=== PATIENT | female | born 1935 | race Caucasian/White ===

== ENCOUNTER 2016-09-16 16:42 | Inpatient (IN) | payer OTHER ==
--- NOTE | 2016-09-16 16:50 | PDOC ---
History of Present Illness - General History Source: Patient Exam Limitations: No Limitations - History of Present Illness Initial Comments: 09/16/16 16:58 The patient is a 80 year old female with a significant past medical history of dementia, Parkinson's, anemia, hyperthyroidism, chronic left lower extremity cellulitis and swelling, and prior syncopal episodes, who was recently admitted with a stroke/TIA, who presents to the ED for intermittent left leg itching, redness, and pain since today. Patient denies any other complaints. Patient denies chest pain, fever, chills, nausea, vomiting, diarrhea, constipation, dysuria, hematuria. Patient lives at home with health aid. PSH: Hysterectomy <Nolberto Michael - Last Filed: 09/16/16 19:18> - General History Source: Patient Exam Limitations: No Limitations <Radha Ghotra - Last Filed: 09/18/16 09:36> - General Chief Complaint: Pain Stated Complaint: LEFT LEG PAIN, SWELLING Time Seen by Provider: 09/16/16 16:50 Past History <Nolberto Michael - Last Filed: 09/16/16 19:18> - Past Medical History Anemia: Yes (normocytic normochromic anemia) Asthma: No Cancer: No Cardiac Disorders: Yes (LBBB) CVA: No COPD: No CHF: No Dementia: Yes Diabetes: No GI Disorders: No Disorders: No HTN: Yes Hypercholesterolemia: No Liver Disease: No Seizures: No Thyroid Disease: Yes (HYPERTHYROID) - Surgical History Abdominal Surgery: No Appendectomy: No Cardiac Surgery: No Cholecystectomy: No Lung Surgery: No Neurologic Surgery: No Orthopedic Surgery: No - Psycho/Social/Smoking Cessation Hx Anxiety: No Suicidal Ideation: No Smoking Status: No Smoking History: Never smoked Have you smoked in the past 12 months: No Number of Cigarettes Smoked Daily: 0 Hx Alcohol Use: No Drug/Substance Use Hx: No Substance Use Type: Alcohol Hx Substance Use Treatment: No <Radha Ghotra - Last Filed: 09/18/16 09:36> - Past Medical History Allergies/Adverse Reactions: Allergies Allergy/AdvReac Type Severity Reaction Status Date / Time amoxicillin [Amoxicillin] Allergy Unknown Verified 09/16/16 16:45 loracarbef [From Lorabid] Allergy Unknown Verified 09/16/16 16:45 prochlorperazine edisylate Allergy Unknown Verified 09/16/16 16:45 [From Compazine] prochlorperazine maleate Allergy Unknown Verified 09/16/16 16:45 [From Compazine] promethazine HCl Allergy Unknown Verified 09/16/16 16:45 [From Phenergan] Home Medications: Ambulatory Orders Gabapentin [Neurontin -] 100 mg PO HS #0 capsule 10/02/14 Methimazole [Tapazole -] 2.5 mg PO Q48H #0 tablet 10/02/14 Carbidopa/Levodopa [Carbidopa-Levo 25-100 Tab] 2 each PO TID 12/26/14 Quetiapine Fumarate [Seroquel -] 12.5 mg PO HS 06/12/16 Atorvastatin Ca [Lipitor] 10 mg PO HS #30 tablet 06/13/16 Review of Systems - Review of Systems Able to Perform ROS?: Yes Comments:: 09/16/16 16:58 GENERAL/CONSTITUTIONAL: No: fever, chills, weakness, loss of appetite. HEAD, EYES, EARS, NOSE AND THROAT: No: change in vision, ear pain, discharge, sore throat, throat swelling. CARDIOVASCULAR: No: chest pain, lightheadedness, palpitations, syncope RESPIRATORY: No: cough, shortness of breath, wheezing, hemoptysis, stridor. GASTROINTESTINAL: No: nausea, vomiting, abdominal cramping, diarrhea, rectal bleeding, constipation. GENITOURINARY: No: dysuria, hematuria, frequency, urgency, flank pain. MUSCULOSKELETAL: No: back pain, neck pain, joint pain. EXTREMITIES: left leg pain, itching, and redness. SKIN AND BREASTS: No: lesions, pallor, rash or easy bruising. NEUROLOGIC: No: headache, vertigo, paresthesias, weakness ENDOCRINE: No: unexplained weight gain or loss HEMATOLOGIC/LYMPHATIC: No: anemia, easy bleeding, swelling nodes <Nolberto Michael - Last Filed: 09/16/16 19:18> *Physical Exam - Vital Signs Last Vital Signs Temp Pulse Resp BP Pulse Ox 97.8 F 71 18 161/83 99 09/16/16 16:42 09/16/16 16:42 09/16/16 16:42 09/16/16 16:42 09/16/16 16:42 - Physical Exam Comments: 09/16/16 16:59 GENERAL: The patient is in no acute distress. HEAD: Normal with no signs of trauma. EYES: PERRLA, EOMI, sclera anicteric, conjunctiva clear. ENT: Ears normal, nares patent, oropharynx clear without exudates. Moist mucous membranes. NECK: Normal range of motion, supple without lymphadenopathy, JVD, or masses. LUNGS: Breath sounds equal, clear to auscultation bilaterally. No wheezes, and no crackles. HEART:Regular rate and rhythm, normal S1 and S2 without murmur, rub or gallop. ABDOMEN: Soft, nontender, normoactive bowel sounds. No guarding, no rebound. EXTREMITIES: Lower left extremity: 3+ pitting edema, is erythematous, Not warm to touch. Honey crusting. normal range of motion. Sensation in-tact. All other extremities are normal. NEUROLOGICAL: Cranial nerves II through XII grossly intact. Normal speech. No focal neurological deficits. MUSCULOSKELETAL: Back non-tender to palpation, no CVA tenderness SKIN: Warm, Dry, normal turgor, no rashes or lesions noted. <Nolberto Michael - Last Filed: 09/16/16 19:18> Heart Score/ECG Review - ECG Intrepretation Comment:: Normal Sinus Rhythm, 71 bpm. Possible left atrial enlargement. Left axis deviation. Left ventricular hypertrophy. Septal infarct, age undetermined. Abnormal ECG. <Nolberto Michael - Last Filed: 09/16/16 19:18> ED Treatment Course - LABORATORY CBC & Chemistry Diagram: 09/16/16 17:30 09/16/16 17:30 <Nolberto Michael - Last Filed: 09/16/16 19:18> - LABORATORY CBC & Chemistry Diagram: 09/17/16 05:00 09/17/16 05:00 <Radha Ghotra - Last Filed: 09/18/16 09:36> Medical Decision Making - Medical Decision Making 09/16/16 16:50 A portion of this note was documented by scribe services under my direction. I have reviewed the details of the note, within reason, and agree with the documentation with the following case summary and management plan written by me. Nursing documentation reviewed and incorporated into medical decision making 09/16/16 16:52 This is a 80yo F w/a a history of dementia, Parkinson's, anemia, hyperthyroidism , chronic left lower extremity cellulitis and swelling, and prior syncopal episodes who was brought in to the ER by the [employer] due to itching of the left lower extremity Per chart review, pt has chronic LLE cellulitis Pt [employer] states her skin is typically not erythematous She has not have fevers or chills No new trauma, though, pt has been noted to be itching her leg No new exposure 09/16/16 16:54 DD: Cellulitis, impetigo, chronic lower extremity edema, DVT Will do labs Will do duplex Will discharge with Muprocin and po abx I have asked pt [employer] to take pictures of her leg and bring them for re evaluation in 2-3 days with her PMD 09/16/16 18:35 Laboratory Tests 09/16/16 09/16/16 17:30 17:30 WBC 6.7 Hgb 10.5 L Hct 31.8 L Plt Count 413 Neutrophils % 78.7 Monocytes % 5.4 Sodium 137 Potassium 4.9 Chloride 104 BUN 27 H D Creatinine 1.0 D Random Glucose 109 H D 09/16/16 18:44 Will do a dose of Vancomycin Will consult hospitalist Pt very erythematous Possible admission 09/16/16 18:46 <Radha Ghotra - Last Filed: 09/18/16 09:36> *DC/Admit/Observation/Transfer - Attestations Scribe Attestion: 09/16/16 17:06 Documentation prepared by Nolberto Michael, acting as medical practice manager for Radha Ghotra MD. <Nolberto Michael - Last Filed: 09/16/16 19:18> <Radha Ghotra - Last Filed: 09/18/16 09:36> Diagnosis at time of Disposition: Left leg cellulitis - Discharge Dispostion Condition at time of disposition: Stable
[2016-09-16 17:51] LABS: BASOPHIL 0.7 % (0-2.0); EOSINOPHIL 1.6 % (0-4.5); MCH 30.5 pg (25.7-33.7); MEAN CELL VOLUME 92.4 fl (80-96); MEAN PLT VOLUME 7.3 fl (7.5-11.1); NEUTROPHILS 78.7 % (42.8-82.8); PLATELET COUNT 413 K/MM3 (134-434); RDW 13.5 % (11.6-15.6); WHITE BLOOD COUNT 6.7 K/mm3 (4.0-10.0)
[2016-09-16 18:01] LABS: ALBUMIN 3.6 g/dl (3.5-5.0); ALK PHOS 71 U/L (32-92); ANION GAP 8 (8-16); BILIRUBIN,TOTAL 0.2 mg/dl (0.2-1.0); CALCIUM 8.9 mg/dl (8.4-10.2); CO2 25 mmol/L (22-28); GLUCOSE,RANDOM 109 mg/dl (74-106); SGOT/AST 26 U/L (10-42)
[2016-09-16 18:26] LABS: SGPT/ALT < 10 U/L (10-40)
[2016-09-16] MEDS ORDERED: VANCOMYCIN 1,000 MG in DEXTROSE 5%-WATER - 250 ML IVPB ONE (18:45)
[2016-09-16] MEDS ORDERED: VANCOMYCIN 1,000 MG VIAL (RESTRICTED TO ID ONLY) ONE (18:48)
--- NOTE | 2016-09-16 19:38 | PDOC ---
*Physical Exam - Vital Signs Last Vital Signs Temp Pulse Resp BP Pulse Ox 97.8 F 71 18 161/83 99 09/16/16 16:42 09/16/16 16:42 09/16/16 16:42 09/16/16 16:42 09/16/16 16:42 ED Treatment Course - LABORATORY CBC & Chemistry Diagram: 09/16/16 17:30 09/16/16 17:30 - ADDITIONAL ORDERS Additional order review: Laboratory Results 09/16/16 17:30 Sodium 137 Potassium 4.9 Chloride 104 Carbon Dioxide 25 Anion Gap 8 BUN 27 H D Creatinine 1.0 D Creat Clearance w eGFR 53.62 Random Glucose 109 H D Calcium 8.9 Total Bilirubin 0.2 D AST 26 D ALT < 10 L D Alkaline Phosphatase 71 D Total Protein 7.0 Albumin 3.6 09/16/16 17:30 RBC 3.45 L MCV 92.4 MCHC 33.0 RDW 13.5 MPV 7.3 L Neutrophils % 78.7 Lymphocytes % 13.6 D Monocytes % 5.4 Eosinophils % 1.6 Basophils % 0.7 Progress Note - Progress Note Progress Note: Care of this patient received from Dr. Ghotra. 80-year-old patient has a history of intermittent lower extremity cellulitis. She is brought into the ER by her home health aid with several day history of progressive edema and erythema of the left lower leg, consistent with acute cellulitis. Patient was given vancomycin 1 g IV, while in the ER. Case discussed with Lupe PINEDA, from [facility] service. Patient will be admitted for treatment of her cellulitis . *DC/Admit/Observation/Transfer Diagnosis at time of Disposition: Left leg cellulitis - Discharge Dispostion Condition at time of disposition: Stable Admit: Yes
--- NOTE | 2016-09-16 20:29 | HP ---
CHIEF COMPLAINT: Left Leg Swelling and Redness PCP: HISTORY OF PRESENT ILLNESS: This is a 80 y/o woman with a past medical history of Dementia, Parkinsons, Anemia, Hyperthyroidism, Chronic LLE Cellulitis, prior Syncopal Episodes. Who presents to the emergency department with increased swelling, erythema and pruritus x 5 days. Patient denies fever, chills, SOB, CP, AP, N/V/D, constipation, dysuria. Patient denies exposure to sick contacts. 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 [employer] Work[employer] Family History: Non-contributory Allergies amoxicillin [Amoxicillin] Allergy (Unknown, Verified 09/16/16 16:45) loracarbef [From Lorabid] Allergy (Unknown, Verified 09/16/16 16:45) prochlorperazine edisylate [From Compazine] Allergy (Unknown, Verified 09/16/16 16:45) prochlorperazine maleate [From Compazine] Allergy (Unknown, Verified 09/16/16 16 :45) promethazine HCl [From Phenergan] Allergy (Unknown, Verified 09/16/16 16:45) HOME MEDICATIONS: Home Medications Medication Instructions Recorded Gabapentin [Neurontin -] 100 mg PO HS #0 capsule 10/02/14 Methimazole [Tapazole -] 2.5 mg PO Q48H #0 tablet 10/02/14 Carbidopa/Levodopa [Carbidopa-Levo 2 each PO TID 12/26/14 25-100 Tab] Quetiapine Fumarate [Seroquel -] 12.5 mg PO HS 06/12/16 Atorvastatin Ca [Lipitor] 10 mg PO HS #30 tablet 06/13/16 REVIEW OF SYSTEMS CONSTITUTIONAL: Absent: fever, chills, diaphoresis, generalized weakness, malaise, loss of appetite, weight change HEENT: Absent: rhinorrhea, nasal congestion, throat pain, throat swelling, difficulty swallowing, mouth swelling, ear pain, eye pain, visual changes CARDIOVASCULAR: Absent: chest pain, syncope, palpitations, irregular heart rate, lightheadedness , peripheral edema RESPIRATORY: Absent: cough, shortness of breath, dyspnea with exertion, orthopnea, wheezing, stridor, hemoptysis GASTROINTESTINAL: Absent: abdominal pain, abdominal distension, nausea, vomiting, diarrhea, constipation, melena, hematochezia GENITOURINARY: Absent: dysuria, frequency, urgency, hesitancy, hematuria, flank pain, genital pain MUSCULOSKELETAL: leg pain, swelling, redness Absent: myalgia, arthralgia, joint swelling, back pain, neck pain SKIN: itching Absent: rash, pallor HEMATOLOGIC/IMMUNOLOGIC: Absent: easy bleeding, easy bruising, lymphadenopathy, frequent infections ENDOCRINE: Absent: unexplained weight gain, unexplained weight loss, heat intolerance, cold intolerance NEUROLOGIC: Absent: headache, focal weakness or paresthesias, dizziness, unsteady gait, seizure, mental status changes, bladder or bowel incontinence PSYCHIATRIC: Absent: anxiety, depression, suicidal or homicidal ideation, hallucinations. PHYSICAL EXAMINATION Vital Signs - 24 hr 09/16/16 20:15 Temperature 98.2 F Pulse Rate [ 78 Left Apical] Respiratory 18 Rate Blood Pressure 149/94 [Left Arm] O2 Sat by Pulse 100 Oximetry (%) GENERAL: Awake, alert, and oriented to name and place, in no acute distress. HEAD: Normal with no signs of trauma. EYES: Pupils equal, round and reactive to light, extraocular movements intact, sclera anicteric, conjunctiva clear. No lid lag. EARS, NOSE, THROAT: Ears normal, nares patent, oropharynx clear without exudates. Moist mucous membranes. NECK: Normal range of motion, supple without lymphadenopathy, JVD, or masses. LUNGS: Breath sounds equal, clear to auscultation bilaterally. No wheezes, and no crackles. No accessory muscle use. HEART: Regular rate and rhythm, normal S1 and S2 without murmur, rub or gallop. ABDOMEN: Soft, nontender, not distended, normoactive bowel sounds, no guarding, no rebound, no masses. No hepatomegaly or splenomegaly. MUSCULOSKELETAL: Normal range of motion at all joints. No bony deformities. + tenderness to LLE. No CVA tenderness. UPPER EXTREMITIES: 2+ pulses, warm, well-perfused. No cyanosis. No clubbing. Cap refill <2 seconds. No peripheral edema. LOWER EXTREMITIES: 2+ pulses, warm, well-perfused. No calf tenderness. +2 pitting L>R peripheral edema. NEUROLOGICAL: Cranial nerves II-XII intact. Normal speech. Gait not observed. PSYCHIATRIC: Cooperative. Good eye contact. Appropriate mood and affect. SKIN: Warm, dry, normal turgor, macular papular raised erythematous rash to LLE . No lesions noted. Laboratory Results - last 24 hr 09/16/16 09/16/16 17:30 17:30 WBC 6.7 RBC 3.45 L Hgb 10.5 L Hct 31.8 L MCV 92.4 MCHC 33.0 RDW 13.5 Plt Count 413 MPV 7.3 L Neutrophils % 78.7 Lymphocytes % 13.6 D Monocytes % 5.4 Eosinophils % 1.6 Basophils % 0.7 Sodium 137 Potassium 4.9 Chloride 104 Carbon Dioxide 25 Anion Gap 8 BUN 27 H D Creatinine 1.0 D Creat Clearance w eGFR 53.62 Random Glucose 109 H D Calcium 8.9 Total Bilirubin 0.2 D AST 26 D ALT < 10 L D Alkaline Phosphatase 71 D Total Protein 7.0 Albumin 3.6 *Heart Score/ECG Review - ECG Intrepretation Comment:: Normal Sinus Rhythm, 71 bpm. Possible left atrial enlargement. Left axis deviation. Left ventricular hypertrophy. Septal infarct, age undetermined. Abnormal ECG. ASSESSMENT/PLAN: This is a 80 y/o woman with a PMHx of: Dementia, Parkinson's, Anemia, Hyperthyroidism, Chronic LLE Cellulitis, prior Syncopal Episodes. Admitted for Recurrent Left leg Cellulitis for further evaluation of their emergent condition. Plan: 1. ID: Left Leg Cellulitis - Patient reports increased erythema with itching to her left lower leg x 5 days - On exam: +erythematous, warmth with pruritus and macular papular rash. - Duplex of lower extremity- neg DVT - Started on Vancomycin in ED - Will continue Vancomycin renal dosing - Appreciate ID Consult - No leukocytosis, patient is afebrile, will monitor CBC - Blood Cultures-pending - Monitor vitals 2. Anemia - Stable - Monitor CBC - Transfuse of Hgb < 7.0 3. Dementia - Continue home med 4. Parkinsons - Continue home med 5. Hyperthyroidism - Continue home med - TSH 6. F/E/N - PO Fluids - Replete lytes prn - Low Na Diet 7. DVT Prophylaxis - OOB - Heparin SQ Code Status: Full Code, HCP Problem List - Problem (1) Left leg cellulitis Code(s): L03.116 - CELLULITIS OF LEFT LOWER LIMB (2) LAUREN (acute kidney injury) Code(s): N17.9 - ACUTE KIDNEY FAILURE, UNSPECIFIED (3) Chronic acquired lymphedema Code(s): I89.0 - LYMPHEDEMA, NOT ELSEWHERE CLASSIFIED (4) Stroke Code(s): I63.9 - CEREBRAL INFARCTION, UNSPECIFIED Qualifiers: CVA mechanism: unspecified Qualified Code(s): I63.9 - Cerebral infarction, unspecified (5) Normocytic normochromic anemia Code(s): D64.9 - ANEMIA, UNSPECIFIED (6) Dementia Code(s): F03.90 - UNSPECIFIED DEMENTIA WITHOUT BEHAVIORAL DISTURBANCE (7) TIA (transient ischemic attack) Code(s): G45.9 - TRANSIENT CEREBRAL ISCHEMIC ATTACK, UNSPECIFIED (8) Parkinson disease Code(s): G20 - PARKINSON'S DISEASE (9) HTN (hypertension) Code(s): I10 - ESSENTIAL (PRIMARY) HYPERTENSION (10) Hyperthyroidism Code(s): E05.90 - THYROTOXICOSIS, UNSP WITHOUT THYROTOXIC CRISIS OR STORM (11) DVT prophylaxis Code(s): DSB9169 - Visit type - Emergency Visit Emergency Visit: Yes ED Registration Date: 09/16/16 Care time: The patient presented to the Emergency Department on the above date and was hospitalized for further evaluation of their emergent condition. - New Patient This patient is new to me today: Yes Date on this admission: 09/16/16 - Critical Care Critical Care patient: No
[2016-09-16 21:12] VITALS: BMI 23.3
[2016-09-16] MEDS: HEPARIN NA (PORCINE) 5,000 UNITS/ML 1ML VIAL SQ SCH (21:17)
[2016-09-17] MEDS: CARBIDOPA/LEVODOPA 25/100 TABLET (FP) PO SCH ×3 (06:54→21:34)
[2016-09-17] MEDS: HEPARIN NA (PORCINE) 5,000 UNITS/ML 1ML VIAL SQ SCH ×3 (06:54→21:34)
[2016-09-17 08:11] LABS: BASOPHIL 0.5 % (0-2.0); EOSINOPHIL 0.2 % (0-4.5); MCH 31.2 pg (25.7-33.7); MEAN CELL VOLUME 94.7 fl (80-96); MEAN PLT VOLUME 8.1 fl (7.5-11.1); NEUTROPHILS 92.6 % (42.8-82.8); PLATELET COUNT 336 K/MM3 (134-434); RDW 13.6 % (11.6-15.6); WHITE BLOOD COUNT 9.1 K/mm3 (4.0-10.0)
[2016-09-17 08:33] LABS: CALCIUM 8.7 mg/dL (8.5-10.1)
[2016-09-17 08:36] LABS: CREATININE 0.9 mg/dL (0.55-1.02)
--- NOTE | 2016-09-17 09:34 | PN ---
Progress Note (short form) - Note Progress Note: ID Consult dictated Recurrent LE cellulitis Hx chronic lymphaedema PCN allergy Hx MRSA Pending c/s , empiric vancomycin / levaquin
[2016-09-17] MEDS ORDERED: VANCOMYCIN 900 MG in DEXTROSE 5%-WATER - 250 ML IVPB SCH (10:00)
[2016-09-17] MEDS: METHIMAZOLE 5 MG TABLET (FP) PO SCH (10:33)
--- NOTE | 2016-09-17 10:34 | CONS ---
DATE OF CONSULTATION: DATE OF DICTATION: 09/17/2016 A 80-year-old female with a history of chronic lower extremity lymphedema and recurrent lower extremity cellulitis, now evaluated for cellulitis of the lower extremities bilaterally. She cannot give a reliable history secondary to dementia. According to the notes, she has had a 5-day history of worsening bilateral lower extremity erythema, pain, and swelling, left greater than right. She presented to the emergency room and was admitted with cellulitis. A Doppler examination was performed and was negative for acute DVT. No reports of any traumatic injury, insect or animal bites, or scratches. No reported fever or chills. PAST MEDICAL HISTORY: Positive for chronic lower extremity lymphedema, history of recurrent lower extremity cellulitis, history of positive wound culture for MRSA from December 2014, history of Parkinsonism, thyroid disease, hyperlipidemia, hypertension. PAST SURGICAL HISTORY: Status post hysterectomy. ALLERGIES: AMOXICILLIN, COMPAZINE, PHENERGAN, LORABID. MEDICATIONS: Neurontin, Tapazole, carbidopa, Seroquel, Lipitor. SOCIAL HISTORY: Former smoker, lives at home. SYSTEMS REVIEW: Neurologic: Positive for Parkinsonism. Cardiac: Negative chest pain or palpitations. Respiratory: Negative cough or sputum production. Gastrointestinal: Negative vomiting or diarrhea. Genitourinary: Negative for urinary tract infection. LABORATORY DATA: White count 9.1, hematocrit 30.2, platelet count 336. Creatinine 0.9. Blood cultures pending. PHYSICAL EXAMINATION: General: She is awake and alert. She is in no acute distress. She is confused. Patient is not acutely toxic-appearing. Vital Signs: Temperature 98.9, blood pressure 157/75, pulse 102 and regular, respirations 20 per minute. HEENT: Sclerae anicteric. Heart Sounds: S1, S2. Lungs: Clear. No rhonchi, rales, or wheezing. Abdomen: Soft. No tenderness elicited. Extremities: Positive bilateral lower extremity edema. There is chronic venous stasis dermatitis present in both lower extremities. Confluent erythema and warmth involving both lower extremities, left greater than right, involving the pretibial area, extending to the calf. It is warm to touch. There is no crepitus or fluctuance. No lymphangitic streaking. IMPRESSION: 1. Recurrent bilateral lower extremity cellulitis. 2. History of chronic lymphedema. 3. PENICILLIN allergy. 4. History of positive wound culture, methicillin-resistant Staphylococcus aureus. Pending cultures, empiric antibiotic coverage in this PENICILLIN-allergic patient with vancomycin and Levaquin. Continue elevation and analgesics. Will follow. Thank you for the kind referral. HITESH CHAVARRIA M.D. [id number]
[2016-09-17] MEDS: LEVOFLOXACIN 500 MG IVPB 100 ML IVPB SCH (10:38)
[2016-09-17] MEDS: VANCOMYCIN 1 GRAM (PRE-DOCKED) 250 ML IVPB SCH ×2 (10:38→21:33)
--- NOTE | 2016-09-17 11:04 | PN ---
Progress Note (short form) - Note Progress Note: Subjective: The patient was seen and examined at the bedside, she has no complaints at this time. She reports she first noticed her LLE erythema for 3 weeks. Current Medications Generic Name Dose Route Start Last Admin Trade Name Hussein PRN Reason Stop Dose Admin Atorvastatin Calcium 10 mg 09/17/16 22:00 Lipitor - PO HS ALTHEA Carbidopa/Levodopa 2 each 09/17/16 06:00 09/17/16 06:54 Sinemet 25/100 - PO 2 each TID ALTHEA Administration Gabapentin 100 mg 09/17/16 22:00 Neurontin - PO HS ALTHEA Heparin Sodium (Porcine) 5,000 unit 09/16/16 22:00 09/17/16 06:54 Heparin - SQ 5,000 unit TID ALTHEA Administration Vancomycin HCl 250 mls @ 200 mls/hr 09/17/16 10:00 09/17/16 10:38 Vancomycin (Pre-Docked) IVPB 200 mls/hr BID ALTHEA Administration Levofloxacin 100 mls @ 100 mls/hr 09/17/16 10:00 09/17/16 10:38 Levaquin 500 Mg Premixed Ivpb - IVPB 100 mls/hr DAILY ALTHEA Administration Methimazole 2.5 mg 09/17/16 10:00 09/17/16 10:33 Tapazole - PO 2.5 mg Q2D@1000 ALTHEA Administration Quetiapine Fumarate 12.5 mg 09/17/16 22:00 Seroquel - PO HS [facility] Objective: Vital Signs Period Temp Pulse Resp BP Sys/Moore Pulse Ox Last 24 Hr 97.8 F-98.9 F 71-102 18-20 122-170/57-94 94-100 Physical Exam: General: NAD Lungs: CTA bilaterally Heart: RRR, S1S2 Abd: Soft, non-tender, non-distended. Normoactive bowel sounds Ext: B/l lower extremity chonic venous stasis dermatitis. B/l lower extremity edema. Confluent erythema b/l lower extremities L>R, blanchable. Warm to touch, no crepitus Neuro: CN 2-12 intact CBCD WBC 9.1 K/mm3 (4.0-10.0) D 09/17/16 05:00 RBC 3.19 M/mm3 (3.60-5.2) L 09/17/16 05:00 Hgb 10.0 GM/dL (10.7-15.3) L 09/17/16 05:00 Hct 30.2 % (32.4-45.2) L 09/17/16 05:00 MCV 94.7 fl (80-96) 09/17/16 05:00 MCHC 33.0 g/dl (32.0-36.0) 09/17/16 05:00 RDW 13.6 % (11.6-15.6) 09/17/16 05:00 Plt Count 336 K/MM3 (134-434) 09/17/16 05:00 MPV 8.1 fl (7.5-11.1) 09/17/16 05:00 CMP Sodium 137 mmol/L (136-145) 09/17/16 05:00 Potassium 4.6 mmol/L (3.5-5.1) 09/17/16 05:00 Chloride 103 mmol/L (98-107) 09/17/16 05:00 Carbon Dioxide 24 mmol/L (21-32) 09/17/16 05:00 Anion Gap 10 (8-16) 09/17/16 05:00 BUN 22 mg/dL (7-18) H D 09/17/16 05:00 Creatinine 0.9 mg/dL (0.55-1.02) 09/17/16 05:00 Creat Clearance w eGFR 53.62 (>60) 09/16/16 17:30 Random Glucose 98 mg/dL (74-106) 09/17/16 05:00 Calcium 8.7 mg/dL (8.5-10.1) 09/17/16 05:00 Total Bilirubin 0.2 mg/dl (0.2-1.0) D 09/16/16 17:30 AST 26 U/L (10-42) D 09/16/16 17:30 ALT < 10 U/L (10-40) L D 09/16/16 17:30 Alkaline Phosphatase 71 U/L (32-92) D 09/16/16 17:30 Total Protein 7.0 g/dl (6.4-8.3) 09/16/16 17:30 Albumin 3.6 g/dl (3.5-5.0) 09/16/16 17:30 Assessment: This is a 80 year old female with PMHx of dementia, parkinson's, anemia, hyperthyroidism, chronic LLE cellulitis, prior syncopal episodes who presented to the ED with recurrent LLE cellulitis. Plan: 1) ID: Recurrent b/l lower extremity cellulitis, chronic lymphadema - Afebrile, WBC wnl - F/u blood cultures - Continue empiric Vancomycin and Levaquin - B/l lower extremity dopplers negative for DVT - Appreciate ID consult 2) Psych: Dementia - Continue Seroquel 3) Neuro: Parkinson's - Continue Sinemet 4) Endocrine: Hyperthyroidism - Continue Methimazole 5) F/E/N: - Monitor electrolytes - Sodium controlled diet 6) Prophylaxis: - OOB ambulating - Heparin 5,000u sq tid - PT 7) Dispo: - Requires continued inpatient care CODE STATUS: FULL CODE Visit type - Emergency Visit Emergency Visit: Yes ED Registration Date: 09/16/16 Care time: The patient presented to the Emergency Department on the above date and was hospitalized for further evaluation of their emergent condition. - New Patient This patient is new to me today: Yes Date on this admission: 09/17/16 - Critical Care Critical Care patient: No
[2016-09-17] MEDS: ATORVASTATIN CA 10 MG TABLET (FP) PO SCH (21:33)
[2016-09-17] MEDS: QUEtiapine FUMARATE 25 MG TABLET (FP) PO SCH (21:33)
[2016-09-17] MEDS: GABAPENTIN 100 MG CAPSULE (FP) PO SCH (21:33)
[2016-09-17 23:45] LABS: URINE APPEARANCE CLEAR; URINE BILIRUBIN NEGATIVE (NEGATIVE); URINE COLOR YELLOW; URINE GLUCOSE (UA) NEGATIVE (NEGATIVE)
[2016-09-17 23:46] LABS: URINE BLOOD NEGATIVE (NEGATIVE); URINE KETONE TRACE (NEGATIVE); URINE LEUK ESTERASE NEGATIVE (NEGATIVE); URINE NITRITE NEGATIVE (NEGATIVE); URINE PROTEIN NEGATIVE (NEGATIVE); URINE UROBILINOGEN 0.2 E.U/dl (0.2-1.0)
--- NOTE | 2016-09-17 23:56 | EKG ---
Test Reason : Blood Pressure : / mmHG Vent. Rate : 071 BPM Atrial Rate : 071 BPM P-R Int : 144 ms QRS Dur : 092 ms QT Int : 410 ms P-R-T Axes : 052 -54 061 degrees QTc Int : 445 ms NORMAL SINUS RHYTHM POSSIBLE LEFT ATRIAL ENLARGEMENT LEFT AXIS DEVIATION LEFT VENTRICULAR HYPERTROPHY SEPTAL INFARCT , AGE UNDETERMINED NONSPECIFIC T WAVE ABNORMALITY ABNORMAL ECG WHEN COMPARED WITH ECG OF 27-DEC-2014 10:34, LEFT BUNDLE BRANCH BLOCK IS NO LONGER PRESENT SEPTAL INFARCT IS NOW PRESENT Confirmed by SONJA DEVLIN MD ([id number]) on 09/17/2016 11:56:13 PM Referred By: ANGELA HACKETT Confirmed By:SONJA DEVLIN MD
[2016-09-18] MEDS: CARBIDOPA/LEVODOPA 25/100 TABLET (FP) PO SCH ×3 (06:00→21:44)
[2016-09-18] MEDS: HEPARIN NA (PORCINE) 5,000 UNITS/ML 1ML VIAL SQ SCH ×3 (06:01→21:44)
[2016-09-18] MEDS: VANCOMYCIN 1 GRAM (PRE-DOCKED) 250 ML IVPB SCH ×2 (09:38→21:44)
[2016-09-18] MEDS: LEVOFLOXACIN 500 MG IVPB 100 ML IVPB SCH (09:38)
[2016-09-18 10:03] LABS: MCH 29.9 pg (25.7-33.7); MEAN CELL VOLUME 93.5 fl (80-96); MEAN PLT VOLUME 7.9 fl (7.5-11.1); PLATELET COUNT 340 K/MM3 (134-434); RDW 12.9 % (11.6-15.6); WHITE BLOOD COUNT 4.9 K/mm3 (4.0-10.0)
--- NOTE | 2016-09-18 12:17 | PN ---
Progress Note, Physician History of Present Illness: No c/o leg pain No fever/ chills Tolerating antibiotics - Current Medication List Current Medications: Active Medications Atorvastatin Calcium (Lipitor -) 10 mg PO [facility] Last Admin: 09/17/16 21:33 Dose: 10 mg Carbidopa/Levodopa (Sinemet 25/100 -) 2 each PO TID [facility] Last Admin: 09/18/16 06:00 Dose: 2 each Gabapentin (Neurontin -) 100 mg PO [facility] Last Admin: 09/17/16 21:33 Dose: 100 mg Heparin Sodium (Porcine) (Heparin -) 5,000 unit SQ TID [facility] Last Admin: 09/18/16 06:01 Dose: 5,000 unit Vancomycin HCl (Vancomycin (Pre-Docked)) 250 mls @ 200 mls/hr IVPB BID [facility] Last Admin: 09/18/16 09:38 Dose: 200 mls/hr Levofloxacin (Levaquin 500 Mg Premixed Ivpb -) 100 mls @ 100 mls/hr IVPB DAILY [facility] Last Admin: 09/18/16 09:38 Dose: 100 mls/hr Methimazole (Tapazole -) 2.5 mg PO Q2D@1000 [facility] Last Admin: 09/17/16 10:33 Dose: 2.5 mg Quetiapine Fumarate (Seroquel -) 12.5 mg PO [facility] Last Admin: 09/17/16 21:33 Dose: 12.5 mg - Objective Vital Signs: Vital Signs Temperature 98.5 F 09/18/16 06:00 Pulse Rate 74 09/18/16 06:00 Respiratory Rate 17 09/18/16 09:00 Blood Pressure 132/58 09/18/16 06:00 O2 Sat by Pulse Oximetry (%) 95 09/18/16 09:00 Constitutional: Yes: No Distress Eyes: Yes: Conjunctiva Clear Cardiovascular: Yes: Regular Rate and Rhythm, S1, S2 Respiratory: Yes: CTA Bilaterally Gastrointestinal: Yes: Normal Bowel Sounds, Soft. No: Tenderness Extremities: Yes: Other (+ LE lymphedema decreased LE erythema/ warmth) Edema: Yes (+ ) Labs: CBC, BMP 09/18/16 07:43 09/17/16 05:00 Assessment/Plan Recurrent bilateral LE cellulitus LE lymphedema PCN allergy continue empiric vancomycin/ levaquin check vancomycin level elevation
--- NOTE | 2016-09-18 12:33 | PN ---
Physical Exam: SUBJECTIVE: Patient seen and examined, reports feeling well reports pain to bilateral lower extremities when touched patient denies ny tactile fever OBJECTIVE: patient is a 80 year old female with PMHx of dementia, parkinson's, anemia, hyperthyroidism, chronic LLE cellulitis, prior syncopal episodes. she was admitted from the emergency department for bilateral lower extremity cellulitis Vital Signs Period Temp Pulse Resp BP Sys/Moore Pulse Ox Last 24 Hr 98 F-98.8 F 74-82 17-20 129-147/58-68 95-100 physical examination GENERAL: The patient is awake, alert, and fully oriented, in no acute distress. HEAD: Normal with no signs of trauma. EYES: PERRL, extraocular movements intact, sclera anicteric, conjunctiva clear. No ptosis. ENT: Ears normal, nares patent, oropharynx clear without exudates, moist mucous membranes. NECK: Trachea midline, full range of motion, supple. LUNGS: Breath sounds equal, clear to auscultation bilaterally, no wheezes, no crackles, no accessory muscle use. HEART: Regular rate and rhythm, S1, S2 without murmur, rub or gallop. ABDOMEN: Soft, nontender, nondistended, normoactive bowel sounds, no guarding, no rebound, no hepatosplenomegaly, no masses. EXTREMITIES: 2+ pulses, warm, well-perfused, circumferential erythema to left lower extremity +2 edema, right lower extremity, 6cm of erythema noted to the distal anterior right lower extremity, and no induration noted NEUROLOGICAL: Cranial nerves II through XII grossly intact. Normal speech, gait not observed. PSYCH: Normal mood, normal affect. SKIN: Warm, dry, normal turgor, no rashes or lesions noted Laboratory Results - last 24 hr 09/17/16 09/18/16 23:32 07:43 WBC 4.9 RBC 3.04 L Hgb 9.1 L D Hct 28.4 L MCV 93.5 MCHC 32.0 RDW 12.9 Plt Count 340 MPV 7.9 Urine Color Yellow Urine Appearance Clear Urine pH 6.0 Ur Specific Paradox 1.020 Urine Protein Negative Urine Glucose (UA) Negative Urine Ketones Trace H Urine Blood Negative Urine Nitrite Negative Urine Bilirubin Negative Urine Urobilinogen 0.2 e.u/dl Ur Leukocyte Esterase Negative Active Medications Generic Name Dose Route Start Last Admin Trade Name Freq PRN Reason Stop Dose Admin Atorvastatin Calcium 10 mg 09/17/16 22:00 09/17/16 21:33 Lipitor - PO 10 mg HS ALTHEA Administration Carbidopa/Levodopa 2 each 09/17/16 06:00 09/18/16 06:00 Sinemet 25/100 - PO 2 each TID ALTHEA Administration Gabapentin 100 mg 09/17/16 22:00 09/17/16 21:33 Neurontin - PO 100 mg HS ALTHEA Administration Heparin Sodium (Porcine) 5,000 unit 09/16/16 22:00 09/18/16 06:01 Heparin - SQ 5,000 unit TID ALTHEA Administration Vancomycin HCl 250 mls @ 200 mls/hr 09/17/16 10:00 09/18/16 09:38 Vancomycin (Pre-Docked) IVPB 200 mls/hr BID ALTHEA Administration Levofloxacin 100 mls @ 100 mls/hr 09/17/16 10:00 09/18/16 09:38 Levaquin 500 Mg Premixed Ivpb - IVPB 100 mls/hr DAILY ALTHEA Administration Methimazole 2.5 mg 09/17/16 10:00 09/17/16 10:33 Tapazole - PO 2.5 mg Q2D@1000 ALTHEA Administration Quetiapine Fumarate 12.5 mg 09/17/16 22:00 09/17/16 21:33 Seroquel - PO 12.5 mg HS ALTHEA Administration Microbiology 09/16/16 17:30 Blood - Peripheral Venous Blood Culture - Preliminary NO GROWTH OBTAINED AFTER 24 HOURS, INCUBATION TO CONTINUE FOR 4 DAYS. 09/16/16 17:30 Blood - Peripheral Venous Blood Culture - Preliminary NO GROWTH OBTAINED AFTER 24 HOURS, INCUBATION TO CONTINUE FOR 4 DAYS. IMAGING B/l lower extremity dopplers negative for DVT ASSESSMENT/PLAN: 1) ID: Recurrent b/l lower extremity cellulitis, chronic lymphadema - Afebrile, no leukocytosis noted, - F/u blood cultures - Continue empiric Vancomycin and Levaquin as per ID - Appreciate ID consult 2) Psych: Dementia - Continue Seroquel 3) Neuro: Parkinson's - Continue Sinemet 4) Endocrine: Hyperthyroidism - Continue Methimazole 5) F/E/N: - Monitor electrolytes - Sodium controlled diet 6) Prophylaxis: - OOB ambulating - zantac - Heparin 5,000u sq tid - PT 7) Dispo: - Requires continued inpatient care CODE STATUS: FULL CODE Visit type - Emergency Visit Emergency Visit: Yes ED Registration Date: 09/16/16 Care time: The patient presented to the Emergency Department on the above date and was hospitalized for further evaluation of their emergent condition. - New Patient This patient is new to me today: No - Critical Care Critical Care patient: No - Discharge Referral Referred to [facility] Med P.C.: No
[2016-09-18] MEDS: QUEtiapine FUMARATE 25 MG TABLET (FP) PO SCH (21:44)
[2016-09-18] MEDS: ATORVASTATIN CA 10 MG TABLET (FP) PO SCH (21:44)
[2016-09-18] MEDS: GABAPENTIN 100 MG CAPSULE (FP) PO SCH (21:45)
[2016-09-19] MEDS: CARBIDOPA/LEVODOPA 25/100 TABLET (FP) PO SCH ×3 (06:41→21:30)
[2016-09-19] MEDS: HEPARIN NA (PORCINE) 5,000 UNITS/ML 1ML VIAL SQ SCH ×3 (06:43→21:30)
[2016-09-19 09:03] LABS: BASOPHIL 0.6 % (0-2.0); EOSINOPHIL 6.4 % (0-4.5); MCH 30.3 pg (25.7-33.7); MCHC 32.8 g/dl (32.0-36.0); MEAN CELL VOLUME 92.5 fl (80-96); MEAN PLT VOLUME 7.1 fl (7.5-11.1); NEUTROPHILS 74.8 % (42.8-82.8); PLATELET COUNT 343 K/MM3 (134-434); RDW 12.8 % (11.6-15.6); WHITE BLOOD COUNT 6.2 K/mm3 (4.0-10.0)
[2016-09-19] MEDS: LEVOFLOXACIN 500 MG IVPB 100 ML IVPB SCH (09:32)
[2016-09-19] MEDS: METHIMAZOLE 5 MG TABLET (FP) PO SCH (09:34)
--- NOTE | 2016-09-19 09:43 | PN ---
Progress Note, Physician History of Present Illness: Awake but confused Offers no complaints Afebrile, WBC WNL BC (-) - Current Medication List Current Medications: Active Medications Atorvastatin Calcium (Lipitor -) 10 mg PO [facility] Last Admin: 09/18/16 21:44 Dose: 10 mg Carbidopa/Levodopa (Sinemet 25/100 -) 2 each PO TID [facility] Last Admin: 09/19/16 06:41 Dose: 2 each Gabapentin (Neurontin -) 100 mg PO [facility] Last Admin: 09/18/16 21:45 Dose: 100 mg Heparin Sodium (Porcine) (Heparin -) 5,000 unit SQ TID [facility] Last Admin: 09/19/16 06:43 Dose: 5,000 unit Vancomycin HCl (Vancomycin (Pre-Docked)) 250 mls @ 200 mls/hr IVPB BID [facility] Last Admin: 09/18/16 21:44 Dose: 200 mls/hr Levofloxacin (Levaquin 500 Mg Premixed Ivpb -) 100 mls @ 100 mls/hr IVPB DAILY [facility] Last Admin: 09/19/16 09:32 Dose: 100 mls/hr Methimazole (Tapazole -) 2.5 mg PO Q2D@1000 [facility] Last Admin: 09/19/16 09:34 Dose: 2.5 mg Quetiapine Fumarate (Seroquel -) 12.5 mg PO [facility] Last Admin: 09/18/16 21:44 Dose: 12.5 mg - Objective Vital Signs: Vital Signs Temperature 98.0 F 09/19/16 05:20 Pulse Rate 85 09/19/16 05:20 Respiratory Rate 18 09/19/16 05:20 Blood Pressure 145/76 09/19/16 05:20 O2 Sat by Pulse Oximetry (%) 95 09/19/16 05:20 Constitutional: Yes: No Distress Eyes: Yes: Conjunctiva Clear Cardiovascular: Yes: Regular Rate and Rhythm, S1, S2 Respiratory: Yes: CTA Bilaterally Gastrointestinal: Yes: Normal Bowel Sounds, Soft. No: Tenderness Extremities: Yes: Other (+ swelling/ erythema/ warmth LE bilaterally L >R) Integumentary: Yes: Other (slight blanching erythema on chest) Labs: CBC, BMP 09/19/16 08:46 Assessment/Plan Recurrent bilateral LE cellulitus L >R LE lymphedema PCN allergy continue empiric vancomycin/ levaquin check vancomycin level elevation
[2016-09-19 10:19] LABS: SGPT/ALT < 9 U/L (10-40)
[2016-09-19 10:21] LABS: GLUCOSE,RANDOM 100 mg/dl (74-106)
[2016-09-19 10:22] LABS: ANION GAP 7 (8-16); CALCIUM 8.5 mg/dl (8.4-10.2); CO2 24 mmol/L (22-28); CREATININE 1.2 mg/dl (0.6-1.3); MAGNESIUM 1.9 mg/dL (1.8-2.4); PHOSPHOROUS 2.5 mg/dl (2.5-4.6); TOT PROT 5.6 g/dl (6.4-8.3)
[2016-09-19 10:23] LABS: ALBUMIN 2.7 g/dl (3.5-5.0); BILIRUBIN,TOTAL 0.6 mg/dl (0.2-1.0); SGOT/AST 16 U/L (10-42)
[2016-09-19 10:24] LABS: ALK PHOS 53 U/L (32-92)
[2016-09-19] MEDS ORDERED: MINERAL OIL/PETROLAT/WATER TOPICAL CREAM 454 GM JAR TP PRN (12:46)
--- NOTE | 2016-09-19 13:45 | PN ---
[id number] OBJECTIVE: patient is a 80 year old female with PMHx of dementia, parkinson's, anemia, hyperthyroidism, chronic LLE cellulitis, prior syncopal episodes. she was admitted from the emergency department for bilateral lower extremity cellulitis Vital Signs Period Temp Pulse Resp BP Sys/Moore Pulse Ox Last 24 Hr 97.9 F-98.0 F 81-85 16-18 104-145/58-76 95-98 PHYSICAL EXAMINATION GENERAL: The patient is awake, alert, and fully oriented, in no acute distress. HEAD: Normal with no signs of trauma. EYES: PERRL, extraocular movements intact, sclera anicteric, conjunctiva clear. No ptosis. ENT: Ears normal, nares patent, oropharynx clear without exudates, moist mucous membranes. NECK: Trachea midline, full range of motion, supple. LUNGS: Breath sounds equal, clear to auscultation bilaterally, no wheezes, no crackles, no accessory muscle use. HEART: Regular rate and rhythm, S1, S2 without murmur, rub or gallop. ABDOMEN: Soft, nontender, nondistended, normoactive bowel sounds, no guarding, no rebound, no hepatosplenomegaly, no masses. EXTREMITIES: 2+ pulses, warm, well-perfused, circumferential erythema to left lower extremity +2 edema, right lower extremity, 6cm of erythema noted to the distal anterior right lower extremity, and no induration noted NEUROLOGICAL: Cranial nerves II through XII grossly intact. Normal speech, gait not observed. PSYCH: Normal mood, normal affect. SKIN: Warm, dry, normal turgor, no rashes or lesions noted Laboratory Results - last 24 hr 09/19/16 09/19/16 09/19/16 08:46 08:46 08:46 WBC 6.2 RBC 3.05 L Hgb 9.2 L Hct 28.2 L MCV 92.5 MCHC 32.8 RDW 12.8 Plt Count 343 MPV 7.1 L D Neutrophils % 74.8 Lymphocytes % 11.7 Monocytes % 6.5 Eosinophils % 6.4 H D Basophils % 0.6 Sodium 135 L Potassium 4.0 Chloride 104 Carbon Dioxide 24 Anion Gap 7 L BUN 21 H D Creatinine 1.2 Creat Clearance w eGFR 43.45 Random Glucose 100 Calcium 8.5 Phosphorus 2.5 D Magnesium 1.9 Total Bilirubin 0.6 D AST 16 D ALT < 9 L Alkaline Phosphatase 53 D Total Protein 5.6 L Albumin 2.7 L D Vancomycin Trough 46.894 H* Active Medications Generic Name Dose Route Start Last Admin Trade Name Hussein PRN Reason Stop Dose Admin Atorvastatin Calcium 10 mg 09/17/16 22:00 09/18/16 21:44 Lipitor - PO 10 mg HS ALTHEA Administration Carbidopa/Levodopa 2 each 09/17/16 06:00 09/19/16 06:41 Sinemet 25/100 - PO 2 each TID ALTHEA Administration Gabapentin 100 mg 09/17/16 22:00 09/18/16 21:45 Neurontin - PO 100 mg HS ALTHEA Administration Heparin Sodium (Porcine) 5,000 unit 09/16/16 22:00 09/19/16 06:43 Heparin - SQ 5,000 unit TID ALTHEA Administration Vancomycin HCl 250 mls @ 200 mls/hr 09/17/16 10:00 09/18/16 21:44 Vancomycin (Pre-Docked) IVPB 200 mls/hr BID ALTHEA Administration Levofloxacin 100 mls @ 100 mls/hr 09/17/16 10:00 09/19/16 09:32 Levaquin 500 Mg Premixed Ivpb - IVPB 100 mls/hr DAILY ALTHEA Administration Methimazole 2.5 mg 09/17/16 10:00 09/19/16 09:34 Tapazole - PO 2.5 mg Q2D@1000 ALTHEA Administration Multi-Ingredient Lotion 1 applic 09/19/16 12:46 Eucerin (Large Jar) - TP BID PRN DRY SKIN Quetiapine Fumarate 12.5 mg 09/17/16 22:00 09/18/16 21:44 Seroquel - PO 12.5 mg HS ALTHEA Administration Microbiology 09/17/16 23:32 Urine - Urine Clean Catch Urine Culture - Final NO GROWTH OBTAINED 09/16/16 17:30 Blood - Peripheral Venous Blood Culture - Preliminary NO GROWTH OBTAINED AFTER 48 HOURS, INCUBATION TO CONTINUE FOR 3 DAYS. 09/16/16 17:30 Blood - Peripheral Venous Blood Culture - Preliminary NO GROWTH OBTAINED AFTER 48 HOURS, INCUBATION TO CONTINUE FOR 3 DAYS. IMAGING B/l lower extremity dopplers negative for DVT ASSESSMENT/PLAN: 1) ID: Recurrent b/l lower extremity cellulitis, chronic lymphadema - Afebrile, no leukocytosis noted, - blood cultures NTD - Continue empiric Vancomycin and Levaquin as per ID - ID consulted and followed 2) Psych: Dementia - Continue Seroquel 3) Neuro: Parkinson's - Continue Sinemet 4) Endocrine: Hyperthyroidism - Continue Methimazole 5) F/E/N: - Monitor electrolytes - Sodium controlled diet 6) Prophylaxis: - OOB ambulating - zantac - Heparin 5,000u sq tid - PT 7) Dispo: - Requires continued inpatient care CODE STATUS: FULL CODE Visit type - Emergency Visit Emergency Visit: Yes ED Registration Date: 09/16/16 Care time: The patient presented to the Emergency Department on the above date and was hospitalized for further evaluation of their emergent condition. - New Patient This patient is new to me today: No - Critical Care Critical Care patient: No - Discharge Referral Referred to [facility] Med P.C.: No
[2016-09-19] MEDS: VANCOMYCIN 1 GRAM (PRE-DOCKED) 250 ML IVPB SCH (15:09)
[2016-09-19] MEDS: ATORVASTATIN CA 10 MG TABLET (FP) PO SCH (21:30)
[2016-09-19] MEDS: GABAPENTIN 100 MG CAPSULE (FP) PO SCH (21:30)
[2016-09-19] MEDS: QUEtiapine FUMARATE 25 MG TABLET (FP) PO SCH (21:30)
[2016-09-20] MEDS: HEPARIN NA (PORCINE) 5,000 UNITS/ML 1ML VIAL SQ SCH ×3 (06:12→22:03)
[2016-09-20] MEDS: CARBIDOPA/LEVODOPA 25/100 TABLET (FP) PO SCH ×3 (06:12→22:02)
[2016-09-20 08:56] LABS: ALK PHOS 57 U/L (32-92); ANION GAP 7 (8-16); BILIRUBIN,TOTAL 0.3 mg/dl (0.2-1.0); CALCIUM 8.7 mg/dl (8.4-10.2); CO2 25 mmol/L (22-28); CREATININE 1.2 mg/dl (0.6-1.3); GLUCOSE,RANDOM 87 mg/dl (74-106); MAGNESIUM 1.9 mg/dL (1.8-2.4); MCH 29.4 pg (25.7-33.7); MCHC 31.7 g/dl (32.0-36.0); MEAN CELL VOLUME 92.7 fl (80-96); PHOSPHOROUS 2.8 mg/dl (2.5-4.6); PLATELET COUNT 376 K/MM3 (134-434); RDW 12.9 % (11.6-15.6); SGOT/AST 17 U/L (10-42); TOT PROT 5.6 g/dl (6.4-8.3)
[2016-09-20 09:07] LABS: SGPT/ALT < 9 U/L (10-40)
[2016-09-20] MEDS: LEVOFLOXACIN 500 MG IVPB 100 ML IVPB SCH (10:15)
[2016-09-20] MEDS: RANITIDINE HCL 150 MG TABLET (FP) PO SCH (10:15)
[2016-09-20] MEDS: LACTOBACILLUS ACIDOPHILUS 1 EACH TAB (FP) PO SCH (10:15)
--- NOTE | 2016-09-20 12:26 | PN ---
[id number] OBJECTIVE: patient is a 80 year old female with PMHx of dementia, parkinson's, anemia, hyperthyroidism, chronic LLE cellulitis, prior syncopal episodes. she was admitted from the emergency department for bilateral lower extremity cellulitis Vital Signs Period Temp Pulse Resp BP Sys/Moore Pulse Ox Last 24 Hr 98.1 F-98.7 F 77-84 16-19 137-163/65-92 100-100 physical examination GENERAL: The patient is awake, alert, and fully oriented, in no acute distress. HEAD: Normal with no signs of trauma. EYES: PERRL, extraocular movements intact, sclera anicteric, conjunctiva clear. No ptosis. ENT: Ears normal, nares patent, oropharynx clear without exudates, moist mucous membranes. NECK: Trachea midline, full range of motion, supple. LUNGS: Breath sounds equal, clear to auscultation bilaterally, no wheezes, no crackles, no accessory muscle use. HEART: Regular rate and rhythm, S1, S2 without murmur, rub or gallop. ABDOMEN: Soft, nontender, nondistended, normoactive bowel sounds, no guarding, no rebound, no hepatosplenomegaly, no masses. EXTREMITIES: 2+ pulses, warm, well-perfused, circumferential erythema to left lower extremity +2 edema, right lower extremity, 5 cm of erythema noted to the distal anterior right lower extremity, and no induration noted NEUROLOGICAL: Cranial nerves II through XII grossly intact. Normal speech, gait not observed. PSYCH: Normal mood, normal affect. SKIN: Warm, dry, normal turgor, no rashes or lesions noted Laboratory Results - last 24 hr 09/19/16 09/20/16 09/20/16 08:46 07:30 08:00 WBC 5.0 RBC 3.24 L Hgb 9.5 L Hct 30.0 L MCV 92.7 MCHC 31.7 L RDW 12.9 Plt Count 376 MPV 8.0 D Neutrophils % 70.0 Lymphocytes % 20.0 D Monocytes % 3.0 L Eosinophils % 7.0 H Sodium Potassium Chloride Carbon Dioxide Anion Gap BUN Creatinine Creat Clearance w eGFR Random Glucose Calcium Phosphorus Magnesium Total Bilirubin AST ALT Alkaline Phosphatase Total Protein Albumin Vancomycin Trough 46.894 H* Random Vancomycin 38.873 09/20/16 08:00 WBC RBC Hgb Hct MCV MCHC RDW Plt Count MPV Neutrophils % Lymphocytes % Monocytes % Eosinophils % Sodium 136 Potassium 4.2 Chloride 104 Carbon Dioxide 25 Anion Gap 7 L BUN 23 H Creatinine 1.2 Creat Clearance w eGFR 43.45 Random Glucose 87 Calcium 8.7 Phosphorus 2.8 Magnesium 1.9 Total Bilirubin 0.3 D AST 17 ALT < 9 L Alkaline Phosphatase 57 Total Protein 5.6 L Albumin 3.0 L Vancomycin Trough Random Vancomycin Active Medications Generic Name Dose Route Start Last Admin Trade Name Scottieq PRN Reason Stop Dose Admin Atorvastatin Calcium 10 mg 09/17/16 22:00 09/19/16 21:30 Lipitor - PO 10 mg HS ALTHEA Administration Carbidopa/Levodopa 2 each 09/17/16 06:00 09/20/16 06:12 Sinemet 25/100 - PO 2 each TID ALTHEA Administration Gabapentin 100 mg 09/17/16 22:00 09/19/16 21:30 Neurontin - PO 100 mg HS ALTHEA Administration Heparin Sodium (Porcine) 5,000 unit 09/16/16 22:00 09/20/16 06:12 Heparin - SQ 5,000 unit TID ALTHEA Administration Levofloxacin 100 mls @ 100 mls/hr 09/17/16 10:00 09/20/16 10:15 Levaquin 500 Mg Premixed Ivpb - IVPB 100 mls/hr DAILY ALTHEA Administration Lactobacillus Acidophilus 1 tab 09/20/16 10:00 09/20/16 10:15 Bacid - PO 1 tab DAILY ALTHEA Administration Methimazole 2.5 mg 09/17/16 10:00 09/19/16 09:34 Tapazole - PO 2.5 mg Q2D@1000 ALTHEA Administration Multi-Ingredient Lotion 1 applic 09/19/16 12:46 Eucerin (Large Jar) - TP BID PRN DRY SKIN Quetiapine Fumarate 12.5 mg 09/17/16 22:00 09/19/16 21:30 Seroquel - PO 12.5 mg HS ALTHEA Administration Ranitidine HCl 150 mg 09/20/16 10:00 09/20/16 10:15 Zantac - PO 150 mg DAILY ALTHEA Administration Microbiology 09/16/16 17:30 Blood - Peripheral Venous Blood Culture - Preliminary NO GROWTH OBTAINED AFTER 72 HOURS, INCUBATION TO CONTINUE FOR 2 DAYS. 09/16/16 17:30 Blood - Peripheral Venous Blood Culture - Preliminary NO GROWTH OBTAINED AFTER 72 HOURS, INCUBATION TO CONTINUE FOR 2 DAYS. 09/17/16 23:32 Urine - Urine Clean Catch Urine Culture - Final NO GROWTH OBTAINED IMAGING B/l lower extremity dopplers negative for DVT X-ray of left foot/ankle and left tib-fib no acute fracture noted ASSESSMENT/PLAN: 1) ID: Recurrent b/l lower extremity cellulitis, chronic lymphadema - remained afebrile and no leukocytosis noted - blood cultures NTD - Continue empiric Levaquin, vancomycin discontinued - ID consulted and followed 2) Psych: Dementia - Continue Seroquel 3) Neuro: Parkinson's - Continue Sinemet 4) Endocrine: Hyperthyroidism - Continue Methimazole 5) F/E/N: - Monitor electrolytes - Sodium controlled diet 6) Prophylaxis: - OOB ambulating - zantac - Heparin 5,000u sq TID - PT 7) Dispo: - Requires continued inpatient care CODE STATUS: FULL CODE Visit type - Emergency Visit Emergency Visit: Yes ED Registration Date: 09/16/16 Care time: The patient presented to the Emergency Department on the above date and was hospitalized for further evaluation of their emergent condition. - New Patient This patient is new to me today: No - Critical Care Critical Care patient: No - Discharge Referral Referred to [facility] Med P.C.: No
--- NOTE | 2016-09-20 13:13 | PN ---
Progress Note, Physician History of Present Illness: Awake, mildly confused No c/o leg pain Afebrile, WBC WNL Vancomycin held secondary to elevated trough - Current Medication List Current Medications: Active Medications Atorvastatin Calcium (Lipitor -) 10 mg PO [facility] Last Admin: 09/19/16 21:30 Dose: 10 mg Carbidopa/Levodopa (Sinemet 25/100 -) 2 each PO TID [facility] Last Admin: 09/20/16 06:12 Dose: 2 each Gabapentin (Neurontin -) 100 mg PO [facility] Last Admin: 09/19/16 21:30 Dose: 100 mg Heparin Sodium (Porcine) (Heparin -) 5,000 unit SQ TID [facility] Last Admin: 09/20/16 06:12 Dose: 5,000 unit Levofloxacin (Levaquin 500 Mg Premixed Ivpb -) 100 mls @ 100 mls/hr IVPB DAILY [facility] Last Admin: 09/20/16 10:15 Dose: 100 mls/hr Lactobacillus Acidophilus (Bacid -) 1 tab PO DAILY [facility] Last Admin: 09/20/16 10:15 Dose: 1 tab Methimazole (Tapazole -) 2.5 mg PO Q2D@1000 [facility] Last Admin: 09/19/16 09:34 Dose: 2.5 mg Multi-Ingredient Lotion (Eucerin (Large Jar) -) 1 applic TP BID [facility] Quetiapine Fumarate (Seroquel -) 12.5 mg PO [facility] Last Admin: 09/19/16 21:30 Dose: 12.5 mg Ranitidine HCl (Zantac -) 150 mg PO DAILY [facility] Last Admin: 09/20/16 10:15 Dose: 150 mg - Objective Vital Signs: Vital Signs Temperature 98.1 F 09/20/16 06:00 Pulse Rate 82 09/20/16 06:00 Respiratory Rate 19 09/20/16 06:00 Blood Pressure 154/92 09/20/16 06:00 O2 Sat by Pulse Oximetry (%) 100 09/19/16 22:52 Constitutional: Yes: No Distress Eyes: Yes: Conjunctiva Clear Cardiovascular: Yes: Regular Rate and Rhythm, S1, S2 Respiratory: Yes: CTA Bilaterally Gastrointestinal: Yes: Normal Bowel Sounds, Soft. No: Tenderness Extremities: Yes: Other (decreasing erythema/ warmth LE bilaterally) Edema: Yes Edema: LLE: 2+, RLE: 2+ Labs: CBC, BMP 02/08/17 08:00 09/20/16 08:00 Assessment/Plan Recurrent bilateral LE cellulitus L >R LE lymphedema PCN allergy continue empiric levaquin. Vancomycin on hold. check vancomycin level am elevation
--- NOTE | 2016-09-20 20:34 | HOSP ---
Subjective - Review of Symptoms Events since last encounter: Hospitalist Encounter Notified by RN that the patient is requesting to leave the hospital. Arrived to bedside, patient is sitting in the recliner chair, dressed in her personal clothes. Patient is very confused, speaking nonsensical. Sitter at bedside Will continue with current regimen Neurological: Yes: Confusion Physical Examination Vital Signs: Vital Signs Temperature 98.0 F 09/20/16 18:00 Pulse Rate 79 09/20/16 18:00 Respiratory Rate 18 09/20/16 18:00 Blood Pressure 112/60 09/20/16 18:00 O2 Sat by Pulse Oximetry (%) 99 09/20/16 14:22 Constitutional: Yes: Anxious Cardiovascular: Yes: WNL, Regular Rate and Rhythm Respiratory: Yes: WNL, Regular, CTA Bilaterally Extremities: Yes: Erythema Edema: Yes Edema: LLE: 1+, RLE: 1+ Neurological: Yes: Confusion Labs: CBC, BMP 09/20/16 08:00 09/20/16 08:00 Microbiology 09/16/16 17:30 Blood Culture - Preliminary Blood - Peripheral Venous NO GROWTH OBTAINED AFTER 96 HOURS, INCUBATION TO CONTINUE FOR 1 DAYS. 09/16/16 17:30 Blood Culture - Preliminary Blood - Peripheral Venous NO GROWTH OBTAINED AFTER 96 HOURS, INCUBATION TO CONTINUE FOR 1 DAYS. Current Medications Generic Name Dose Route Start Last Admin Trade Name Hussein PRN Reason Stop Dose Admin Atorvastatin Calcium 10 mg 09/17/16 22:00 09/19/16 21:30 Lipitor - PO 10 mg HS ALTHEA Administration Carbidopa/Levodopa 2 each 09/17/16 06:00 09/20/16 14:26 Sinemet 25/100 - PO 2 each TID ALTHEA Administration Gabapentin 100 mg 09/17/16 22:00 09/19/16 21:30 Neurontin - PO 100 mg HS ALTHEA Administration Heparin Sodium (Porcine) 5,000 unit 09/16/16 22:00 09/20/16 14:26 Heparin - SQ 5,000 unit TID ALTHEA Administration Levofloxacin 100 mls @ 100 mls/hr 09/17/16 10:00 09/20/16 10:15 Levaquin 500 Mg Premixed Ivpb - IVPB 100 mls/hr DAILY ALTHEA Administration Lactobacillus Acidophilus 1 tab 09/20/16 10:00 09/20/16 10:15 Bacid - PO 1 tab DAILY ALTHEA Administration Methimazole 2.5 mg 09/17/16 10:00 09/19/16 09:34 Tapazole - PO 2.5 mg Q2D@1000 ALTHEA Administration Multi-Ingredient Lotion 1 applic 09/20/16 22:00 Eucerin (Large Jar) - TP BID AL[facility]A Quetiapine Fumarate 12.5 mg 09/17/16 22:00 09/19/16 21:30 Seroquel - PO 12.5 mg HS ALTHEA Administration Ranitidine HCl 150 mg 09/20/16 10:00 09/20/16 10:15 Zantac - PO 150 mg DAILY ALTHEA Administration
[2016-09-20] MEDS ORDERED: PT OWN MED DRAWER 7, Y5N ONE (21:40)
[2016-09-20] MEDS: ATORVASTATIN CA 10 MG TABLET (FP) PO SCH (22:02)
[2016-09-20] MEDS: MINERAL OIL/PETROLAT/WATER TOPICAL CREAM 454 GM JAR TP SCH (22:03)
[2016-09-20] MEDS: GABAPENTIN 100 MG CAPSULE (FP) PO SCH (22:03)
[2016-09-20] MEDS: QUEtiapine FUMARATE 25 MG TABLET (FP) PO SCH (22:03)
[2016-09-21] MEDS: HEPARIN NA (PORCINE) 5,000 UNITS/ML 1ML VIAL SQ SCH ×3 (06:16→21:39)
[2016-09-21] MEDS: CARBIDOPA/LEVODOPA 25/100 TABLET (FP) PO SCH ×3 (06:16→21:39)
[2016-09-21] MEDS: LEVOFLOXACIN 500 MG IVPB 100 ML IVPB SCH (10:26)
[2016-09-21] MEDS: LACTOBACILLUS ACIDOPHILUS 1 EACH TAB (FP) PO SCH (10:26)
[2016-09-21] MEDS: RANITIDINE HCL 150 MG TABLET (FP) PO SCH (10:27)
[2016-09-21] MEDS: MINERAL OIL/PETROLAT/WATER TOPICAL CREAM 454 GM JAR TP SCH ×2 (10:30→21:44)
[2016-09-21] MEDS: METHIMAZOLE 5 MG TABLET (FP) PO SCH (10:32)
--- NOTE | 2016-09-21 15:26 | PN ---
[id number] 80 year old female with PMHx of dementia, parkinson's, anemia, hyperthyroidism, chronic LLE cellulitis, prior syncopal episodes. she was admitted from the emergency department for bilateral lower extremity cellulitis Vital Signs Period Temp Pulse Resp BP Sys/Moore Pulse Ox Last 24 Hr 98 F-98.5 F 68-86 17-19 112-156/60-81 95-100 PHYSICAL EXAMINATION GENERAL: The patient is awake, alert, and fully oriented, in no acute distress. HEAD: Normal with no signs of trauma. EYES: PERRL, extraocular movements intact, sclera anicteric, conjunctiva clear. No ptosis. ENT: Ears normal, nares patent, oropharynx clear without exudates, moist mucous membranes. NECK: Trachea midline, full range of motion, supple. LUNGS: Breath sounds equal, clear to auscultation bilaterally, no wheezes, no crackles, no accessory muscle use. HEART: Regular rate and rhythm, S1, S2 without murmur, rub or gallop. ABDOMEN: Soft, nontender, nondistended, normoactive bowel sounds, no guarding, no rebound, no hepatosplenomegaly, no masses. EXTREMITIES: 2+ pulses, warm, well-perfused, circumferential erythema to left lower extremity +2 edema, right lower extremity, 4 cm of erythema noted to the distal anterior right lower extremity, and no induration noted NEUROLOGICAL: Cranial nerves II through XII grossly intact. Normal speech, gait not observed. PSYCH: Normal mood, normal affect. SKIN: Warm, dry, normal turgor, no rashes or lesions noted Laboratory Results - last 24 hr 09/21/16 07:00 Random Vancomycin 31.106 Active Medications Generic Name Dose Route Start Last Admin Trade Name Freq PRN Reason Stop Dose Admin Atorvastatin Calcium 10 mg 09/17/16 22:00 09/20/16 22:02 Lipitor - PO 10 mg HS ALTHEA Administration Carbidopa/Levodopa 2 each 09/17/16 06:00 09/21/16 14:28 Sinemet 25/100 - PO 2 each TID ALTHEA Administration Gabapentin 100 mg 09/17/16 22:00 09/20/16 22:03 Neurontin - PO 100 mg HS ALTHEA Administration Heparin Sodium (Porcine) 5,000 unit 09/16/16 22:00 09/21/16 14:28 Heparin - SQ 5,000 unit TID ALTHEA Administration Levofloxacin 100 mls @ 100 mls/hr 09/17/16 10:00 09/21/16 10:26 Levaquin 500 Mg Premixed Ivpb - IVPB 100 mls/hr DAILY ALTHEA Administration Lactobacillus Acidophilus 1 tab 09/20/16 10:00 09/21/16 10:26 Bacid - PO 1 tab DAILY ALTHEA Administration Methimazole 2.5 mg 09/17/16 10:00 09/21/16 10:32 Tapazole - PO 2.5 mg Q2D@1000 ALTHEA Administration Multi-Ingredient Lotion 1 applic 09/20/16 22:00 09/21/16 10:30 Eucerin (Large Jar) - TP 1 applic BID ALTHEA Administration Quetiapine Fumarate 12.5 mg 09/17/16 22:00 09/20/16 22:03 Seroquel - PO 12.5 mg HS ALTHEA Administration Ranitidine HCl 150 mg 09/20/16 10:00 09/21/16 10:27 Zantac - PO 150 mg DAILY ALTHEA Administration Microbiology 09/16/16 17:30 Blood - Peripheral Venous Blood Culture - Preliminary NO GROWTH OBTAINED AFTER 96 HOURS, INCUBATION TO CONTINUE FOR 1 DAYS. 09/16/16 17:30 Blood - Peripheral Venous Blood Culture - Preliminary NO GROWTH OBTAINED AFTER 96 HOURS, INCUBATION TO CONTINUE FOR 1 DAYS. 09/17/16 23:32 Urine - Urine Clean Catch Urine Culture - Final NO GROWTH OBTAINED IMAGING B/l lower extremity dopplers negative for DVT X-ray of left foot/ankle and left tib-fib no acute fracture noted ASSESSMENT/PLAN: 1) ID: Recurrent b/l lower extremity cellulitis, chronic lymphadema - remained afebrile and no leukocytosis noted - blood cultures NTD - Continue empiric Levaquin - ID consulted and followed 2) Psych: Dementia - Continue Seroquel 3) Neuro: Parkinson's - Continue Sinemet 4) Endocrine: Hyperthyroidism - Continue Methimazole 5) F/E/N: - Monitor electrolytes - Sodium controlled diet 6) Prophylaxis: - OOB ambulating - zantac - Heparin 5,000u sq TID - PT 7) Dispo: - Requires continued inpatient care CODE STATUS: FULL CODE Visit type - Emergency Visit Emergency Visit: Yes ED Registration Date: 09/16/16 Care time: The patient presented to the Emergency Department on the above date and was hospitalized for further evaluation of their emergent condition. - New Patient This patient is new to me today: No - Critical Care Critical Care patient: No - Discharge Referral Referred to [facility] Med P.C.: No
[2016-09-21] MEDS: ATORVASTATIN CA 10 MG TABLET (FP) PO SCH (21:39)
[2016-09-21] MEDS: QUEtiapine FUMARATE 25 MG TABLET (FP) PO SCH (21:39)
[2016-09-21] MEDS: GABAPENTIN 100 MG CAPSULE (FP) PO SCH (21:39)
[2016-09-22] MEDS: HEPARIN NA (PORCINE) 5,000 UNITS/ML 1ML VIAL SQ SCH ×3 (06:05→21:43)
[2016-09-22] MEDS: CARBIDOPA/LEVODOPA 25/100 TABLET (FP) PO SCH ×3 (06:05→21:43)
[2016-09-22] MEDS: LEVOFLOXACIN 500 MG IVPB 100 ML IVPB SCH (10:02)
[2016-09-22] MEDS: MINERAL OIL/PETROLAT/WATER TOPICAL CREAM 454 GM JAR TP SCH ×2 (10:03→21:44)
[2016-09-22] MEDS: RANITIDINE HCL 150 MG TABLET (FP) PO SCH (10:03)
[2016-09-22] MEDS: LACTOBACILLUS ACIDOPHILUS 1 EACH TAB (FP) PO SCH (10:03)
--- NOTE | 2016-09-22 10:20 | PN ---
Progress Note, Physician History of Present Illness: No c/o leg pain No fever/ chills Vancomycin on hold; trough remains elevated - Current Medication List Current Medications: Active Medications Atorvastatin Calcium (Lipitor -) 10 mg PO [facility] Last Admin: 09/21/16 21:39 Dose: 10 mg Carbidopa/Levodopa (Sinemet 25/100 -) 2 each PO TID [facility] Last Admin: 09/22/16 06:05 Dose: 2 each Gabapentin (Neurontin -) 100 mg PO [facility] Last Admin: 09/21/16 21:39 Dose: 100 mg Heparin Sodium (Porcine) (Heparin -) 5,000 unit SQ TID [facility] Last Admin: 09/22/16 06:05 Dose: 5,000 unit Levofloxacin (Levaquin 500 Mg Premixed Ivpb -) 100 mls @ 100 mls/hr IVPB DAILY [facility] Last Admin: 09/22/16 10:02 Dose: 100 mls/hr Lactobacillus Acidophilus (Bacid -) 1 tab PO DAILY [facility] Last Admin: 09/22/16 10:03 Dose: 1 tab Methimazole (Tapazole -) 2.5 mg PO Q2D@1000 [facility] Last Admin: 09/21/16 10:32 Dose: 2.5 mg Multi-Ingredient Lotion (Eucerin (Large Jar) -) 1 applic TP BID [facility] Last Admin: 09/22/16 10:03 Dose: 1 applic Quetiapine Fumarate (Seroquel -) 12.5 mg PO [facility] Last Admin: 09/21/16 21:39 Dose: 12.5 mg Ranitidine HCl (Zantac -) 150 mg PO DAILY [facility] Last Admin: 09/22/16 10:03 Dose: 150 mg - Objective Vital Signs: Vital Signs Temperature 99.7 F H 09/22/16 06:30 Pulse Rate 84 09/22/16 06:30 Respiratory Rate 19 09/22/16 06:30 Blood Pressure 148/73 09/22/16 06:30 O2 Sat by Pulse Oximetry (%) 98 09/22/16 06:30 Constitutional: Yes: No Distress Eyes: Yes: Conjunctiva Clear Cardiovascular: Yes: Regular Rate and Rhythm, S1, S2 Respiratory: Yes: CTA Bilaterally Gastrointestinal: Yes: Normal Bowel Sounds, Soft. No: Tenderness Extremities: Yes: Other (+ LE edema/ erythema/ warmth L >R) Labs: CBC, BMP 09/20/16 08:00 09/20/16 08:00 Assessment/Plan Recurrent bilateral LE cellulitus L >R LE lymphedema PCN allergy continue empiric levaquin. Vancomycin on hold. check vancomycin elevation
[2016-09-22] MEDS: ATORVASTATIN CA 10 MG TABLET (FP) PO SCH (21:43)
[2016-09-22] MEDS: GABAPENTIN 100 MG CAPSULE (FP) PO SCH (21:43)
[2016-09-22] MEDS: QUEtiapine FUMARATE 25 MG TABLET (FP) PO SCH (21:43)
[2016-09-23] MEDS: HEPARIN NA (PORCINE) 5,000 UNITS/ML 1ML VIAL SQ SCH ×3 (06:42→21:15)
[2016-09-23] MEDS: CARBIDOPA/LEVODOPA 25/100 TABLET (FP) PO SCH ×3 (06:44→21:14)
--- NOTE | 2016-09-23 08:58 | PN ---
Progress Note, Physician History of Present Illness: No c/o leg pain No fever/ chills Vancomycin level remains elevated- on hold - Current Medication List Current Medications: Active Medications Atorvastatin Calcium (Lipitor -) 10 mg PO [facility] Last Admin: 09/22/16 21:43 Dose: 10 mg Carbidopa/Levodopa (Sinemet 25/100 -) 2 each PO TID [facility] Last Admin: 09/23/16 06:44 Dose: 2 each Gabapentin (Neurontin -) 100 mg PO [facility] Last Admin: 09/22/16 21:43 Dose: 100 mg Heparin Sodium (Porcine) (Heparin -) 5,000 unit SQ TID [facility] Last Admin: 09/23/16 06:42 Dose: 5,000 unit Levofloxacin (Levaquin 500 Mg Premixed Ivpb -) 100 mls @ 100 mls/hr IVPB DAILY [facility] Last Admin: 09/22/16 10:02 Dose: 100 mls/hr Lactobacillus Acidophilus (Bacid -) 1 tab PO DAILY [facility] Last Admin: 09/22/16 10:03 Dose: 1 tab Methimazole (Tapazole -) 2.5 mg PO Q2D@1000 [facility] Last Admin: 09/21/16 10:32 Dose: 2.5 mg Multi-Ingredient Lotion (Eucerin (Large Jar) -) 1 applic TP BID [facility] Last Admin: 09/22/16 21:44 Dose: 1 applic Quetiapine Fumarate (Seroquel -) 12.5 mg PO [facility] Last Admin: 09/22/16 21:43 Dose: 12.5 mg Ranitidine HCl (Zantac -) 150 mg PO DAILY [facility] Last Admin: 09/22/16 10:03 Dose: 150 mg - Objective Vital Signs: Vital Signs Temperature 98.3 F 09/23/16 05:00 Pulse Rate 77 09/23/16 05:00 Respiratory Rate 20 09/23/16 05:00 Blood Pressure 160/84 09/23/16 05:00 O2 Sat by Pulse Oximetry (%) 97 09/23/16 05:00 Constitutional: Yes: No Distress Eyes: Yes: Conjunctiva Clear Cardiovascular: Yes: Regular Rate and Rhythm, S1, S2 Respiratory: Yes: CTA Bilaterally Gastrointestinal: Yes: Normal Bowel Sounds, Soft. No: Tenderness Extremities: Yes: Other (+ Bilateral LE edema erythema L >R) Labs: CBC, BMP 09/20/16 08:00 09/20/16 08:00 Assessment/Plan Recurrent bilateral LE cellulitus L >R LE lymphedema PCN allergy continue empiric levaquin. Vancomycin on hold. check vancomycin level tough. Resume for trough < 15 elevation
[2016-09-23] MEDS: LEVOFLOXACIN 500 MG IVPB 100 ML IVPB SCH (10:43)
[2016-09-23] MEDS: MINERAL OIL/PETROLAT/WATER TOPICAL CREAM 454 GM JAR TP SCH ×2 (10:43→21:15)
[2016-09-23] MEDS: LACTOBACILLUS ACIDOPHILUS 1 EACH TAB (FP) PO SCH (10:44)
[2016-09-23] MEDS: RANITIDINE HCL 150 MG TABLET (FP) PO SCH (10:45)
[2016-09-23] MEDS: METHIMAZOLE 5 MG TABLET (FP) PO SCH (10:48)
--- NOTE | 2016-09-23 17:08 | PN ---
Physical Exam: SUBJECTIVE: Patient seen and examined, no distress noted, poor historian secondary to dementia, denies pain. OBJECTIVE:80 year old female with PMHx of dementia, parkinson's, anemia, hyperthyroidism, chronic LLE cellulitis, prior syncopal episodes was admitted from the emergency department for bilateral lower extremity cellulitis Vital Signs Period Temp Pulse Resp BP Sys/Moore Pulse Ox Last 24 Hr 97.7 F-98.4 F 77-83 16-20 126-160/64-84 97-100 GENERAL: The patient is awake, alert, demented HEAD: Normal with no signs of trauma. EYES: extraocular movements intact, sclera anicteric, conjunctiva clear. No ptosis. ENT: Ears normal, nares patent, oropharynx clear without exudates, moist mucous membranes. NECK: Trachea midline, full range of motion, supple. LUNGS: Breath sounds equal, clear to auscultation bilaterally, no wheezes, no crackles, no accessory muscle use. HEART: Regular rate and rhythm, S1, S2 without murmur, rub or gallop. ABDOMEN: Soft, nontender, nondistended, normoactive bowel sounds, no guarding, no rebound, no hepatosplenomegaly, no masses. EXTREMITIES: , warm , red, BLE edma L>R NEUROLOGICAL: speech clear, gait not observed. PSYCH: Normal mood, normal affect. SKIN: Warm, dry, normal turgor, redness LE's Laboratory Results - last 24 hr 09/22/16 09/23/16 11:00 10:21 Random Vancomycin 27.549 23.110 Microbiology 09/16/16 17:30 Blood - Peripheral Venous Blood Culture - Final NO GROWTH AFTER 5 DAYS INCUBATION 09/16/16 17:30 Blood - Peripheral Venous Blood Culture - Final NO GROWTH AFTER 5 DAYS INCUBATION 09/17/16 23:32 Urine - Urine Clean Catch Urine Culture - Final NO GROWTH OBTAINED Active Medications Generic Name Dose Route Start Last Admin Trade Name Freq PRN Reason Stop Dose Admin Atorvastatin Calcium 10 mg 09/17/16 22:00 09/22/16 21:43 Lipitor - PO 10 mg HS ALTHEA Administration Carbidopa/Levodopa 2 each 09/17/16 06:00 09/23/16 14:49 Sinemet 25/100 - PO 2 each TID ALTHEA Administration Gabapentin 100 mg 09/17/16 22:00 09/22/16 21:43 Neurontin - PO 100 mg HS ALTHEA Administration Heparin Sodium (Porcine) 5,000 unit 09/16/16 22:00 09/23/16 14:49 Heparin - SQ 5,000 unit TID ALTHEA Administration Levofloxacin 100 mls @ 100 mls/hr 09/17/16 10:00 09/23/16 10:43 Levaquin 500 Mg Premixed Ivpb - IVPB 100 mls/hr DAILY ALTHEA Administration Lactobacillus Acidophilus 1 tab 09/20/16 10:00 09/23/16 10:44 Bacid - PO 1 tab DAILY ALTHEA Administration Methimazole 2.5 mg 09/17/16 10:00 09/23/16 10:48 Tapazole - PO 2.5 mg Q2D@1000 ALTHEA Administration Multi-Ingredient Lotion 1 applic 09/20/16 22:00 09/23/16 10:43 Eucerin (Large Jar) - TP 1 applic BID ALTHEA Administration Quetiapine Fumarate 12.5 mg 09/17/16 22:00 09/22/16 21:43 Seroquel - PO 12.5 mg HS ALTHEA Administration Ranitidine HCl 150 mg 09/20/16 10:00 09/23/16 10:45 Zantac - PO 150 mg DAILY ALTHEA Administration ASSESSMENT/PLAN: 1. Recurrent b/l lower extremity cellulitis, chronic lymphedema, doppler BLE's negative for DVT. - currently afebrile, no leukocytosis - blood cultures noted, no growth - Continue empiric Levaquin, vanco on hold secondary to elevated through, per ID resume once through is <15 - ID f/u 2. Dementia no behaviral problem noted - Continue Seroquel supportive therapy 3.Parkinson's - Continue Sinemet -safety/fall precautions 4. Hyperthyroidism - Continue Methimazole -monitor TsH level -endo f/u prn 5.F/E/N: - Monitor electrolytes - Sodium controlled diet 6. Prophylaxis: - OOB ambulating with assist - zantac - Heparin 5,000u sq TID - PT 7. Dispo: - Requires continued inpatient care Visit type - Emergency Visit Emergency Visit: Yes ED Registration Date: 09/16/16 Care time: The patient presented to the Emergency Department on the above date and was hospitalized for further evaluation of their emergent condition. - New Patient This patient is new to me today: Yes Date on this admission: 09/23/16 - Critical Care Critical Care patient: No - Discharge Referral Referred to [facility] Med P.C.: Yes Physician Referral: Henrique Orozco MD (Int Med)
[2016-09-23] MEDS: QUEtiapine FUMARATE 25 MG TABLET (FP) PO SCH (21:14)
[2016-09-23] MEDS: GABAPENTIN 100 MG CAPSULE (FP) PO SCH (21:14)
[2016-09-23] MEDS: ATORVASTATIN CA 10 MG TABLET (FP) PO SCH (21:15)
[2016-09-24] MEDS: CARBIDOPA/LEVODOPA 25/100 TABLET (FP) PO SCH ×3 (06:41→21:33)
[2016-09-24] MEDS ORDERED: FAMOTIDINE 20 MG/50 ML IVPB 50 ML IVPB ONE ×2 (06:51→07:04)
--- NOTE | 2016-09-24 06:54 | HOSP ---
Subjective - Review of Symptoms Subjective: Received call from RN that patient had generalized rash which was not present before. 1.Rash,?drug reaction Pepcid and Benadryl IV HOld Levq dose until further input from ID Physical Examination Vital Signs: Vital Signs Temperature 98.6 F 09/24/16 06:20 Pulse Rate 65 09/24/16 06:20 Respiratory Rate 18 09/24/16 06:20 Blood Pressure 135/70 09/24/16 06:20 O2 Sat by Pulse Oximetry (%) 95 09/24/16 06:20 Labs: CBC, BMP 09/20/16 08:00 09/20/16 08:00
[2016-09-24 08:52] LABS: CALCIUM 8.1 mg/dL (8.5-10.1); CREATININE 1.2 mg/dL (0.55-1.02)
[2016-09-24 09:12] LABS: MCH 31.4 pg (25.7-33.7); MCHC 33.3 g/dl (32.0-36.0); MEAN CELL VOLUME 94.1 fl (80-96); PLATELET COUNT 344 K/MM3 (134-434); RDW 13.6 % (11.6-15.6); WHITE BLOOD COUNT 5.4 K/mm3 (4.0-10.0)
[2016-09-24 09:13] LABS: BASOPHIL 1.2 % (0-2.0); EOSINOPHIL 5.9 % (0-4.5); MEAN PLT VOLUME 7.7 fl (7.5-11.1); NEUTROPHILS 59.3 % (42.8-82.8)
[2016-09-24] MEDS: LACTOBACILLUS ACIDOPHILUS 1 EACH TAB (FP) PO SCH (10:23)
[2016-09-24] MEDS: MINERAL OIL/PETROLAT/WATER TOPICAL CREAM 454 GM JAR TP SCH ×2 (10:24→21:34)
[2016-09-24] MEDS: RANITIDINE HCL 150 MG TABLET (FP) PO SCH (10:24)
--- NOTE | 2016-09-24 14:01 | PN ---
Physical Exam: SUBJECTIVE: Patient seen and examined oob to chair. OBJECTIVE: Vital Signs Period Temp Pulse Resp BP Sys/Moore Pulse Ox Last 24 Hr 97.7 F-98.6 F 65-89 16-18 126-135/50-70 95-97 GENERAL: The patient is awake, alert. In no acute distress. Cooperative. Answers questions with one words. HEAD: Normal with no signs of trauma. EYES: PERRL, extraocular movements intact, sclera anicteric, conjunctiva clear. No ptosis. LUNGS: Breath sounds equal, clear to auscultation bilaterally, no wheezes, no crackles, no accessory muscle use. HEART: Regular rate and rhythm, S1, S2 without murmur, rub or gallop. ABDOMEN: Soft, nontender, nondistended, normoactive bowel sounds, no guarding, no rebound UPPER EXTREMITIES: 2+ pulses, warm, well-perfused, no edema. LOWER EXTREMITIES: Left: swollen, erythema from toes to knee, skin is tense and thickened; Right: mild pre-tibial erythema NEUROLOGICAL: Cranial nerves II through XII grossly intact. Normal speech, gait not observed. Laboratory Results - last 24 hr 09/24/16 09/24/16 06:30 06:30 WBC 5.4 D RBC 3.10 L Hgb 9.7 L Hct 29.2 L MCV 94.1 MCHC 33.3 RDW 13.6 Plt Count 344 MPV 7.7 Neutrophils % 59.3 D Lymphocytes % 25.9 D Monocytes % 7.7 D Eosinophils % 5.9 H D Basophils % 1.2 Sodium 140 Potassium 4.5 Chloride 106 Carbon Dioxide 27 Anion Gap 7 L BUN 24 H Creatinine 1.2 H D Random Glucose 81 Calcium 8.1 L Current Medications Generic Name Dose Route Start Last Admin Trade Name Freq PRN Reason Stop Dose Admin Atorvastatin Calcium 10 mg 09/17/16 22:00 09/23/16 21:15 Lipitor - PO 10 mg HS ALTHEA Administration Carbidopa/Levodopa 2 each 09/17/16 06:00 09/24/16 14:28 Sinemet 25/100 - PO 2 each TID ALTHEA Administration Furosemide 40 mg 09/24/16 17:44 Lasix Injection - IVPUSH 09/24/16 17:45 ONCE ONE Furosemide 40 mg 09/25/16 10:00 Lasix Injection - IVPB DAILY ALTHEA Gabapentin 100 mg 09/17/16 22:00 09/23/16 21:14 Neurontin - PO 100 mg HS ALTHEA Administration Heparin Sodium (Porcine) 5,000 unit 09/24/16 22:00 Heparin - SQ BID ALTHEA Clindamycin Phosphate 300 mg/ 50 mls @ 104 mls/hr 09/24/16 18:00 Dextrose IVPB Q8H-IV ALTHEA Lactobacillus Acidophilus 1 tab 09/20/16 10:00 09/24/16 10:23 Bacid - PO 1 tab DAILY ALTHEA Administration Methimazole 2.5 mg 09/17/16 10:00 09/23/16 10:48 Tapazole - PO 2.5 mg Q2D@1000 ALTHEA Administration Multi-Ingredient Lotion 1 applic 09/20/16 22:00 09/24/16 10:24 Eucerin (Large Jar) - TP 1 applic BID ALTHEA Administration Quetiapine Fumarate 12.5 mg 09/17/16 22:00 09/23/16 21:14 Seroquel - PO 12.5 mg HS ALTHEA Administration Ranitidine HCl 150 mg 09/20/16 10:00 09/24/16 10:24 Zantac - PO 150 mg DAILY ALTHEA Administration ASSESSMENT/PLAN 80 year-old with a PMH of Parkinson's disease, dementia, anemia, hypothyroidism , and chronic lower extremity cellulitis and lymphedema, admitted for bilateral lower extremity cellulitis and lymphedema. Bilateral lower extremity cellulitis Bilateral lower extremity lymphedema --last night RN reported full body rash which looked like a drug reaction; d/ c levofloxacin (finished 7 doses) --vanc dosing 2-->2/7; ID following troughs --start clinda IV --legs are tense and swollen L>R; start Lasix Diastolic heart failure --Echo 04/2016: impaired LV relaxation, RV normal, moderate TR, mild pHTN, trace PI --start Lasix Acute kidney injury --Cr 1.2 today, baseline 1.0 --monitor closely while on Lasix Dementia --apparently at baseline --continue Seroquel Parkinson's disease --continue carbidopa/levodopa Hyperthyroidism --continue methimazole --TSH ordered F/E/N Fluids: PO intake adequate Electrolytes: replete as indicated Nutrition: low sodium DVT prophylaxis: Rehab PT eval Daily PT Dispo: continues to require inpatient care. Full Code. Visit type - Emergency Visit Emergency Visit: Yes ED Registration Date: 09/16/16 Care time: The patient presented to the Emergency Department on the above date and was hospitalized for further evaluation of their emergent condition. - New Patient This patient is new to me today: Yes Date on this admission: 09/24/16 - Critical Care Critical Care patient: No
[2016-09-24] MEDS ORDERED: FUROSEMIDE 40 MG/4 ML INJECTABLE VIAL IVPUSH ONE (17:44)
[2016-09-24] MEDS: CLINDAMYCIN IVPB 300 MG in DEXTROSE 5%-WATER - 48 ML IVPB SCH (18:29)
[2016-09-24] MEDS: GABAPENTIN 100 MG CAPSULE (FP) PO SCH (21:32)
[2016-09-24] MEDS: QUEtiapine FUMARATE 25 MG TABLET (FP) PO SCH (21:33)
[2016-09-24] MEDS: HEPARIN NA (PORCINE) 5,000 UNITS/ML 1ML VIAL SQ SCH (21:33)
[2016-09-24] MEDS: ATORVASTATIN CA 10 MG TABLET (FP) PO SCH (21:52)
[2016-09-25] MEDS ORDERED: PT OWN MED DRAWER 7, Y5N ONE ×2 (02:04→09:22)
[2016-09-25] MEDS: CLINDAMYCIN IVPB 300 MG in DEXTROSE 5%-WATER - 48 ML IVPB SCH ×2 (02:27→09:43)
[2016-09-25] MEDS: CARBIDOPA/LEVODOPA 25/100 TABLET (FP) PO SCH ×3 (05:32→22:06)
[2016-09-25 09:09] LABS: ALBUMIN 2.9 g/dl (3.5-5.0); ALK PHOS 53 U/L (32-92); ANION GAP 6 (8-16); BILIRUBIN,TOTAL 0.5 mg/dl (0.2-1.0); CALCIUM 8.4 mg/dl (8.4-10.2); CO2 24 mmol/L (22-28); CREATININE 1.3 mg/dl (0.6-1.3); GLUCOSE,RANDOM 85 mg/dl (74-106); MAGNESIUM 1.9 mg/dL (1.8-2.4); PHOSPHOROUS 3.5 mg/dl (2.5-4.6); SGOT/AST 19 U/L (10-42); TOT PROT 5.5 g/dl (6.4-8.3)
[2016-09-25 09:13] LABS: BASOPHIL 0.3 % (0-2.0); EOSINOPHIL 4.9 % (0-4.5); MCH 30.1 pg (25.7-33.7); MCHC 32.4 g/dl (32.0-36.0); MEAN CELL VOLUME 92.9 fl (80-96); MEAN PLT VOLUME 7.3 fl (7.5-11.1); NEUTROPHILS 71.3 % (42.8-82.8); PLATELET COUNT 413 K/MM3 (134-434); RDW 12.8 % (11.6-15.6); WHITE BLOOD COUNT 5.9 K/mm3 (4.0-10.0)
--- NOTE | 2016-09-25 09:15 | PN ---
Progress Note, Physician History of Present Illness: Was noted to have rash; levaquin D/C'd, clindamycin started Vanco on hold secondary to elevated trough No fever/ chills No c/o leg pain - Current Medication List Current Medications: Active Medications Atorvastatin Calcium (Lipitor -) 10 mg PO HS [facility] Last Admin: 09/24/16 21:52 Dose: 10 mg Carbidopa/Levodopa (Sinemet 25/100 -) 2 each PO TID [facility] Last Admin: 09/25/16 05:32 Dose: 2 each Furosemide (Lasix Injection -) 40 mg IVPB DAILY ALTHEA Gabapentin (Neurontin -) 100 mg PO HS [facility] Last Admin: 09/24/16 21:32 Dose: 100 mg Heparin Sodium (Porcine) (Heparin -) 5,000 unit SQ BID [facility] Last Admin: 09/24/16 21:33 Dose: 5,000 unit Clindamycin Phosphate 300 mg/ (Dextrose) 50 mls @ 104 mls/hr IVPB Q8H-IV [facility] Last Admin: 09/25/16 02:27 Dose: 104 mls/hr Lactobacillus Acidophilus (Bacid -) 1 tab PO DAILY [facility] Last Admin: 09/24/16 10:23 Dose: 1 tab Methimazole (Tapazole -) 2.5 mg PO Q2D@1000 [facility] Last Admin: 09/23/16 10:48 Dose: 2.5 mg Multi-Ingredient Lotion (Eucerin (Large Jar) -) 1 applic TP BID [facility] Last Admin: 09/24/16 21:34 Dose: 1 applic Quetiapine Fumarate (Seroquel -) 12.5 mg PO HS [facility] Last Admin: 09/24/16 21:33 Dose: 12.5 mg Ranitidine HCl (Zantac -) 150 mg PO DAILY [facility] Last Admin: 09/24/16 10:24 Dose: 150 mg - Objective Vital Signs: Vital Signs Temperature 98.8 F 09/25/16 02:00 Pulse Rate 80 09/25/16 02:00 Respiratory Rate 18 09/25/16 08:39 Blood Pressure 127/78 09/25/16 02:00 O2 Sat by Pulse Oximetry (%) 99 09/25/16 08:21 Constitutional: Yes: No Distress Eyes: Yes: Conjunctiva Clear Cardiovascular: Yes: Regular Rate and Rhythm, S1, S2 Respiratory: Yes: CTA Bilaterally Gastrointestinal: Yes: Normal Bowel Sounds, Soft. No: Tenderness Extremities: Yes: Other (+ Bilateral LE edema + persistant erythema/ warmth L > R LE) Assessment/Plan Recurrent bilateral LE cellulitus L >R LE lymphedema PCN allergy continue clindamycin Vancomycin on hold. Check trough today Elevation
[2016-09-25 09:27] LABS: SGPT/ALT < 9 U/L (10-40)
[2016-09-25] MEDS: MINERAL OIL/PETROLAT/WATER TOPICAL CREAM 454 GM JAR TP SCH ×2 (09:36→22:06)
[2016-09-25] MEDS: HEPARIN NA (PORCINE) 5,000 UNITS/ML 1ML VIAL SQ SCH ×2 (09:36→22:06)
[2016-09-25] MEDS: RANITIDINE HCL 150 MG TABLET (FP) PO SCH (09:36)
[2016-09-25] MEDS: LACTOBACILLUS ACIDOPHILUS 1 EACH TAB (FP) PO SCH (09:36)
[2016-09-25] MEDS: METHIMAZOLE 5 MG TABLET (FP) PO SCH (09:44)
[2016-09-25] MEDS ORDERED: FUROSEMIDE 40 MG/4 ML INJECTABLE VIAL IVPB SCH (10:00)
--- NOTE | 2016-09-25 12:18 | PN ---
[id number] with a PMH of Parkinson's disease, dementia, anemia, hypothyroidism , and chronic lower extremity cellulitis and lymphedema, admitted for bilateral lower extremity cellulitis and lymphedema. Vital Signs Period Temp Pulse Resp BP Sys/Moore Pulse Ox Last 24 Hr 98 F-98.8 F 74-80 16-20 118-127/50-78 99-99 physical examination GENERAL: The patient is awake, alert, and fully oriented, in no acute distress. HEAD: Normal with no signs of trauma. EYES: PERRL, extraocular movements intact, sclera anicteric, conjunctiva clear. No ptosis. ENT: Ears normal, nares patent, oropharynx clear without exudates, moist mucous membranes. NECK: Trachea midline, full range of motion, supple. LUNGS: Breath sounds equal, clear to auscultation bilaterally, no wheezes, no crackles, no accessory muscle use. HEART: Regular rate and rhythm, S1, S2 without murmur, rub or gallop. ABDOMEN: Soft, nontender, nondistended, normoactive bowel sounds, no guarding, no rebound, no hepatosplenomegaly, no masses. EXTREMITIES: 2+ pulses, warm, well-perfused, circumferential erythema to left lower extremity +2 edema, right lower extremity, +1 edema, 4 cm of erythema noted to the distal anterior right lower extremity, and no induration noted NEUROLOGICAL: Cranial nerves II through XII grossly intact. Normal speech, gait not observed. PSYCH: Normal mood, normal affect. SKIN: Warm, dry, normal turgor, no rashes or lesions noted Laboratory Results - last 24 hr 09/25/16 09/25/16 07:31 07:31 WBC 5.9 RBC 2.97 L Hgb 9.0 L Hct 27.6 L MCV 92.9 MCHC 32.4 RDW 12.8 Plt Count 413 MPV 7.3 L Neutrophils % 71.3 Lymphocytes % 15.7 D Monocytes % 7.8 D Eosinophils % 4.9 H Basophils % 0.3 Sodium 135 L Potassium 4.3 Chloride 105 Carbon Dioxide 24 Anion Gap 6 L BUN 32 H D Creatinine 1.3 Creat Clearance w eGFR 39.61 Random Glucose 85 Calcium 8.4 Phosphorus 3.5 D Magnesium 1.9 Total Bilirubin 0.5 D AST 19 ALT < 9 L Alkaline Phosphatase 53 Total Protein 5.5 L Albumin 2.9 L Active Medications Generic Name Dose Route Start Last Admin Trade Name Freq PRN Reason Stop Dose Admin Atorvastatin Calcium 10 mg 09/17/16 22:00 09/24/16 21:52 Lipitor - PO 10 mg HS ALTHEA Administration Carbidopa/Levodopa 2 each 09/17/16 06:00 09/25/16 05:32 Sinemet 25/100 - PO 2 each TID ALTHEA Administration Furosemide 40 mg 09/25/16 10:00 09/25/16 09:36 Lasix Injection - IVPB 40 mg DAILY ALTHEA Administration Gabapentin 100 mg 09/17/16 22:00 09/24/16 21:32 Neurontin - PO 100 mg HS ALTHEA Administration Heparin Sodium (Porcine) 5,000 unit 09/24/16 22:00 09/25/16 09:36 Heparin - SQ 5,000 unit BID ALTHEA Administration Clindamycin Phosphate 300 mg/ 50 mls @ 104 mls/hr 09/24/16 18:00 09/25/16 09:43 Dextrose IVPB 104 mls/hr Q8H-IV ALTHEA Administration Lactobacillus Acidophilus 1 tab 09/20/16 10:00 09/25/16 09:36 Bacid - PO 1 tab DAILY ALTHEA Administration Methimazole 2.5 mg 09/17/16 10:00 09/25/16 09:44 Tapazole - PO 2.5 mg Q2D@1000 ALTHEA Administration Multi-Ingredient Lotion 1 applic 09/20/16 22:00 09/25/16 09:36 Eucerin (Large Jar) - TP 1 applic BID ALTHEA Administration Quetiapine Fumarate 12.5 mg 09/17/16 22:00 09/24/16 21:33 Seroquel - PO 12.5 mg HS ALTHEA Administration Ranitidine HCl 150 mg 09/20/16 10:00 09/25/16 09:36 Zantac - PO 150 mg DAILY ALTHEA Administration Microbiology 09/16/16 17:30 Blood - Peripheral Venous Blood Culture - Final NO GROWTH AFTER 5 DAYS INCUBATION 09/16/16 17:30 Blood - Peripheral Venous Blood Culture - Final NO GROWTH AFTER 5 DAYS INCUBATION 09/17/16 23:32 Urine - Urine Clean Catch Urine Culture - Final NO GROWTH OBTAINED IMAGING B/l lower extremity dopplers negative for DVT X-ray of left foot/ankle and left tib-fib no acute fracture noted ASSESSMENT/PLAN: 1) ID: Recurrent b/l lower extremity cellulitis, chronic lymphadema - remained afebrile and no leukocytosis noted - Levaquin discontinued after 7 days patient developed rash, clindamycin started 09/24/2016, vancomycin on hold last dose 09/17/2016, secondary to elevated trough, pending vancomycin trough - patient received 2 doses of Lasix 40 mg IV, creatinine noted to be trending upward Lasix discontinued - ID consulted and followed 2) Psych: Dementia - Continue Seroquel 3) Neuro: Parkinson's - Continue Sinemet 4) Endocrine: Hyperthyroidism - Continue Methimazole 5) F/E/N: - Monitor electrolytes - Sodium controlled diet 6) Prophylaxis: - OOB ambulating - zantac - Heparin 5,000u sq TID - PT 7) Dispo: - Requires continued inpatient care CODE STATUS: FULL CODE Visit type - Emergency Visit Emergency Visit: Yes ED Registration Date: 09/16/16 Care time: The patient presented to the Emergency Department on the above date and was hospitalized for further evaluation of their emergent condition. - New Patient This patient is new to me today: No - Critical Care Critical Care patient: No - Discharge Referral Referred to [facility] Med P.C.: No
[2016-09-25] MEDS ORDERED: CLINDAMYCIN 600MG PREMIX IVPB 50 ML IVPB SCH (18:00)
[2016-09-25] MEDS: CLINDAMYCIN 600MG PREMIX IVPB 50 ML IVPB SCH (18:00)
[2016-09-25] MEDS: GABAPENTIN 100 MG CAPSULE (FP) PO SCH (22:06)
[2016-09-25] MEDS: ATORVASTATIN CA 10 MG TABLET (FP) PO SCH (22:06)
[2016-09-25] MEDS: QUEtiapine FUMARATE 25 MG TABLET (FP) PO SCH (22:07)
[2016-09-26] MEDS: CLINDAMYCIN 600MG PREMIX IVPB 50 ML IVPB SCH ×3 (01:54→18:28)
[2016-09-26] MEDS: CARBIDOPA/LEVODOPA 25/100 TABLET (FP) PO SCH ×3 (06:17→21:42)
--- NOTE | 2016-09-26 10:14 | PN ---
Progress Note, Physician History of Present Illness: Awake, alert no c/o leg pain No c/o fever/ chills - Current Medication List Current Medications: Active Medications Atorvastatin Calcium (Lipitor -) 10 mg PO HS [facility] Last Admin: 09/25/16 22:06 Dose: 10 mg Carbidopa/Levodopa (Sinemet 25/100 -) 2 each PO TID [facility] Last Admin: 09/26/16 06:17 Dose: 2 each Gabapentin (Neurontin -) 100 mg PO HS [facility] Last Admin: 09/25/16 22:06 Dose: 100 mg Heparin Sodium (Porcine) (Heparin -) 5,000 unit SQ BID [facility] Last Admin: 09/25/16 22:06 Dose: 5,000 unit Clindamycin Phosphate (Cleocin 600 Mg Premix Ivpb -) 50 mls @ 100 mls/hr IVPB Q8H-IV [facility] Last Admin: 09/26/16 01:54 Dose: 100 mls/hr Lactobacillus Acidophilus (Bacid -) 1 tab PO DAILY [facility] Last Admin: 09/25/16 09:36 Dose: 1 tab Methimazole (Tapazole -) 2.5 mg PO Q2D@1000 [facility] Last Admin: 09/25/16 09:44 Dose: 2.5 mg Multi-Ingredient Lotion (Eucerin (Large Jar) -) 1 applic TP BID [facility] Last Admin: 09/25/16 22:06 Dose: 1 applic Quetiapine Fumarate (Seroquel -) 12.5 mg PO [facility] Last Admin: 09/25/16 22:07 Dose: 12.5 mg Ranitidine HCl (Zantac -) 150 mg PO DAILY [facility] Last Admin: 09/25/16 09:36 Dose: 150 mg - Objective Vital Signs: Vital Signs Temperature 98.5 F 09/26/16 03:00 Pulse Rate 66 09/26/16 03:00 Respiratory Rate 16 09/26/16 08:54 Blood Pressure 117/52 09/26/16 03:00 O2 Sat by Pulse Oximetry (%) 99 09/26/16 08:54 Constitutional: Yes: No Distress Eyes: Yes: Conjunctiva Clear Cardiovascular: Yes: Regular Rate and Rhythm, S1, S2 Respiratory: Yes: CTA Bilaterally Gastrointestinal: Yes: Normal Bowel Sounds, Soft. No: Tenderness Extremities: Yes: Other (decreasing erythema/ warmth LE bilaterally) Labs: CBC, BMP 09/25/16 07:31 Assessment/Plan Recurrent bilateral LE cellulitus L >R improving LE lymphedema PCN allergy continue clindamycin Vancomycin on hold. Check trough today Elevation
[2016-09-26] MEDS: LACTOBACILLUS ACIDOPHILUS 1 EACH TAB (FP) PO SCH (10:19)
[2016-09-26] MEDS: MINERAL OIL/PETROLAT/WATER TOPICAL CREAM 454 GM JAR TP SCH ×2 (10:20→21:42)
[2016-09-26] MEDS: HEPARIN NA (PORCINE) 5,000 UNITS/ML 1ML VIAL SQ SCH ×2 (10:20→21:42)
[2016-09-26] MEDS: RANITIDINE HCL 150 MG TABLET (FP) PO SCH (10:20)
--- NOTE | 2016-09-26 10:58 | PN ---
[id number] 4Bd OBJECTIVE: patient is a 80 year-old with a PMH of Parkinson's disease, dementia , anemia, hypothyroidism, and chronic lower extremity cellulitis and lymphedema , admitted for bilateral lower extremity cellulitis and lymphedema. Vital Signs Period Temp Pulse Resp BP Sys/Moore Pulse Ox Last 24 Hr 98.0 F-98.7 F 66-97 16-18 113-127/52-64 97-100 PHYSICAL EXAMINATION GENERAL: The patient is awake, alert, and fully oriented, in no acute distress. HEAD: Normal with no signs of trauma. EYES: PERRL, extraocular movements intact, sclera anicteric, conjunctiva clear. No ptosis. ENT: Ears normal, nares patent, oropharynx clear without exudates, moist mucous membranes. NECK: Trachea midline, full range of motion, supple. LUNGS: Breath sounds equal, clear to auscultation bilaterally, no wheezes, no crackles, no accessory muscle use. HEART: Regular rate and rhythm, S1, S2 without murmur, rub or gallop. ABDOMEN: Soft, nontender, nondistended, normoactive bowel sounds, no guarding, no rebound, no hepatosplenomegaly, no masses. EXTREMITIES: 2+ pulses, warm, well-perfused, circumferential erythema to left lower extremity, much improved, +2 edema, right lower extremity, +1 edema, 3 cm of erythema noted to the distal anterior right lower extremity (much improved), and no induration noted NEUROLOGICAL: Cranial nerves II through XII grossly intact. Normal speech, gait not observed. PSYCH: Normal mood, normal affect. SKIN: Warm, dry, normal turgor, no rashes or lesions noted Laboratory Results - last 24 hr 09/25/16 10:02 Vancomycin Trough 16.908 H* CBC WBC 5.9 K/mm3 (4.0-10.0) 09/25/16 07:31 RBC 2.97 M/mm3 (3.60-5.2) L 09/25/16 07:31 Hgb 9.0 GM/dl (10.7-15.3) L 09/25/16 07:31 Hct 27.6 % (32.4-45.2) L 09/25/16 07:31 MCV 92.9 fl (80-96) 09/25/16 07:31 MCHC 32.4 g/dl (32.0-36.0) 09/25/16 07:31 RDW 12.8 % (11.6-15.6) 09/25/16 07:31 Plt Count 413 K/MM3 (134-434) 09/25/16 07:31 MPV 7.3 fl (7.5-11.1) L 09/25/16 07:31 Neutrophils % 71.3 % (42.8-82.8) 09/25/16 07:31 Lymphocytes % 15.7 % (8-40) D 09/25/16 07:31 Monocytes % 7.8 % (3.8-10.2) D 09/25/16 07:31 Eosinophils % 4.9 % (0-4.5) H 09/25/16 07:31 Basophils % 0.3 % (0-2.0) 09/25/16 07:31 Active Medications Generic Name Dose Route Start Last Admin Trade Name Freq PRN Reason Stop Dose Admin Atorvastatin Calcium 10 mg 09/17/16 22:00 09/25/16 22:06 Lipitor - PO 10 mg HS ALTHEA Administration Carbidopa/Levodopa 2 each 09/17/16 06:00 09/26/16 06:17 Sinemet 25/100 - PO 2 each TID ALTHEA Administration Gabapentin 100 mg 09/17/16 22:00 09/25/16 22:06 Neurontin - PO 100 mg HS ALTHEA Administration Heparin Sodium (Porcine) 5,000 unit 09/24/16 22:00 09/26/16 10:20 Heparin - SQ 5,000 unit BID ALTHEA Administration Clindamycin Phosphate 50 mls @ 100 mls/hr 09/25/16 18:00 09/26/16 10:19 Cleocin 600 Mg Premix Ivpb - IVPB 100 mls/hr Q8H-IV ALTHEA Administration Lactobacillus Acidophilus 1 tab 09/20/16 10:00 09/26/16 10:19 Bacid - PO 1 tab DAILY ALTHEA Administration Methimazole 2.5 mg 09/17/16 10:00 09/25/16 09:44 Tapazole - PO 2.5 mg Q2D@1000 ALTHEA Administration Multi-Ingredient Lotion 1 applic 09/20/16 22:00 09/26/16 10:20 Eucerin (Large Jar) - TP 1 applic BID ALTHEA Administration Quetiapine Fumarate 12.5 mg 09/17/16 22:00 09/25/16 22:07 Seroquel - PO 12.5 mg HS ALTHAE Administration Ranitidine HCl 150 mg 09/20/16 10:00 09/26/16 10:20 Zantac - PO 150 mg DAILY ALTHEA Administration Microbiology 09/16/16 17:30 Blood - Peripheral Venous Blood Culture - Final NO GROWTH AFTER 5 DAYS INCUBATION 09/16/16 17:30 Blood - Peripheral Venous Blood Culture - Final NO GROWTH AFTER 5 DAYS INCUBATION 09/17/16 23:32 Urine - Urine Clean Catch Urine Culture - Final NO GROWTH OBTAINED IMAGING B/l lower extremity dopplers negative for DVT X-ray of left foot/ankle and left tib-fib no acute fracture noted ASSESSMENT/PLAN: 1) ID: Recurrent b/l lower extremity cellulitis, chronic lymphadema - remained afebrile and no leukocytosis noted - Levaquin (09/17- 09/24) d/c due to rash, clindamycin (09/24/2016-), vancomycin on hold last dose 09/17/2016, secondary to elevated trough, pending vancomycin trough - ID consulted and followed 2) Psych: Dementia - Continue Seroquel 3) Neuro: Parkinson's - Continue Sinemet 4) Endocrine: Hyperthyroidism - Continue Methimazole 5) F/E/N: - Monitor electrolytes - Sodium controlled diet 6) Prophylaxis: - OOB ambulating - zantac - Heparin 5,000u sq TID - PT 7) Dispo: - Requires continued inpatient care CODE STATUS: FULL CODE Visit type - Emergency Visit Emergency Visit: Yes ED Registration Date: 09/16/16 Care time: The patient presented to the Emergency Department on the above date and was hospitalized for further evaluation of their emergent condition. - New Patient This patient is new to me today: No - Critical Care Critical Care patient: No - Discharge Referral Referred to [facility] Med P.C.: No
[2016-09-26 11:21] LABS: CALCIUM 8.6 mg/dl (8.4-10.2); CREATININE 1.3 mg/dl (0.6-1.3)
[2016-09-26] MEDS ORDERED: PT OWN MED DRAWER 7, Y5N ONE (21:36)
[2016-09-26] MEDS: QUEtiapine FUMARATE 25 MG TABLET (FP) PO SCH (21:42)
[2016-09-26] MEDS: ATORVASTATIN CA 10 MG TABLET (FP) PO SCH (21:42)
[2016-09-26] MEDS: GABAPENTIN 100 MG CAPSULE (FP) PO SCH (21:42)
[2016-09-27] MEDS: CLINDAMYCIN 600MG PREMIX IVPB 50 ML IVPB SCH ×3 (01:47→17:37)
[2016-09-27] MEDS: CARBIDOPA/LEVODOPA 25/100 TABLET (FP) PO SCH ×3 (06:34→21:58)
--- NOTE | 2016-09-27 08:58 | PN ---
Progress Note, Physician History of Present Illness: Awake, responsive No complaints No c/o leg pain No fever/ chills - Current Medication List Current Medications: Active Medications Atorvastatin Calcium (Lipitor -) [address] [facility] Last Admin: 09/26/16 21:42 Dose: 10 mg Carbidopa/Levodopa (Sinemet 25/100 -) [address] [facility] Last Admin: 09/27/16 06:34 Dose: 2 each Gabapentin (Neurontin -) 100 mg PO [facility] Last Admin: 09/26/16 21:42 Dose: 100 mg Heparin Sodium (Porcine) (Heparin -) 5,[address] [facility] Last Admin: 09/26/16 21:42 Dose: 5,000 unit Clindamycin Phosphate (Cleocin 600 Mg Premix Ivpb -) 50 mls @ 100 mls/hr IVPB Q8H-IV [facility] Last Admin: 09/27/16 01:47 Dose: 100 mls/hr Lactobacillus Acidophilus (Bacid -) [address] [facility] Last Admin: 09/26/16 10:19 Dose: 1 tab Methimazole (Tapazole -) 2.5 mg PO Q2D@1000 [facility] Last Admin: 09/25/16 09:44 Dose: 2.5 mg Multi-Ingredient Lotion (Eucerin (Large Jar) -) [address] [facility] Last Admin: 09/26/16 21:42 Dose: 1 applic Quetiapine Fumarate (Seroquel -) 12.5 mg PO [facility] Last Admin: 09/26/16 21:42 Dose: 12.5 mg Ranitidine HCl (Zantac -) [address] [facility] Last Admin: 09/26/16 10:20 Dose: 150 mg - Objective Vital Signs: Vital Signs Temperature 98.7 F 09/27/16 06:00 Pulse Rate 77 09/27/16 06:00 Respiratory Rate 17 09/27/16 06:00 Blood Pressure 132/46 09/27/16 06:00 O2 Sat by Pulse Oximetry (%) 96 09/27/16 06:09 Constitutional: Yes: No Distress Eyes: Yes: Conjunctiva Clear Cardiovascular: Yes: Regular Rate and Rhythm, S1, S2 Respiratory: Yes: CTA Bilaterally Gastrointestinal: Yes: Normal Bowel Sounds, Soft. No: Tenderness Extremities: Yes: Other (LE remain erythematous, warm L>R) Labs: CBC, BMP 09/25/16 07:31 09/26/16 10:01 Assessment/Plan Recurrent bilateral LE cellulitus L >R improving slowly LE lymphedema PCN allergy continue clindamycin Redose Vancomycin Check trough am Elevation
[2016-09-27] MEDS ORDERED: VANCOMYCIN 1 GRAM (PRE-DOCKED) 250 ML IVPB ONE (09:15)
[2016-09-27] MEDS: LACTOBACILLUS ACIDOPHILUS 1 EACH TAB (FP) PO SCH (09:57)
[2016-09-27] MEDS: RANITIDINE HCL 150 MG TABLET (FP) PO SCH (09:57)
[2016-09-27] MEDS: MINERAL OIL/PETROLAT/WATER TOPICAL CREAM 454 GM JAR TP SCH ×2 (09:57→21:58)
[2016-09-27] MEDS: HEPARIN NA (PORCINE) 5,000 UNITS/ML 1ML VIAL SQ SCH ×2 (09:58→21:59)
[2016-09-27] MEDS: METHIMAZOLE 5 MG TABLET (FP) PO SCH (09:59)
--- NOTE | 2016-09-27 11:18 | PN ---
[id number] OBJECTIVE: patient is a 80 year-old with a PMH of Parkinson's disease, dementia, anemia, hypothyroidism, and chronic lower extremity cellulitis and lymphedema, admitted for bilateral lower extremity cellulitis and lymphedema. Vital Signs Period Temp Pulse Resp BP Sys/Moore Pulse Ox Last 24 Hr 97.4 F-98.7 F 70-77 16-17 105-134/46-68 96-100 PHYSICAL EXAMINATION GENERAL: The patient is awake, alert, and fully oriented, in no acute distress. HEAD: Normal with no signs of trauma. EYES: PERRL, extraocular movements intact, sclera anicteric, conjunctiva clear. No ptosis. ENT: Ears normal, nares patent, oropharynx clear without exudates, moist mucous membranes. NECK: Trachea midline, full range of motion, supple. LUNGS: Breath sounds equal, clear to auscultation bilaterally, no wheezes, no crackles, no accessory muscle use. HEART: Regular rate and rhythm, S1, S2 without murmur, rub or gallop. ABDOMEN: Soft, nontender, nondistended, normoactive bowel sounds, no guarding, no rebound, no hepatosplenomegaly, no masses. EXTREMITIES: 2+ pulses, warm, well-perfused, circumferential erythema to left lower extremity, much improved, +2 edema, right lower extremity, +1 edema, 3 cm of erythema noted to the distal anterior right lower extremity (much improved), and no induration noted NEUROLOGICAL: Cranial nerves II through XII grossly intact. Normal speech, gait not observed. PSYCH: Normal mood, normal affect. SKIN: Warm, dry, normal turgor, no rashes or lesions noted Laboratory Results - last 24 hr 09/26/16 09/26/16 07:28 10:01 Sodium 134 L Potassium 4.2 Chloride 103 Carbon Dioxide 25 Anion Gap 6 L BUN 30 H Creatinine 1.3 Random Glucose 87 Calcium 8.6 Random Vancomycin 16.112 Active Medications Generic Name Dose Route Start Last Admin Trade Name Freq PRN Reason Stop Dose Admin Atorvastatin Calcium 10 mg 09/17/16 22:00 09/26/16 21:42 Lipitor - PO 10 mg HS ALTHEA Administration Carbidopa/Levodopa 2 each 09/17/16 06:00 09/27/16 06:34 Sinemet 25/100 - PO 2 each TID ALTHEA Administration Gabapentin 100 mg 09/17/16 22:00 09/26/16 21:42 Neurontin - PO 100 mg HS ALTHEA Administration Heparin Sodium (Porcine) 5,000 unit 09/24/16 22:00 09/27/16 09:58 Heparin - SQ 5,000 unit BID ALTHEA Administration Clindamycin Phosphate 50 mls @ 100 mls/hr 09/25/16 18:00 09/27/16 09:57 Cleocin 600 Mg Premix Ivpb - IVPB 100 mls/hr Q8H-IV ALTHEA Administration Lactobacillus Acidophilus 1 tab 09/20/16 10:00 09/27/16 09:57 Bacid - PO 1 tab DAILY ALTHEA Administration Methimazole 2.5 mg 09/17/16 10:00 09/27/16 09:59 Tapazole - PO 2.5 mg Q2D@1000 ALTHEA Administration Multi-Ingredient Lotion 1 applic 09/20/16 22:00 09/27/16 09:57 Eucerin (Large Jar) - TP 1 applic BID ALTHEA Administration Quetiapine Fumarate 12.5 mg 09/17/16 22:00 09/26/16 21:42 Seroquel - PO 12.5 mg HS ALTHEA Administration Ranitidine HCl 150 mg 09/20/16 10:00 09/27/16 09:57 Zantac - PO 150 mg DAILY ALTHEA Administration Microbiology 09/16/16 17:30 Blood - Peripheral Venous Blood Culture - Final NO GROWTH AFTER 5 DAYS INCUBATION 09/16/16 17:30 Blood - Peripheral Venous Blood Culture - Final NO GROWTH AFTER 5 DAYS INCUBATION 09/17/16 23:32 Urine - Urine Clean Catch Urine Culture - Final NO GROWTH OBTAINED ASSESSMENT/PLAN: IMAGING B/l lower extremity dopplers negative for DVT X-ray of left foot/ankle and left tib-fib no acute fracture noted ASSESSMENT/PLAN: 1) ID: Recurrent b/l lower extremity cellulitis, chronic lymphadema - remained afebrile and no leukocytosis noted - Levaquin (09/17- 09/24) d/c due to rash, clindamycin (09/24/2016-), vancomycin remains on hold last dose 09/17/2016, secondary to elevated trough - ID consulted and followed 2) Psych: Dementia - Continue Seroquel 3) Neuro: Parkinson's - Continue Sinemet 4) Endocrine: Hyperthyroidism - Continue Methimazole 5) F/E/N: - Monitor electrolytes - Sodium controlled diet 6) Prophylaxis: - OOB ambulating - zantac - Heparin 5,000u sq TID - PT 7) Dispo: - Requires continued inpatient care CODE STATUS: FULL CODE Visit type - Emergency Visit Emergency Visit: Yes ED Registration Date: 09/16/16 Care time: The patient presented to the Emergency Department on the above date and was hospitalized for further evaluation of their emergent condition. - New Patient This patient is new to me today: No - Critical Care Critical Care patient: No - Discharge Referral Referred to [facility] Med P.C.: No
[2016-09-27] MEDS: QUEtiapine FUMARATE 25 MG TABLET (FP) PO SCH (21:58)
[2016-09-27] MEDS: ATORVASTATIN CA 10 MG TABLET (FP) PO SCH (21:58)
[2016-09-27] MEDS: GABAPENTIN 100 MG CAPSULE (FP) PO SCH (21:58)
[2016-09-28] MEDS: CLINDAMYCIN 600MG PREMIX IVPB 50 ML IVPB SCH ×3 (01:17→17:33)
[2016-09-28] MEDS: CARBIDOPA/LEVODOPA 25/100 TABLET (FP) PO SCH ×3 (06:06→21:24)
--- NOTE | 2016-09-28 09:03 | PN ---
Progress Note, Physician History of Present Illness: No complaints Afebrile L LE remains red, warm - Current Medication List Current Medications: Active Medications Atorvastatin Calcium (Lipitor -) 10 mg PO HS [facility] Last Admin: 09/27/16 21:58 Dose: 10 mg Carbidopa/Levodopa (Sinemet 25/100 -) 2 each PO TID [facility] Last Admin: 09/28/16 06:06 Dose: 2 each Gabapentin (Neurontin -) 100 mg PO HS [facility] Last Admin: 09/27/16 21:58 Dose: 100 mg Heparin Sodium (Porcine) (Heparin -) 5,000 unit SQ BID [facility] Last Admin: 09/27/16 21:59 Dose: 5,000 unit Clindamycin Phosphate (Cleocin 600 Mg Premix Ivpb -) 50 mls @ 100 mls/hr IVPB Q8H-IV [facility] Last Admin: 09/28/16 01:17 Dose: 100 mls/hr Lactobacillus Acidophilus (Bacid -) 1 tab PO DAILY [facility] Last Admin: 09/27/16 09:57 Dose: 1 tab Methimazole (Tapazole -) 2.5 mg PO Q2D@1000 [facility] Last Admin: 09/27/16 09:59 Dose: 2.5 mg Multi-Ingredient Lotion (Eucerin (Large Jar) -) 1 applic TP BID [facility] Last Admin: 09/27/16 21:58 Dose: 1 applic Quetiapine Fumarate (Seroquel -) 12.[address] [facility] Last Admin: 09/27/16 21:58 Dose: 12.5 mg Ranitidine HCl (Zantac -) 150 mg PO DAILY [facility] Last Admin: 09/27/16 09:57 Dose: 150 mg - Objective Vital Signs: Vital Signs Temperature 98.6 F 09/28/16 06:25 Pulse Rate 78 09/28/16 06:25 Respiratory Rate 18 09/28/16 08:19 Blood Pressure 138/63 09/28/16 06:25 O2 Sat by Pulse Oximetry (%) 93 L 09/28/16 08:19 Constitutional: Yes: No Distress Eyes: Yes: Conjunctiva Clear Cardiovascular: Yes: Regular Rate and Rhythm, S1, S2 Respiratory: Yes: CTA Bilaterally Gastrointestinal: Yes: Normal Bowel Sounds, Soft. No: Tenderness Extremities: Yes: Other (+ erythema/ warmth/ tenderness L>R LE) Labs: CBC, BMP 09/25/16 07:31 09/26/16 10:01 Assessment/Plan Recurrent bilateral LE cellulitus L >R LE lymphedema PCN allergy continue clindamycin Redose Vancomycin Check trough am Elevation
[2016-09-28] MEDS: HEPARIN NA (PORCINE) 5,000 UNITS/ML 1ML VIAL SQ SCH ×2 (09:30→21:25)
[2016-09-28] MEDS: LACTOBACILLUS ACIDOPHILUS 1 EACH TAB (FP) PO SCH (09:30)
[2016-09-28] MEDS ORDERED: VANCOMYCIN 1 GRAM (PRE-DOCKED) 250 ML IVPB ONE (09:30)
[2016-09-28] MEDS: RANITIDINE HCL 150 MG TABLET (FP) PO SCH (09:30)
[2016-09-28] MEDS: MINERAL OIL/PETROLAT/WATER TOPICAL CREAM 454 GM JAR TP SCH ×2 (09:35→21:27)
[2016-09-28] MEDS ORDERED: CEFEPIME HCL 1 GM VIAL (RESTRICTED TO ID) IVPB SCH (10:00)
--- NOTE | 2016-09-28 10:06 | PN ---
[id number] patient is a 80 year-old with a PMH of Parkinson's disease, dementia, anemia, hypothyroidism, and chronic lower extremity cellulitis and lymphedema, admitted for bilateral lower extremity cellulitis and lymphedema. Vital Signs Period Temp Pulse Resp BP Sys/Moore Pulse Ox Last 24 Hr 98.6 F-99.2 F 78-89 17-18 138-139/60-63 93-96 PHYSICAL EXAMINATION GENERAL: The patient is awake, alert, and fully oriented, in no acute distress. HEAD: Normal with no signs of trauma. EYES: PERRL, extraocular movements intact, sclera anicteric, conjunctiva clear. No ptosis. ENT: Ears normal, nares patent, oropharynx clear without exudates, moist mucous membranes. NECK: Trachea midline, full range of motion, supple. LUNGS: Breath sounds equal, clear to auscultation bilaterally, no wheezes, no crackles, no accessory muscle use. HEART: Regular rate and rhythm, S1, S2 without murmur, rub or gallop. ABDOMEN: Soft, nontender, nondistended, normoactive bowel sounds, no guarding, no rebound, no hepatosplenomegaly, no masses. EXTREMITIES: 2+ pulses, warm, well-perfused, circumferential erythema to left lower extremity, much improved, +2 edema, right lower extremity, +1 edema, slight erythema noted to the distal anterior right lower extremity , and no induration noted NEUROLOGICAL: Cranial nerves II through XII grossly intact. Normal speech, gait not observed. PSYCH: Normal mood, normal affect. SKIN: Warm, dry, normal turgor, no rashes or lesions noted Active Medications Generic Name Dose Route Start Last Admin Trade Name Freq PRN Reason Stop Dose Admin Atorvastatin Calcium 10 mg 09/17/16 22:00 09/27/16 21:58 Lipitor - PO 10 mg HS ALTEHA Administration Carbidopa/Levodopa 2 each 09/17/16 06:00 09/28/16 06:06 Sinemet 25/100 - PO 2 each TID ALTHEA Administration Cefepime HCl 1 gm 09/28/16 10:00 Maxipime (Restricted To Id) - IVPB Q8H-IV ALTHEA Protocol Gabapentin 100 mg 09/17/16 22:00 09/27/16 21:58 Neurontin - PO 100 mg HS ALTHEA Administration Heparin Sodium (Porcine) 5,000 unit 09/24/16 22:00 09/28/16 09:30 Heparin - SQ 5,000 unit BID ALTHEA Administration Clindamycin Phosphate 50 mls @ 100 mls/hr 09/25/16 18:00 09/28/16 09:30 Cleocin 600 Mg Premix Ivpb - IVPB 100 mls/hr Q8H-IV ALTHEA Administration Vancomycin HCl 250 mls @ 166.667 mls/hr 09/28/16 09:30 Vancomycin (Pre-Docked) IVPB 09/28/16 10:59 ONCE ONE Lactobacillus Acidophilus 1 tab 09/20/16 10:00 09/28/16 09:30 Bacid - PO 1 tab DAILY ALTHEA Administration Methimazole 2.5 mg 09/17/16 10:00 09/27/16 09:59 Tapazole - PO 2.5 mg Q2D@1000 ALTHEA Administration Multi-Ingredient Lotion 1 applic 09/20/16 22:00 09/28/16 09:35 Eucerin (Large Jar) - TP 1 applic BID ALTHEA Administration Quetiapine Fumarate 12.5 mg 09/17/16 22:00 09/27/16 21:58 Seroquel - PO 12.5 mg HS ALTHEA Administration Ranitidine HCl 150 mg 09/20/16 10:00 09/28/16 09:30 Zantac - PO 150 mg DAILY ALTHEA Administration Microbiology 09/16/16 17:30 Blood - Peripheral Venous Blood Culture - Final NO GROWTH AFTER 5 DAYS INCUBATION 09/16/16 17:30 Blood - Peripheral Venous Blood Culture - Final NO GROWTH AFTER 5 DAYS INCUBATION 09/17/16 23:32 Urine - Urine Clean Catch Urine Culture - Final NO GROWTH OBTAINED IMAGING B/l lower extremity dopplers negative for DVT X-ray of left foot/ankle and left tib-fib no acute fracture noted ASSESSMENT/PLAN: 1) ID: Recurrent b/l lower extremity cellulitis, chronic lymphadema - afebrile and no leukocytosis noted - Levaquin (09/17- 09/24) d/c due to rash, clindamycin (09/24/2016-), vancomycin last dose 09/17/2016 held secondary to elevated trough, vancomycin x 1 ordered for today, recheck trough tomm. - ID consulted and followed 2) Psych: Dementia - Continue Seroquel 3) Neuro: Parkinson's - Continue Sinemet 4) Endocrine: Hyperthyroidism - Continue Methimazole 5) F/E/N: - Monitor electrolytes - Sodium controlled diet 6) Prophylaxis: - OOB ambulating - zantac - Heparin 5,000u sq TID - PT 7) Dispo: - Requires continued inpatient care CODE STATUS: FULL CODE Visit type - Emergency Visit Emergency Visit: Yes ED Registration Date: 09/16/16 Care time: The patient presented to the Emergency Department on the above date and was hospitalized for further evaluation of their emergent condition. - New Patient This patient is new to me today: No - Critical Care Critical Care patient: No - Discharge Referral Referred to [facility] Med P.C.: No
[2016-09-28 11:13] LABS: BASOPHIL 0.4 % (0-2.0); MCH 29.4 pg (25.7-33.7); MEAN CELL VOLUME 92.1 fl (80-96); MEAN PLT VOLUME 7.6 fl (7.5-11.1); NEUTROPHILS 79.6 % (42.8-82.8); PLATELET COUNT 414 K/MM3 (134-434); RDW 13.2 % (11.6-15.6); WHITE BLOOD COUNT 4.8 K/mm3 (4.0-10.0)
[2016-09-28 11:29] LABS: ALBUMIN 3.1 g/dl (3.5-5.0); ALK PHOS 50 U/L (32-92); ANION GAP 7 (8-16); CALCIUM 8.4 mg/dl (8.4-10.2); CO2 24 mmol/L (22-28); CREATININE 1.3 mg/dl (0.6-1.3); GLUCOSE,RANDOM 106 mg/dl (74-106); PHOSPHOROUS 3.2 mg/dl (2.5-4.6); SGOT/AST 17 U/L (10-42); TOT PROT 6.1 g/dl (6.4-8.3)
[2016-09-28 11:39] LABS: BILIRUBIN,TOTAL 0.5 mg/dl (0.2-1.0)
[2016-09-28 12:02] LABS: SGPT/ALT < 9 U/L (10-40)
[2016-09-28] MEDS ORDERED: ONDANSETRON 4 MG/2 ML VIAL IVPB PRN (18:36)
[2016-09-28] MEDS: ATORVASTATIN CA 10 MG TABLET (FP) PO SCH (21:25)
[2016-09-28] MEDS: GABAPENTIN 100 MG CAPSULE (FP) PO SCH (21:25)
[2016-09-28] MEDS: QUEtiapine FUMARATE 25 MG TABLET (FP) PO SCH (21:29)
[2016-09-29] MEDS: CLINDAMYCIN 600MG PREMIX IVPB 50 ML IVPB SCH ×3 (01:08→17:10)
[2016-09-29] MEDS: CARBIDOPA/LEVODOPA 25/100 TABLET (FP) PO SCH ×3 (06:40→22:01)
--- NOTE | 2016-09-29 07:53 | PN ---
[id number] OBJECTIVE: Vital Signs Period Temp Pulse Resp BP Sys/Moore Pulse Ox Last 24 Hr 98.0 F-98.6 F 69-78 16-19 113-133/48-68 93-99 GENERAL: The patient is awake, alert, and fully oriented, in no acute distress. HEAD: Normal with no signs of trauma. EYES: normal external eye exam. NECK: supple. LUNGS: Breath sounds equal, clear to auscultation bilaterally, no wheezes, no crackles, no accessory muscle use. HEART: Regular rate and rhythm ABDOMEN: Soft, nontender, nondistended EXTREMITIES: left Lower extremity warm, red, positive edema. NEUROLOGICAL: Cranial nerves grossly intact. Normal speech, but low voice, gait not observed. PSYCH: Normal mood, normal affect. SKIN: Warm, dry, rash to Left hand knuckles(reported as not new) Laboratory Results - last 24 hr 09/28/16 09/28/16 10:40 10:40 WBC 4.8 RBC 3.11 L Hgb 9.1 L Hct 28.6 L MCV 92.1 MCHC 32.0 RDW 13.2 Plt Count 414 MPV 7.6 Neutrophils % 79.6 Lymphocytes % 12.7 Monocytes % 3.3 L Eosinophils % 4.0 Basophils % 0.4 Sodium 133 L Potassium 4.2 Chloride 102 Carbon Dioxide 24 Anion Gap 7 L BUN 23 H D Creatinine 1.3 Creat Clearance w eGFR 39.61 Random Glucose 106 D Calcium 8.4 Phosphorus 3.2 Magnesium 2.0 Total Bilirubin 0.5 AST 17 ALT < 9 L Alkaline Phosphatase 50 Total Protein 6.1 L Albumin 3.1 L Active Medications Generic Name Dose Route Start Last Admin Trade Name Scottieq PRN Reason Stop Dose Admin Atorvastatin Calcium 10 mg 09/17/16 22:00 09/28/16 21:25 Lipitor - PO 10 mg HS ALTHEA Administration Carbidopa/Levodopa 2 each 09/17/16 06:00 09/29/16 06:40 Sinemet 25/100 - PO 2 each TID ALTHEA Administration Gabapentin 100 mg 09/17/16 22:00 09/28/16 21:25 Neurontin - PO 100 mg HS ALTHEA Administration Heparin Sodium (Porcine) 5,000 unit 09/24/16 22:00 09/28/16 21:25 Heparin - SQ 5,000 unit BID ALTHEA Administration Clindamycin Phosphate 50 mls @ 100 mls/hr 09/25/16 18:00 09/29/16 01:08 Cleocin 600 Mg Premix Ivpb - IVPB 100 mls/hr Q8H-IV ALTHEA Administration Lactobacillus Acidophilus 1 tab 09/20/16 10:00 09/28/16 09:30 Bacid - PO 1 tab DAILY ALTHEA Administration Methimazole 2.5 mg 09/17/16 10:00 09/27/16 09:59 Tapazole - PO 2.5 mg Q2D@1000 ALTHEA Administration Multi-Ingredient Lotion 1 applic 09/20/16 22:00 09/28/16 21:27 Eucerin (Large Jar) - TP 1 applic BID ALTHEA Administration Ondansetron HCl 4 mg 09/28/16 18:36 Zofran Injection IVPB Q6H PRN NAUSEA AND/OR VOMITING Quetiapine Fumarate 12.5 mg 09/17/16 22:00 09/28/16 21:29 Seroquel - PO 12.5 mg HS ALTHEA Administration Ranitidine HCl 150 mg 09/20/16 10:00 09/28/16 09:30 Zantac - PO 150 mg DAILY ALTHEA Administration 09/16/16 17:30 Blood - Peripheral Venous Blood Culture - Final NO GROWTH AFTER 5 DAYS INCUBATION 09/16/16 17:30 Blood - Peripheral Venous Blood Culture - Final NO GROWTH AFTER 5 DAYS INCUBATION 09/17/16 23:32 Urine - Urine Clean Catch Urine Culture - Final NO GROWTH OBTAINED IMAGING X-ray of left foot/ankle and left tib-fib no acute fracture noted ASSESSMENT/PLAN: 1)Recurrent b/l lower extremity cellulitis, chronic lymphadema - remains afebrile and no leukocytosis noted -No signs of clot formation-no complaints of calf pain or breathing difficulty, also reportedly edema is chronic. - Levaquin (09/17- 09/24) d/c due to rash, clindamycin (09/24/2016-), vancomycin last dose 09/17/2016 held secondary to elevated trough, vancomycin x 1 yesterday , recheck trough today-pending -Appreciate ID follow up-. 2)Dementia- ?mild, no behavioural disturbances - Continue Seroquel 3)h/o Parkinson's - Continue Sinemet 4)Hyperthyroidism-appear stable. -TSH wnl as of Jun 2016 - Continue Methimazole 5) F/E/N: - Monitor electrolytes - Sodium controlled diet 6) Prophylaxis: - OOB ambulating, uses walker - zantac - Heparin 5,000u sq - PT 7) Dispo: - Requires continued inpatient care CODE STATUS: FULL CODE Visit type - Emergency Visit Emergency Visit: No - New Patient This patient is new to me today: Yes Date on this admission: 11/27/16 - Critical Care Critical Care patient: No - Discharge Referral Referred to [facility] Med P.C.: No
[2016-09-29 09:00] LABS: BASOPHIL 1.9 % (0-2.0); EOSINOPHIL 1.6 % (0-4.5); MCH 29.8 pg (25.7-33.7); MCHC 31.7 g/dl (32.0-36.0); MEAN CELL VOLUME 93.8 fl (80-96); MEAN PLT VOLUME 7.8 fl (7.5-11.1); NEUTROPHILS 78.2 % (42.8-82.8); PLATELET COUNT 407 K/MM3 (134-434); RDW 13.1 % (11.6-15.6); WHITE BLOOD COUNT 4.7 K/mm3 (4.0-10.0)
[2016-09-29 09:14] LABS: ALBUMIN 3.2 g/dl (3.5-5.0); ALK PHOS 52 U/L (32-92); ANION GAP 7 (8-16); BILIRUBIN,TOTAL 0.6 mg/dl (0.2-1.0); CALCIUM 8.5 mg/dl (8.4-10.2); CO2 25 mmol/L (22-28); CREATININE 1.3 mg/dl (0.6-1.3); GLUCOSE,RANDOM 88 mg/dl (74-106); MAGNESIUM 2.1 mg/dL (1.8-2.4); PHOSPHOROUS 3.2 mg/dl (2.5-4.6); SGOT/AST 20 U/L (10-42); TOT PROT 6.4 g/dl (6.4-8.3)
[2016-09-29] MEDS: RANITIDINE HCL 150 MG TABLET (FP) PO SCH (09:37)
[2016-09-29] MEDS: MINERAL OIL/PETROLAT/WATER TOPICAL CREAM 454 GM JAR TP SCH ×2 (09:37→22:03)
[2016-09-29] MEDS: METHIMAZOLE 5 MG TABLET (FP) PO SCH (09:37)
[2016-09-29] MEDS: HEPARIN NA (PORCINE) 5,000 UNITS/ML 1ML VIAL SQ SCH ×2 (09:37→22:00)
[2016-09-29] MEDS: LACTOBACILLUS ACIDOPHILUS 1 EACH TAB (FP) PO SCH (09:37)
[2016-09-29 10:58] LABS: SGPT/ALT < 9 U/L (10-40)
--- NOTE | 2016-09-29 18:09 | PN ---
Progress Note, Physician History of Present Illness: No c/o leg pain No fever/ chills L LE becomes more erythematous when in dependent position - Current Medication List Current Medications: Active Medications Atorvastatin Calcium (Lipitor -) 10 mg PO HS [facility] Last Admin: 09/28/16 21:25 Dose: 10 mg Carbidopa/Levodopa (Sinemet 25/100 -) 2 each PO TID [facility] Last Admin: 09/29/16 13:05 Dose: 2 each Gabapentin (Neurontin -) 100 mg PO HS [facility] Last Admin: 09/28/16 21:25 Dose: 100 mg Heparin Sodium (Porcine) (Heparin -) 5,000 unit SQ BID [facility] Last Admin: 09/29/16 09:37 Dose: 5,000 unit Clindamycin Phosphate (Cleocin 600 Mg Premix Ivpb -) 50 mls @ 100 mls/hr IVPB Q8H-IV [facility] Last Admin: 09/29/16 17:10 Dose: 100 mls/hr Lactobacillus Acidophilus (Bacid -) 1 tab PO DAILY [facility] Last Admin: 09/29/16 09:37 Dose: 1 tab Methimazole (Tapazole -) 2.5 mg PO Q2D@1000 [facility] Last Admin: 09/29/16 09:37 Dose: 2.5 mg Multi-Ingredient Lotion (Eucerin (Large Jar) -) 1 applic TP BID [facility] Last Admin: 09/29/16 09:37 Dose: 1 applic Ondansetron HCl (Zofran Injection) 4 mg IVPB Q6H PRN PRN Reason: NAUSEA AND/OR VOMITING Quetiapine Fumarate (Seroquel -) 12.5 mg PO HS [facility] Last Admin: 09/28/16 21:29 Dose: 12.5 mg Ranitidine HCl (Zantac -) 150 mg PO DAILY [facility] Last Admin: 09/29/16 09:37 Dose: 150 mg - Objective Vital Signs: Vital Signs Temperature 97.9 F 09/29/16 15:00 Pulse Rate 66 09/29/16 15:00 Respiratory Rate 19 09/29/16 15:00 Blood Pressure 112/58 09/29/16 15:00 O2 Sat by Pulse Oximetry (%) 98 09/29/16 13:45 Eyes: Yes: Conjunctiva Clear Cardiovascular: Yes: Regular Rate and Rhythm, S1, S2 Respiratory: Yes: CTA Bilaterally Gastrointestinal: Yes: Normal Bowel Sounds, Soft. No: Tenderness Extremities: Yes: Other (+ erythema/ warmth/ swelling L >R LE) Labs: CBC, BMP 09/29/16 07:35 09/29/16 07:35 Assessment/Plan Recurrent bilateral LE cellulitus L >R LE lymphedema PCN allergy continue clindamycin Redosed Vancomycin Check trough am Elevation
[2016-09-29] MEDS: ATORVASTATIN CA 10 MG TABLET (FP) PO SCH (22:00)
[2016-09-29] MEDS: GABAPENTIN 100 MG CAPSULE (FP) PO SCH (22:01)
[2016-09-29] MEDS: QUEtiapine FUMARATE 25 MG TABLET (FP) PO SCH (22:01)
[2016-09-30] MEDS: CLINDAMYCIN 600MG PREMIX IVPB 50 ML IVPB SCH ×3 (03:09→18:10)
[2016-09-30] MEDS: CARBIDOPA/LEVODOPA 25/100 TABLET (FP) PO SCH ×3 (06:32→21:24)
[2016-09-30 08:16] LABS: EOSINOPHIL 6.4 % (0-4.5); MCH 29.3 pg (25.7-33.7); MCHC 31.7 g/dl (32.0-36.0); MEAN CELL VOLUME 92.6 fl (80-96); MEAN PLT VOLUME 7.9 fl (7.5-11.1); NEUTROPHILS 62.7 % (42.8-82.8); PLATELET COUNT 393 K/MM3 (134-434); RDW 13.4 % (11.6-15.6); WHITE BLOOD COUNT 4.1 K/mm3 (4.0-10.0)
[2016-09-30 08:25] LABS: CALCIUM 8.5 mg/dl (8.4-10.2); CREATININE 1.2 mg/dl (0.6-1.3)
[2016-09-30] MEDS: LACTOBACILLUS ACIDOPHILUS 1 EACH TAB (FP) PO SCH (10:16)
[2016-09-30] MEDS: RANITIDINE HCL 150 MG TABLET (FP) PO SCH (10:16)
[2016-09-30] MEDS: HEPARIN NA (PORCINE) 5,000 UNITS/ML 1ML VIAL SQ SCH ×2 (10:16→21:23)
[2016-09-30] MEDS: MINERAL OIL/PETROLAT/WATER TOPICAL CREAM 454 GM JAR TP SCH ×2 (10:16→21:23)
--- NOTE | 2016-09-30 10:24 | PN ---
Physical Exam: SUBJECTIVE: Patient seen and examined. Pt with no acute complaints on exam. Wants to go home. No distress noted. OBJECTIVE: Vital Signs - 24 hr 3 09/29/16 09/29/16 09/29/16 13:45 15:00 23:00 Temperature 97.9 F 97.8 F Pulse Rate 66 65 Respiratory 19 17 Rate Blood Pressure 112/58 116/52 O2 Sat by Pulse 98 Oximetry (%) GENERAL: The patient is awake, alert, and fully oriented, in no acute distress. HEAD: Normal with no signs of trauma. EYES: PERRL, extraocular movements intact, sclera anicteric, conjunctiva clear. No ptosis. ENT: Ears normal, nares patent, oropharynx clear without exudates, moist mucous membranes. NECK: Trachea midline, full range of motion, supple. LUNGS: Breath sounds equal, clear to auscultation bilaterally, no wheezes, no crackles, no accessory muscle use. HEART: Regular rate and rhythm, S1, S2 without murmur, rub or gallop. ABDOMEN: Soft, nontender, nondistended, normoactive bowel sounds, no guarding, no rebound, no hepatosplenomegaly, no masses. EXTREMITIES: 2+ pulses, warm, well-perfused. RLE with slight erythema mid mosqueda, no edema. LLE 1-2+ edema, tight, non pitting, mild erythema mid mosqueda to ankle, no discharge. NEUROLOGICAL: Cranial nerves II through XII grossly intact. Normal speech, gait not observed. PSYCH: Normal mood, normal affect. SKIN: Warm, dry, normal turgor, no rashes or lesions noted Laboratory Results - last 24 hr 3 09/29/16 09/30/16 09/30/16 07:35 08:00 08:00 WBC 4.1 RBC 2.98 L Hgb 8.7 L Hct 27.6 L MCV 92.6 MCHC 31.7 L RDW 13.4 Plt Count 393 MPV 7.9 Neutrophils % 62.7 Lymphocytes % 22.7 D Monocytes % 7.2 D Eosinophils % 6.4 H D Basophils % 1.0 Sodium 133 L 135 L Potassium 4.3 4.4 Chloride 101 106 Carbon Dioxide 25 24 Anion Gap 7 L 5 L BUN 20 H 22 H Creatinine 1.3 1.2 Creat Clearance w eGFR 39.61 Random Glucose 88 88 Calcium 8.5 8.5 Phosphorus 3.2 Magnesium 2.1 Total Bilirubin 0.6 AST 20 ALT < 9 L Alkaline Phosphatase 52 Total Protein 6.4 Albumin 3.2 L Random Vancomycin 55.41 Active Medications 3 Generic Name Dose Route Start Last Admin Trade Name Freq PRN Reason Stop Dose Admin Atorvastatin Calcium 10 mg 09/17/16 22:00 09/29/16 22:00 Lipitor - PO 10 mg HS ALTHEA Administration Carbidopa/Levodopa 2 each 09/17/16 06:00 09/30/16 06:32 Sinemet 25/100 - PO 2 each TID ALTHEA Administration Gabapentin 100 mg 09/17/16 22:00 09/29/16 22:01 Neurontin - PO 100 mg HS ALTHEA Administration Heparin Sodium (Porcine) 5,000 unit 09/24/16 22:00 09/30/16 10:16 Heparin - SQ 5,000 unit BID ALTHEA Administration Clindamycin Phosphate 50 mls @ 100 mls/hr 09/25/16 18:00 09/30/16 10:16 Cleocin 600 Mg Premix Ivpb - IVPB 100 mls/hr Q8H-IV ALTHEA Administration Lactobacillus Acidophilus 1 tab 09/20/16 10:00 09/30/16 10:16 Bacid - PO 1 tab DAILY ALTHEA Administration Methimazole 2.5 mg 09/17/16 10:00 09/29/16 09:37 Tapazole - PO 2.5 mg Q2D@1000 ALTHEA Administration Multi-Ingredient Lotion 1 applic 09/20/16 22:00 09/30/16 10:16 Eucerin (Large Jar) - TP 1 applic BID ALTHEA Administration Ondansetron HCl 4 mg 09/28/16 18:36 Zofran Injection IVPB Q6H PRN NAUSEA AND/OR VOMITING Quetiapine Fumarate 12.5 mg 09/17/16 22:00 09/29/16 22:01 Seroquel - PO 12.5 mg HS ALTHEA Administration Ranitidine HCl 150 mg 09/20/16 10:00 09/30/16 10:16 Zantac - PO 150 mg DAILY ALTHEA Administration ASSESSMENT/PLAN: 80yF with PMH Parkinson's disease, dementia, hyperthyroidism, anemia and chronic lower extremity cellulitis with lymphedema admitted for cellulitis LLE Cellulitis LLE - cont clindamycin IV - vanco on hold due to elevated trough, cont to hold, todays level 43.577 - Cont ID consult - cont elevation Parkinson's disease - cont home sinemet dementia - reorientation as needed, maintain good sleep/wake pattern, avoid nighttime sleep interruptions Hyperthyroidism - cont tapazole, TSH WNL 06/2016 on same DVT PPX - cont heparin 5000u BID FEN - tolerating po, avoid IVF - repeat labs in am - tolerating low sodium diet. Dispo: Pt currently requires inpatient care. Visit type - Emergency Visit Emergency Visit: Yes ED Registration Date: 09/16/16 Care time: The patient presented to the Emergency Department on the above date and was hospitalized for further evaluation of their emergent condition. - New Patient This patient is new to me today: Yes Date on this admission: 09/30/16 - Critical Care Critical Care patient: No
[2016-09-30] MEDS: ATORVASTATIN CA 10 MG TABLET (FP) PO SCH (21:23)
[2016-09-30] MEDS: GABAPENTIN 100 MG CAPSULE (FP) PO SCH (21:23)
[2016-09-30] MEDS: QUEtiapine FUMARATE 25 MG TABLET (FP) PO SCH (21:24)
[2016-09-30 22:12] VITALS: BP 164/64; PULSE 77; TEMP 97.6
[2016-10-01] MEDS: CLINDAMYCIN 600MG PREMIX IVPB 50 ML IVPB SCH ×2 (01:53→09:59)
[2016-10-01] MEDS: CARBIDOPA/LEVODOPA 25/100 TABLET (FP) PO SCH (06:29)
[2016-10-01 08:38] LABS: BASOPHIL 0.8 % (0-2.0); EOSINOPHIL 4.9 % (0-4.5); MCH 29.2 pg (25.7-33.7); MCHC 31.7 g/dl (32.0-36.0); MEAN CELL VOLUME 92.2 fl (80-96); NEUTROPHILS 60.8 % (42.8-82.8); PLATELET COUNT 414 K/MM3 (134-434); RDW 13.2 % (11.6-15.6); WHITE BLOOD COUNT 4.9 K/mm3 (4.0-10.0)
[2016-10-01 08:40] LABS: CALCIUM 8.8 mg/dl (8.4-10.2); CREATININE 1.2 mg/dl (0.6-1.3)
[2016-10-01] MEDS: METHIMAZOLE 5 MG TABLET (FP) PO SCH (10:01)
[2016-10-01] MEDS: RANITIDINE HCL 150 MG TABLET (FP) PO SCH (10:01)
[2016-10-01] MEDS: MINERAL OIL/PETROLAT/WATER TOPICAL CREAM 454 GM JAR TP SCH (10:01)
[2016-10-01] MEDS: LACTOBACILLUS ACIDOPHILUS 1 EACH TAB (FP) PO SCH (10:02)
[2016-10-01] MEDS: HEPARIN NA (PORCINE) 5,000 UNITS/ML 1ML VIAL SQ SCH (10:02)
--- NOTE | 2016-10-01 10:34 | PN ---
Physical Exam: SUBJECTIVE: Patient seen and examined Pt denies any legs pain,fever, chills, WILSON, dizziness, cp, sob, palpitations, abdominal pain,N/V/D or weakness. OBJECTIVE: Vital Signs Period Temp Pulse Resp BP Sys/Moore Pulse Ox Last 24 Hr 97.6 F-97.7 F 74-77 17-21 138-164/62-64 98-99 GENERAL: The patient is awake, alert, and fully oriented, in no acute distress, OOB in chair HEAD: Normal with no signs of trauma. EYES: PERRL, extraocular movements intact, sclera anicteric, conjunctiva clear. No ptosis. ENT: Ears normal, nares patent, oropharynx clear without exudates, moist mucous membranes. NECK: Trachea midline, full range of motion, supple. LUNGS: Breath sounds equal, clear to auscultation bilaterally, no wheezes, no crackles, no accessory muscle use. HEART: Regular rate and rhythm, S1, S2 without murmur, rub or gallop. ABDOMEN: Soft, nontender, nondistended, normoactive bowel sounds, no guarding, no rebound, no hepatosplenomegaly, no masses. EXTREMITIES: 2+ pulses, warm, well-perfused, bilateral lower ext swelling, Lt> Rt with redness,non-pitting edema NEUROLOGICAL: Cranial nerves II through XII grossly intact. Normal speech, gait not observed. PSYCH: Normal mood, normal affect. SKIN: Warm, dry, normal turgor, no rashes or lesions noted Laboratory Results - last 24 hr 09/30/16 10/01/16 10/01/16 08:00 06:45 06:45 WBC 4.9 RBC 3.13 L Hgb 9.1 L Hct 28.9 L MCV 92.2 MCHC 31.7 L RDW 13.2 Plt Count 414 MPV 8.0 Neutrophils % 60.8 Lymphocytes % 23.5 Monocytes % 10.0 Eosinophils % 4.9 H Basophils % 0.8 Sodium 136 Potassium 4.9 Chloride 105 Carbon Dioxide 23 Anion Gap 8 BUN 21 H Creatinine 1.2 Random Glucose 79 Calcium 8.8 Random Vancomycin 43.577 Active Medications Generic Name Dose Route Start Last Admin Trade Name Freq PRN Reason Stop Dose Admin Atorvastatin Calcium 10 mg 09/17/16 22:00 09/30/16 21:23 Lipitor - PO 10 mg HS ALTHEA Administration Carbidopa/Levodopa 2 each 09/17/16 06:00 10/01/16 06:29 Sinemet 25/100 - PO 2 each TID ALTHEA Administration Gabapentin 100 mg 09/17/16 22:00 09/30/16 21:23 Neurontin - PO 100 mg HS ALTHEA Administration Heparin Sodium (Porcine) 5,000 unit 09/24/16 22:00 10/01/16 10:02 Heparin - SQ 5,000 unit BID ALTHEA Administration Clindamycin Phosphate 50 mls @ 100 mls/hr 09/25/16 18:00 10/01/16 09:59 Cleocin 600 Mg Premix Ivpb - IVPB 100 mls/hr Q8H-IV ALTHEA Administration Lactobacillus Acidophilus 1 tab 09/20/16 10:00 10/01/16 10:02 Bacid - PO 1 tab DAILY ALTHEA Administration Methimazole 2.5 mg 09/17/16 10:00 10/01/16 10:01 Tapazole - PO 2.5 mg Q2D@1000 ALTHEA Administration Multi-Ingredient Lotion 1 applic 09/20/16 22:00 10/01/16 10:01 Eucerin (Large Jar) - TP 1 applic BID ALTHEA Administration Ondansetron HCl 4 mg 09/28/16 18:36 Zofran Injection IVPB Q6H PRN NAUSEA AND/OR VOMITING Quetiapine Fumarate 12.5 mg 09/17/16 22:00 09/30/16 21:24 Seroquel - PO 12.5 mg HS ALTHEA Administration Ranitidine HCl 150 mg 09/20/16 10:00 10/01/16 10:01 Zantac - PO 150 mg DAILY ALTHEA Administration ASSESSMENT/PLAN: This is a 80 year old female with PMH Parkinson's disease, dementia, hyperthyroidism, anemia and chronic lower extremity cellulitis with lymphedema, now admitted for cellulitis LLE. *Cellulitis LLE, hx of chronic lymphedema - BC negative - Imaging ruled out acute pathology - afebrile, with no leukocytosis - ID following -will cont on cont Clindamycin IV - vanco on hold due to elevated trough-43.577 -will keep exts elevated -pt refused PT * Hx of Parkinson's disease - will cont home Sinemet * Hx of dementia- remaisn calm and pleasant - reorientation as needed, maintain good sleep/wake pattern, avoid nighttime sleep interruptions *Hyperthyroidism - cont Tapazole -TSH WNL 06/2016 on same * chronic anemia -CBC stable - no signs of bleeding noted *DVT PPX- cont heparin 5000u BID *FEN- tolerating po,low sodium diet. Dispo: Pt currently requires inpatient care Visit type - Emergency Visit Emergency Visit: Yes ED Registration Date: 09/16/16 Care time: The patient presented to the Emergency Department on the above date and was hospitalized for further evaluation of their emergent condition. - New Patient This patient is new to me today: Yes Date on this admission: 10/01/16 - Critical Care Critical Care patient: No
--- NOTE | 2016-10-01 12:03 | DS ---
Physical Exam: SUBJECTIVE: Patient seen and examined Denies legs pain, fever, chills. OBJECTIVE: Vital Signs Period Temp Pulse Resp BP Sys/Moore Pulse Ox Last 24 Hr 97.6 F-97.7 F 74-77 17-21 138-164/62-64 98-99 PHYSICAL EXAM GENERAL: The patient is awake, alert, and fully oriented, in no acute distress, OOB in chair HEAD: Normal with no signs of trauma. EYES: PERRL, extraocular movements intact, sclera anicteric, conjunctiva clear. No ptosis. ENT: Ears normal, nares patent, oropharynx clear without exudates, moist mucous membranes. NECK: Trachea midline, full range of motion, supple. LUNGS: Breath sounds equal, clear to auscultation bilaterally, no wheezes, no crackles, no accessory muscle use. HEART: Regular rate and rhythm, S1, S2 without murmur, rub or gallop. ABDOMEN: Soft, nontender, nondistended, normoactive bowel sounds, no guarding, no rebound, no hepatosplenomegaly, no masses. EXTREMITIES: 2+ pulses, warm, well-perfused, bilateral lower ext swelling, Lt> Rt with redness,non-pitting edema NEUROLOGICAL: Cranial nerves II through XII grossly intact. Normal speech, gait not observed. PSYCH: Normal mood, normal affect. SKIN: Warm, dry, normal turgor, no rashes or lesions noted LABS Laboratory Results - last 24 hr 10/01/16 10/01/16 06:45 06:45 WBC 4.9 RBC 3.13 L Hgb 9.1 L Hct 28.9 L MCV 92.2 MCHC 31.7 L RDW 13.2 Plt Count 414 MPV 8.0 Neutrophils % 60.8 Lymphocytes % 23.5 Monocytes % 10.0 Eosinophils % 4.9 H Basophils % 0.8 Sodium 136 Potassium 4.9 Chloride 105 Carbon Dioxide 23 Anion Gap 8 BUN 21 H Creatinine 1.2 Random Glucose 79 Calcium 8.8 Random Vancomycin 39.720 HOSPITAL COURSE: Date of Admission:09/16/16 Date of Discharge: 10/01/16 This is a 80 year old female with PMH Parkinson's disease, dementia, hyperthyroidism,chronic anemia and chronic lower extremity cellulitis with lymphedema,now admitted with LLE cellulitis. Imaging ruled out acute pathology, initially. pt was evaluated by ID Dr. bella during the hospital stay and was started on Levaquin and Vacomycin with improvement, but pt developed diffuse body rash, likely a drug reaction to Levaquin, and discontinued Levaquin and switched to IV Clindamycin. Pt remains afebrile with no leukocytosis, refused PT ,able to ambulate with a cane. Pt condition remains hemodynamically stable. Blood and and urine cultures showed no growth. Found to have elevated Vanco trough/random levels, Vanco held,will continue on oral Cleocin 300mg Q8HRs X 1 week and recommend outpatient ID followup with Dr. Bella. * Hx of Parkinson's disease will continue on home Sinemet. * Hx of dementia- remains calm and pleasant - *Hyperthyroidism- cont Tapazole,TSH WNL 06/2016 * chronic anemia -CBC stable, no signs of bleeding noted Minutes to complete discharge: 35 Discharge Summary Reason For Visit: CELLULITIS Current Active Problems Left leg cellulitis (Acute) Condition: Stable - Instructions Diet, Activity, Other Instructions: Regular diet. Instructed to keep legs elevated whenever possible. For any fever, chills, worsening legs pain/ swelling, advised to contact Dr. Bella. Referrals: Obdulio Bella MD [Staff Physician] - [address] MD [Non Staff, Medical] - 2 Weeks Disposition: HOME - Home Medications Comprehensive Discharge Medication List: Ambulatory Orders Gabapentin [Neurontin -] 100 mg PO HS #0 capsule 10/02/14 Methimazole [Tapazole -] 2.5 mg PO Q48H #0 tablet 10/02/14 Carbidopa/Levodopa [Carbidopa-Levo 25-100 Tab] 2 each PO TID 12/26/14 Quetiapine Fumarate [Seroquel -] 12.5 mg PO HS 06/12/16 Atorvastatin Ca [Lipitor] 10 mg PO HS #30 tablet 06/13/16 Clindamycin [Cleocin -] 300 mg PO Q8H #21 capsule 10/01/16 Lactobacillus Acidophilus [Bacid -] 1 tab PO DAILY #14 tab 10/01/16 Ranitidine [Zantac -] 150 mg PO DAILY #30 tablet 10/01/16 This patient is new to me today: Yes Date on this admission: 10/01/16 Emergency Visit: Yes ED Registration Date: 09/16/16 Care time: The patient presented to the Emergency Department on the above date and was hospitalized for further evaluation of their emergent condition. Critical Care patient: No - Discharge Referral Referred to [facility] Med P.C.: No
== END 2016-10-01 12:50 | disposition home or self-care (01) | DRG 603 ==
LOC: FER 16:42 → FM/S 20:09
PROVIDERS: ADMIT Internal Medicine; ATTEND Nurse Practitioner Family
DX: L03.116 Cellulitis of left lower limb (principal); N17.9 Acute kidney failure, unspecified; G20 Parkinson's disease; F02.80 Dementia in other diseases classified elsewhere, unspecified severity, without behavioral disturbance, psychotic disturbance, mood disturbance, and anxiety; D64.9 Anemia, unspecified; E05.80 Other thyrotoxicosis without thyrotoxic crisis or storm; I10 Essential (primary) hypertension; I89.0 Lymphedema, not elsewhere classified; Z86.14 Personal history of Methicillin resistant Staphylococcus aureus infection; L27.0 Generalized skin eruption due to drugs and medicaments taken internally; T37.8X5A Adverse effect of other specified systemic anti-infectives and antiparasitics, initial encounter; Z88.0 Allergy status to penicillin; Z86.73 Personal history of transient ischemic attack (TIA), and cerebral infarction without residual deficits
CPT/HCPCS: 36415; 73590-TC-LT; 73610-TC-LT; 73630-TC-LT; 80048; 80053; 81003; 83735; 84100; 85025; 85027; 87040; 87086; 93005; 93970-TC; 97116-GP; 97162-PG; 99285-25; G0480; J1644

== ENCOUNTER 2017-04-06 12:40 | Inpatient (IN) | payer OTHER ==
--- NOTE | 2017-04-06 13:15 | PDOC ---
History of Present Illness - General History Source: Patient, Care Provider - History of Present Illness Initial Comments: 04/06/17 16:11 81 y/o F with a PMHx stroke/TIA, Parkinsons disease, dementia, HTN, hyperthyroidism, anemia, chronic left lower extremity cellulitis presents to the ED via EMS from home s/p unwitnessed fall today. 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 Pt complains only of lightheadedness currently. Home health aide reports she found pt on the ground resting her head on a cabinet and believes she did hit her head when she fell, which prompted her to call EMS. Unknown LOC. COMMERCIAL DESIGNER reports pt was alert and at her baseline when she found her on the ground. Pt was able to ambulate with COMMERCIAL DESIGNER after the fall. She denies headache , chest pain, SOB, palpitations. She denies nausea, vomiting, diarrhea, abdominal pain. She denies leg pain. Per aide, the patient has had no recent fevers or other illnesses. <Hilaria Hernadez - Last Filed: 04/06/17 17:49> <Collin Metcalf - Last Filed: 04/06/17 18:24> - General Chief Complaint: Lightheaded Stated Complaint: LIGHTHEADED Time Seen by Provider: 04/06/17 13:14 Past History <Hilaria Hernadez - Last Filed: 04/06/17 17:49> - Past Medical History Anemia: Yes (normocytic normochromic anemia) Asthma: No Cancer: No Cardiac Disorders: Yes (LBBB) CVA: No COPD: No CHF: No Dementia: Yes Diabetes: No GI Disorders: No Disorders: No HTN: Yes Hypercholesterolemia: No Liver Disease: No Seizures: No Thyroid Disease: Yes (HYPERTHYROID) - Surgical History Abdominal Surgery: No Appendectomy: No Cardiac Surgery: No Cholecystectomy: No Lung Surgery: No Neurologic Surgery: No Orthopedic Surgery: No - Psycho/Social/Smoking Cessation Hx Anxiety: No Suicidal Ideation: No Smoking Status: No Smoking History: Never smoked Have you smoked in the past 12 months: No Number of Cigarettes Smoked Daily: 0 Hx Alcohol Use: No Drug/Substance Use Hx: No Substance Use Type: Alcohol Hx Substance Use Treatment: No <Collin Metcalf - Last Filed: 04/06/17 18:24> - Past Medical History Allergies/Adverse Reactions: Allergies Allergy/AdvReac Type Severity Reaction Status Date / Time amoxicillin [Amoxicillin] Allergy Unknown Verified 09/16/16 16:45 loracarbef [From Lorabid] Allergy Unknown Verified 09/16/16 16:45 prochlorperazine edisylate Allergy Unknown Verified 09/16/16 16:45 [From Compazine] prochlorperazine maleate Allergy Unknown Verified 09/16/16 16:45 [From Compazine] promethazine HCl Allergy Unknown Verified 09/16/16 16:45 [From Phenergan] Home Medications: Ambulatory Orders Gabapentin [Neurontin -] 100 mg PO HS #0 capsule 10/02/14 Methimazole [Tapazole -] 2.5 mg PO Q48H #0 tablet 10/02/14 Carbidopa/Levodopa [Carbidopa-Levo 25-100 Tab] 2 each PO TID 12/26/14 Quetiapine Fumarate [Seroquel -] 12.5 mg PO HS 06/12/16 Atorvastatin Ca [Lipitor] 10 mg PO HS #30 tablet 06/13/16 Clindamycin [Cleocin -] 300 mg PO Q8H #21 capsule 10/01/16 Lactobacillus Acidophilus [Bacid -] 1 tab PO DAILY #14 tab 10/01/16 Ranitidine [Zantac -] 150 mg PO DAILY #30 tablet 10/01/16 Review of Systems - Review of Systems Comments:: 04/06/17 16:12 GENERAL/CONSTITUTIONAL: No fever or chills. No weakness. HEAD, EYES, EARS, NOSE AND THROAT: No change in vision. No ear pain or discharge. No sore throat. CARDIOVASCULAR: No chest pain or shortness of breath. RESPIRATORY: No cough, wheezing, or hemoptysis. GASTROINTESTINAL: No nausea, vomiting, diarrhea or constipation. GENITOURINARY: No dysuria, frequency, or change in urination. MUSCULOSKELETAL: No joint or muscle swelling or pain. No neck or back pain. SKIN: No rash NEUROLOGIC: (+) lightheaded, loss of consciousness. No headache, or change in strength/sensation. ENDOCRINE: No increased thirst. No abnormal weight change. HEMATOLOGIC/LYMPHATIC: No anemia, easy bleeding, or history of blood clots. ALLERGIC/IMMUNOLOGIC: No hives or skin allergy. <Hernadez,Hilaria A - Last Filed: 04/06/17 17:49> *Physical Exam - Vital Signs Last Vital Signs Temp Pulse Resp BP Pulse Ox 98.1 F 68 15 174/74 100 04/06/17 12:47 04/06/17 15:50 04/06/17 15:50 04/06/17 15:50 04/06/17 15:50 - Physical Exam Comments: 04/06/17 16:12 GENERAL: Awake, alert, in no acute distress HEAD: No signs of trauma EYES: PERRLA, EOMI, sclera anicteric, conjunctiva clear ENT: Auricles normal inspection, hearing grossly normal, nares patent, oropharynx clear without exudates. Moist mucosa. No septal hematoma NECK: Normal ROM, supple, no lymphadenopathy, JVD, or masses LUNGS: Breath sounds equal, clear to auscultation bilaterally. No wheezes, and no crackles HEART: Regular rate and rhythm, normal S1 and S2, no murmurs, rubs or gallops ABDOMEN: Soft, nontender, normoactive bowel sounds. No guarding, no rebound. No masses EXTREMITIES: (+) Erythema to left distal calf with warmth consistent with pt's known chronic cellulitis. Normal range of motion in LE at knee and hip joints, stable pelvis, no edema. No clubbing or cyanosis. No ttp. NEUROLOGICAL: (+) Cranial nerves intact, 4/5 strength in upper extremities bilaterally, 4/5 strength on hip flexion bilaterally. Rigidity to passive motion consistent with known parkinsons disease. [id number] normal. Normal speech, negative pronator drift, normal sensation to light touch in all 4 extremities, SKIN: Warm, Dry, normal turgor, no rashes or lesions noted. <Hilaria Hernadez - Last Filed: 04/06/17 17:49> ED Treatment Course - LABORATORY CBC & Chemistry Diagram: 04/06/17 14:15 04/06/17 14:15 - ADDITIONAL ORDERS Additional order review: Laboratory Results 04/06/17 04/06/17 04/06/17 14:35 14:15 14:15 INR 0.99 PTT (Actin FS) 25.7 L Sodium 136 Potassium 4.5 Chloride 100 Carbon Dioxide 29 H D Anion Gap 7 L BUN 24 H Creatinine 1.0 Creat Clearance w eGFR 53.48 Random Glucose 99 D Calcium 9.7 Magnesium 2.2 Total Bilirubin 0.5 AST 30 D ALT < 8 L Alkaline Phosphatase 64 D Troponin I 0.01 Total Protein 8.3 D Albumin 4.4 D Urine Color Yellow Urine Appearance Cloudy Urine pH 7.0 Ur Specific [place] 1.020 Urine Protein 1+ H D Urine Glucose (UA) Negative Urine Ketones Negative Urine Blood Trace-intact H Urine Nitrite Positive Urine Bilirubin Negative Urine Urobilinogen 0.2 Ur Leukocyte Esterase Negative 04/06/17 14:15 RBC 4.22 D MCV 91.7 MCHC 33.5 RDW 13.0 MPV 6.8 L D Neutrophils % 85.4 H D Lymphocytes % 9.6 D Monocytes % 4.1 Eosinophils % 0.5 D Basophils % 0.4 - RADIOLOGY Radiograph Interpretation: 04/06/17 16:01 Chest X-Ray/Pelvis X-Ray Reported by Dr. Derrell Pedro Impression: Normal chest film. 04/06/17 17:[address]orted by Dr. Cyndi Lyle Impression: No significant interval change. Moderate to marked dilatation of the lateral and third ventricles that is more expected for the degree of cortical and central atrophy. Differential diagnosis includes normal pressure hydrocephalus versus adequate Sylvius narrowing/stenosis. Cervical Spine CT Reportd by Dr. Cyndi Lyle Impression: The alignment is satisfactory. No gross fracture or subluxation is seen. <Hilaria Hernadez - Last Filed: 04/06/17 17:49> - LABORATORY CBC & Chemistry Diagram: 04/06/17 14:15 04/06/17 14:15 <Collin Metcalf - Last Filed: 04/06/17 18:24> Medical Decision Making - Medical Decision Making 04/06/17 18:13 81yo F PMHx stroke/TIA, Parkinsons disease, dementia, HTN, hyperthyroidism, anemia, chronic left lower extremity cellulitis p/w fall vs syncope. Pt on aspirin. Exam with no signs of trauma. EKG with no signs of arrhythmia or ischemia. Differential includes mechanical fall vs arrhythmia vs infection causing weakness and lightheadedness vs cardiac ischemia. 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 Labs unremarkable with the exception of a BNP in the 800s. Urine revealing of UTI, covered patient with Levaquin. Patient is admitted to the hospitalist for further management. <Collin Metcalf - Last Filed: 04/06/17 18:24> *DC/Admit/Observation/Transfer - Attestations Scribe Attestion: 04/06/17 16:12 Documentation prepared by Hilaria Hernadez, acting as medical insurance coding specialist for Collin Metcalf MD. <Hilaria Hernadez - Last Filed: 04/06/17 17:49> - Discharge Dispostion Admit: Yes - Attestations Physician Attestion: 04/06/17 18:20 I, Dr. Collin Metcalf MD, attest that this document has been prepared under my direction and personally reviewed by me in its entirety. I further attest, that it accurately reflects all work, treatment, procedures and medical decision -making performed by me. <Collin Metcalf - Last Filed: 04/06/17 18:24> Diagnosis at time of Disposition: UTI (urinary tract infection) Qualifiers: Urinary tract infection type: site unspecified Hematuria presence: without hematuria Qualified Code(s): N39.0 - Urinary tract infection, site not specified - Discharge Dispostion Condition at time of disposition: Good
[2017-04-06 14:30] LABS: MEAN PLT VOLUME 6.8 fl (7.5-11.1)
[2017-04-06 14:34] LABS: BASOPHIL 0.4 % (0-2.0); EOSINOPHIL 0.5 % (0-4.5); MCH 30.7 pg (25.7-33.7); MCHC 33.5 g/dl (32.0-36.0); MEAN CELL VOLUME 91.7 fl (80-96); NEUTROPHILS 85.4 % (42.8-82.8); PLATELET COUNT 498 K/MM3 (134-434); WHITE BLOOD COUNT 8.3 K/mm3 (4.0-10.8)
[2017-04-06 14:47] LABS: ACTIVATED PTT 25.7 SECONDS (24.0-38.9)
[2017-04-06 14:51] LABS: ALBUMIN 4.4 g/dl (3.5-5.0); ALK PHOS 64 U/L (32-92); ANION GAP 7 (8-16); BILIRUBIN,TOTAL 0.5 mg/dl (0.2-1.0); CALCIUM 9.7 mg/dl (8.4-10.2); CO2 29 mmol/L (22-28); GLUCOSE,RANDOM 99 mg/dl (74-106); MAGNESIUM 2.2 mg/dL (1.8-2.4); SGOT/AST 30 U/L (10-42); TOT PROT 8.3 g/dl (6.4-8.3)
[2017-04-06 14:52] LABS: INR 0.99 (0.82-1.09); PROTHROMBIN TIME (PATIENT) 11.1 SEC (10.2-13.0)
[2017-04-06 15:05] LABS: TROPONIN I 0.01 ng/ml (0.00-0.05)
[2017-04-06 15:18] LABS: URINE APPEARANCE Cloudy; URINE BILIRUBIN Negative (NEGATIVE); URINE GLUCOSE (UA) Negative (NEGATIVE); URINE KETONE Negative (NEGATIVE); URINE LEUK ESTERASE Negative (NEGATIVE); URINE NITRITE Positive (NEGATIVE); URINE UROBILINOGEN 0.2 (0.2-1.0)
[2017-04-06 15:19] LABS: URINE BLOOD Trace-intact (NEGATIVE); URINE COLOR YELLOW; URINE PROTEIN 1+ (NEGATIVE)
[2017-04-06 15:23] LABS: SGPT/ALT < 8 U/L (10-40)
[2017-04-06 16:09] LABS: URINE BACTERIA MANY /hpf (NEGATIVE)
[2017-04-06] MEDS ORDERED: LEVOFLOXACIN 500 MG IVPB 100 ML IVPB ONE ×2 (18:22→18:53)
--- NOTE | 2017-04-06 19:53 | PDOC ---
*Physical Exam - Vital Signs Last Vital Signs Temp Pulse Resp BP Pulse Ox 98.1 F 68 15 174/74 100 04/06/17 12:47 04/06/17 15:50 04/06/17 15:50 04/06/17 15:50 04/06/17 15:50 ED Treatment Course - LABORATORY CBC & Chemistry Diagram: 04/06/17 14:15 04/06/17 14:15 - ADDITIONAL ORDERS Additional order review: Laboratory Results 04/06/17 04/06/17 04/06/17 14:35 14:15 14:15 INR 0.99 PTT (Actin FS) 25.7 L Sodium 136 Potassium 4.5 Chloride 100 Carbon Dioxide 29 H D Anion Gap 7 L BUN 24 H Creatinine 1.0 Creat Clearance w eGFR 53.48 Random Glucose 99 D Calcium 9.7 Magnesium 2.2 Total Bilirubin 0.5 AST 30 D ALT < 8 L Alkaline Phosphatase 64 D Troponin I 0.01 B-Natriuretic Peptide Total Protein 8.3 D Albumin 4.4 D Urine Color Yellow Urine Appearance Cloudy Urine pH 7.0 Ur Specific [place] 1.020 Urine Protein 1+ H D Urine Glucose (UA) Negative Urine Ketones Negative Urine Blood Trace-intact H Urine Nitrite Positive Urine Bilirubin Negative Urine Urobilinogen 0.2 Ur Leukocyte Esterase Negative Urine RBC 2-4 Urine WBC 2-5 Urine Bacteria Many 04/06/17 14:15 INR PTT (Actin FS) Sodium Potassium Chloride Carbon Dioxide Anion Gap BUN Creatinine Creat Clearance w eGFR Random Glucose Calcium Magnesium Total Bilirubin AST ALT Alkaline Phosphatase Troponin I B-Natriuretic Peptide 853.62 H Total Protein Albumin Urine Color Urine Appearance Urine pH Ur Specific [place] Urine Protein Urine Glucose (UA) Urine Ketones Urine Blood Urine Nitrite Urine Bilirubin Urine Urobilinogen Ur Leukocyte Esterase Urine RBC Urine WBC Urine Bacteria 04/06/17 14:15 RBC 4.22 D MCV 91.7 MCHC 33.5 RDW 13.0 MPV 6.8 L D Neutrophils % 85.4 H D Lymphocytes % 9.6 D Monocytes % 4.1 Eosinophils % 0.5 D Basophils % 0.4 - Medications Given in the ED: ED Medications Discontinued Medications Generic Name Dose Route Start Last Admin Trade Name Freq PRN Reason Stop Dose Admin Levofloxacin 100 mls @ 100 mls/hr 04/06/17 18:22 04/06/17 18:53 Levaquin 500 Mg Premixed Ivpb - IVPB 04/06/17 19:21 100 mls/hr ONCE ONE Administration *DC/Admit/Observation/Transfer Diagnosis at time of Disposition: UTI (urinary tract infection) Qualifiers: Urinary tract infection type: site unspecified Hematuria presence: without hematuria Qualified Code(s): N39.0 - Urinary tract infection, site not specified - Discharge Dispostion Condition at time of disposition: Good Admit: Yes
[2017-04-06 21:54] VITALS: BMI 21.7
--- NOTE | 2017-04-06 22:19 | HP ---
CHIEF COMPLAINT: "I think I passed out at home." PCP: Obdulio Lerner in [place] HISTORY OF PRESENT ILLNESS: This is a 81yo woman with Parkinson's and HLD who presents today s/p unwitnessed fall at home. She does not have any recollection of events immediately prior to, during or immediately after fall. Patient was found on the floor by SANITARIAN INSPECTOR with her head resting on her arms on a counter. She denies headaches, fevers, chills, chest pain, dizziness, SOB, nausea, vomiting, abdominal pain, constipation, diarrhea, dysuria, numbness or tingling. She reports urinary frequency and urgency starting this afternoon. ER course was notable for: (1) UA with nitrites (2) CTH(-) for acute pathology (3) CT c-spine (-) acute fracture or ligamentous injury Recent Travel: denies PAST MEDICAL HISTORY: see HPI PAST SURGICAL HISTORY: see HPI Social History: Smoking: denies Alcohol: denies Drugs: denies Family History: non-contributory Allergies amoxicillin [Amoxicillin] Allergy (Unknown, Verified 09/16/16 16:45) loracarbef [From Lorabid] Allergy (Unknown, Verified 09/16/16 16:45) prochlorperazine edisylate [From Compazine] Allergy (Unknown, Verified 09/16/16 16:45) prochlorperazine maleate [From Compazine] Allergy (Unknown, Verified 09/16/16 16 :45) promethazine HCl [From Phenergan] Allergy (Unknown, Verified 09/16/16 16:45) HOME MEDICATIONS: Home Medications Medication Instructions Recorded Gabapentin [Neurontin -] 100 mg PO HS #0 capsule 10/02/14 Carbidopa/Levodopa [Carbidopa-Levo 1 each PO BID 12/26/14 25-100 Tab] Quetiapine Fumarate [Seroquel -] 12.5 mg PO HS 06/12/16 Atorvastatin Ca [Lipitor] 10 mg PO HS #30 tablet 06/13/16 Aspirin [Aspirin EC] 81 mg PO DAILY 04/06/17 Cholecalciferol (Vitamin D3) 1,000 unit PO DAILY 04/06/17 [Vitamin D3 -] REVIEW OF SYSTEMS CONSTITUTIONAL: Absent: fever, chills, diaphoresis, generalized weakness, malaise, loss of appetite, weight change HEENT: Absent: rhinorrhea, nasal congestion, throat pain, throat swelling, difficulty swallowing, mouth swelling, ear pain, eye pain, visual changes CARDIOVASCULAR: Absent: chest pain, syncope, palpitations, irregular heart rate, lightheadedness , peripheral edema RESPIRATORY: Absent: cough, shortness of breath, dyspnea with exertion, orthopnea, wheezing, stridor, hemoptysis GASTROINTESTINAL: Absent: abdominal pain, abdominal distension, nausea, vomiting, diarrhea, constipation, melena, hematochezia GENITOURINARY: Present: frequency, urgency Absent: dysuria, hesitancy, hematuria, flank pain, genital pain MUSCULOSKELETAL: Absent: myalgia, arthralgia, joint swelling, back pain, neck pain SKIN: Absent: rash, itching, pallor HEMATOLOGIC/IMMUNOLOGIC: Absent: easy bleeding, easy bruising, lymphadenopathy, frequent infections ENDOCRINE: Absent: unexplained weight gain, unexplained weight loss, heat intolerance, cold intolerance NEUROLOGIC: Absent: headache, focal weakness or paresthesias, dizziness, unsteady gait, seizure, mental status changes, bladder or bowel incontinence PSYCHIATRIC: Absent: anxiety, depression, suicidal or homicidal ideation, hallucinations. PHYSICAL EXAMINATION Vital Signs - 24 hr 04/06/17 22:10 Temperature 97.8 F Pulse Rate 74 Respiratory 20 Rate Blood Pressure 146/65 GENERAL: Awake, alert, and oriented to person and hospital only, in no acute distress. HEAD: Normal with no signs of trauma. EYES: Pupils equal, round and reactive to light, extraocular movements intact, sclera anicteric, conjunctiva clear. No lid lag. EARS, NOSE, THROAT: Ears normal, nares patent, oropharynx clear without exudates. Moist mucous membranes. NECK: Normal range of motion, supple without lymphadenopathy, JVD, or masses. No bruits ausculatated. LUNGS: Breath sounds equal, clear to auscultation bilaterally. No wheezes, and no crackles. No accessory muscle use. HEART: Regular rate and rhythm, normal S1 and S2 with 3/6 systolic murmur across precordium. No rub or gallop. ABDOMEN: Soft, nontender, not distended, normoactive bowel sounds, no guarding, no rebound, no masses. No hepatomegaly or splenomegaly. MUSCULOSKELETAL: Normal range of motion at all joints. No bony deformities or tenderness. No CVA tenderness. UPPER EXTREMITIES: 2+ pulses, warm, well-perfused. No cyanosis. No clubbing. No peripheral edema. LOWER EXTREMITIES: 2+ pulses, warm, well-perfused. No calf tenderness. No peripheral edema. NEUROLOGICAL: Cranial nerves II-XII intact. Normal speech. Rigidity present. PSYCHIATRIC: Cooperative. Good eye contact. Appropriate mood and affect. SKIN: Warm, dry, normal turgor, no rashes or lesions noted, normal capillary refill. Imaging: All images reviewed. Chest X-Ray/Pelvis X-Ray Reported by Dr. Derrell Pedro Impression: Normal chest film. Head CT Reported by Dr. Cyndi Lyle Impression: No significant interval change. Moderate to marked dilatation of the lateral and third ventricles that is more expected for the degree of cortical and central atrophy. Differential diagnosis includes normal pressure hydrocephalus versus adequate Sylvius narrowing/stenosis. Cervical Spine CT Reportd by Dr. Cyndi Lyle Impression: The alignment is satisfactory. No gross fracture or subluxation is seen. ASSESSMENT/PLAN: A: 81yo woman with ?syncopal episode and UTI P: syncope - Carotid doppler- pending - echo- pending - telemetry - Cardiology consult - CTH as above UTI - Levaquin - cx pending - trend CBC Parkinson's - sinemet 25/100 - PT - Seroquel for sleep HLD - Lipitor 10mg F/E/N - Low Na diet - replete prn PPX - OOB as [facility]- Requires observation of her acute medical conditions Visit type - Emergency Visit Emergency Visit: Yes ED Registration Date: 04/06/17 Care time: The patient presented to the Emergency Department on the above date and was hospitalized for further evaluation of their emergent condition. - New Patient This patient is new to me today: Yes Date on this admission: 04/07/17 - Critical Care Critical Care patient: No
[2017-04-06] MEDS: CARBIDOPA/LEVODOPA 25/100 TABLET (FP) PO SCH (22:37)
[2017-04-07 07:46] LABS: BASOPHIL 0.7 % (0-2.0); EOSINOPHIL 4.4 % (0-4.5); MCH 30.7 pg (25.7-33.7); MCHC 33.8 g/dl (32.0-36.0); MEAN CELL VOLUME 90.7 fl (80-96); NEUTROPHILS 70.3 % (42.8-82.8); PLATELET COUNT 329 K/MM3 (134-434); WHITE BLOOD COUNT 5.2 K/mm3 (4.0-10.8)
[2017-04-07 08:06] LABS: ALBUMIN 3.1 g/dl (3.5-5.0); ALK PHOS 48 U/L (32-92); ANION GAP 6 (8-16); BILIRUBIN,TOTAL 0.5 mg/dl (0.2-1.0); CALCIUM 8.7 mg/dl (8.4-10.2); CO2 23 mmol/L (22-28); CREATININE 1.2 mg/dl (0.6-1.3); GLUCOSE,RANDOM 90 mg/dl (74-106); SGOT/AST 22 U/L (10-42); TOT PROT 6.2 g/dl (6.4-8.3)
--- NOTE | 2017-04-07 08:21 | PN ---
Physical Exam: SUBJECTIVE: Patient seen and examined. Denies chest pain, shortness of breath, headaches, fevers/chills. Feels "a little dizzy." OBJECTIVE: Vital Signs Period Temp Pulse Resp BP Sys/Moore Pulse Ox Last 24 Hr 97.8 F-98.3 F 74-75 18-20 140-146/65-74 97 GENERAL: The patient is awake, alert, and fully oriented, in no acute distress. HEAD: Normal with no signs of trauma. EYES: PERRL, extraocular movements intact, sclera anicteric, conjunctiva clear. No ptosis. ENT: Ears normal, nares patent, oropharynx clear without exudates, moist mucous membranes. NECK: Trachea midline, full range of motion, supple. LUNGS: Breath sounds equal, clear to auscultation bilaterally, no wheezes, no crackles, no accessory muscle use. HEART: Regular rate and rhythm, systolic murmur, no rub or gallop. ABDOMEN: Soft, mild suprapubic tenderness, nondistended, normoactive bowel sounds, no guarding, no rebound, no hepatosplenomegaly, no masses. EXTREMITIES: 2+ pulses, warm, well-perfused, 1+ edema LLE, + left calf tenderness NEUROLOGICAL: Cranial nerves II through XII grossly intact. Normal speech, gait not observed. Rigidity of extremities present. PSYCH: Depressed affect. SKIN: Warm, dry. Left lower extremity erythema from ankle to mid-tibia with mild warmth. Laboratory Results - last 24 hr 04/07/17 07:25 WBC 5.2 D RBC 3.21 L D Hgb 9.9 L D Hct 29.1 L D MCV 90.7 MCH 30.7 MCHC 33.8 RDW 13.0 Plt Count 329 D MPV 7.0 L Neutrophils % 70.3 Lymphocytes % 19.5 D Monocytes % 5.1 Eosinophils % 4.4 D Basophils % 0.7 Active Medications Generic Name Dose Route Start Last Admin Trade Name Freq PRN Reason Stop Dose Admin Aspirin 81 mg 04/07/17 10:00 Ecotrin - PO DAILY ALTHEA Atorvastatin Calcium 10 mg 04/07/17 22:00 Lipitor - PO HS ALTHEA Carbidopa/Levodopa 1 each 04/06/17 22:30 04/06/17 22:37 Sinemet 25/100 - PO 1 each BID ALTHEA Administration Cholecalciferol 1,000 unit 04/07/17 10:00 Vitamin D3 - PO DAILY ALTHEA Gabapentin 100 mg 04/07/17 22:00 Neurontin - PO HS ALTHEA Heparin Sodium (Porcine) 5,000 unit 04/07/17 10:00 Heparin - SQ BID ALTHEA Levofloxacin 50 mls @ 50 mls/hr 04/07/17 10:00 Levaquin 250 Mg Premixed Ivpb - IVPB 04/09/17 00:00 DAILY ALTHEA Quetiapine Fumarate 12.5 mg 04/07/17 22:00 Seroquel - PO HS ALTHEA Chest X-Ray Reported by Dr. Derrell Pedro Impression: Normal chest film Pelvis X-Ray Reported by Dr. Derrell Pedro Osteopenia Head CT Reported by Dr. Cyndi Lyle Impression: No significant interval change. Moderate to marked dilatation of the lateral and third ventricles that is more expected for the degree of cortical and central atrophy. Differential diagnosis includes normal pressure hydrocephalus versus adequate Sylvius narrowing/stenosis. Cervical Spine CT Reportd by Dr. Cyndi Lyle Impression: The alignment is satisfactory. No gross fracture or subluxation is seen. ASSESSMENT/PLAN: 81yo woman with unwitnessed fall (likely syncopal episode) and UTI. 1. Syncope - Monitor on telemetry - Serial troponins to rule out [place] - Carotid doppler- pending - Echo- pending - Orthostatic v/s - CTH as above - Cardiology evaluation requested on admission 2. UTI - Given one dose of Levaquin; will change to Bactrim to cover UTI and LE cellulitis - Follow up urine culture 3. Parkinson's - Continue Sinimet 4. HLD - Continue Lipitor 5. LE cellulitis - ?Chronic per previous notes - Bactrim - LE doppler to r/o DVT given calf tenderness 6. F/E/N - Low Na diet - PO intake adequate 7. PPX - Sqh - Ambulation Dispo- Observation pending completion of exams and cardiology recommendations.
[2017-04-07 08:49] LABS: SGPT/ALT < 8 U/L (10-40)
[2017-04-07 09:15] LABS: CPK 147 IU/L (26-192)
[2017-04-07 09:40] LABS: TROPONIN I (DFP) < 0.03 ng/ml (0.03-0.50)
[2017-04-07] MEDS ORDERED: LEVOFLOXACIN 250 MG IVPB 50 ML IVPB SCH (10:00)
[2017-04-07] MEDS: CHOLECALCIFEROL (VITAMIN D3) 1,000 UNIT TABLET (FP) PO SCH (10:23)
[2017-04-07] MEDS: ASPIRIN COATED 81 MG TABLET.EC PO SCH (10:23)
[2017-04-07] MEDS: CARBIDOPA/LEVODOPA 25/100 TABLET (FP) PO SCH ×2 (10:23→21:10)
[2017-04-07] MEDS: SULFAMETHOXAZOLE/TRIMETHOPRIM 800MG/160MG D.S. TABLET PO SCH ×2 (10:23→21:09)
[2017-04-07] MEDS: HEPARIN NA (PORCINE) 5,000 UNITS/ML 1ML VIAL SQ SCH ×2 (10:23→21:09)
--- NOTE | 2017-04-07 18:11 | CON.CARD ---
Cardiology Consult (text) - Consultation Consultation Note: CC: fall/possible syncope 81 yo with h/o HTN, parkinson's, prior possible tia's/episodes of altered mental status/syncope/presyncope, hyperthryoidism who presents after fall. Fall was unwitnessed so mechanism unclear. Patient does not recall episode. States she has a walker at home, but does not always use it. States she is intermittently dizzy, but cannot elaborate. Denies dizziness today. endorses progressive weakness. Has stable LE edema, erythema. Per report, has chronic cellulitis. Has had PT evaluation --> decreased strength, balance. + fall risk, would benefit from inpatient rehab. History may be unreliable, but pt denies orthopnea, pnd, palps, PMHx/pshx: Breast Biopsy (and sunsequent removal of mass (?benign) many years ago), Hysterectomy family hx: pt does not recall social hx; former smoker ros: per hpi Ambulatory Orders Gabapentin [Neurontin -] 100 mg PO HS #0 capsule 10/02/14 Carbidopa/Levodopa [Carbidopa-Levo 25-100 Tab] 1 each PO BID 12/26/14 Quetiapine Fumarate [Seroquel -] 12.5 mg PO HS 06/12/16 Atorvastatin Ca [Lipitor] 10 mg PO HS #30 tablet 06/13/16 Aspirin [Aspirin EC] 81 mg PO DAILY 04/06/17 Cholecalciferol (Vitamin D3) [Vitamin D3 -] 1,000 unit PO DAILY 04/06/17 Current Medications Aspirin (Ecotrin -) 81 mg PO DAILY [facility] Last Admin: 04/07/17 10:23 Dose: 81 mg Atorvastatin Calcium (Lipitor -) 10 mg PO HS ALTHEA Carbidopa/Levodopa (Sinemet 25/100 -) 1 each PO BID [facility] Last Admin: 04/07/17 10:23 Dose: 1 each Cholecalciferol (Vitamin D3 -) 1,000 unit PO DAILY [facility] Last Admin: 04/07/17 10:23 Dose: 1,000 unit Gabapentin (Neurontin -) 100 mg PO HS [facility] Heparin Sodium (Porcine) (Heparin -) 5,000 unit SQ BID [facility] Last Admin: 04/07/17 10:23 Dose: 5,000 unit Quetiapine Fumarate (Seroquel -) 12.5 mg PO HS [facility] Trimethoprim/Sulfamethoxazole (Bactrim Ds -) 1 each PO BID ALTHEA Last Admin: 04/07/17 10:23 Dose: 1 each Vital Signs - 24 hr 04/06/17 04/07/17 04/07/17 22:10 02:00 06:00 Temperature 97.8 F 98.3 F 98.0 F Pulse Rate 74 75 75 Pulse Rate [ Left side Sitting] Respiratory 20 18 18 Rate Blood Pressure 146/65 141/69 140/74 Blood Pressure [Left side Sitting] O2 Sat by Pulse Oximetry (%) 04/07/17 04/07/17 04/07/17 06:46 09:38 10:31 Temperature Pulse Rate Pulse Rate [ 77 Left side Sitting] Respiratory 18 Rate Blood Pressure Blood Pressure 157/47 [Left side Sitting] O2 Sat by Pulse 97 97 Oximetry (%) 04/07/17 04/07/17 04/07/17 10:34 10:35 10:36 Temperature Pulse Rate 77 75 78 Pulse Rate [ Left side Sitting] Respiratory Rate Blood Pressure 151/47 163/70 159/69 Blood Pressure [Left side Sitting] O2 Sat by Pulse Oximetry (%) 04/07/17 14:16 Temperature 98.6 F Pulse Rate 73 Pulse Rate [ Left side Sitting] Respiratory 16 Rate Blood Pressure 111/57 Blood Pressure [Left side Sitting] O2 Sat by Pulse 98 Oximetry (%) Intake & Output 04/05/17 04/06/17 04/07/17 04/08/17 07:59 07:59 07:59 07:59 Intake Total 540 725 Output Total 450 Balance 90 725 Weight 122 lb 6.4 oz nad, calm jvd flat, neck supple ctab, nl effort rrr nl s1, s2 2/6 murmur at sternal border 1+ edema of LE to thigh. + erythema no cyanosis or clubbing + dp/pt no carotid bruit alert, confused. no jaundice, diaphoresis. CBC, BMP 04/07/17 07:25 04/07/17 07:25 Laboratory Tests 04/06/17 04/06/17 04/07/17 14:15 14:15 07:25 Sodium 136 Total Bilirubin 0.5 AST 22 D ALT < 8 L Alkaline Phosphatase 48 D Creatine Kinase Troponin I 0.01 B-Natriuretic Peptide 853.62 H Albumin 3.1 L D 04/07/17 07:25 Sodium Total Bilirubin AST ALT Alkaline Phosphatase Creatine Kinase 147 Troponin I < 0.03 L B-Natriuretic Peptide Albumin tele: SR ekg: sr, anterior q waves, IVCD. no acute ischemic changes. cxr: no chf LLE dopplers: no dvt on left side. head ct: dilation of ventricles, can't exclude nph vs. narrowing of [place]. stable from prior. echo 04/2016: nl lv/rv, grade I diastolic dysfunction. 1+ mac. mod tr. 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 fall/possible syncope - unwitnessed. unknown if she had LOC. History of prior falls/syncope and possible tia. Previously noted to have dilation of ventricles - could not rule out hydrocephalus. - PT eval --> decreased strength, balance. + fall risk, would benefit from inpatient rehab. - carotid u/s ordered - echo ordered - cardiac enzymes neg x 2. ekg without ischemic changes - telemetry benign thus far. - bp taken in both arms, but no orthostatic vitals documented --> would repeat. - would confirm that patient is taking medication regimen appropriately given dementia. - tsh, hx of hyperthyroid per report. - possible uti, urine cx pending. h/o possible tia - head ct without evidence of infarct. + calcified carotids. - con't asa. monitor hgb. patient with chronic anemia (bline hgb 9's), but came in with hgb of 13 --> dropped to 9 today. no gross signs of bleeding. May have been volume depleted/hgb was concentrated on admit?. Con't to monitor while on asa. Given multiple recent falls, may benefit from clarification of diagnosis of prior tia's to better determine risk/benefit of continuing. -pt not on statin. can consider resuming unless there is concern for statin myopathy. LE edema - per report, patient with chronic cellulitis. LLE doppler negative for dvt. - patient has been on lasix 20 mg PO daily per report on past admits. Possibly hemoconcentrated on admit (see above), but currently her Le edema extends to dependent portion of thigh. Recent bp on low end, but if bp/hgb remains stable tomorrow and po intake is not significantly decreased, can consider trial of low dose po lasix. - daily weights, bmp. - repeat echo pending. htn - reasonably controlled off anti-hypertensives, con't to monitor.
[2017-04-07] MEDS: QUEtiapine FUMARATE 25 MG TABLET (FP) PO SCH (21:09)
[2017-04-07] MEDS: GABAPENTIN 100 MG CAPSULE (FP) PO SCH (21:10)
[2017-04-07] MEDS: ATORVASTATIN CA 10 MG TABLET (FP) PO SCH (21:10)
[2017-04-07 23:18] LABS: CPK 103 IU/L (26-192)
[2017-04-07 23:28] LABS: TROPONIN I (DFP) < 0.03 ng/ml (0.03-0.50)
--- NOTE | 2017-04-08 09:12 | PN ---
Physical Exam: SUBJECTIVE: Patient seen and examined. Denies dizziness, chest pain, any other complaints. OBJECTIVE: Noted to be orthostatic (BP 184/77 supine, 150/83 standing). Vital Signs Period Temp Pulse Resp BP Sys/Moore Pulse Ox Last 24 Hr 97.9 F-98.6 F 68-92 16-20 111-184/47-83 97-98 GENERAL: The patient is awake, alert, and fully oriented, in no acute distress. HEAD: Normal with no signs of trauma. EYES: PERRL, extraocular movements intact, sclera anicteric, conjunctiva clear. No ptosis. ENT: Ears normal, nares patent, oropharynx clear without exudates, moist mucous membranes. NECK: Trachea midline, full range of motion, supple. LUNGS: Breath sounds equal, clear to auscultation bilaterally, no wheezes, no crackles, no accessory muscle use. HEART: Regular rate and rhythm, S1, S2 without murmur, rub or gallop. ABDOMEN: Soft, nontender, nondistended, normoactive bowel sounds, no guarding, no rebound, no hepatosplenomegaly, no masses. EXTREMITIES: 2+ pulses, warm, well-perfused, trace edema RLE, 1+ edema LLE. NEUROLOGICAL: Cranial nerves II through XII grossly intact. Normal speech, gait not observed. PSYCH: Normal mood, normal affect. SKIN: Warm, dry, normal turgor, erythema from right ankle to right mid tibia. Laboratory Results - last 24 hr 04/07/17 04/07/17 07:25 22:55 Creatine Kinase 147 103 Troponin I < 0.03 L < 0.03 L Active Medications Generic Name Dose Route Start Last Admin Trade Name Scottieq PRN Reason Stop Dose Admin Aspirin 81 mg 04/07/17 10:00 04/07/17 10:23 Ecotrin - PO 81 mg DAILY ALTHEA Administration Atorvastatin Calcium 10 mg 04/07/17 22:00 04/07/17 21:10 Lipitor - PO 10 mg HS ALTHEA Administration Carbidopa/Levodopa 1 each 04/06/17 22:30 04/07/17 21:10 Sinemet 25/100 - PO 1 each BID ALTHEA Administration Cholecalciferol 1,000 unit 04/07/17 10:00 04/07/17 10:23 Vitamin D3 - PO 1,000 unit DAILY ALTHEA Administration Gabapentin 100 mg 04/07/17 22:00 04/07/17 21:10 Neurontin - PO 100 mg HS ALTHEA Administration Heparin Sodium (Porcine) 5,000 unit 04/07/17 10:00 04/07/17 21:09 Heparin - SQ 5,000 unit BID ALTHEA Administration Quetiapine Fumarate 12.5 mg 04/07/17 22:00 04/07/17 21:09 Seroquel - PO 12.5 mg HS ALTHEA Administration Trimethoprim/Sulfamethoxazole 1 each 04/07/17 10:00 04/07/17 21:09 Bactrim Ds - PO 1 each BID ALTHEA Administration Chest X-Ray Reported by Dr. Derrell Pedro Impression: Normal chest film Pelvis X-Ray Reported by Dr. Derrell Pedro Osteopenia Head CT Reported by Dr. Cyndi Lyle Impression: No significant interval change. Moderate to marked dilatation of the lateral and third ventricles that is more expected for the degree of cortical and central atrophy. Differential diagnosis includes normal pressure hydrocephalus versus adequate Sylvius narrowing/stenosis. Cervical Spine CT Reported by Dr. Cyndi Lyle Impression: The alignment is satisfactory. No gross fracture or subluxation is seen. Duplex LLE Reported by Dr. Vipin Genao Impression: No DVT. Study somewhat limited by body habitus. ASSESSMENT/PLAN: 81yo woman with unwitnessed fall (likely syncopal episode) and UTI. 1. Syncope - Ruled out for NC - CTH with no acute intracranial process - Orthostatic, BUN also elevated - trial of gentle hydration (250 mL bolus, 500 mLs at 42/hr) - Monitor on telemetry - Carotid doppler- pending - Echo- pending - CTH as above - Neurology evaluation given abnormal CTH - Cardiology following 2. UTI - Continue Bactrim for this and cellulitis - Follow up urine culture 3. Parkinson's - Continue Sinimet 4. HLD - Continue Lipitor 5. LE cellulitis - ?Chronic per previous notes - Bactrim - Doppler: No DVT 6. LAUREN - ? Secondary to Bactrim - Dc if not improved with hydration 7. F/E/N - Low Na diet - PO intake adequate 8. PPX - Sqh - Ambulation Dispo- Observation pending completion of exams and cardiology recommendations.
[2017-04-08] MEDS ORDERED: SODIUM CHLORIDE 500 ML IV STA (09:13)
[2017-04-08 09:38] LABS: CREATININE 1.4 mg/dl (0.6-1.3); GLUCOSE,RANDOM 82 mg/dl (74-106)
[2017-04-08 09:39] LABS: ANION GAP 4 (8-16); CALCIUM 8.7 mg/dl (8.4-10.2); CO2 25 mmol/L (22-28)
[2017-04-08] MEDS ORDERED: SODIUM CHLORIDE 250 ML IV STA (09:51)
[2017-04-08 10:25] LABS: BASOPHIL 0.8 % (0-2.0); EOSINOPHIL 5.3 % (0-4.5); MCH 29.9 pg (25.7-33.7); MEAN CELL VOLUME 93.4 fl (80-96); MEAN PLT VOLUME 7.7 fl (7.5-11.1); NEUTROPHILS 61.9 % (42.8-82.8); PLATELET COUNT 374 K/MM3 (134-434); RDW 13.5 % (11.6-15.6); WHITE BLOOD COUNT 4.9 K/mm3 (4.0-10.8)
[2017-04-08 13:16] LABS: THYROID STIMULATING HORMONE 2.34 uIU/ml (0.358-3.74)
[2017-04-08] MEDS: CHOLECALCIFEROL (VITAMIN D3) 1,000 UNIT TABLET (FP) PO SCH (19:22)
[2017-04-08] MEDS: HEPARIN NA (PORCINE) 5,000 UNITS/ML 1ML VIAL SQ SCH ×2 (19:23→21:05)
[2017-04-08] MEDS: ASPIRIN COATED 81 MG TABLET.EC PO SCH (19:23)
[2017-04-08] MEDS: CARBIDOPA/LEVODOPA 25/100 TABLET (FP) PO SCH ×2 (19:23→21:06)
[2017-04-08] MEDS: SULFAMETHOXAZOLE/TRIMETHOPRIM 800MG/160MG D.S. TABLET PO SCH ×2 (19:23→21:06)
[2017-04-08] MEDS: ATORVASTATIN CA 10 MG TABLET (FP) PO SCH (21:05)
[2017-04-08] MEDS: QUEtiapine FUMARATE 25 MG TABLET (FP) PO SCH (21:05)
[2017-04-08] MEDS: GABAPENTIN 100 MG CAPSULE (FP) PO SCH (21:06)
--- NOTE | 2017-04-08 22:03 | EKG ---
Test Reason : Blood Pressure : / mmHG Vent. Rate : 067 BPM Atrial Rate : 067 BPM P-R Int : 152 ms QRS Dur : 120 ms QT Int : 438 ms P-R-T Axes : -17 -06 071 degrees QTc Int : 462 ms POOR DATA QUALITY, INTERPRETATION MAY BE ADVERSELY AFFECTED NORMAL SINUS RHYTHM LEFT BUNDLE BRANCH BLOCK ABNORMAL ECG WHEN COMPARED WITH ECG OF 16-SEP-2016 19:13, QRS DURATION HAS INCREASED LEFT BUNDLE BRANCH BLOCK IS NOW PRESENT Confirmed by SONJA DEVLIN MD ([id number]) on 04/08/2017 10:03:06 PM Referred By: RACHAEL Confirmed By:SONJA DEVLIN MD
--- NOTE | 2017-04-09 08:31 | PN ---
Physical Exam: SUBJECTIVE: Patient seen and examined, reports feeling well, denies any chest pain or shortness of breath. OBJECTIVE: patient is a 81y/o woman with Parkinson's and HLD. Patient was admitted from the emergency department to observation for a urinary tract infection and syncope. Vital Signs Period Temp Pulse Resp BP Sys/Moore Pulse Ox Last 24 Hr 97.9 F-98.4 F 70-82 16-20 119-169/59-78 98-99 GENERAL: The patient is awake, alert, and fully oriented, in no acute distress. HEAD: Normal with no signs of trauma. EYES: PERRL, extraocular movements intact, sclera anicteric, conjunctiva clear. No ptosis. ENT: Ears normal, nares patent, oropharynx clear without exudates, moist mucous membranes. NECK: Trachea midline, full range of motion, supple. LUNGS: Breath sounds equal, clear to auscultation bilaterally, no wheezes, no crackles, no accessory muscle use. HEART: Regular rate and rhythm, S1, S2 without murmur, rub or gallop. ABDOMEN: Soft, nontender, nondistended, normoactive bowel sounds, no guarding, no rebound, no hepatosplenomegaly, no masses. EXTREMITIES: 2+ pulses, warm, well-perfused, trace edema RLE, 1+ edema LLE. NEUROLOGICAL: Cranial nerves II through XII grossly intact. Normal speech, gait not observed. PSYCH: Normal mood, normal affect. SKIN: Warm, dry, normal turgor, scant erythema to left tibia to left ankle, erythema from right ankle to right mid tibia. Laboratory Results - last 24 hr 04/08/17 04/08/17 06:00 06:00 WBC 4.9 RBC 3.50 L Hgb 10.5 L Hct 32.7 MCV 93.4 MCH 29.9 MCHC 32.0 RDW 13.5 Plt Count 374 MPV 7.7 Neutrophils % 61.9 Lymphocytes % 23.6 D Monocytes % 8.4 Eosinophils % 5.3 H Basophils % 0.8 Sodium 132 L Potassium 4.5 Chloride 103 Carbon Dioxide 25 Anion Gap 4 L BUN 28 H Creatinine 1.4 H Random Glucose 82 Calcium 8.7 TSH 2.34 D Active Medications Generic Name Dose Route Start Last Admin Trade Name Freq PRN Reason Stop Dose Admin Aspirin 81 mg 04/07/17 10:00 04/08/17 19:23 Ecotrin - PO Not Given DAILY ALTHEA Atorvastatin Calcium 10 mg 04/07/17 22:00 04/08/17 21:05 Lipitor - PO 10 mg HS ALTHEA Administration Carbidopa/Levodopa 1 each 04/06/17 22:30 04/08/17 21:06 Sinemet 25/100 - PO 1 each BID ALTHEA Administration Cholecalciferol 1,000 unit 04/07/17 10:00 04/08/17 19:22 Vitamin D3 - PO Not Given DAILY ALTHEA Gabapentin 100 mg 04/07/17 22:00 04/08/17 21:06 Neurontin - PO 100 mg HS ALTHEA Administration Heparin Sodium (Porcine) 5,000 unit 04/07/17 10:00 04/08/17 21:05 Heparin - SQ 5,000 unit BID ALTHEA Administration Quetiapine Fumarate 12.5 mg 04/07/17 22:00 04/08/17 21:05 Seroquel - PO 12.5 mg HS ALTHEA Administration Trimethoprim/Sulfamethoxazole 1 each 04/07/17 10:00 04/08/17 21:06 Bactrim Ds - PO 1 each BID ALTHEA Administration Microbiology 04/06/17 14:35 Urine - Urine Clean Catch Urine Culture - Preliminary Lactose Fermenting Neg Bacilli IMAGING Chest X-Ray Reported by Dr. Derrell Pedro Impression: Normal chest film Pelvis X-Ray Reported by Dr. Derrell Pedro Osteopenia Head CT Reported by Dr. Cyndi Lyle Impression: No significant interval change. Moderate to marked dilatation of the lateral and third ventricles that is more expected for the degree of cortical and central atrophy. Differential diagnosis includes normal pressure hydrocephalus versus adequate Sylvius narrowing/stenosis. Cervical Spine CT Reported by Dr. Cyndi Lyle Impression: The alignment is satisfactory. No gross fracture or subluxation is seen. Duplex LLE Reported by Dr. Vipin Genao Impression: No DVT. Study somewhat limited by body habitus. ASSESSMENT/PLAN: 1. Syncope - troponin x 3 wnl (Ruled out for ID) - continous cardiac monitoring - Carotid doppler- left common carotid 50-59% stenosis, right common carotid artery, no hemodynamic stenosis noted - Echo- pending - Neurology consult appreciate r/o nph continue current medication regimen - Cardiology continued and following 2. UTI - urine culture prelimary noted, awaiting final, contacted microbiology lab, final c&S will be available tommorow - start ceftin - Follow up urine culture 3. Parkinson's - Continue Sinimet 4. HLD - Continue Lipitor 5. LE cellulitis - Chronic per previous notes - Doppler: No DVT 6. LAUREN - no improved with iv hydration, likely secondary to bactrim, d/c bactrim 7. F/E/N - Low Na diet - PO intake adequate 8. PPX - Sqh - Ambulation Dispo- Observation pending completion of exams and cardiology recommendations. Visit type - Emergency Visit Emergency Visit: Yes ED Registration Date: 04/09/17 Care time: The patient presented to the Emergency Department on the above date and was hospitalized for further evaluation of their emergent condition. - New Patient This patient is new to me today: Yes Date on this admission: 04/09/17 - Critical Care Critical Care patient: No - Discharge Referral Referred to [facility] Med [facility] No
[2017-04-09 08:54] LABS: BASOPHIL 0.8 % (0-2.0); EOSINOPHIL 5.2 % (0-4.5); MCH 30.5 pg (25.7-33.7); MCHC 32.6 g/dl (32.0-36.0); MEAN CELL VOLUME 93.5 fl (80-96); MEAN PLT VOLUME 7.5 fl (7.5-11.1); NEUTROPHILS 64.2 % (42.8-82.8); PLATELET COUNT 364 K/MM3 (134-434); RDW 13.6 % (11.6-15.6); WHITE BLOOD COUNT 4.9 K/mm3 (4.0-10.8)
[2017-04-09] MEDS: CARBIDOPA/LEVODOPA 25/100 TABLET (FP) PO SCH ×2 (09:13→21:17)
[2017-04-09] MEDS: CHOLECALCIFEROL (VITAMIN D3) 1,000 UNIT TABLET (FP) PO SCH (09:13)
[2017-04-09] MEDS: HEPARIN NA (PORCINE) 5,000 UNITS/ML 1ML VIAL SQ SCH ×2 (09:13→21:18)
[2017-04-09] MEDS: SULFAMETHOXAZOLE/TRIMETHOPRIM 800MG/160MG D.S. TABLET PO SCH (09:13)
[2017-04-09] MEDS: ASPIRIN COATED 81 MG TABLET.EC PO SCH (09:13)
--- NOTE | 2017-04-09 09:15 | CONSULT ---
Consult - text type - Consultation Consultation Note: Neurology History of Present Illness 81 y/o F with a PMHx stroke/TIA, Parkinsons disease, dementia, HTN, hyperthyroidism, anemia, chronic left lower extremity cellulitis presents to the ED via EMS from home s/p unwitnessed fall. History mostly from records as patient with underlying Dementia and not able to provide history. Spoke with CORE MANAGER yesterday. Home health aide reports she found pt on the ground resting her head on a cabinet and believes she did hit her head when she fell, which prompted her to call EMS. Unknown LOC. [employer] reports pt was alert and at her baseline when she found her on the ground. Pt was able to ambulate with [employer] after the fall. There was no seizure like activity. Patient completed CT head with ventricular dilation and atrophy. There was concern for normal pressure hydrocephalus. Past History - Past Medical History Anemia: Yes (normocytic normochromic anemia) Asthma: No Cancer: No Cardiac Disorders: Yes (LBBB) CVA: No COPD: No CHF: No Dementia: Yes Diabetes: No GI Disorders: No Disorders: No HTN: Yes Hypercholesterolemia: No Liver Disease: No Seizures: No Thyroid Disease: Yes (HYPERTHYROID) - Surgical History Abdominal Surgery: No Appendectomy: No Cardiac Surgery: No Cholecystectomy: No Lung Surgery: No Neurologic Surgery: No Orthopedic Surgery: No - Psycho/Social/Smoking Cessation Hx Anxiety: No Suicidal Ideation: No Smoking Status: No Smoking History: Never smoked Have you smoked in the past 12 months: No Number of Cigarettes Smoked Daily: 0 Hx Alcohol Use: No Drug/Substance Use Hx: No Substance Use Type: Alcohol Hx Substance Use Treatment: No - Past Medical History Allergies/Adverse Reactions: Allergies Allergy/AdvReac Type Severity Reaction Status Date / Time amoxicillin [Amoxicillin] Allergy Unknown Verified 09/16/16 16:45 loracarbef [From Lorabid] Allergy Unknown Verified 09/16/16 16:45 prochlorperazine edisylate Allergy Unknown Verified 09/16/16 16:45 [From Compazine] prochlorperazine maleate Allergy Unknown Verified 09/16/16 16:45 [From Compazine] promethazine HCl Allergy Unknown Verified 09/16/16 16:45 [From Phenergan] Home Medications: Ambulatory Orders Gabapentin [Neurontin -] 100 mg PO HS #0 capsule 10/02/14 Methimazole [Tapazole -] 2.5 mg PO Q48H #0 tablet 10/02/14 Carbidopa/Levodopa [Carbidopa-Levo 25-100 Tab] 2 each PO TID 12/26/14 Quetiapine Fumarate [Seroquel -] 12.5 mg PO HS 06/12/16 Atorvastatin Ca [Lipitor] 10 mg PO HS #30 tablet 06/13/16 Clindamycin [Cleocin -] 300 mg PO Q8H #21 capsule 10/01/16 Lactobacillus Acidophilus [Bacid -] 1 tab PO DAILY #14 tab 10/01/16 Ranitidine [Zantac -] 150 mg PO DAILY #30 tablet 10/01/16 Review of Systems GENERAL/CONSTITUTIONAL: No fever or chills. No weakness. HEAD, EYES, EARS, NOSE AND THROAT: No change in vision. No ear pain or discharge. No sore throat. CARDIOVASCULAR: No chest pain or shortness of breath. RESPIRATORY: No cough, wheezing, or hemoptysis. GASTROINTESTINAL: No nausea, vomiting, diarrhea or constipation. GENITOURINARY: No dysuria, frequency, or change in urination. MUSCULOSKELETAL: No joint or muscle swelling or pain. No neck or back pain. SKIN: No rash NEUROLOGIC: (+) lightheaded, loss of consciousness. No headache, or change in strength/sensation. ENDOCRINE: No increased thirst. No abnormal weight change. HEMATOLOGIC/LYMPHATIC: No anemia, easy bleeding, or history of blood clots. ALLERGIC/IMMUNOLOGIC: No hives or skin allergy. *Physical Exam Last Vital Signs Temp Pulse Resp BP Pulse Ox 98.1 F 68 15 174/74 100 04/06/17 12:47 04/06/17 15:50 04/06/17 15:50 04/06/17 15:50 04/06/17 15:50 GENERAL: Awake, alert, in no acute distress HEAD: No signs of trauma EYES: PERRLA, EOMI, sclera anicteric, conjunctiva clear ENT: Auricles normal inspection, hearing grossly normal, nares patent, oropharynx clear without exudates. Moist mucosa. No septal hematoma NECK: Normal ROM, supple, no lymphadenopathy, JVD, or masses LUNGS: Breath sounds equal, clear to auscultation bilaterally. No wheezes, and no crackles HEART: Regular rate and rhythm, normal S1 and S2, no murmurs, rubs or gallops ABDOMEN: Soft, nontender, normoactive bowel sounds. No guarding, no rebound. No masses EXTREMITIES: (+) Erythema to left distal calf with warmth consistent with pt's known chronic cellulitis. Normal range of motion in LE at knee and hip joints, stable pelvis, no edema. No clubbing or cyanosis. No ttp. NEUROLOGICAL: (+) Cranial nerves intact, 5-/5 strength in upper extremities bilaterally, 5-/5 strength on hip flexion bilaterally. Rigidity to passive motion consistent with known parkinsons disease. [id number] normal. Normal speech, normal sensation to light touch in all 4 extremities, SKIN: Warm, Dry, normal turgor, no rashes or lesions noted. Laboratory Results 04/06/17 04/06/17 04/06/17 14:35 14:15 14:15 INR 0.99 PTT (Actin FS) 25.7 L Sodium 136 Potassium 4.5 Chloride 100 Carbon Dioxide 29 H D Anion Gap 7 L BUN 24 H Creatinine 1.0 Creat Clearance w eGFR 53.48 Random Glucose 99 D Calcium 9.7 Magnesium 2.2 Total Bilirubin 0.5 AST 30 D ALT < 8 L Alkaline Phosphatase 64 D Troponin I 0.01 Total Protein 8.3 D Albumin 4.4 D Urine Color Yellow Urine Appearance Cloudy Urine pH 7.0 Ur Specific [place] 1.020 Urine Protein 1+ H D Urine Glucose (UA) Negative Urine Ketones Negative Urine Blood Trace-intact H Urine Nitrite Positive Urine Bilirubin Negative Urine Urobilinogen 0.2 Ur Leukocyte Esterase Negative 04/06/17 14:15 RBC 4.22 D MCV 91.7 MCHC 33.5 RDW 13.0 MPV 6.8 L D Neutrophils % 85.4 H D Lymphocytes % 9.6 D Monocytes % 4.1 Eosinophils % 0.5 D Basophils % 0.4 - RADIOLOGY Chest X-Ray/Pelvis X-Ray Reported by Dr. Derrell Pedro Impression: Normal chest film. Head CT Reported by Dr. Cyndi Lyle Impression: No significant interval change. Moderate to marked dilatation of the lateral and third ventricles that is more expected for the degree of cortical and central atrophy. Differential diagnosis includes normal pressure hydrocephalus versus adequate Sylvius narrowing/stenosis. Cervical Spine CT Reportd by Dr. Farid Abdo Impression: The alignment is satisfactory. No gross fracture or subluxation is seen. Plan: 81 y/o F with a PMHx stroke/TIA, Parkinsons disease, dementia, HTN, hyperthyroidism, anemia, chronic left lower extremity cellulitis presents to the ED via EMS from home s/p unwitnessed fall. History mostly from records as patient with underlying Dementia and not able to provide history. Patient completed CT head with ventricular dilation and atrophy. There was concern for normal pressure hydrocephalus. In reviewing images, patient atrophy and ventricular dilation consistent with dementia and not likely from NPH.Furthermore, patient would not good candidate for shunt given underlying cognitive impairment. Continue Sinemet for Parkinson's as prescribed. Physical therapy, fall precautions recommended. Can continue seroquel for behavioral control of Alzheimer's. Cardiac work up in place, follow up cards rec'd. No further rec'd at this time.
[2017-04-09 09:21] LABS: ANION GAP 5 (8-16); CALCIUM 8.9 mg/dl (8.4-10.2); CO2 23 mmol/L (22-28); CREATININE 1.4 mg/dl (0.6-1.3); GLUCOSE,RANDOM 85 mg/dl (74-106)
[2017-04-09] MEDS: LEVOFLOXACIN 250 MG IVPB 50 ML IVPB SCH (12:26)
[2017-04-09] MEDS: QUEtiapine FUMARATE 25 MG TABLET (FP) PO SCH (21:17)
[2017-04-09] MEDS: GABAPENTIN 100 MG CAPSULE (FP) PO SCH (21:17)
[2017-04-09] MEDS: ATORVASTATIN CA 10 MG TABLET (FP) PO SCH (21:17)
[2017-04-10 06:21] VITALS: BP 168/83; PULSE 64; TEMP 98.3
[2017-04-10] MEDS: CHOLECALCIFEROL (VITAMIN D3) 1,000 UNIT TABLET (FP) PO SCH (09:01)
[2017-04-10] MEDS: LEVOFLOXACIN 250 MG IVPB 50 ML IVPB SCH (09:01)
[2017-04-10] MEDS: CARBIDOPA/LEVODOPA 25/100 TABLET (FP) PO SCH (09:01)
[2017-04-10] MEDS: HEPARIN NA (PORCINE) 5,000 UNITS/ML 1ML VIAL SQ SCH (09:01)
[2017-04-10] MEDS: ASPIRIN COATED 81 MG TABLET.EC PO SCH (09:01)
--- NOTE | 2017-04-10 11:48 | DS ---
Physical Exam: SUBJECTIVE: Patient seen and examined OBJECTIVE: This is a 81yo woman with Parkinson's and HLD who presents today s/p unwitnessed fall at home. She does not have any recollection of events immediately prior to, during or immediately after fall. Patient was found on the floor by HARDWARE INSTALLER with her head resting on her arms on a counter. She denies headaches, fevers, chills, chest pain, dizziness, SOB, nausea, vomiting, abdominal pain, constipation, diarrhea, dysuria, numbness or tingling. She reports urinary frequency and urgency starting this afternoon. ER course was notable for: (1) UA with nitrites (2) CTH(-) for acute pathology (3) CT c-spine (-) acute fracture or ligamentous injury Vital Signs Period Temp Pulse Resp BP Sys/Moore Pulse Ox Last 24 Hr 97.6 F-98.3 F 64-82 19-19 153-168/67-83 98-100 PHYSICAL EXAM GENERAL: The patient is awake, alert, and fully oriented, in no acute distress. HEAD: Normal with no signs of trauma. EYES: PERRL, extraocular movements intact, sclera anicteric, conjunctiva clear. No ptosis. ENT: Ears normal, nares patent, oropharynx clear without exudates, moist mucous membranes. NECK: Trachea midline, full range of motion, supple. LUNGS: Breath sounds equal, clear to auscultation bilaterally, no wheezes, no crackles, no accessory muscle use. HEART: Regular rate and rhythm, S1, S2 without murmur, rub or gallop. ABDOMEN: Soft, nontender, nondistended, normoactive bowel sounds, no guarding, no rebound, no hepatosplenomegaly, no masses. EXTREMITIES: 2+ pulses, warm, well-perfused, trace edema RLE, 1+ edema LLE. NEUROLOGICAL: Cranial nerves II through XII grossly intact. Normal speech, gait not observed. PSYCH: Normal mood, normal affect. SKIN: Warm, dry, normal turgor, scant erythema to left tibia to left ankle, erythema from right ankle to right mid tibia. LABS CBC WBC 4.9 K/mm3 (4.0-10.8) 04/09/17 07:00 RBC 3.40 M/mm3 (3.60-5.2) L 04/09/17 07:00 Hgb 10.4 GM/dl (10.7-15.3) L 04/09/17 07:00 Hct 31.8 % (32.4-45.2) L 04/09/17 07:00 MCV 93.5 fl (80-96) 04/09/17 07:00 MCH 30.5 pg (25.7-33.7) 04/09/17 07:00 MCHC 32.6 g/dl (32.0-36.0) 04/09/17 07:00 RDW 13.6 % (11.6-15.6) 04/09/17 07:00 Plt Count 364 K/MM3 (134-434) 04/09/17 07:00 MPV 7.5 fl (7.5-11.1) 04/09/17 07:00 Neutrophils % 64.2 % (42.8-82.8) 04/09/17 07:00 Lymphocytes % 21.8 % (8-40) 04/09/17 07:00 Monocytes % 8.0 % (3.8-10.2) 04/09/17 07:00 Eosinophils % 5.2 % (0-4.5) H 04/09/17 07:00 Basophils % 0.8 % (0-2.0) 04/09/17 07:00 CMP Sodium 135 mmol/L (136-145) L 04/09/17 07:00 Potassium 4.6 mmol/L (3.5-5.1) 04/09/17 07:00 Chloride 107 mmol/L (98-107) 04/09/17 07:00 Carbon Dioxide 23 mmol/L (22-28) 04/09/17 07:00 Anion Gap 5 (8-16) L 04/09/17 07:00 BUN 25 mg/dl (7-18) H 04/09/17 07:00 Creatinine 1.4 mg/dl (0.6-1.3) H 04/09/17 07:00 Creat Clearance w eGFR 43.34 (>60) 04/07/17 07:25 Random Glucose 85 mg/dl (74-106) 04/09/17 07:00 Calcium 8.9 mg/dl (8.4-10.2) 04/09/17 07:00 Magnesium 2.2 mg/dL (1.8-2.4) 04/06/17 14:15 Total Bilirubin 0.5 mg/dl (0.2-1.0) 04/07/17 07:25 AST 22 U/L (10-42) D 04/07/17 07:25 ALT < 8 U/L (10-40) L 04/07/17 07:25 Alkaline Phosphatase 48 U/L (32-92) D 04/07/17 07:25 Creatine Kinase 103 IU/L (26-192) 04/07/17 22:55 Troponin I < 0.03 ng/ml (0.03-0.50) L 04/07/17 22:55 B-Natriuretic Peptide 853.62 pg/ml (5-450) H 04/06/17 14:15 Total Protein 6.2 g/dl (6.4-8.3) L D 04/07/17 07:25 Albumin 3.1 g/dl (3.5-5.0) L D 04/07/17 07:25 TSH 2.34 uIU/ml (0.358-3.74) D 04/08/17 06:00 Laboratory Tests 04/06/17 04/07/17 04/07/17 14:15 07:25 22:55 Troponin I 0.01 < 0.03 L < 0.03 L Microbiology 04/06/17 14:35 Urine - Urine Clean Catch Urine Culture - Preliminary [employer] Species IMAGING Chest X-Ray Reported by Dr. Derrell Pedro Impression: Normal chest film Pelvis X-Ray Reported by Dr. Derrell Pedro Osteopenia Head CT Reported by Dr. Cyndi Lyle Impression: No significant interval change. Moderate to marked dilatation of the lateral and third ventricles that is more expected for the degree of cortical and central atrophy. Differential diagnosis includes normal pressure hydrocephalus versus adequate Sylvius narrowing/stenosis. Cervical Spine CT Reported by Dr. Cyndi Lyle Impression: The alignment is satisfactory. No gross fracture or subluxation is seen. Duplex LLE Reported by Dr. Vipin Genao Impression: No DVT. Study somewhat limited by body habitus.\ carotid doppler: l eft common carotid 50-59% stenosis, right common carotid artery, no hemodynamic stenosis noted HOSPITAL COURSE: 1. Syncope - troponin x 3 wnl (Ruled out for AL) - continous cardiac monitoring - - Echo- pending - Neurology consult appreciate r/o nph continue current medication regimen - Cardiology continued and following 2. UTI - urine culture prelimary noted, awaiting final, contacted microbiology lab, final c&S will be available tommorow - start ceftin - Follow up urine culture 3. Parkinson's - Continue Sinimet 4. HLD - Continue Lipitor 5. LE cellulitis - Chronic per previous notes - Doppler: No DVT 6. LAUREN - no improved with iv hydration, likely secondary to bactrim, d/c bactrim Date of Admission:04/09/17 Date of Discharge: 04/10/17 Minutes to complete discharge: 45 Discharge Summary Reason For Visit: SEPSIS & UTI Current Active Problems UTI (urinary tract infection) (Acute) Condition: Good - Instructions Diet, Activity, Other Instructions: resume regular diet continue all medications as prescribed continue levaquin for the next 5 days please follow up with your primary care physician within 1 week if any new or persistent symptoms develops please return to the emergency department. Referrals: Obdulio Lane MD [Non Staff, Medical] - Disposition: HOME - Home Medications Comprehensive Discharge Medication List: Ambulatory Orders Gabapentin [Neurontin -] 100 mg PO HS #0 capsule 10/02/14 Carbidopa/Levodopa [Carbidopa-Levo 25-100 Tab] 1 each PO BID 12/26/14 Quetiapine Fumarate [Seroquel -] 12.5 mg PO HS 06/12/16 Atorvastatin Ca [Lipitor] 10 mg PO HS #30 tablet 06/13/16 Aspirin [Aspirin EC] 81 mg PO DAILY 04/06/17 Cholecalciferol (Vitamin D3) [Vitamin D3 -] 1,000 unit PO DAILY 04/06/17 This patient is new to me today: No Emergency Visit: Yes ED Registration Date: 04/09/17 Care time: The patient presented to the Emergency Department on the above date and was hospitalized for further evaluation of their emergent condition. Critical Care patient: No - Discharge Referral Referred to [facility] Med [facility] No
== END 2017-04-10 13:51 | disposition home or self-care (01) | DRG 690 ==
LOC: FER 12:40 → UNDOADMOB 20:46 → FM/S 20:46 → OBSVTOIN 04-09 17:11
PROVIDERS: ADMIT Internal Medicine; ATTEND Nurse Practitioner Family
DX: N39.0 Urinary tract infection, site not specified (principal); L03.116 Cellulitis of left lower limb; G91.2 (Idiopathic) normal pressure hydrocephalus; N17.9 Acute kidney failure, unspecified; R55 Syncope and collapse; I10 Essential (primary) hypertension; E05.80 Other thyrotoxicosis without thyrotoxic crisis or storm; D64.9 Anemia, unspecified; G20 Parkinson's disease; F02.80 Dementia in other diseases classified elsewhere, unspecified severity, without behavioral disturbance, psychotic disturbance, mood disturbance, and anxiety; I44.7 Left bundle-branch block, unspecified; B96.20 Unspecified Escherichia coli [E. coli] as the cause of diseases classified elsewhere; R39.15 Urgency of urination; Z86.73 Personal history of transient ischemic attack (TIA), and cerebral infarction without residual deficits; L53.8 Other specified erythematous conditions; W18.39XA Other fall on same level, initial encounter; Y93.89 Activity, other specified; Y92.098 Other place in other non-institutional residence as the place of occurrence of the external cause
CPT/HCPCS: 36415; 70450-TC; 71010-TC; 72125-TC; 72170-TC; 80048; 80053; 81003; 81015; 83735; 83880; 84443; 84484; 85025; 85610; 85730; 87086; 87186; 93005; 93306-TC; 93880-TC; 93971-TC; 97116-GP; 97161-GP; 99284-25; J1644

== ENCOUNTER 2017-07-12 08:04 | Observation (INO) | payer OTHER ==
--- NOTE | 2017-07-12 08:15 | PDOC ---
History of Present Illness - General Chief Complaint: Syncope/Near Syncope Stated Complaint: SYNCOPE Time Seen by Provider: 07/12/17 08:06 History Source: EMS (Received call from EMS, then at the arrival they provided the following presentation: The aide at the home let her walk to the bathroom alone, looking for a towel, then she heard her falling , found her on the floor. Patient confirmed the history, denied LOC ) Exam Limitations: Clinical Condition - History of Present Illness Timing/Duration: momentarily Severity: moderate, severe Past History - Travel Traveled outside of the country in the last 30 days: No Close contact w/someone who was outside of country & ill: No - Past Medical History Allergies/Adverse Reactions: Allergies Allergy/AdvReac Type Severity Reaction Status Date / Time amoxicillin [Amoxicillin] Allergy Unknown Verified 09/16/16 16:45 loracarbef [From Lorabid] Allergy Unknown Verified 09/16/16 16:45 prochlorperazine edisylate Allergy Unknown Verified 09/16/16 16:45 [From Compazine] prochlorperazine maleate Allergy Unknown Verified 09/16/16 16:45 [From Compazine] promethazine HCl Allergy Unknown Verified 09/16/16 16:45 [From Phenergan] Home Medications: Ambulatory Orders Gabapentin [Neurontin -] 100 mg PO HS #0 capsule 10/02/14 Carbidopa/Levodopa [Carbidopa-Levo 25-100 Tab] 1 each PO BID 12/26/14 Quetiapine Fumarate [Seroquel -] 12.5 mg PO HS 06/12/16 Atorvastatin Ca [Lipitor] 10 mg PO HS #30 tablet 06/13/16 Aspirin [Aspirin EC] 81 mg PO DAILY 04/06/17 Cholecalciferol (Vitamin D3) [Vitamin D3 -] 1,000 unit PO DAILY 04/06/17 Anemia: Yes (normocytic normochromic anemia) Asthma: No Cancer: No Cardiac Disorders: Yes (LBBB) CVA: Yes COPD: No CHF: No Dementia: Yes Diabetes: No GI Disorders: No Disorders: Yes (UTI) HTN: Yes Hypercholesterolemia: No Liver Disease: No Seizures: No Thyroid Disease: Yes (HYPOTHYROIDISM) Other medical history: repeated falls - Surgical History Abdominal Surgery: No Appendectomy: No Cardiac Surgery: No Cholecystectomy: No Lung Surgery: No Neurologic Surgery: No Orthopedic Surgery: No - Suicide/Smoking/Psychosocial Hx Smoking Status: No Smoking History: Never smoked Have you smoked in the past 12 months: No Number of Cigarettes Smoked Daily: 0 Hx Alcohol Use: No Drug/Substance Use Hx: No Substance Use Type: Alcohol Hx Substance Use Treatment: No Review of Systems - Review of Systems Able to Perform ROS?: Yes Is the patient limited Hungarian proficient: Yes Constitutional: Yes: See HPI HEENTM: Yes: See HPI Respiratory: No: Symptoms reported, See HPI, Cough, Orthopnea, Shortness of Breath, SOB with Exertion, SOB at Rest, Stridor, Wheezing, Productive cough, Hemoptysis, Other ABD/GI: Yes: See HPI Musculoskeletal: Yes: See HPI Neurological: Yes: See HPI, Pre-Existing Deficit All Other Systems: Reviewed and Negative *Physical Exam - Physical Exam General Appearance: Yes: Nourished, Mild Distress, Thin HEENT: positive: GREGORIO, Pharynx Normal Neck: positive: Tender, Supple Respiratory/Chest: positive: Rhonchi Gastrointestinal/Abdominal: positive: Normal Bowel Sounds Lymphatic: negative: Adenopathy Musculoskeletal: positive: Other (muscular waste, contractures) Extremity: positive: Normal Capillary Refill Integumentary: positive: Normal Color Neurologic: positive: Alert. negative: Motor Strength 5/5 (Decreased motor strength all extremities) ED Treatment Course - LABORATORY CBC & Chemistry Diagram: 07/12/17 09:05 07/12/17 09:05 Medical Decision Making - Critical Care Time Total Critical Care Time (minutes): 30 Critical Care Statement: The care of this patient involved high complexity decision making to prevent further life threatening deterioration of the patient 's condition and/or to evaluate & treat vital organ system(s) failure or risk of failure. - Medical Decision Making Info obtained from EMS , seen immediately from arrival, orders placed in immediately 07/12/17 10:40 *DC/Admit/Observation/Transfer Diagnosis at time of Disposition: Syncope and collapse Syncope Qualifiers: Syncope type: unspecified Qualified Code(s): R55 - Syncope and collapse Head contusion Qualifiers: Encounter type: initial encounter Contusion of head detail: scalp Qualified Code(s): S00.03XA - Contusion of scalp, initial encounter - Discharge Dispostion Admit: Yes - Referrals - Patient Instructions - Post Discharge Activity
[2017-07-12 09:18] LABS: BASOPHIL 0.5 % (0-2.0); EOSINOPHIL 2.5 % (0-4.5); MCH 30.4 pg (25.7-33.7); MCHC 33.6 g/dl (32.0-36.0); MEAN CELL VOLUME 90.3 fl (80-96); MEAN PLT VOLUME 7.7 fl (7.5-11.1); NEUTROPHILS 76.2 % (42.8-82.8); PLATELET COUNT 340 K/MM3 (134-434); RDW 14.6 % (11.6-15.6); WHITE BLOOD COUNT 4.9 K/mm3 (4.0-10.8)
[2017-07-12 09:26] LABS: INR 1.02 (0.82-1.09); PROTHROMBIN TIME (PATIENT) 11.4 SEC (10.2-13.0)
[2017-07-12 09:30] LABS: ALK PHOS 61 U/L (32-92); ANION GAP 4 (8-16); BILIRUBIN,TOTAL 0.6 mg/dl (0.2-1.0); CALCIUM 9.6 mg/dl (8.4-10.2); CO2 26 mmol/L (22-28); CREATININE 1.2 mg/dl (0.6-1.3); GLUCOSE,RANDOM 91 mg/dl (74-106); SGOT/AST 26 U/L (10-42); SGPT/ALT 20 U/L (10-40); TOT PROT 7.2 g/dl (6.4-8.3)
--- NOTE | 2017-07-12 12:45 | HP ---
CHIEF COMPLAINT: unwitnessed fall. PCP: Dr Lane HISTORY OF PRESENT ILLNESS: patient is a 81 y/o female, with a past medical history of parkinson's disease, cellulitis, and hyperlipidemia. patient reports early this AM she attempted to ambulate in the bathroom, tripped on her own feet, fell struck her head on the tile floor. Patient is able to recall the full incident in detail. Patient has 24hour nurses's aide at home. Her aide reports she did not witness the fall. The aide reports she found patient on the floor and denies any loss of consciousness. Patient denies any headache , chest pain or shortness of breath. 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, no change from prior (2)ct of cervical spine: no acute pathology (3)troponin x 1 wnl Recent Travel: none PAST MEDICAL HISTORY: see hpi PAST SURGICAL HISTORY: Social History: resides at home with 24 hour chief nursing executive Smoking:none Alcohol:none Drugs: none Family History:non contributory to this admission Allergies amoxicillin [Amoxicillin] Allergy (Unknown, Verified 09/16/16 16:45) loracarbef [From Lorabid] Allergy (Unknown, Verified 09/16/16 16:45) prochlorperazine edisylate [From Compazine] Allergy (Unknown, Verified 09/16/16 16:45) prochlorperazine maleate [From Compazine] Allergy (Unknown, Verified 09/16/16 16 :45) promethazine HCl [From Phenergan] Allergy (Unknown, Verified 09/16/16 16:45) HOME MEDICATIONS: Home Medications Medication Instructions Recorded Gabapentin [Neurontin -] 100 mg PO HS #0 capsule 10/02/14 Carbidopa/Levodopa [Carbidopa-Levo 1 each PO BID 12/26/14 25-100 Tab] Quetiapine Fumarate [Seroquel -] 12.5 mg PO HS 06/12/16 Atorvastatin Ca [Lipitor] 10 mg PO HS #30 tablet 06/13/16 Aspirin [Aspirin EC] 81 mg PO DAILY 04/06/17 Cholecalciferol (Vitamin D3) 1,000 unit PO DAILY 04/06/17 [Vitamin D3 -] REVIEW OF SYSTEMS CONSTITUTIONAL: Absent: fever, chills, diaphoresis, generalized weakness, malaise, loss of appetite, weight change HEENT: Absent: rhinorrhea, nasal congestion, throat pain, throat swelling, difficulty swallowing, mouth swelling, ear pain, eye pain, visual changes CARDIOVASCULAR: Absent: chest pain, syncope, palpitations, irregular heart rate, lightheadedness , peripheral edema RESPIRATORY: Absent: cough, shortness of breath, dyspnea with exertion, orthopnea, wheezing, stridor, hemoptysis GASTROINTESTINAL: Absent: abdominal pain, abdominal distension, nausea, vomiting, diarrhea, constipation, melena, hematochezia GENITOURINARY: Absent: dysuria, frequency, urgency, hesitancy, hematuria, flank pain, genital pain MUSCULOSKELETAL: Absent: myalgia, arthralgia, joint swelling, back pain, neck pain SKIN: Absent: rash, itching, pallor HEMATOLOGIC/IMMUNOLOGIC: Absent: easy bleeding, easy bruising, lymphadenopathy, frequent infections ENDOCRINE: Absent: unexplained weight gain, unexplained weight loss, heat intolerance, cold intolerance NEUROLOGIC: Absent: headache, focal weakness or paresthesias, dizziness, unsteady gait, seizure, mental status changes, bladder or bowel incontinence PSYCHIATRIC: Absent: anxiety, depression, suicidal or homicidal ideation, hallucinations. PHYSICAL EXAMINATION Vital Signs - 24 hr 07/12/17 07/12/17 07/12/17 08:04 09:38 11:53 Temperature 98.3 F Pulse Rate 70 Pulse Rate [ 72 79 Apical] Respiratory 20 20 16 Rate Blood Pressure 190/90 Blood Pressure 164/82 142/74 [Left Arm] O2 Sat by Pulse 99 100 99 Oximetry (%) GENERAL: Awake, alert, and fully oriented, in no acute distress. HEAD: Normal with no signs of trauma. EYES: Pupils equal, round and reactive to light, extraocular movements intact, sclera anicteric, conjunctiva clear. No lid lag. EARS, NOSE, THROAT: Ears normal, nares patent, oropharynx clear without exudates. Moist mucous membranes. NECK: Normal range of motion, supple without lymphadenopathy, JVD, or masses. LUNGS: Breath sounds equal, clear to auscultation bilaterally. No wheezes, and no crackles. No accessory muscle use. HEART: Regular rate and rhythm, normal S1 and S2 without murmur, rub or gallop. ABDOMEN: Soft, nontender, not distended, normoactive bowel sounds, no guarding, no rebound, no masses. No hepatomegaly or splenomegaly. MUSCULOSKELETAL: Normal range of motion at all joints. No bony deformities or tenderness. No CVA tenderness. UPPER EXTREMITIES: 2+ pulses, warm, well-perfused. No cyanosis. No clubbing. No peripheral edema. LOWER EXTREMITIES: 2+ pulses, warm, well-perfused. No calf tenderness. RLE trace edema scant erythema, LLE +1 edema, erythema (chronic) NEUROLOGICAL: Cranial nerves II-XII intact. Normal speech. Normal gait. PSYCHIATRIC: Cooperative. Good eye contact. Appropriate mood and affect. SKIN: Warm, dry, normal turgor, no rashes or lesions noted, normal capillary refill. Laboratory Results - last 24 hr 07/12/17 07/12/17 07/12/17 09:05 09:05 09:05 WBC 4.9 RBC 3.94 Hgb 12.0 D Hct 35.6 MCV 90.3 MCH 30.4 MCHC 33.6 RDW 14.6 Plt Count 340 MPV 7.7 Neutrophils % 76.2 Lymphocytes % 15.1 D Monocytes % 5.7 Eosinophils % 2.5 Basophils % 0.5 PT with INR INR Sodium 134 L Potassium 4.5 Chloride 104 Carbon Dioxide 26 Anion Gap 4 L BUN 33 H D Creatinine 1.2 Creat Clearance w eGFR 43.34 Random Glucose 91 Calcium 9.6 Total Bilirubin 0.6 AST 26 ALT 20 D Alkaline Phosphatase 61 D Troponin I < 0.03 L Total Protein 7.2 Albumin 4.0 D 07/12/17 09:05 WBC RBC Hgb Hct MCV MCH MCHC RDW Plt Count MPV Neutrophils % Lymphocytes % Monocytes % Eosinophils % Basophils % PT with INR 11.4 INR 1.02 Sodium Potassium Chloride Carbon Dioxide Anion Gap BUN Creatinine Creat Clearance w eGFR Random Glucose Calcium Total Bilirubin AST ALT Alkaline Phosphatase Troponin I Total Protein Albumin ASSESSMENT/PLAN: F/E/N - low sodium diet - replete lytes prn ppx - oob - pt - scd/diamond - pepcid dispo: requires 24hour obsv Problem List - Problem (1) Fall Assessment/Plan: - unwitnessed fall, continous cardiac monitoring - echo completed 03/2917 grade 1 diastolic dysfunction - troponin x 1 wnl, pending 2nd, 3rd - PT eval Code(s): W19.XXXA - UNSPECIFIED FALL, INITIAL ENCOUNTER Qualifiers: Encounter type: initial encounter Qualified Code(s): W19.XXXA - Unspecified fall, initial encounter (2) HTN (hypertension) Assessment/Plan: - no home medication, b/p at goal, orthostatic vital signs completed, patient is not orthostatic - strict monitoring Code(s): I10 - ESSENTIAL (PRIMARY) HYPERTENSION (3) Dementia Assessment/Plan: - continue seroquel Code(s): F03.90 - UNSPECIFIED DEMENTIA WITHOUT BEHAVIORAL DISTURBANCE (4) Parkinson disease Assessment/Plan: - continuen cardiodopa/levodopa Code(s): G20 - PARKINSON'S DISEASE Visit type - Emergency Visit Emergency Visit: Yes ED Registration Date: 07/12/17 Care time: The patient presented to the Emergency Department on the above date and was hospitalized for further evaluation of their emergent condition. - New Patient This patient is new to me today: Yes Date on this admission: 07/12/17 - Critical Care Critical Care patient: No
[2017-07-12 14:28] VITALS: BMI 22.5
[2017-07-12 14:33] LABS: URINE APPEARANCE Clear; URINE BILIRUBIN Negative (NEGATIVE); URINE BLOOD Negative (NEGATIVE); URINE GLUCOSE (UA) Negative (NEGATIVE); URINE KETONE Negative (NEGATIVE); URINE LEUK ESTERASE Negative (NEGATIVE); URINE NITRITE Negative (NEGATIVE); URINE PROTEIN Negative (NEGATIVE); URINE UROBILINOGEN 0.2 (0.2-1.0)
[2017-07-12 14:34] LABS: URINE COLOR YELLOW
[2017-07-12 16:49] LABS: CPK 117 IU/L (26-192)
[2017-07-12 17:30] LABS: TROPONIN I (DFP) < 0.03 ng/ml (0.03-0.50)
--- NOTE | 2017-07-12 18:54 | EKG ---
Test Reason : Blood Pressure : / mmHG Vent. Rate : 069 BPM Atrial Rate : 069 BPM P-R Int : 172 ms QRS Dur : 128 ms QT Int : 420 ms P-R-T Axes : 061 -32 090 degrees QTc Int : 450 ms NORMAL SINUS RHYTHM POSSIBLE LEFT ATRIAL ENLARGEMENT LEFT AXIS DEVIATION LEFT BUNDLE BRANCH BLOCK ABNORMAL ECG WHEN COMPARED WITH ECG OF 06-APR-2017 14:31, POSSIBLE LEFT ATRIAL ENLARGEMENT is now present Confirmed by SENIA DUVALL, DOMINGO ([id number]) on 07/12/2017 6:53:47 PM Referred By: Rupal MCKEON Confirmed By:DOMINGO CONN MD
[2017-07-12] MEDS: CARBIDOPA/LEVODOPA 25/100 TABLET (FP) PO SCH (21:42)
[2017-07-12] MEDS ORDERED: QUEtiapine FUMARATE 25 MG TABLET (FP) PO SCH (22:00)
[2017-07-12] MEDS ORDERED: ATORVASTATIN CA 10 MG TABLET (FP) PO SCH (22:00)
[2017-07-12] MEDS ORDERED: GABAPENTIN 100 MG CAPSULE (FP) PO SCH (22:00)
[2017-07-13 01:16] LABS: CPK 104 IU/L (26-192); TROPONIN I < 0.02 ng/ml (0.00-0.05)
[2017-07-13 06:23] VITALS: BP 147/70; PULSE 65; TEMP 97.5
[2017-07-13] MEDS: CARBIDOPA/LEVODOPA 25/100 TABLET (FP) PO SCH (09:23)
[2017-07-13] MEDS ORDERED: CHOLECALCIFEROL (VITAMIN D3) 1,000 UNIT TABLET (FP) PO SCH (10:00)
[2017-07-13] MEDS ORDERED: ASPIRIN COATED 81 MG TABLET.EC PO SCH (10:00)
--- NOTE | 2017-07-13 10:14 | DS ---
Physical Exam: SUBJECTIVE: Patient seen and examined, reports feeling well, anxious to go home. patient denies any chest pain or shortness of breath. OBJECTIVE:patient is a 81 y/o female, with a past medical history of parkinson' s disease, cellulitis, and hyperlipidemia. patient reports early this AM she attempted to ambulate in the bathroom, tripped on her own feet, fell struck her head on the tile floor. Patient is able to recall the full incident in detail. Patient has 24hour nurses's aide at home. Her aide reports she did not witness the fall. The aide reports she found patient on the floor and denies any loss of consciousness. Patient denies any headache, chest pain or shortness of breath. 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 HEAD: Normal with no signs of trauma. EYES: Pupils equal, round and reactive to light, extraocular movements intact, sclera anicteric, conjunctiva clear. No lid lag. EARS, NOSE, THROAT: Ears normal, nares patent, oropharynx clear without exudates. Moist mucous membranes. NECK: Normal range of motion, supple without lymphadenopathy, JVD, or masses. LUNGS: Breath sounds equal, clear to auscultation bilaterally. No wheezes, and no crackles. No accessory muscle use. HEART: Regular rate and rhythm, normal S1 and S2 without murmur, rub or gallop. ABDOMEN: Soft, nontender, not distended, normoactive bowel sounds, no guarding, no rebound, no masses. No hepatomegaly or splenomegaly. MUSCULOSKELETAL: Normal range of motion at all joints. No bony deformities or tenderness. No CVA tenderness. UPPER EXTREMITIES: 2+ pulses, warm, well-perfused. No cyanosis. No clubbing. No peripheral edema. LOWER EXTREMITIES: 2+ pulses, warm, well-perfused. No calf tenderness. RLE trace edema scant erythema, LLE +1 edema, erythema (chronic) NEUROLOGICAL: Cranial nerves II-XII intact. Normal speech. Normal gait. PSYCHIATRIC: Cooperative. Good eye contact. Appropriate mood and affect. SKIN: Warm, dry, normal turgor, no rashes or lesions noted, normal capillary refil LABS Laboratory Results - last 24 hr 07/12/17 07/12/17 07/12/17 13:30 16:05 23:50 Creatine Kinase 117 104 Troponin I < 0.03 L < 0.02 Urine Color Yellow Urine Appearance Clear Urine pH 6.0 Ur Specific Belding 1.010 Urine Protein Negative Urine Glucose (UA) Negative Urine Ketones Negative Urine Blood Negative Urine Nitrite Negative Urine Bilirubin Negative Urine Urobilinogen 0.2 Ur Leukocyte Esterase Negative Microbiology 07/12/17 13:30 Urine - Urine - Catheterized Urine Culture - Final Contaminated: Please Repeat HOSPITAL COURSE: Patient was admitted from the emergency department s/p unwitnessed fall. No telemetry events noted on continuous cardiac monitoring. echo completed 03/2917 grade 1 diastolic dysfunction. troponin x 3 wnl. Physical therapy evaluation completed advised, rolling walker with 2 wheels and one person assistance. Patient has a past medical history of hypertension and b/p at goal,. Orthostatic vital signs completed, patient is not orthostatic. Seroquel was continued for dementia. patient has a past medical history of Parkinson's disease and cardiodopa/levodapa was continued throughout admission. PLAN - patient has a 24 hour nursing care at home - continue all prescribed home medications - strict follow up with pcp within 1 week Date of Admission:07/12/17 Date of Discharge: 07/13/17 Minutes to complete discharge: 45 Discharge Summary Reason For Visit: SYNCOPE AND HEAD TRAUMA Current Active Problems Fall (Acute) Head contusion (Acute) Syncope (Acute) Syncope and collapse (Acute) - Instructions - Home Medications Comprehensive Discharge Medication List: Ambulatory Orders RX: Gabapentin [Neurontin -] 100 mg PO HS #0 capsule 10/02/14 RX: Carbidopa/Levodopa [Carbidopa-Levo 25-100 Tab] 1 each PO BID 12/26/14 RX: Quetiapine Fumarate [Seroquel -] 12.5 mg PO HS 06/12/16 RX: Atorvastatin Ca [Lipitor] 10 mg PO HS #30 tablet 06/13/16 RX: Aspirin [Aspirin EC] 81 mg PO DAILY 04/06/17 RX: Cholecalciferol (Vitamin D3) [Vitamin D3 -] 1,000 unit PO DAILY 04/06/17 Problem List - Problems (1) Fall Code(s): W19.XXXA - UNSPECIFIED FALL, INITIAL ENCOUNTER Qualifiers: Encounter type: initial encounter Qualified Code(s): W19.XXXA - Unspecified fall, initial encounter (2) HTN (hypertension) Code(s): I10 - ESSENTIAL (PRIMARY) HYPERTENSION (3) Dementia Code(s): F03.90 - UNSPECIFIED DEMENTIA WITHOUT BEHAVIORAL DISTURBANCE (4) Parkinson disease Code(s): G20 - PARKINSON'S DISEASE This patient is new to me today: No Emergency Visit: Yes ED Registration Date: 07/12/17 Care time: The patient presented to the Emergency Department on the above date and was hospitalized for further evaluation of their emergent condition. Critical Care patient: No - Discharge Referral Referred to [facility] No
== END 2017-07-13 12:14 | disposition home health service (06) ==
LOC: FER 08:04 → FM/S 12:38
PROVIDERS: ADMIT Internal Medicine; ATTEND Nurse Practitioner Family
DX: R55 Syncope and collapse (principal); S09.8XXA Other specified injuries of head, initial encounter; S00.03XA Contusion of scalp, initial encounter; W01.198A Fall on same level from slipping, tripping and stumbling with subsequent striking against other object, initial encounter; Y93.01 Activity, walking, marching and hiking; Y92.031 Bathroom in apartment as the place of occurrence of the external cause; Y99.8 Other external cause status; I10 Essential (primary) hypertension; G20 Parkinson's disease; F02.80 Dementia in other diseases classified elsewhere, unspecified severity, without behavioral disturbance, psychotic disturbance, mood disturbance, and anxiety; L03.116 Cellulitis of left lower limb
CPT/HCPCS: 36415; 70450-TC; 71010-TC; 72125-TC; 80053; 81003; 82550; 84484; 85025; 85610; 87086; 93005; 97116-GP; 97162-GP; 99285-25; G0378

== ENCOUNTER 2017-11-09 12:10 | Emergency (ER) | payer OTHER ==
[2017-11-09] MEDS ORDERED: ACETAMINOPHEN 650 MG/20.3 ML ORAL SOLUTION (CUPS) PO ONE (12:26)
--- NOTE | 2017-11-09 12:28 | PDOC ---
History of Present Illness - General Chief Complaint: Injury Stated Complaint: HEAD INJURY Time Seen by Provider: 11/09/17 12:14 - History of Present Illness Initial Comments: 11/09/17 12:26 82 F with h/o Parkinson's presents to ED after hitting her head on the ground. Pt states that she was attempting to get out of bed when she fell, landing head first onto the ground. Does not recall if she lost consciousness or not. Denies any lightheadedness/dizziness, denies CP/SOB/palpitations prior to falling. Does not have any neck pain. Pt does report soreness in R knee since falling. Denies pain in any other extremity. Pt states her last tetanus shot was 1 year ago. Past History - Past Medical History Allergies/Adverse Reactions: Allergies Allergy/AdvReac Type Severity Reaction Status Date / Time amoxicillin [Amoxicillin] Allergy Unknown Verified 11/09/17 12:14 loracarbef [From Lorabid] Allergy Unknown Verified 11/09/17 12:14 prochlorperazine edisylate Allergy Unknown Verified 11/09/17 12:14 [From Compazine] prochlorperazine maleate Allergy Unknown Verified 11/09/17 12:14 [From Compazine] promethazine HCl Allergy Unknown Verified 11/09/17 12:14 [From Phenergan] Home Medications: Ambulatory Orders Gabapentin [Neurontin -] 100 mg PO HS #0 capsule 10/02/14 Carbidopa/Levodopa [Carbidopa-Levo 25-100 Tab] 1 each PO BID 12/26/14 Atorvastatin Ca [Lipitor] 10 mg PO HS #30 tablet 06/13/16 Aspirin [Aspirin EC] 81 mg PO DAILY 04/06/17 Cholecalciferol (Vitamin D3) [Vitamin D3 -] 1,000 unit PO DAILY 04/06/17 Anemia: Yes (normocytic normochromic anemia) Asthma: No Cancer: No Cardiac Disorders: Yes (LBBB) CVA: Yes COPD: No CHF: No DVT: No Dementia: Yes Diabetes: No GI Disorders: No Disorders: Yes (UTI) HTN: Yes Hypercholesterolemia: No Liver Disease: No Seizures: No Thyroid Disease: Yes (HYPOTHYROIDISM) - Surgical History Abdominal Surgery: No Appendectomy: No Cardiac Surgery: No Cholecystectomy: No Lung Surgery: No Neurologic Surgery: No Orthopedic Surgery: No - Suicide/Smoking/Psychosocial Hx Smoking Status: No Smoking History: Never smoked Have you smoked in the past 12 months: No Number of Cigarettes Smoked Daily: 0 Hx Alcohol Use: No Drug/Substance Use Hx: No Substance Use Type: None Hx Substance Use Treatment: No Review of Systems - Review of Systems Comments:: 11/09/17 12:27 "GENERAL/CONSTITUTIONAL: No fever or chills. No weakness. HEAD, EYES, EARS, NOSE AND THROAT: + headache, No change in vision. No ear pain or discharge. No sore throat. CARDIOVASCULAR: No chest pain or shortness of breath. RESPIRATORY: No cough, wheezing, or hemoptysis. GASTROINTESTINAL: No nausea, vomiting, diarrhea or constipation. GENITOURINARY: No dysuria, frequency, or change in urination. MUSCULOSKELETAL: No joint or muscle swelling or pain. No neck or back pain. SKIN: No rash NEUROLOGIC: No headache, vertigo, loss of consciousness, or change in strength/ sensation. ENDOCRINE: No increased thirst. No abnormal weight change. HEMATOLOGIC/LYMPHATIC: No anemia, easy bleeding, or history of blood clots. ALLERGIC/IMMUNOLOGIC: No hives or skin allergy. " *Physical Exam - Physical Exam Comments: 11/09/17 12:27 "GENERAL: Awake, alert, and fully oriented, in no acute distress HEAD: + hematoma to L forehead with small abrasion, no laceration EYES: PERRLA, EOMI, sclera anicteric, conjunctiva clear ENT: Auricles normal inspection, hearing grossly normal, nares patent, oropharynx clear without exudates. Moist mucosa NECK: Nontender, no stepoffs, Normal ROM, supple, no lymphadenopathy, JVD, or masses LUNGS: Breath sounds equal, clear to auscultation bilaterally. No wheezes, and no crackles HEART: Regular rate and rhythm, normal S1 and S2, no murmurs, rubs or gallops ABDOMEN: Soft, nontender, normoactive bowel sounds. No guarding, no rebound. No masses EXTREMITIES: Normal range of motion, no edema. No clubbing or cyanosis. No cords, erythema, or tenderness NEUROLOGICAL: Cranial nerves II through XII intact. 5/5 strength and sensation in all extremities, Normal speech, normal gait, normal cerebellar function SKIN: Warm, Dry, normal turgor, no rashes or lesions noted. " ED Treatment Course - RADIOLOGY Radiology Studies Ordered: Category Date Time Status CERVICAL SPINE CT W/O CONTR [CT] Stat CT Scan 11/09/17 12:[address] WITHOUT CONTRAST [CT] Stat CT Scan 11/09/17 12:25 Ordered Medical Decision Making - Medical Decision Making 11/09/17 12:27 82 F with head injury after mechanical fall. No evidence of syncopal episode. Pt with hematoma to head, no other signs of injury. Pt also complaining of R knee soreness but no signs of traumatic injury on exam. - CT head - XR R knee - Tylenol - Tetanus up to date 11/09/17 14:20 CT negative XR negative on my read Pt reassessed - has no complaints at this time. Pt is well appearing, with normal vitals. Clinically stable for DC at this time. I discussed the physical exam findings, ancillary test results and final diagnoses with the patient. I answered all of the patient's questions. The patient was satisfied with the care received and felt comfortable with the discharge plan and treatment plan. The patient agrees to follow up with the primary care physician within 24-72 hours. *DC/Admit/Observation/Transfer Diagnosis at time of Disposition: Fall - Discharge Dispostion Disposition: HOME Condition at time of disposition: Stable - Referrals - Patient Instructions Printed Discharge Instructions: How to Prevent Falls Additional Instructions: Please follow up with your primary doctor within 1 week. If you experience worsening pain, weakness, or any other concerning symptoms, return to the ER immediately. - Post Discharge Activity - Attestations Physician Attestion: 11/09/17 14:21 I, Dr. Rosales Norman MD, attest that this document has been prepared under my direction and personally reviewed by me in its entirety. I further attest, that it accurately reflects all work, treatment, procedures and medical decision -making performed by me.
[2017-11-09 12:30] VITALS: BP 178/82; PULSE 79; TEMP 97.8; BMI 21.2
[2017-11-09] MEDS ORDERED: ACETAMINOPHEN 325 MG TABLET (FP) ONE (13:01)
== END 2017-11-09 15:25 | disposition home or self-care (01) ==
LOC: FER 12:10
DX: S09.90XA Unspecified injury of head, initial encounter (principal); I10 Essential (primary) hypertension; G20 Parkinson's disease; F02.80 Dementia in other diseases classified elsewhere, unspecified severity, without behavioral disturbance, psychotic disturbance, mood disturbance, and anxiety; M25.561 Pain in right knee; D64.9 Anemia, unspecified; I44.7 Left bundle-branch block, unspecified; E03.9 Hypothyroidism, unspecified; Z88.1 Allergy status to other antibiotic agents; Z88.8 Allergy status to other drugs, medicaments and biological substances; Z79.82 Long term (current) use of aspirin; Z86.73 Personal history of transient ischemic attack (TIA), and cerebral infarction without residual deficits; Z87.440 Personal history of urinary (tract) infections
CPT/HCPCS: 70450-TC; 72125-TC; 73562-TC-RT-FY; 99282-25

== ENCOUNTER 2018-05-07 17:14 | Observation (INO) | payer OTHER ==
--- NOTE | 2018-05-07 17:45 | PDOC ---
History of Present Illness - General Chief Complaint: Weakness Stated Complaint: WEAK Time Seen by Provider: 05/07/18 17:30 - History of Present Illness Initial Comments: 05/07/18 17:39 82 yo F with h/o HTN, HLD Pacemaker placement, Parkinson's disease, Dementia BIBA with weakness and syncope. Patient reports collapsing at home in bed prior to arrival. She is poor historian given baseline dementia, and memory impairment.Patient is here unaccompanied, but home health aide called EMS to bring pt to ED. Patient states that she may have lost consciousness while sitting in bed for 3 minutes. No identifiable triggers or alleviators. Endorses nausea without vomiting today (now resolved), but now resolved. Patient denies N/V, convulsions, F,C, palpitations, orthopnea, PND, leg pain, swelling, CP, cough, SOB, urinary complaints, abdominal pain, diarrhea, constipation, lightheadedness, weakness, sensory changes. PMHx: as noted above ROS: as noted SHx: Denies Etoh, tobacco, IVDA. Past History - Past Medical History Allergies/Adverse Reactions: Allergies Allergy/AdvReac Type Severity Reaction Status Date / Time amoxicillin [Amoxicillin] Allergy Unknown Verified 05/07/18 17:24 loracarbef [From Lorabid] Allergy Unknown Verified 05/07/18 17:24 prochlorperazine edisylate Allergy Unknown Verified 05/07/18 17:24 [From Compazine] prochlorperazine maleate Allergy Unknown Verified 05/07/18 17:24 [From Compazine] promethazine HCl Allergy Unknown Verified 05/07/18 17:24 [From Phenergan] Home Medications: Ambulatory Orders Gabapentin [Neurontin -] 100 mg PO HS #0 capsule 10/02/14 Carbidopa/Levodopa [Carbidopa-Levo 25-100 Tab] 1 each PO BID 12/26/14 Aspirin [Aspirin EC] 81 mg PO DAILY 04/06/17 Cholecalciferol (Vitamin D3) [Vitamin D3 -] 1,000 unit PO DAILY 04/06/17 Atorvastatin Ca [Lipitor] 10 mg PO HS #30 tablet 05/08/18 levoFLOXacin [Levaquin -] 250 mg PO DAILY@0600 #9 tablet 05/08/18 Anemia: Yes (normocytic normochromic anemia) Asthma: No Cancer: No Cardiac Disorders: Yes (LBBB) CVA: Yes COPD: No CHF: No DVT: No Dementia: Yes Diabetes: No GI Disorders: No Disorders: Yes (UTI) HTN: Yes Hypercholesterolemia: Yes Liver Disease: No Seizures: Yes Thyroid Disease: Yes (HYPOTHYROIDISM) Other medical history: PARKINSON'S, - Surgical History Abdominal Surgery: No Appendectomy: No Cardiac Surgery: No (PPM) Cholecystectomy: No Lung Surgery: No Neurologic Surgery: No Orthopedic Surgery: No - Suicide/Smoking/Psychosocial Hx Smoking Status: No Smoking History: Never smoked Have you smoked in the past 12 months: No Number of Cigarettes Smoked Daily: 0 Information on smoking cessation initiated: No Hx Alcohol Use: No Drug/Substance Use Hx: No Substance Use Type: None Hx Substance Use Treatment: No Review of Systems - Review of Systems Comments:: 05/07/18 17:40 GENERAL/CONSTITUTIONAL: + Weakness. No fever or chills. HEAD, EYES, EARS, NOSE AND THROAT: No change in vision. No ear pain or discharge. No sore throat. CARDIOVASCULAR: No chest pain or shortness of breath RESPIRATORY: No cough, wheezing, or hemoptysis. GASTROINTESTINAL: No nausea, vomiting, diarrhea or constipation. GENITOURINARY: No dysuria, frequency, or change in urination. MUSCULOSKELETAL: No joint or muscle swelling or pain. No neck or back pain. SKIN: No rash NEUROLOGIC: No headache, vertigo, loss of consciousness, or change in strength/ sensation. ENDOCRINE: No increased thirst. No abnormal weight change HEMATOLOGIC/LYMPHATIC: No anemia, easy bleeding, or history of blood clots. ALLERGIC/IMMUNOLOGIC: No hives or skin allergy. *Physical Exam - Vital Signs Last Vital Signs Temp Pulse Resp BP Pulse Ox 97.7 F 75 16 133/79 100 05/07/18 17:15 05/07/18 17:15 05/07/18 17:15 05/07/18 17:15 05/07/18 17:15 - Physical Exam Comments: 05/07/18 17:41 GENERAL: Awake, alert, and oriented to person and place, but not time/date. In no acute distress. able to follow commands. HEAD: No signs of trauma, normocephalic, atraumatic EYES: PERRLA, EOMI, sclera anicteric, conjunctiva clear ENT: Auricles normal inspection, hearing grossly normal, nares patent, oropharynx clear without exudates. Moist mucosa NECK: Normal ROM, supple, no lymphadenopathy, JVD, or masses LUNGS: No distress, speaks full sentences, clear to auscultation bilaterally HEART: Regular rate and rhythm, normal S1 and S2, no murmurs, rubs or gallops, peripheral pulses normal and equal bilaterally. ABDOMEN: Soft, nontender, normoactive bowel sounds. No guarding, no rebound. No masses. Neg CVA ttp. EXTREMITIES : Normal inspection, Normal range of motion, no edema. No clubbing or cyanosis. + Dsymetria on FTN. NEUROLOGICAL: Cranial nerves II through XII grossly intact. Normal speech, no focal sensorimotor deficits SKIN: Warm, Dry, normal turgor, no rashes or lesions noted ED Treatment Course - LABORATORY CBC & Chemistry Diagram: 05/08/18 06:55 05/08/18 06:55 - RADIOLOGY Radiology Studies Ordered: Category Date Time Status CXRPORT [CHEST X-RAY PORTABLE*] [RAD] Stat Radiology 05/07/18 17:30 Ordered Medical Decision Making - Medical Decision Making 05/07/18 17:43 82 yo F with h/o HTN, HLD, Parkinson's disease, Pacemaker placement, Dementia who p/w syncope and weakness. VSS, AF. ACS/[place] r/o. Low risk PE Weils criteria. Absent neuro deficits on physical exam. Will assess for TIA vs. VBI/CVA, cardiac dyssarythmia, hypoglycemia, hypovolemia, electrolyte abnml, toxic or metabolic derangements, acid-base disturbances, infection. Ed Course: CBC,CMP, Cardiac Pr. EKG, CXR [facility] 05/07/18 18:04 EKG similar to prior (07/12/17). Patient with LBBB, LAD, and absent acute ST changes. Normal interval duration. 05/07/18 18:44 Na 131 CBC: Unremarkable Trop: Neg 05/07/18 19:07 Spoke to patient [facility] marcella Jacobs at [phone], and she states that patient brother ( next of kin) in hospital, and she does not have information about patient pacemaker. Placed call to answering service of patient PMD Dr. Obdulio Lane. awaiting call back ([phone]). 05/08/18 22:50 Patient admitted to hospitalist. *DC/Admit/Observation/Transfer Diagnosis at time of Disposition: Syncope and collapse, Weakness - Discharge Dispostion Condition at time of disposition: Improved Decision to Admit order: Yes - Prescriptions - Referrals - Patient Instructions - Post Discharge Activity - Attestations Physician Attestion: 05/07/18 17:41 I attest to the information provided in this note.
[2018-05-07 17:51] LABS: BASO % 0.6 % (0-2.0); EOS % 0.8 % (0-4.5); HEMATOCRIT 38.7 % (32.4-45.2); HEMOGLOBIN 12.9 GM/dl (10.7-15.3); LYMPH % 10.9 % (8-40); MCH 31.5 pg (25.7-33.7); MCHC 33.4 g/dl (32.0-36.0); MEAN CELL VOLUME 94.1 fl (80-96); MEAN PLT VOLUME 7.2 fl (7.5-11.1); MONO % 4.6 % (3.8-10.2); NEUT % 83.1 % (42.8-82.8); PLATELET COUNT 383 K/MM3 (134-434); RBC 4.11 M/mm3 (3.60-5.2); RDW 13.3 % (11.6-15.6)
[2018-05-07 18:03] LABS: INR 1.05 (0.82-1.09); PROTHROMBIN TIME (PATIENT) 11.7 SEC (10.2-13.0)
[2018-05-07 18:08] LABS: ALK PHOS 67 U/L (32-92); ANION GAP 7 MMOL/L (8-16); BLOOD UREA NITROGEN 29 mg/dl (7-18); CALCIUM 9.4 mg/dl (8.4-10.2); CHLORIDE 98 mmol/L (98-107); CO2 26 mmol/L (22-28); CREATININE 1.2 mg/dl (0.6-1.3); GLUCOSE,RANDOM 117 mg/dl (74-106); POTASSIUM 4.3 mmol/L (3.5-5.1); SGOT/AST 29 U/L (10-42); SGPT/ALT 5 U/L (10-40); SODIUM 131 mmol/L (136-145); TOT PROT 7.1 g/dl (6.4-8.3)
--- NOTE | 2018-05-07 18:24 | PDOC ---
Attending Attestation - HPI HPI: 05/07/18 19:17 The patient is a 82 year old female with a significant PMH of Parkinsons disease, dementia, hypertension, hyperthyroidism, anemia, and chronic lower extremity cellulitis who presents to the emergency department with episode of weakness since earlier today. The patient reports that she lives at home with her home manager . she states that she began to feel weak this morning when she woke up. She states that her weakness is a bit worse than usual. The patient states that she passed out secondary to her weakness. She denies falling or head injury. She states that she normally ambulates with a walker. She denies any other symptoms. She denies any fever chill, nausea, vomiting, diarrhea or urinary symptoms. She denies any chest pain, shortness of breath, headache or dizziness. The patient denies any other complaints. PCP: Dr. Obdulio Lane - Physicial Exam PE: 05/07/18 19:17 GENERAL: Awake alert, and oriented X2 , in no acute distress HEAD: (+)small bruise in right maxillary region. No signs of trauma EYES: PERRLA, EOMI, sclera anicteric, conjunctiva clear ENT: Auricles normal inspection, hearing grossly normal, nares patent, oropharynx clear without exudates. Moist mucosa NECK: Normal ROM, supple, no lymphadenopathy, JVD, or masses LUNGS: Breath sounds equal, clear to auscultation bilaterally. No wheezes, and no crackles HEART: (+)systolic murmur, left sided pacemaker. Regular rate and rhythm, normal S1 and S2,, rubs or gallops ABDOMEN: Soft, nontender, normoactive bowel sounds. No guarding, no rebound. No masses EXTREMITIES: Normal range of motion (able to move lower extremity, no edema. No clubbing or cyanosis. No cords, erythema, or tenderness NEUROLOGICAL: Cranial nerves II through XII grossly intact. Normal speech, normal gait SKIN: Warm, Dry, normal turgor, no rashes or lesions noted. Documentation prepared by Monroe Joseph, acting as senior medical director for Robert Carranza MD <Monroe Joseph - Last Filed: 05/07/18 19:17> - Resident Resident Name: Sanket Arreguin - ED Attending Attestation I have performed the following: I have examined & evaluated the patient, The case was reviewed & discussed with the resident, I agree w/resident's findings & plan, Exceptions are as noted - Medical Decision Making 05/07/18 18:23 A portion of this note was documented by scribe services under my direction. I have reviewed the details of the note, within reason, and agree with the documentation with the following case summary and management plan written by me. Patient treated in the ED. Nursing notes are reviewed and incorporated into the medical decision-making. Vital signs reviewed. Peripheral IV access obtained by the nurse, laboratory studies are drawn and sent, reviewed and interpreted by myself. Vital Signs Temp Pulse Resp BP Pulse Ox 97.7 F 75 16 133/79 100 05/07/18 17:15 05/07/18 17:15 05/07/18 17:15 05/07/18 17:15 05/07/18 17:15 82-year-old female patient with history of anemia, left bundle branch block, pacemaker, stroke, urinary tract infection, hypertension, hyperlipidemia, seizure disorder, hypothyroidism, Parkinson's disease, dementia presents with weakness and questionable syncopal episode. The patient started feeling weak today and had a moment where the patient had collapsed. Unknown length of duration of symptoms. Patient denies any recent illnesses, fevers, chills, cough , vomiting, diarrhea. Patient denies chest pain or shortness of breath. The only symptom that she endorses his generalized weakness. Differential includes syncope, infectious etiology such as urinary tract infection, metabolic disarray, neurologic. I agree with the residence plan that we need to pursue workup including chest x-ray, labs, urinalysis and head CT. We should figure out the patient's pacemaker and interrogate it. The patient for telemetry and monitoring. 05/07/18 20:08 CT head with moderate to marked ventricular dilatation that appears to be disproportionate to the degree of cortical atrophy. Cannot rule out NPH. 05/07/18 20:19 CBC, BMP 05/07/18 17:39 05/07/18 17:39 CMP Sodium 131 mmol/L (136-145) L 05/07/18 17:39 Potassium 4.3 mmol/L (3.5-5.1) 05/07/18 17:39 Chloride 98 mmol/L (98-107) 05/07/18 17:39 Carbon Dioxide 26 mmol/L (22-28) 05/07/18 17:39 Anion Gap 7 MMOL/L (8-16) L 05/07/18 17:39 BUN 29 mg/dl (7-18) H 05/07/18 17:39 Creatinine 1.2 mg/dl (0.6-1.3) 05/07/18 17:39 Creat Clearance w eGFR 43.23 (>60) 05/07/18 17:39 Random Glucose 117 mg/dl (74-106) H D 05/07/18 17:39 Calcium 9.4 mg/dl (8.4-10.2) 05/07/18 17:39 Total Bilirubin 1.0 mg/dl (0.2-1.0) 05/07/18 17:39 AST 29 U/L (10-42) 05/07/18 17:39 ALT 5 U/L (10-40) L D 05/07/18 17:39 Alkaline Phosphatase 67 U/L (32-92) 05/07/18 17:39 Creatine Kinase 185 IU/L (26-192) 05/07/18 17:40 Creatine Kinase Index 3.2 % (0.0-5.0) 05/07/18 17:40 CK-MB (CK-2) 6.0 ng/mL (0.3-4.0) H 05/07/18 17:40 Troponin I < 0.03 ng/ml (0.00-0.06) 05/07/18 17:40 Total Protein 7.1 g/dl (6.4-8.3) 05/07/18 17:39 Albumin 4.0 g/dl (3.5-5.0) 05/07/18 17:39 05/07/18 20:35 For the chest x-ray, it appears that the pacemaker may potentially be a [employer]. We'll obtain a rapid to interrogate the pacemaker. Also, the patient should be evaluated from a neurological point of view for normal pressure hydrocephalus. Case is discussed with [facility] hospitalist to excess the patient to telemetry observation. Case discussed in detail with admitting physician including history, physical exam and ancillary studies. Admitting physician has assumed care for the patient, will follow all pending diagnostics and will complete the evaluation and treatment. <Robert Carranza - Last Filed: 05/07/18 20:48> Discharge Disposition <Monroe Joseph - Last Filed: 05/07/18 19:17> - Discharge Dispostion Last Admission D/C Date: 04/10/17 Decision to Admit order: Yes <Robert Carranza - Last Filed: 05/07/18 20:48> - Diagnosis Syncope and collapse, Weakness - Discharge Dispostion Condition at time of disposition: Stable - Patient Instructions Additional Instructions: Please return to the emergency department with any new or worsening symptoms or concerns. Please follow up with your primary care physician within 72 hours. Heart Score/ECG Review #1 ECG reviewed & interpreted by me at: 18:00 05/07/18 18:24 NSR 70, LBBB, left axis deviation, scarbossa negative, QTC 486 msec <Robert Carranza - Last Filed: 05/07/18 20:48>
[2018-05-07] MEDS ORDERED: SODIUM CHLORIDE 500 ML IV STA (19:30)
--- NOTE | 2018-05-07 22:10 | HP ---
CHIEF COMPLAINT: weakness, ? syncope PCP: Obdulio Lane HISTORY OF PRESENT ILLNESS: This is an 82 year old female with a significant past medical history of HTN, HLD, PPM, Parkinson's disease who presented to the ED with a complaint of weakness. Her aide also reported an episode of LOC. Her aide is not present at time of exam. The patient is a poor historian and is unable to answer most of my questions. She denies any other complaints. She reports her appetite and intake as "pretty good I think." ER course was notable for: (1) sodium 131 (2) CT head no acute changes (3) troponin neg, ECG without acute changes Recent Travel: pt denies PAST MEDICAL HISTORY: HTN, HLD, PPM, LBBB, CVA, anemia, Parkinson's disease, dementia, UTI PAST SURGICAL HISTORY: hysterectomy, PPM Social History: Smoking: pt denies Alcohol: occasional Drugs: pt denies Family History: one brother alive and well, parents unkown, she believes they in their 70s Allergies amoxicillin [Amoxicillin] Allergy (Unknown, Verified 05/07/18 17:24) loracarbef [From Lorabid] Allergy (Unknown, Verified 05/07/18 17:24) prochlorperazine edisylate [From Compazine] Allergy (Unknown, Verified 05/07/18 17:24) prochlorperazine maleate [From Compazine] Allergy (Unknown, Verified 05/07/18 17 :24) promethazine HCl [From Phenergan] Allergy (Unknown, Verified 05/07/18 17:24) HOME MEDICATIONS: 3 Medication Instructions Recorded Gabapentin [Neurontin -] 100 mg PO HS #0 capsule 10/02/14 Carbidopa/Levodopa [Carbidopa-Levo 1 each PO BID 12/26/14 25-100 Tab] Atorvastatin Ca [Lipitor] 10 mg PO HS #30 tablet 06/13/16 Aspirin [Aspirin EC] 81 mg PO DAILY 04/06/17 Cholecalciferol (Vitamin D3) 1,000 unit PO DAILY 04/06/17 [Vitamin D3 -] REVIEW OF SYSTEMS CONSTITUTIONAL: Present: generalized weakness, malaise Absent: fever, chills, diaphoresis, loss of appetite, weight change HEENT: Absent: rhinorrhea, nasal congestion, throat pain, throat swelling, difficulty swallowing, mouth swelling, ear pain, eye pain, visual changes CARDIOVASCULAR: Present: syncope Absent: chest pain, palpitations, irregular heart rate, lightheadedness, peripheral edema RESPIRATORY: Absent: cough, shortness of breath, dyspnea with exertion, orthopnea, wheezing, stridor, hemoptysis GASTROINTESTINAL: Absent: abdominal pain, abdominal distension, nausea, vomiting, diarrhea, constipation, melena, hematochezia GENITOURINARY: Absent: dysuria, frequency, urgency, hesitancy, hematuria, flank pain, genital pain MUSCULOSKELETAL: Absent: myalgia, arthralgia, joint swelling, back pain, neck pain SKIN: Absent: rash, itching, pallor HEMATOLOGIC/IMMUNOLOGIC: Absent: easy bleeding, easy bruising, lymphadenopathy, frequent infections ENDOCRINE: Absent: unexplained weight gain, unexplained weight loss, heat intolerance, cold intolerance NEUROLOGIC: Absent: headache, focal weakness or paresthesias, dizziness, unsteady gait, seizure, mental status changes, bladder or bowel incontinence PSYCHIATRIC: Absent: anxiety, depression, suicidal or homicidal ideation, hallucinations. PHYSICAL EXAMINATION Vital Signs - 24 hr 3 05/07/18 05/07/18 17:15 20:41 Temperature 97.7 F 97.5 F L Pulse Rate 75 Pulse Rate [ 76 Right Radial] Respiratory 16 16 Rate Blood Pressure 133/79 Blood Pressure 157/86 [Left Arm] O2 Sat by Pulse 100 100 Oximetry (%) GENERAL: Awake, alert, and oriented to person and place only, in no acute distress. HEAD: Normal with no signs of trauma. EYES: Pupils equal, round and reactive to light, extraocular movements intact, sclera anicteric, conjunctiva clear. No lid lag. EARS, NOSE, THROAT: Ears normal, nares patent, oropharynx clear without exudates. Moist mucous membranes. NECK: Normal range of motion, supple without lymphadenopathy, JVD, or masses. LUNGS: Breath sounds equal, clear to auscultation bilaterally. No wheezes, and no crackles. No accessory muscle use. HEART: Regular rate and rhythm, normal S1 and S2 without murmur, rub or gallop. ABDOMEN: Soft, nontender, not distended, normoactive bowel sounds, no guarding, no rebound, no masses. No hepatomegaly or splenomegaly. vertical scar below umbilicus MUSCULOSKELETAL: Normal range of motion at all joints. No bony deformities or tenderness. No CVA tenderness. UPPER EXTREMITIES: 2+ pulses, warm, well-perfused. No cyanosis. No clubbing. No peripheral edema. LOWER EXTREMITIES: 2+ pulses, warm, well-perfused. No calf tenderness. No peripheral edema. NEUROLOGICAL: Cranial nerves II-XII grossly intact. Hypophonic speech. PSYCHIATRIC: Cooperative. Good eye contact. Appropriate mood and affect. SKIN: Warm, dry, poor turgor, no rashes or lesions noted, normal capillary refill. Laboratory Results - last 24 hr 3 05/07/18 05/07/18 05/07/18 17:39 17:39 17:39 WBC 6.0 RBC 4.11 Hgb 12.9 Hct 38.7 MCV 94.1 MCH 31.5 MCHC 33.4 RDW 13.3 Plt Count 383 MPV 7.2 L Absolute Neuts (auto) 5.0 Neutrophils % 83.1 H Lymphocytes % 10.9 Monocytes % 4.6 Eosinophils % 0.8 Basophils % 0.6 PT with INR 11.7 INR 1.05 Sodium 131 L Potassium 4.3 Chloride 98 Carbon Dioxide 26 Anion Gap 7 L BUN 29 H Creatinine 1.2 Creat Clearance w eGFR 43.23 Random Glucose 117 H D Calcium 9.4 Total Bilirubin 1.0 AST 29 ALT 5 L D Alkaline Phosphatase 67 Creatine Kinase 185 Creatine Kinase Index 3.2 CK-MB (CK-2) 6.0 H Troponin I < 0.03 Total Protein 7.1 Albumin 4.0 ECG normal sinus rhythm vent rate 70, QTC 486 possible left atrial enlargement left axis deviation LBBB No changes when compared with ECG 07/12/[address] head no contrast Impression: No significant interval change in the degree of moderate to marked ventricular dilatation that appears to be disproportionate to the degree of cortical atrophy. This may be due to central atrophy. Aqueduct of [place] narrowing or normal pressure hydrocephalus could not be excluded. Correlate clinically. Reported By: Cyndi Lyle MD 05/07/181999 Chest portable Impression See discussion above. No acute lung disease is present Reported By: Cyndi Lyle MD 05/07/18 [id number] ASSESSMENT/PLAN: 82yF with PMH HTN, HLD, PPM, LBBB, CVA, anemia, Parkinson's disease, dementia, UTI presented to the ED with weakness and episode LOC. Loss of consciousness - troponin neg, trend x 2 more - monitor on tele - [facility] contacted, they will interrogate PPM in AM - CT head with dilated ventricles, concern for NPH, previously evaluated by neuro for same 03/2017, dilation c/w dementia and would not be a good candidate for shunt - orthostatic vital signs hyponatremia, mild - trial hydration as pt appears hypovolemic on labs HLD/HTN - cont home lipitor - BP slightly elevated, on no home meds, cont to monitor and initiate meds as indicated. Parkinson's disease - cont sinemet dementia - supportive care DVT PPX - heparin deferred, anticipated LOS <48h FEN - NS @ 50cc/hr - bmp with trop @ 1130 - regular diet as tolerated Dsipo: pt currently requires further observation. Visit type - Emergency Visit Emergency Visit: Yes ED Registration Date: 05/07/18 Care time: The patient presented to the Emergency Department on the above date and was hospitalized for further evaluation of their emergent condition. - New Patient This patient is new to me today: Yes Date on this admission: 05/07/18 - Critical Care Critical Care patient: No Hospitalist Screening - Colonoscopy Questionnaire Colonoscopy Questionnaire: Colonoscopy Questionnaire - Patient: 50 - 75 years old and never had a screening colonoscopy: No History of colon or rectal polyps, or CA: Unknown History of IBD, Crohn's disease or UC: Unknown History of abdominal radiation therapy as a child: Unknown - Relative: 1 with colon or rectal CA, or polyps at age 60 or younger: Unknown Colon or rectal CA diagnosed at age 45 or younger: Unknown Multiple relatives with colon or rectal CA: Unknown - Outcome: Screening Result: Negative Screen
[2018-05-07] MEDS ORDERED: SODIUM CHLORIDE 1,000 ML IV SCH (22:30)
[2018-05-07 22:38] VITALS: BMI 24.6
[2018-05-07 23:38] LABS: ANION GAP 6 MMOL/L (8-16); BLOOD UREA NITROGEN 27 mg/dl (7-18); CHLORIDE 102 mmol/L (98-107); CO2 25 mmol/L (22-28); CREATININE 1.1 mg/dl (0.6-1.3); GLUCOSE,RANDOM 94 mg/dl (74-106); POTASSIUM 4.2 mmol/L (3.5-5.1); SODIUM 133 mmol/L (136-145)
[2018-05-08 08:04] LABS: BASO % 0.6 % (0-2.0); EOS % 1.7 % (0-4.5); HEMATOCRIT 34.5 % (32.4-45.2); HEMOGLOBIN 11.3 GM/dl (10.7-15.3); LYMPH % 20.3 % (8-40); MCH 30.8 pg (25.7-33.7); MCHC 32.8 g/dl (32.0-36.0); MEAN CELL VOLUME 93.7 fl (80-96); MEAN PLT VOLUME 7.8 fl (7.5-11.1); MONO % 5.6 % (3.8-10.2); NEUT % 71.8 % (42.8-82.8); PLATELET COUNT 368 K/MM3 (134-434); RBC 3.68 M/mm3 (3.60-5.2); WHITE BLOOD COUNT 5.3 K/mm3 (4.0-10.8)
[2018-05-08 08:27] LABS: ANION GAP 7 MMOL/L (8-16); BLOOD UREA NITROGEN 25 mg/dl (7-18); CHLORIDE 103 mmol/L (98-107); CO2 24 mmol/L (22-28); CREATININE 1.2 mg/dl (0.6-1.3); GLUCOSE,RANDOM 83 mg/dl (74-106); MAGNESIUM 2.1 mg/dL (1.8-2.4); PHOSPHOROUS 3.1 mg/dl (2.5-4.6); POTASSIUM 4.4 mmol/L (3.5-5.1); SODIUM 134 mmol/L (136-145)
[2018-05-08] MEDS: CHOLECALCIFEROL (VITAMIN D3) 1,000 UNIT TABLET (FP) PO SCH (09:34)
[2018-05-08] MEDS: CARBIDOPA/LEVODOPA 25/100 TABLET (FP) PO SCH ×2 (09:34→21:28)
[2018-05-08] MEDS: ASPIRIN COATED 81 MG TABLET.EC PO SCH (09:34)
--- NOTE | 2018-05-08 10:14 | EKG ---
Test Reason : Blood Pressure : / mmHG Vent. Rate : 070 BPM Atrial Rate : 070 BPM P-R Int : 148 ms QRS Dur : 122 ms QT Int : 450 ms P-R-T Axes : 003 -30 094 degrees QTc Int : 486 ms NORMAL SINUS RHYTHM POSSIBLE LEFT ATRIAL ENLARGEMENT LEFT AXIS DEVIATION LEFT BUNDLE BRANCH BLOCK ABNORMAL ECG WHEN COMPARED WITH ECG OF 12-JUL-2017 08:20, NONSPECIFIC T WAVE ABNORMALITY NOW EVIDENT IN ANTERIOR LEADS Confirmed by ARIE DUVALL, SUZAN ([id number]) on 05/08/2018 10:13:54 AM Referred By: DR ROCHA Confirmed By:SUZAN SARGENT MD
[2018-05-08 13:04] LABS: PH,URINE 5.5 (4.5-8); URINE APPEARANCE Clear; URINE BILIRUBIN Negative (NEGATIVE); URINE COLOR Yellow; URINE GLUCOSE (UA) Negative (NEGATIVE); URINE KETONE 1+ (NEGATIVE); URINE LEUK ESTERASE 3+ (NEGATIVE); URINE NITRITE Negative (NEGATIVE); URINE PROTEIN Trace (NEGATIVE); URINE UROBILINOGEN 0.2 (0.2-1.0)
--- NOTE | 2018-05-08 13:12 | DS ---
Physical Exam: SUBJECTIVE: Patient seen and examined, sitting in bed, reports feeling well, denies any chest pain or shortness of breath, tolerating diet wants to go home. OBJECTIVE: This is an 82 year old female with a significant past medical history of HTN, HLD, PPM, Parkinson's disease who presented to the ED with a complaint of weakness. Her aide also reported an episode of LOC. Her aide is not present at time of exam. The patient is a poor historian and is unable to answer most of my questions. She denies any other complaints. She reports her appetite and intake as "pretty good I think." ER course was notable for: (1) sodium 131 (2) CT head no acute changes (3) troponin neg, ECG without acute changes Vital Signs Period Temp Pulse Resp BP Sys/Moore Pulse Ox Last 24 Hr 97.5 F-98.6 F 64-99 16-20 113-157/66-100 94-100 PHYSICAL EXAM GENERAL: The patient is awake, alert, and fully oriented, in no acute distress. HEAD: Normal with no signs of trauma. EYES: PERRL, extraocular movements intact, sclera anicteric, conjunctiva clear. ENT: Ears normal, nares patent, oropharynx clear without exudates, moist mucous membranes. NECK: Trachea midline, full range of motion, supple. LUNGS: Breath sounds equal, clear to auscultation bilaterally, no wheezes, no crackles, no accessory muscle use. HEART: Regular rate and rhythm, S1, S2, 2/6 systolic murmur, rub or gallop. ABDOMEN: Soft, nontender, nondistended, normoactive bowel sounds, no guarding, no rebound, no hepatosplenomegaly, no masses. EXTREMITIES: 2+ pulses, warm, well-perfused, no edema. NEUROLOGICAL: Cranial nerves II through XII grossly intact. Normal speech, gait not observed. PSYCH: Normal mood, normal affect. SKIN: Warm, dry, normal turgor, no rashes or lesions noted. LABS Laboratory Results - last 24 hr 05/07/18 05/07/18 05/07/18 17:39 17:39 17:39 WBC 6.0 RBC 4.11 Hgb 12.9 Hct 38.7 MCV 94.1 MCH 31.5 MCHC 33.4 RDW 13.3 Plt Count 383 MPV 7.2 L Absolute Neuts (auto) 5.0 Neutrophils % 83.1 H Lymphocytes % 10.9 Monocytes % 4.6 Eosinophils % 0.8 Basophils % 0.6 PT with INR 11.7 INR 1.05 Sodium 131 L Potassium 4.3 Chloride 98 Carbon Dioxide 26 Anion Gap 7 L BUN 29 H Creatinine 1.2 Creat Clearance w eGFR 43.23 Random Glucose 117 H D Calcium 9.4 Phosphorus Magnesium Total Bilirubin 1.0 AST 29 ALT 5 L D Alkaline Phosphatase 67 Creatine Kinase Creatine Kinase Index CK-MB (CK-2) Troponin I Total Protein 7.1 Albumin 4.0 TSH Urine Color Urine Appearance Urine pH Ur Specific [place] Urine Protein Urine Glucose (UA) Urine Ketones Urine Blood Urine Nitrite Urine Bilirubin Urine Urobilinogen Ur Leukocyte Esterase 05/07/18 05/07/18 05/07/18 17:40 17:40 23:10 WBC RBC Hgb Hct MCV MCH MCHC RDW Plt Count MPV Absolute Neuts (auto) Neutrophils % Lymphocytes % Monocytes % Eosinophils % Basophils % PT with INR INR Sodium Potassium Chloride Carbon Dioxide Anion Gap BUN Creatinine Creat Clearance w eGFR Random Glucose Calcium Phosphorus Magnesium Total Bilirubin AST ALT Alkaline Phosphatase Creatine Kinase 185 Creatine Kinase Index 3.2 CK-MB (CK-2) 6.0 H Troponin I < 0.03 < 0.03 Total Protein Albumin TSH Urine Color Urine Appearance Urine pH Ur Specific [place] Urine Protein Urine Glucose (UA) Urine Ketones Urine Blood Urine Nitrite Urine Bilirubin Urine Urobilinogen Ur Leukocyte Esterase 05/07/18 05/08/18 05/08/18 23:10 06:20 06:55 WBC 5.3 RBC 3.68 Hgb 11.3 Hct 34.5 MCV 93.7 MCH 30.8 MCHC 32.8 RDW 13.0 Plt Count 368 MPV 7.8 Absolute Neuts (auto) 3.8 Neutrophils % 71.8 Lymphocytes % 20.3 Monocytes % 5.6 Eosinophils % 1.7 Basophils % 0.6 PT with INR INR Sodium 133 L Potassium 4.2 Chloride 102 Carbon Dioxide 25 Anion Gap 6 L BUN 27 H Creatinine 1.1 Creat Clearance w eGFR 47.79 Random Glucose 94 Calcium 9.0 Phosphorus Magnesium Total Bilirubin AST ALT Alkaline Phosphatase Creatine Kinase 164 Creatine Kinase Index 3.5 CK-MB (CK-2) 5.8 H Troponin I Total Protein Albumin TSH Urine Color Yellow Urine Appearance Clear Urine pH 5.5 Ur Specific [place] 1.020 Urine Protein Trace Urine Glucose (UA) Negative Urine Ketones 1+ H Urine Blood 1+ H Urine Nitrite Negative Urine Bilirubin Negative Urine Urobilinogen 0.2 Ur Leukocyte Esterase 3+ H 05/08/18 05/08/18 06:55 06:55 WBC RBC Hgb Hct MCV MCH MCHC RDW Plt Count MPV Absolute Neuts (auto) Neutrophils % Lymphocytes % Monocytes % Eosinophils % Basophils % PT with INR INR Sodium 134 L Potassium 4.4 Chloride 103 Carbon Dioxide 24 Anion Gap 7 L BUN 25 H Creatinine 1.2 Creat Clearance w eGFR 43.23 Random Glucose 83 Calcium 9.0 Phosphorus 3.1 Magnesium 2.1 Total Bilirubin AST ALT Alkaline Phosphatase Creatine Kinase 172 Creatine Kinase Index 3.0 CK-MB (CK-2) 5.2 H Troponin I < 0.03 Total Protein Albumin TSH 1.73 Urine Color Urine Appearance Urine pH Ur Specific [place] Urine Protein Urine Glucose (UA) Urine Ketones Urine Blood Urine Nitrite Urine Bilirubin Urine Urobilinogen Ur Leukocyte Esterase IMAGING CT head no acute changes ekg Normal sinus rhythm left bundle branch block unchanged from prior EKG HOSPITAL COURSE: Patient was admitted from the emergency department to observation telemetryfor presumed episode of loss of consciousness. Patient denies any episodes of loss of consciousness patient reports feeling well, troponin 3 WNL, she was placed on 24 hour cardiac monitoring no events noted on telemetry. [facility] pacemaker was interrogated by labor service representative, PPM interrogated no events noted. CT of head was reviewed, patient was evaluated by neurologist on March 2000 the for normal pressure hydrocephalus however it was determined by neurology to patient is not a good candidate for [employer] shunt. patient was noted to have hyponatremia upon admission. Hyponatremia likely secondary to hypovolemia serum sodium improved after gentle IV hydration. Urinalysis notable for leukocytes, patient does have a history of Escherichia coli UTIs in the past patient was treated with Levaquin pending urine cultures. Patient has a past medical history of Parkinson's disease, sinemet was continued throughout admission. Blood pressure was at goal, home medications was continued. 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 -Will discharge to home with VNS and levaquin 250mg daily for 10 days - Return precautions reviewed with patient, all questions answered and patient verbalizes understanding, patient is safe for discharge home Date of Admission:05/07/18 Date of Discharge: 05/08/18 Minutes to complete discharge: 45 Discharge Summary Reason For Visit: SYNCOPE, WEAKNESS Current Active Problems Syncope and collapse (Acute) Weakness (Acute) Condition: Improved - Instructions Diet, Activity, Other Instructions: Your urinalysis noted to be positive for bacteria Levaquin (antibiotic) was prescribed Please continue Levaquin as prescribed. continue all medications as prescribed Please follow-up with your primary care physician within 1 week for repeat urinalysis and urine culture If any new or persistent symptoms develop please return to emergency department Referrals: Obdulio Lane MD [Non Staff, Medical] - Disposition: VNS/HOME HEALTH CARE - Home Medications Comprehensive Discharge Medication List: Ambulatory Orders Gabapentin [Neurontin -] 100 mg PO HS #0 capsule 10/02/14 Carbidopa/Levodopa [Carbidopa-Levo 25-100 Tab] 1 each PO BID 12/26/14 Atorvastatin Ca [Lipitor] 10 mg PO HS #30 tablet 06/13/16 Aspirin [Aspirin EC] 81 mg PO DAILY 04/06/17 Cholecalciferol (Vitamin D3) [Vitamin D3 -] 1,000 unit PO DAILY 04/06/17 This patient is new to me today: No Emergency Visit: Yes ED Registration Date: 05/07/18 Care time: The patient presented to the Emergency Department on the above date and was hospitalized for further evaluation of their emergent condition. Critical Care patient: No - Discharge Referral Referred to [facility] No
[2018-05-08 13:28] LABS: EPI CELLS MODERATE /HPF; URINE WBC 40-60 (0-5)
[2018-05-08 13:29] LABS: URINE BACTERIA MODERATE /hpf (NEGATIVE); URINE MUCUS 1+
[2018-05-08] MEDS ORDERED: GABAPENTIN 100 MG CAPSULE (FP) PO SCH (22:00)
[2018-05-08] MEDS ORDERED: ATORVASTATIN CA 10 MG TABLET (FP) PO SCH (22:00)
[2018-05-08 22:39] VITALS: PULSE 77
[2018-05-09 06:52] VITALS: BP 162/82; TEMP 97.6
[2018-05-09] MEDS: CARBIDOPA/LEVODOPA 25/100 TABLET (FP) PO SCH (10:48)
[2018-05-09] MEDS: CHOLECALCIFEROL (VITAMIN D3) 1,000 UNIT TABLET (FP) PO SCH (10:48)
[2018-05-09] MEDS: ASPIRIN COATED 81 MG TABLET.EC PO SCH (10:48)
== END 2018-05-09 11:00 | disposition home health service (06) ==
LOC: FER 17:14 → FM/S 20:20 → UNDOADMOB 20:53 → FM/S 20:53
PROVIDERS: ADMIT Internal Medicine; ATTEND Nurse Practitioner Family
PROC: 3E0337Z Introduction of Electrolytic and Water Balance Substance into Peripheral Vein, Percutaneous Approach (ICD-10-PCS; principal; 2018-05-07)
DX: R55 Syncope and collapse (principal); R53.1 Weakness; I10 Essential (primary) hypertension; E78.5 Hyperlipidemia, unspecified; E03.9 Hypothyroidism, unspecified; E87.1 Hypo-osmolality and hyponatremia; G20 Parkinson's disease; F02.80 Dementia in other diseases classified elsewhere, unspecified severity, without behavioral disturbance, psychotic disturbance, mood disturbance, and anxiety; I44.7 Left bundle-branch block, unspecified; D64.89 Other specified anemias; Z87.440 Personal history of urinary (tract) infections; Z86.73 Personal history of transient ischemic attack (TIA), and cerebral infarction without residual deficits; Z95.0 Presence of cardiac pacemaker; Z88.1 Allergy status to other antibiotic agents; Z88.8 Allergy status to other drugs, medicaments and biological substances
CPT/HCPCS: 36415; 70450-TC; 71045-TC-FY; 80048; 80053; 81003; 81015; 82550; 82553; 83735; 84100; 84443; 84484; 85025; 85610; 87086; 87186; 93005; 96360; 97116-GP; 97162-GP; 99282-25; G0378

== ENCOUNTER 2018-06-09 21:41 | Inpatient (IN) | payer OTHER ==
[2018-06-09] MEDS ORDERED: SODIUM CHLORIDE 1,000 ML IV SCH (21:45)
--- NOTE | 2018-06-09 23:02 | PDOC ---
History of Present Illness - General Chief Complaint: CVA/TIA Stated Complaint: STROKE Time Seen by Provider: 06/09/18 21:42 History Source: EMS Exam Limitations: Clinical Condition - History of Present Illness Initial Comments: 06/09/18 23:01 Patient is 82F with history of HTN, HLD Pacemaker placement, Parkinson's disease , Dementia here today as possible stroke. EMS reports that her aide noticed her face was drooping on the right side as she was being put to bed and that the patient wasn't speaking. Her aide is not in the hospital. EMS reports a possible facial droop, but no definitive droop or focal weakness. Patient is nonverbal. Per prior notes, patient is verbal at baseline but heavily demented. Past History - Past Medical History Allergies/Adverse Reactions: Allergies Allergy/AdvReac Type Severity Reaction Status Date / Time amoxicillin [Amoxicillin] Allergy Unknown Verified 05/07/18 17:24 loracarbef [From Lorabid] Allergy Unknown Verified 05/07/18 17:24 prochlorperazine edisylate Allergy Unknown Verified 05/07/18 17:24 [From Compazine] prochlorperazine maleate Allergy Unknown Verified 05/07/18 17:24 [From Compazine] promethazine HCl Allergy Unknown Verified 05/07/18 17:24 [From Phenergan] Home Medications: Ambulatory Orders Gabapentin [Neurontin -] 100 mg PO HS #0 capsule 10/02/14 Carbidopa/Levodopa [Carbidopa-Levo 25-100 Tab] 1 each PO BID 12/26/14 Aspirin [Aspirin EC] 81 mg PO DAILY 04/06/17 Cholecalciferol (Vitamin D3) [Vitamin D3 -] 1,000 unit PO DAILY 04/06/17 Atorvastatin Ca [Lipitor] 10 mg PO HS #30 tablet 05/08/18 levoFLOXacin [Levaquin -] 250 mg PO DAILY@0600 #9 tablet 05/08/18 Anemia: Yes (normocytic normochromic anemia) Asthma: No Cancer: No Cardiac Disorders: Yes (LBBB) CVA: Yes COPD: No CHF: No DVT: No Dementia: Yes Diabetes: No GI Disorders: No Disorders: Yes (UTI) HTN: Yes Hypercholesterolemia: Yes Liver Disease: No Seizures: Yes Thyroid Disease: Yes (HYPOTHYROIDISM) - Surgical History Abdominal Surgery: No Appendectomy: No Cardiac Surgery: No (PPM) Cholecystectomy: No Lung Surgery: No Neurologic Surgery: No Orthopedic Surgery: No - Suicide/Smoking/Psychosocial Hx Smoking Status: No Smoking History: Unknown if ever smoked Have you smoked in the past 12 months: No Number of Cigarettes Smoked Daily: 0 Hx Alcohol Use: No Drug/Substance Use Hx: No Substance Use Type: None Hx Substance Use Treatment: No Review of Systems - Review of Systems Able to Perform ROS?: No (2/2 clinical condition.) *Physical Exam - Vital Signs Last Vital Signs Temp Pulse Resp BP Pulse Ox 98.4 F 97 H 18 139/84 100 06/09/18 22:00 06/09/18 22:00 06/09/18 22:00 06/09/18 22:00 06/09/18 22:00 - Physical Exam Comments: 06/09/18 23:04 GENERAL: Awake, alert, in no acute distress, nonverbal, responds to name HEAD: No signs of trauma, normocephalic, atraumatic EYES: PERRLA, EOMI, sclera anicteric, conjunctiva clear ENT: Auricles normal inspection, hearing grossly normal, nares patent, oropharynx clear without exudates. Moist mucosa NECK: Normal ROM, supple, no lymphadenopathy, JVD, or masses LUNGS: No distress, speaks full sentences, clear to auscultation bilaterally HEART: Regular rate and rhythm, normal S1 and S2, no murmurs, rubs or gallops, peripheral pulses normal and equal bilaterally. ABDOMEN: Soft, nontender, normoactive bowel sounds. No guarding, no rebound. No masses EXTREMITIES: Normal inspection, Normal range of motion, no edema. No clubbing or cyanosis. NEUROLOGICAL: Cranial nerves II through XII grossly intact. Moves all extremities equally, no focal sensorimotor deficits SKIN: Warm, Dry, normal turgor, no rashes or lesions noted. NIH Stroke Scale - Last Known Well Date/Time & Onset Date Last Known Well: 06/09/18 Time Last Known Well: 21:00 - Initial Evaluation Level of consciousness: Alert Ask patient the month and their age: Both incorrect (no answer) Ask patient to open & close eyes; make fist and let go: Obeys both correctly Best gaze (horizontal eye movement): Normal Visual field testing: No visual field loss Facial paresis (Show teeth/raise eyebrows/close eyes tight): Normal symmetrical movement Motor Function: Left Arm: Normal Motor Function: Right Arm: Normal (extends arm 90 (or 45) degrees for 10 seconds without drift Motor Function: Left Leg: Normal (extends leg 30 degrees for 5 seconds without drift) Motor Function: Right Leg: Normal (extends leg 30 degrees for 5 seconds without drift) Limb Ataxia: No ataxia Sensory(Use pinprick test arms,legs,trunk,face/side to side): Normal Best language (Describe picture, name items, read sentences): Mute Dysarthria (read several words): Near unintelligible or unable to speak Extinction and Inattention: No abnormality - Total Score NIH Stroke Scale Score: 7 Critical Care Time/MDM Note - Medical Decision Making Note: 06/09/18 23:06 Patient is 82F with history of HTN, HLD, pacemaker placement, Parkinson's disease, Dementia here today with AMS. Vitals normal and stable. Code caicedo called due to initial report of right sided weakness, but no objective focal motor weakness has been found on exam. NIHSS 7, but patient's exam is not consistent with stroke. Discussed with Dr Gloria, agrees TPA is inappropriate. DDx includes, but is not limited to: UTI, dementia, sundowning, ACS, CVA. EKG shows normal sinus rhythm with rate of 98. No st elevations/depressions. LBBB pattern. Sgarbossa negative. LBBB old. CT head shows no acute process. 06/10/18 00:50 UA shows UTI, resistant in past with ?amoxicillin allergy. Will treat with meropenem, patient has tolerated in past. Will admit to hospitalist. CMP shows LAUREN, CBC shows leukocytosis. Patient's altered mental status most likely caused by UTI. *DC/Admit/Observation/Transfer Diagnosis at time of Disposition: UTI (urinary tract infection), Altered mental status - Discharge Dispostion Condition at time of disposition: Stable Decision to Admit order: Yes - Referrals - Patient Instructions - Post Discharge Activity
[2018-06-09 23:11] LABS: BASO % 0.2 % (0-2.0); EOS % 0.1 % (0-4.5); HEMATOCRIT 45.3 % (32.4-45.2); HEMOGLOBIN 14.7 GM/dL (10.7-15.3); LYMPH % 5.5 % (8-40); MCH 30.3 pg (25.7-33.7); MCHC 32.5 g/dl (32.0-36.0); MEAN CELL VOLUME 93.2 fl (80-96); MEAN PLT VOLUME 7.7 fl (7.5-11.1); MONO % 3.9 % (3.8-10.2); NEUT % 90.3 % (42.8-82.8); PLATELET COUNT 515 K/MM3 (134-434); RBC 4.86 M/mm3 (3.60-5.2); RDW 14.1 % (11.6-15.6); WHITE BLOOD COUNT 20.6 K/mm3 (4.0-10.0)
[2018-06-09 23:31] LABS: INR 0.97 (0.83-1.09); PROTHROMBIN TIME (PATIENT) 11.5 SEC (9.7-13.0)
[2018-06-09 23:33] LABS: PLATELET ESTIMATE INCREASED
[2018-06-10 00:03] LABS: ALBUMIN 3.4 g/dl (3.4-5.0); ALK PHOS 86 U/L (45-117); ANION GAP 10 MMOL/L (8-16); BILIRUBIN,TOTAL 0.5 mg/dL (0.2-1); BLOOD UREA NITROGEN 43 mg/dL (7-18); CALCIUM 9.2 mg/dL (8.5-10.1); CHLORIDE 102 mmol/L (98-107); CO2 24 mmol/L (21-32); CREATININE 1.7 mg/dL (0.55-1.3); GLUCOSE,RANDOM 137 mg/dL (74-106); POTASSIUM 4.1 mmol/L (3.5-5.1); SGOT/AST 83 U/L (15-37); SGPT/ALT 19 U/L (13-61); SODIUM 136 mmol/L (136-145); TOT PROT 6.6 g/dl (6.4-8.2)
[2018-06-10 00:39] LABS: URINE APPEARANCE CLOUDY; URINE BILIRUBIN NEGATIVE (<2.0 mg/dL); URINE COLOR AMBER; URINE GLUCOSE (UA) NEGATIVE (NEGATIVE); URINE KETONE TRACE (NEGATIVE); URINE LEUK ESTERASE 3+ (NEGATIVE); URINE NITRITE NEGATIVE (NEGATIVE); URINE PROTEIN 2+ (NEGATIVE)
[2018-06-10 00:42] LABS: EPI CELLS RARE /HPF (FEW); URINE BACTERIA RARE /hpf (NONE SEEN); URINE HYALINE CAST 29 /lpf; URINE MUCUS RARE
[2018-06-10] MEDS ORDERED: MEROPENEM 1 GM in DEXTROSE 5%-WATER 100 ML IVPB ONE (00:49)
--- NOTE | 2018-06-10 01:32 | PDOC ---
Attending Attestation - HPI HPI: 06/10/18 01:59 The patient is a 82 year old female, with a significant past medical history of HTN, HLD Pacemaker placement, Parkinson's disease, Dementia, who presents to the emergency department with, right sided facial droop and right sided weakness. As per EMS, home health aid called when symptoms were noticed 30min prior to arrival. Patient unable to give history due to clinical condition. <Jarvis Villanueva - Last Filed: 06/10/18 01:59> - Resident Resident Name: Checo Anaya - ED Attending Attestation I have performed the following: I have examined & evaluated the patient, The case was reviewed & discussed with the resident, I agree w/resident's findings & plan - HPI HPI: 06/10/18 01:31 Pt comes with acute facial droop, as per her HHAide, who feared that she was having a stroke. - Physicial Exam PE: 06/10/18 06:49 Agree with resident exam - Medical Decision Making 06/10/18 01:30 CXR is normal. Head CT is normal also: Patient Name: JESSICA BARRAZA Exam: CT head without IV contrast. Clinical indication:Cervical vascular accident. No further information is provided. Comparison:04/29/2016. Technique: Axial unenhanced CT images from the skull base through the brain were obtained followed by coronal and sagital reformats. Findings: The visualized bony structures are unremarkable. The visualized paranasal sinuses and mastoid air cells are clear. There is no evidence of intra-or extra-axial hemorrhage. The bilateral lateral ventricles are dilated but grossly unchanged. Otherwise, the ventricles and basilar cisterns are unremarkable. There is moderate periventricular hypodensities consistent with moderate chronic small vessel ischemic changes. There is no evidence of intracranial mass, acute infarct, or midline shift. Impression: 1. Moderate chronic small vessel ischemic changes. 2. Otherwise, negative unenhanced CT of the brain. 06/10/18 06:49 Pt will be admitted for neuro evaluation. Also for her UTI, which will be treated with OV abx. <Emani Knutson - Last Filed: 06/10/18 06:49> Attestations - Attestations 06/10/18 02:00 Documentation prepared by Jarvis Villanueva, acting as medical practice manager for Emani Knutson MD. <Jarvis Villanueva - Last Filed: 06/10/18 01:59>
[2018-06-10 02:03] LABS: CHOLESTEROL 145 mg/dL (50-200); HDL CHOLESTEROL 43 mg/dL (40-60); TRIGLYCERIDES 80 mg/dL (0-150)
[2018-06-10] MEDS ORDERED: SODIUM CHLORIDE 1,000 ML IV SCH ×2 (02:15→19:30)
--- NOTE | 2018-06-10 02:20 | PN ---
Teaching Attending Note Name of Resident: Mariana Lazaro ATTENDING PHYSICIAN STATEMENT I saw and evaluated the patient. I reviewed the resident's note and discussed the case with the resident. I agree with the resident's findings and plan as documented. SUBJECTIVE: Seen and examined with resident; patient is a complex 82 y/o CF who cannot provide any history 2/2 dementia with dysphonia (had slowed speech in the past but not speaking at all today). She has a PMH that is long and complex, to be documented in it's own section. She has had multiple admits between here and [facility] over the past year or so and based on documentation seems that she has a diminishing functional capacity. She has 24/7 care; unfortunately neither myself nor the resident was able to speak with her care provider as they had already left. She is not speaking at all, but will localize sound, opening her eyes. Difficult to tell if following commands. Not agitated. Brought in as her caregiver felt that she was more weak and not speaking at all with right- sided facial droop. One of the ER notes states R-sided weakness; I did not observe any and it isn't clear how this was demonstrated. Did not note any R- sided facial droop by the time our service assessed her in the ER. CT and CXR negative. Borderline UA but she is unable to describe if she is having any urinary symptoms. In the ER she was given meropenem and medicine was called for an admission. She was discharged 4 weeks ago from [facility]; was found to have 2 organisms (EF, Proteus) growing in her urine; proteus was not sensative to the levaquin she was discharged on per the cx report. 10 item ROS could not be done due to clinical presentation PMH: -Parkinson's Disease -Dementia (needs aid with ADLs, all IADLs) -HTN (not on any home medication) -HLD -Repeated UTIs -Pacemaker Insertion (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 Needs 24/7 care and help with ADLs, IADLs. OBJECTIVE: VSS; all labs and imaging reviewed. NAD, demented, resting in bed. Awake and alert; cannot assess orientatiojn CN2-12 grossly intact; opens eyes to command but was not moving arms/legs to command. Does appear to move all 4 extremities without any neglect. Sensorium intact. Normal muscle tone, overall muscle wasting. Appears demented. Cannot assess gait, etc. Cannot assess psych RRR s1/2 no mgr; paced Lungs CTAB with sym expansion NT ND +BS Tacky MM No JVD, trachea midline Moderate carotid stenosis on 2017 Duplex Echo 04/29 with Grade I Diastolic Dysfunction with normal LVEF and minor pulmonary HTN; no significant valve disease Micro 04/2018 reviewed ASSESSMENT AND PLAN: Mrs. Benjamin is an 82 y/o CF with a complex PMH presenting for weakness, aphasia , ?R-sided facial droop, ?UTI, dehydration. She cannot provide history, unfortunately. She is hemodynamically stable. Will monitor on the medicine service. 1) Altered Mental Status -Ddx includes CVA/TIA (given the aphasia and resolved R-sided facial findings) vs. acute on chronic worsening of dementia vs. Acute toxic metabolic encephalopathy due to UTI, etc. Will discuss each matter separately. -Monitor on the floor with neuro checks, seizure precautions. 2) Resolved R-sided facial droop, weakness, aphasia -Could be CVA/TIA vs. met enceph, especially with consideration to her underlying parkinson's and dementia. Her baseline needs to be discussed with her aid who is not here. She appears quite demented at the moment and is not speaking; speech documented as slow, etc. before though. No focal findings on neuro examination. Check MRI for acute infarct. Duplex and echo done last year should be sufficient. Consult neurology. PT/OT/ST. Checking thiamine, TSH, B12. 3) Possible Acute UTI -Cannot elucidate if sx, but does have borderline UA and +WBC (likely also has a component of dehydration based on lab findings and history). Empirically hydrating and starting on Ceftriaxone as sensitivities allow for this based on old cultues. Should complete at least 10 days. Followup blood and urine cultures. Not appearing septic. Likely, if this does represent a UTI, especially with underlying dementia could play a role in her AMS. 4) Elevated Troponin -Likely 2/2 demand especially with consideration of the LAUREN which could lead to retaining due to diminished clearance. Will trend the result and monitor on telemetry. Continue ASA. Does have risk factors for CAD. This likely does NOT represent ACS, but given the overall picture would be reasonable to consult cardiology. 5) LAUREN -Baseline Cr wnl at 1.1-1.2; today is 1.7. Monitor BMP, UOP. Given dehydrated picture assuming a prerenal etiology so will provide empiric hydration and monitor. If worsens, etc. will calculate FeNa and involve nephrology. 6) HTN -Not on home meds for at least a year per old records; monitor BP and continue ASA 7) HLD -Continue statin 8) Dehydration -Noted the thrombocytosis with elevated Hct and elevated WBC; given her tacky MM 's and history very concerned she is dehydrated. Giving isotonic at 100cc/hr overnight and rechecking labs. Positive ketones in urine makes me question her nutritional status so checking a prealbumin. 9) Thrombocytosis -Likely reactive vs. dehydration. Hydrating and treating underlying issues; will trend 10) Elevated AST -Minor in 80s; trend. Never has been high before. No EtOH abuse. Completely benign exam. Trend. 11) S/P Pacemaker ([employer]) -Monitor; no need to interrogate at this juncture but will ultimately defer to CV 12) Dementia -Discuss goals of care with family; speak to aid in AM to elucidate baseline level of function. 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 Monitor 17) Parkinson's Disease -Continue home medications
--- NOTE | 2018-06-10 02:34 | HP ---
CHIEF COMPLAINT: AMS PCP: HISTORY OF PRESENT ILLNESS: Patient is a 82 y/o female with a history of HTN, HLD, pacemaker, Parkinson's disease, and dementia who presents with AMS. Per EMS and patients aid patient has become nonverbal and has had a new facial droop. Aid is not at bedside and patient is nonverbal. Patient has had multiple admissions for AMS. Patient was recently here one month ago for AMS and found to have a UTI. She was sent home on levaquin, the sensitivities show two organisms, one of which is resistant to Levaquin. Patient is nonresponsive and unable to asses review of systems. ER course was notable for: (1) 1 L NS (2) 1 gm meropenem (3) Recent Travel: PAST MEDICAL HISTORY: HTN, HLD, pacemaker, Parkinson's disease, and dementia PAST SURGICAL HISTORY: Social History: Smoking: Alcohol: Drugs: Family History: Allergies amoxicillin [Amoxicillin] Allergy (Unknown, Verified 05/07/18 17:24) loracarbef [From Lorabid] Allergy (Unknown, Verified 05/07/18 17:24) prochlorperazine edisylate [From Compazine] Allergy (Unknown, Verified 05/07/18 17:24) prochlorperazine maleate [From Compazine] Allergy (Unknown, Verified 05/07/18 17 :24) promethazine HCl [From Phenergan] Allergy (Unknown, Verified 05/07/18 17:24) HOME MEDICATIONS: Home Medications Medication Instructions Recorded Gabapentin [Neurontin -] 100 mg PO HS #0 capsule 10/02/14 Carbidopa/Levodopa [Carbidopa-Levo 1 each PO BID 12/26/14 25-100 Tab] Aspirin [Aspirin EC] 81 mg PO DAILY 04/06/17 Cholecalciferol (Vitamin D3) 1,000 unit PO DAILY 04/06/17 [Vitamin D3 -] Atorvastatin Ca [Lipitor] 10 mg PO HS #30 tablet 05/08/18 levoFLOXacin [Levaquin -] 250 mg PO DAILY@0600 #9 tablet 05/08/18 REVIEW OF SYSTEMS unable to obtain PHYSICAL EXAMINATION Vital Signs - 24 hr 06/09/18 06/09/18 06/10/18 21:50 22:00 00:50 Temperature 98.4 F 98.4 F Pulse Rate 97 H Pulse Rate [ 97 H 86 Right Radial] Respiratory 18 18 19 Rate Blood Pressure 139/84 Blood Pressure 139/84 128/65 [Right Arm] O2 Sat by Pulse 100 100 99 Oximetry (%) 06/10/18 00:51 Temperature Pulse Rate Pulse Rate [ Right Radial] Respiratory Rate Blood Pressure Blood Pressure [Right Arm] O2 Sat by Pulse 98 Oximetry (%) GENERAL: awake to name calling and sternal rub HEAD: Normal with no signs of trauma. EYES: Pupils equal, round and reactive to light, extraocular movements intact LUNGS: Breath sounds equal, clear to auscultation bilaterally. No wheezes, and no crackles. No accessory muscle use. HEART: Regular rate and rhythm, 3+ systolic murmur at upper sternal borders ABDOMEN: Soft, nontender, not distended, normoactive bowel sounds, no guarding, no rebound, no masses. No hepatomegaly or splenomegaly. LOWER EXTREMITIES: 2+ pulses, warm, well-perfused. No calf tenderness. No peripheral edema. SKIN: Warm, dry, normal turgor, no rashes or lesions noted, no sacral or heel ulcers noted CBC, BMP 06/09/18 23:04 06/09/18 23:27 Urine Test Results Urine Color [place] 06/10/18 00:10 Urine Appearance Cloudy 06/10/18 00:10 Urine pH 5.0 (5.0-8.0) D 06/10/18 00:10 Ur Specific [place] 1.018 (1.010-1.035) 06/10/18 00:10 Urine Protein 2+ (NEGATIVE) H 06/10/18 00:10 Urine Glucose (UA) Negative (NEGATIVE) 06/10/18 00:10 Urine Ketones Trace (NEGATIVE) H 06/10/18 00:10 Urine Blood 1+ (NEGATIVE) H 06/10/18 00:10 Urine Nitrite Negative (NEGATIVE) 06/10/18 00:10 Urine Bilirubin Negative (<2.0 mg/dL) 06/10/18 00:10 Ur Leukocyte Esterase 3+ (NEGATIVE) H 06/10/18 00:10 Ur Epithelial Cells Rare /HPF (FEW) 06/10/18 00:10 Urine Bacteria Rare /hpf (NONE SEEN) 06/10/18 00:10 Urine Mucus Rare 06/10/18 00:10 ASSESSMENT/PLAN: Patient is a 82 y/o female with a history of HTN, HLD, pacemaker, Parkinson's disease, and dementia who presents with AMS. 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 - ED spoke with Malkani, no indication for tpa - Head CT: moderate chronic small vessel ischemic changes - f/u brain MRI - carotid doppler 03/29: moderate size plaque at right bifurcation, with 50-69 % stenosis, moderate size plaque at left carotid with no sign of stenosis - f/u physical therapy - f/u speech therapy #UTI - positive UTI 04/30 with enteroccocus faecalis and Proteus Miralbis - given 1gm Meropenem in ED - Ceftriaxone 1 gm ordered for 6 am - continue Normal Saline @ 100 - UA : 3+ leukocyte esterase, WBC: 322 - WBC : 20.6 - UCX pending, f/u blood cx #LAUREN likely 2/2 to dehydration - continue fluids - Cr: 1.7, baseline 1.2 - calculate FeNa if continues to worsen #tropenemia likely 2/2 to demand - trop .06 - trend second trop for 6 am #hyperlipidemia - continue atorvastatin 10 mg #Parkinson's - continue carbidopa/levodopa #hyperthyroidism -f/u TSH #dementia - f/u goals of care - f/u Vitamin B12 level Visit type - Emergency Visit Emergency Visit: Yes Care time: The patient presented to the Emergency Department on the above date and was hospitalized for further evaluation of their emergent condition. - New Patient This patient is new to me today: Yes Date on this admission: 06/10/18 - Critical Care Critical Care patient: No
[2018-06-10] MEDS ORDERED: HEPARIN NA (PORCINE) 5,000 UNITS/ML 1ML VIAL ONE (06:10)
[2018-06-10] MEDS ORDERED: CEFTRIAXONE 1 GM/50 ML BAG ONE (06:11)
[2018-06-10] MEDS: HEPARIN NA (PORCINE) 5,000 UNITS/ML 1ML VIAL SQ SCH ×3 (06:16→22:10)
[2018-06-10] MEDS: CEFTRIAXONE 1 GM in DEXTROSE 5%-WATER - 50 ML IVPB SCH (06:16)
[2018-06-10 07:58] LABS: PREALBUMIN 16.1 mg/dl (20-40)
--- NOTE | 2018-06-10 09:32 | CONSULT ---
Consult - text type - Consultation Consultation Note: Neurology CHIEF COMPLAINT: AMS HISTORY OF PRESENT ILLNESS: 82 y/o female with a history of HTN, HLD, pacemaker, Parkinson's disease, and dementia who presents with AMS. Per EMS and patients aid patient has become nonverbal and has had a new facial droop. Contacted by ER who discussed case and patient with recent similar admission for AMS. Patient was here approximately one month ago for AMS and found to have a UTI. She was sent home on levaquin, the sensitivities showed two organisms, one of which is resistant to Levaquin. Limited history from patient but no focal deficits noted. ?of facial asymetry, CT head without acute changes. Was given IV fluids and IV Abx. PAST MEDICAL HISTORY: HTN, HLD, pacemaker, Parkinson's disease, and dementia PAST SURGICAL HISTORY: None Social History: NA Family History: Allergies amoxicillin [Amoxicillin] Allergy (Unknown, Verified 05/07/18 17:24) loracarbef [From Lorabid] Allergy (Unknown, Verified 05/07/18 17:24) prochlorperazine edisylate [From Compazine] Allergy (Unknown, Verified 05/07/18 17:24) prochlorperazine maleate [From Compazine] Allergy (Unknown, Verified 05/07/18 17 :24) promethazine HCl [From Phenergan] Allergy (Unknown, Verified 05/07/18 17:24) HOME MEDICATIONS: Home Medications Medication Instructions Recorded Gabapentin [Neurontin -] 100 mg PO HS #0 capsule 10/02/14 Carbidopa/Levodopa [Carbidopa-Levo 1 each PO BID 12/26/14 25-100 Tab] Aspirin [Aspirin EC] 81 mg PO DAILY 04/06/17 Cholecalciferol (Vitamin D3) 1,000 unit PO DAILY 04/06/17 [Vitamin D3 -] Atorvastatin Ca [Lipitor] 10 mg PO HS #30 tablet 05/08/18 levoFLOXacin [Levaquin -] 250 mg PO DAILY@0600 #9 tablet 05/08/18 REVIEW OF SYSTEMS unable to obtain PHYSICAL EXAMINATION Vital Signs Period Temp Pulse Resp BP Sys/Moore Pulse Ox Last 24 Hr 98.4 F-99.6 F 71-97 16-19 109-139/65-88 97-100 GENERAL: awake to name calling and sternal rub HEAD: Normal with no signs of trauma. EYES: Pupils equal, round and reactive to light, extraocular movements intact LUNGS: Breath sounds equal, clear to auscultation bilaterally. No wheezes, and no crackles. No accessory muscle use. HEART: Regular rate and rhythm, 3+ systolic murmur at upper sternal borders ABDOMEN: Soft, nontender, not distended, normoactive bowel sounds, no guarding, no rebound, no masses. No hepatomegaly or splenomegaly. LOWER EXTREMITIES: 2+ pulses, warm, well-perfused. No calf tenderness. No peripheral edema. SKIN: Warm, dry, normal turgor, no rashes or lesions noted, no sacral or heel ulcers noted Neuro: ?R facial droop, nonverbal, moves upper and lower ext grossly, follows minimal commands, sensory intact to tactile stim, gait deferred CBCD WBC 20.6 K/mm3 (4.0-10.0) H 06/09/18 23:04 RBC 4.86 M/mm3 (3.60-5.2) 06/09/18 23:04 Hgb 14.7 GM/dL (10.7-15.3) 06/09/18 23:04 Hct 45.3 % (32.4-45.2) H D 06/09/18 23:04 MCV 93.2 fl (80-96) 06/09/18 23:04 MCHC 32.5 g/dl (32.0-36.0) 06/09/18 23:04 RDW 14.1 % (11.6-15.6) 06/09/18 23:04 Plt Count 515 K/MM3 (134-434) H D 06/09/18 23:04 MPV 7.7 fl (7.5-11.1) 06/09/18 23:04 CMP Sodium 136 mmol/L (136-145) 06/09/18 23:27 Potassium 4.1 mmol/L (3.5-5.1) 06/09/18 23: Chloride 102 mmol/L (98-107) 06/09/18 23:27 Carbon Dioxide 24 mmol/L (21-32) 06/09/18 23:27 Anion Gap 10 MMOL/L (8-16) 06/09/18 23:27 BUN 43 mg/dL (7-18) H 06/09/18 23:27 Creatinine 1.7 mg/dL (0.55-1.3) H 06/09/18 23: Creat Clearance w eGFR 28.92 (>60) 06/09/18 23: Random Glucose 137 mg/dL (74-106) H 06/09/18 23: Calcium 9.2 mg/dL (8.5-10.1) 06/09/18 23: Total Bilirubin 0.5 mg/dL (0.2-1) 06/09/18 23: AST 83 U/L (15-37) H 06/09/18: ALT 19 U/L (13-61) 06/09/18: Alkaline Phosphatase 86 U/L (45-117) 06/09/18: Total Protein 6.6 g/dl (6.4-8.2) 06/09/18: Albumin 3.4 g/dl (3.4-5.0) 06/09/18 23: CARDIAC ENZYMES Creatine Kinase 138 IU/L (26-192) 06/09/18 23: Troponin I 0.11 ng/ml (0.00-0.05) H 06/10/18 07:00 Urine Test Results Urine Color [place] 06/10/18 00:10 Urine Appearance Cloudy 06/10/18 00:10 Urine pH 5.0 (5.0-8.0) D 06/10/18 00:10 Ur Specific [place] 1.018 (1.010-1.035) 06/10/18 00:10 Urine Protein 2+ (NEGATIVE) H 06/10/18 00:10 Urine Glucose (UA) Negative (NEGATIVE) 06/10/18 00:10 Urine Ketones Trace (NEGATIVE) H 06/10/18 00:10 Urine Blood 1+ (NEGATIVE) H 06/10/18 00:10 Urine Nitrite Negative (NEGATIVE) 06/10/18 00:10 Urine Bilirubin Negative (<2.0 mg/dL) 06/10/18 00:10 Ur Leukocyte Esterase 3+ (NEGATIVE) H 06/10/18 00:10 Ur Epithelial Cells Rare /HPF (FEW) 06/10/18 00:10 Urine Bacteria Rare /hpf (NONE SEEN) 06/10/18 00:10 Urine Mucus Rare 06/10/18 00:10 ASSESSMENT/PLAN: 82 y/o female with a history of HTN, HLD, pacemaker, Parkinson's disease, and dementia who presents with AMS. Per EMS and patients aid patient has become nonverbal and has had a new facial droop. Contacted by ER who discussed case and patient with recent similar admission for AMS. Patient was here approximately one month ago for AMS and found to have a UTI. She was sent home on levaquin, the sensitivities showed two organisms, one of which is resistant to Levaquin. Limited history from patient but no focal deficits noted. ?of facial asymetry, CT head without acute changes. Was given IV fluids and IV Abx. Possibly toxic metabolic encephalopathy 2/2 infection but will order MRI brain to evaluate for infarct. Carotid doppler from 03/29 showed moderate size plaque at right bifurcation, with 50-69% stenosis, moderate size plaque at left carotid with no sign of stenosis. PT, Speech eval recommended. Continue IV Abx , follow up Ucx. Maintain adequate hydration (cr elevated on admission from 1.2 to 1.7). Can continue same dose of sinemet for for Parkinson's.
--- NOTE | 2018-06-10 09:43 | EKG ---
Test Reason : Blood Pressure : / mmHG Vent. Rate : 098 BPM Atrial Rate : 098 BPM P-R Int : 154 ms QRS Dur : 126 ms QT Int : 388 ms P-R-T Axes : 061 -01 100 degrees QTc Int : 495 ms NORMAL SINUS RHYTHM BIATRIAL ENLARGEMENT LEFT BUNDLE BRANCH BLOCK ABNORMAL ECG WHEN COMPARED WITH ECG OF 07-MAY-2018 18:02, NO SIGNIFICANT CHANGE WAS FOUND Confirmed by RANDY JUSTIN MD ([id number]) on 06/10/2018 9:43:29 AM Referred By: Confirmed By:RANDY JUSTIN MD
[2018-06-10] MEDS: CARBIDOPA/LEVODOPA 25/100 TABLET (FP) PO SCH ×2 (09:54→22:10)
[2018-06-10] MEDS: CHOLECALCIFEROL (VITAMIN D3) 1,000 UNIT TABLET (FP) PO SCH (09:54)
[2018-06-10] MEDS: ASPIRIN COATED 81 MG TABLET.EC PO SCH (09:54)
--- NOTE | 2018-06-10 10:31 | CONSULT ---
Admitting History and Physical - Admission History of Present Illness: Per EMR: Patient is a 82 y/o female with a history of HTN, HLD, pacemaker, Parkinson's disease, and dementia who presents with AMS. 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 - Head CT: moderate chronic small vessel ischemic changes - f/u brain MRI - carotid doppler 03/29: moderate size plaque at right bifurcation, with 50-69 % stenosis, moderate size plaque at left carotid with no sign of stenosis UTI - positive UTI 04/30 with enteroccocus faecalis and Proteus Miralbis Last seen by me in 2015, at which time pt tolerated reg diet and thin liquids - Past Medical History [employer]: Yes: Dementia, Parkinson's Cardiovascular: Yes: HTN, Murmur (systolic murmur ) Pulmonary: Yes: Bronchitis (no events for years; on no meds for this) Heme/Onc: Yes: Anemia, Cancer (denies, but had right breast mass removed many years ago) Infectious Disease: Yes: Other (cellulitis of the LE) Musculoskeletal: Yes: Other (gait "slow down" (Parkinson's)) Endocrine: Yes: Hyperthyroidism - Past Surgical History Past Surgical History: Yes: Breast Biopsy (and sunsequent removal of mass (? 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 Hypophonic.) - Speech Characteristics Voice Loudness: Severely Soft/Quiet Speech Pattern: Impaired Speech Clarity: < 25% - Swallow Evaluation/Bedside Assessment Current Nutritional Intake: NPO Oral Secretions: Yes: WFL Facial Symmetry at Rest: Symmetrical Laryngeal Movement: Labored,delay initiation Labial Seal: WFL Oral Prep Time: WFL A-P Transit: WFL Pocketing: None Timing of Swallow: Delayed Coughing/Throat Clear: No Change in Voice: No Recommendations - Speech Evaluation, Impression/Plan Impression: Seen in ER, on stretcher. Established eye contact, but no yes/no responses or initiation of speech. I was only ably to elicit repetition of her name. Severe hypophonia. Accepted trials of applesauce and sips of water, with delayed but brisk swallow. Risk of aspiration - Dysphagia Impressions/Plan Dysphagia Impressions: Risk of Aspiration, Ongoing Evaluation *Silent aspiration: cannot be R/O at bedside Dysphagia Treatment Plan: Small Bites, Chin Tuck/Down, Safe Rate, 1/2 tsp. at a time, Elevate HOB during feed - Recommendations Diet Consistency: Dysphagia Pureed Medication Administration: Crushed with applesauce Liquids: Howell Thick Supplement: Magic Cup, Ensure Pudding
--- NOTE | 2018-06-10 13:59 | PN ---
Teaching Attending Note Name of Resident: James Aguilar ATTENDING PHYSICIAN STATEMENT I saw and evaluated the patient. I reviewed the resident's note and discussed the case with the resident. I agree with the resident's findings and plan as documented. SUBJECTIVE: Patient looks very tired. no fever or chills. OBJECTIVE: Vital Signs Temperature 99.6 F 06/10/18 06:00 Pulse Rate 71 06/10/18 09:13 Respiratory Rate 16 06/10/18 09:13 Blood Pressure 109/77 06/10/18 09:13 O2 Sat by Pulse Oximetry (%) 98 06/10/18 09:13 GENERAL: awake to name calling and sternal rub HEAD: Normal with no signs of trauma. EYES: Pupils equal, round and reactive to light, extraocular movements intact LUNGS: Breath sounds equal, clear to auscultation bilaterally. No wheezes, and no crackles. No accessory muscle use. HEART: Regular rate and rhythm, MARKO 2/6 systolic murmur at upper sternal borders ABDOMEN: Soft, nontender, not distended, normoactive bowel sounds, no guarding, no rebound, no masses. LOWER EXTREMITIES: 2+ pulses, warm, well-perfused. No calf tenderness. No peripheral edema. SKIN: Warm, dry, normal turgor, no rashes or lesions noted, no sacral or heel ulcers noted CBCD WBC 20.6 K/mm3 (4.0-10.0) H 06/09/18 23:04 RBC 4.86 M/mm3 (3.60-5.2) 06/09/18 23:04 Hgb 14.7 GM/dL (10.7-15.3) 06/09/18 23:04 Hct 45.3 % (32.4-45.2) H D 06/09/18 23:04 MCV 93.2 fl (80-96) 06/09/18 23:04 MCHC 32.5 g/dl (32.0-36.0) 06/09/18 23:04 RDW 14.1 % (11.6-15.6) 06/09/18 23:04 Plt Count 515 K/MM3 (134-434) H D 06/09/18 23:04 MPV 7.7 fl (7.5-11.1) 06/09/18 23:04 CMP Sodium 136 mmol/L (136-145) 06/09/18 23:27 Potassium 4.1 mmol/L (3.5-5.1) 06/09/18 23:27 Chloride 102 mmol/L (98-107) 06/09/18 23:27 Carbon Dioxide 24 mmol/L (21-32) 06/09/18 23:27 Anion Gap 10 MMOL/L (8-16) 06/09/18 23:27 BUN 43 mg/dL (7-18) H 06/09/18 23:27 Creatinine 1.7 mg/dL (0.55-1.3) H 06/09/18 23:27 Creat Clearance w eGFR 28.92 (>60) 06/09/18 23:27 Random Glucose 137 mg/dL (74-106) H 06/09/18 23:27 Calcium 9.2 mg/dL (8.5-10.1) 06/09/18 23:27 Total Bilirubin 0.5 mg/dL (0.2-1) 06/09/18 23:27 AST 83 U/L (15-37) H 06/09/18 23:27 ALT 19 U/L (13-61) 06/09/18 23:27 Alkaline Phosphatase 86 U/L (45-117) 06/09/18 23:27 Total Protein 6.6 g/dl (6.4-8.2) 06/09/18 23:27 Albumin 3.4 g/dl (3.4-5.0) 06/09/18 23:27 CARDIAC ENZYMES Creatine Kinase 138 IU/L (26-192) 06/09/18 23:27 Troponin I 0.11 ng/ml (0.00-0.05) H 06/10/18 07:00 Current Medications Generic Name Dose Route Start Last Admin Trade Name Freq PRN Reason Stop Dose Admin Aspirin 81 mg 06/10/18 10:00 06/10/18 09:54 Ecotrin - PO Not Given DAILY [facility] Atorvastatin Calcium 10 mg 06/10/18 22:00 Lipitor - PO HS [facility] Carbidopa/Levodopa 1 each 06/10/18 10:00 06/10/18 09:54 Sinemet 25/100 - PO Not Given BID [facility] Cholecalciferol 1,000 unit 06/10/18 10:00 06/10/18 09:54 Vitamin D3 - PO Not Given DAILY [facility] Gabapentin 100 mg 06/10/18 22:00 Neurontin - PO HS [facility] Heparin Sodium (Porcine) 5,000 unit 06/10/18 06:00 06/10/18 06:16 Heparin - SQ 5,000 unit TID ALTHEA Administration Sodium Chloride 1,000 mls @ 100 mls/hr 06/10/18 02:15 06/10/18 02:28 Normal Saline - IV 100 mls/hr ASDIR ALTHEA Administration Ceftriaxone Sodium 1 gm/ 50 mls @ 100 mls/hr 06/10/18 06:00 06/10/18 06:16 Dextrose IVPB 100 mls/hr DAILY@0600 ALTHEA Administration Home Medications Medication Instructions Recorded Gabapentin [Neurontin -] 100 mg PO HS #0 capsule 10/02/14 Carbidopa/Levodopa [Carbidopa-Levo 1 each PO BID 12/26/14 25-100 Tab] Aspirin [Aspirin EC] 81 mg PO DAILY 04/06/17 Cholecalciferol (Vitamin D3) 1,000 unit PO DAILY 04/06/17 [Vitamin D3 -] Atorvastatin Ca [Lipitor] 10 mg PO HS #30 tablet 05/08/18 levoFLOXacin [Levaquin -] 250 mg PO DAILY@0600 #9 tablet 05/08/18 Microbiology 06/10/18 00:10 Urine - Urine - Catheterized Urine Culture - Preliminary Proteus Species ASSESSMENT AND PLAN: Patient is a 82 y/o female with a history of HTN, HLD, pacemaker, Parkinson's disease, and dementia who presents with AMS. #AMS :due to toxic metaoblic encephalopathy with hx of parkensonism will monitor. #UTI : positive UTI 04/30 with enteroccocus faecalis and Proteus Miralbis; on Ceftriaxone 1 gm as per previous urine culture sensitive to ceftriaxone, not to levaquin. #LAUREN : dehydration; Cr: 1.7, on ivf #hyperlipidemia: continue atorvastatin 10 mg #Parkinson's: continue carbidopa/levodopa #hyperthyroidism: f/u TSH #dementia: f/u goals of care: f/u Vitamin B12 level DVT: heparin
--- NOTE | 2018-06-10 14:34 | PN ---
Physical Exam: SUBJECTIVE: Patient seen and examined. Pt. non-verbal. Family not present to assist or give history. OBJECTIVE: Vital Signs Period Temp Pulse Resp BP Sys/Moore Pulse Ox Last 24 Hr 98.4 F-99.6 F 71-97 16-19 109-139/65-88 97-100 GENERAL: The patient is awake, non-verbal, open eyes spontaneously EYES: sclera anicteric, conjunctiva clear. No ptosis. ENT: Ears normal, nares patent, moist mucous membranes. LUNGS: RUL coarse breath sounds, no wheezes, no crackles, no accessory muscle use. HEART: Unable to assess, pt. non cooperative ABDOMEN: Unable to assess, pt. non cooperative EXTREMITIES: 2+ dorsal pedal pulses, warm, no calf tenderness, no edema. NEUROLOGICAL: Normal speech, gait not observed. PSYCH: Non-cooperative SKIN: Warm, dry, normal turgor Laboratory Results - last 24 hr 06/09/18 06/09/18 06/09/18 23:04 23:04 23:04 WBC 20.6 H RBC 4.86 Hgb 14.7 Hct 45.3 H D MCV 93.2 MCH 30.3 MCHC 32.5 RDW 14.1 Plt Count 515 H D MPV 7.7 Absolute Neuts (auto) 18.6 H Neutrophils % 90.3 H Neutrophils % (Manual) 81.0 Band Neutrophils % 5.0 Lymphocytes % 5.5 L D Lymphocytes % (Manual) 8.0 Monocytes % 3.9 Monocytes % (Manual) 6 Eosinophils % 0.1 D Basophils % 0.2 Nucleated RBC % 0 Platelet Estimate Increased ESR PT with INR 11.50 INR 0.97 Sodium Cancelled Potassium Cancelled Chloride Cancelled Carbon Dioxide Cancelled Anion Gap Cancelled BUN Cancelled Creatinine Cancelled Creat Clearance w eGFR Cancelled Random Glucose Cancelled Calcium Cancelled Total Bilirubin Cancelled AST Cancelled ALT Cancelled Alkaline Phosphatase Cancelled Creatine Kinase Cancelled Troponin I Cancelled C-Reactive Protein Total Protein Cancelled Albumin Cancelled Prealbumin Triglycerides Cholesterol Total LDL Cholesterol HDL Cholesterol Urine Color Urine Appearance Urine pH Ur Specific [place] Urine Protein Urine Glucose (UA) Urine Ketones Urine Blood Urine Nitrite Urine Bilirubin Urine Urobilinogen Ur Leukocyte Esterase Urine WBC (Auto) Urine RBC (Auto) Ur Epithelial Cells Urine Bacteria Hyaline Casts Urine Mucus 06/09/18 06/10/18 06/10/18 23:27 00:10 07:00 WBC RBC Hgb Hct MCV MCH MCHC RDW Plt Count MPV Absolute Neuts (auto) Neutrophils % Neutrophils % (Manual) Band Neutrophils % Lymphocytes % Lymphocytes % (Manual) Monocytes % Monocytes % (Manual) Eosinophils % Basophils % Nucleated RBC % Platelet Estimate ESR PT with INR INR Sodium 136 Potassium 4.1 Chloride 102 Carbon Dioxide 24 Anion Gap 10 BUN 43 H Creatinine 1.7 H Creat Clearance w eGFR 28.92 Random Glucose 137 H Calcium 9.2 Total Bilirubin 0.5 AST 83 H ALT 19 Alkaline Phosphatase 86 Creatine Kinase 138 Troponin I 0.06 H C-Reactive Protein 0.6 H Total Protein 6.6 Albumin 3.4 Prealbumin 16.1 L Triglycerides 80 Cholesterol 145 Total LDL Cholesterol 92 HDL Cholesterol 43 Urine Color [place] Urine Appearance Cloudy Urine pH 5.0 D Ur Specific [place] 1.018 Urine Protein 2+ H Urine Glucose (UA) Negative Urine Ketones Trace H Urine Blood 1+ H Urine Nitrite Negative Urine Bilirubin Negative Urine Urobilinogen 2.0 H Ur Leukocyte Esterase 3+ H Urine WBC (Auto) 322 Urine RBC (Auto) 2 Ur Epithelial Cells Rare Urine Bacteria Rare Hyaline Casts 29 Urine Mucus Rare 06/10/18 06/10/18 07:00 07:00 WBC RBC Hgb Hct MCV MCH MCHC RDW Plt Count MPV Absolute Neuts (auto) Neutrophils % Neutrophils % (Manual) Band Neutrophils % Lymphocytes % Lymphocytes % (Manual) Monocytes % Monocytes % (Manual) Eosinophils % Basophils % Nucleated RBC % Platelet Estimate ESR 37 H PT with INR INR Sodium Potassium Chloride Carbon Dioxide Anion Gap BUN Creatinine Creat Clearance w eGFR Random Glucose Calcium Total Bilirubin AST ALT Alkaline Phosphatase Creatine Kinase Troponin I 0.11 H C-Reactive Protein Total Protein Albumin Prealbumin Triglycerides Cholesterol Total LDL Cholesterol HDL Cholesterol Urine Color Urine Appearance Urine pH Ur Specific [place] Urine Protein Urine Glucose (UA) Urine Ketones Urine Blood Urine Nitrite Urine Bilirubin Urine Urobilinogen Ur Leukocyte Esterase Urine WBC (Auto) Urine RBC (Auto) Ur Epithelial Cells Urine Bacteria Hyaline Casts Urine Mucus Active Medications Current Medications Aspirin (Ecotrin -) 81 mg PO DAILY [facility] Last Admin: 06/10/18 09:54 Dose: Not Given Atorvastatin Calcium (Lipitor -) 10 mg PO [facility] Carbidopa/Levodopa (Sinemet 25/100 -) 1 each PO BID [facility] Last Admin: 06/10/18 09:54 Dose: Not Given Cholecalciferol (Vitamin D3 -) 1,000 unit PO DAILY [facility] Last Admin: 06/10/18 09:54 Dose: Not Given Gabapentin (Neurontin -) 100 mg PO [facility] Heparin Sodium (Porcine) (Heparin -) 5,000 unit SQ TID [facility] Last Admin: 06/10/18 15:07 Dose: 5,000 unit Sodium Chloride (Normal Saline -) 1,000 mls @ 100 mls/hr IV ASDIR [facility] Last Admin: 06/10/18 02:28 Dose: 100 mls/hr Ceftriaxone Sodium 1 gm/ (Dextrose) 50 mls @ 100 mls/hr IVPB DAILY@0600 [facility] Last Admin: 06/10/18 06:16 Dose: 100 mls/hr Home Medications Medication Instructions Recorded Gabapentin [Neurontin -] 100 mg PO HS #0 capsule 10/02/14 Carbidopa/Levodopa [Carbidopa-Levo 1 each PO BID 12/26/14 25-100 Tab] Aspirin [Aspirin EC] 81 mg PO DAILY 04/06/17 Cholecalciferol (Vitamin D3) 1,000 unit PO DAILY 04/06/17 [Vitamin D3 -] Atorvastatin Ca [Lipitor] 10 mg PO HS #30 tablet 05/08/18 levoFLOXacin [Levaquin -] 250 mg PO DAILY@0600 #9 tablet 05/08/18 ASSESSMENT/PLAN: Patient is a 82 y/o female with a history of HTN, HLD, pacemaker, Parkinson's disease, and dementia who presents with AMS 2/2 to UTI. Recently admitted for UTI, growing Strep. Enterococci and Proteus Mirabalis (resistant to Levaquin) on previous admission. #Urology -Uncomplicated UTI UA+ c/w Ceftriaxone UCx. + for Proteus, awaiting sensitivities #Neurology -Parkinson's Disease c/w Sinemet -AMS-resolved Pt. has a PPM and is unable to obtain MRI #Cardiology -HLD c/w ASA 81mg c/w Lipitor #F/E/N -NS @ 100mls/hr -monitor electrolyes and replete as needed -Dysphagia Puree diet #DVT Ppx. -Hep SG TID Visit type - Emergency Visit Emergency Visit: Yes ED Registration Date: 06/10/18 Care time: The patient presented to the Emergency Department on the above date and was hospitalized for further evaluation of their emergent condition. - New Patient This patient is new to me today: Yes Date on this admission: 06/10/18 - Critical Care Critical Care patient: No - Discharge Referral Referred to [facility] Med P.C.: No
[2018-06-10] MEDS ORDERED: hydrALAZINE HCL 20 MG/ML VIAL IVPUSH ONE (19:23)
[2018-06-10] MEDS: SODIUM CHLORIDE 1,000 ML IV SCH (20:40)
[2018-06-10] MEDS: ATORVASTATIN CA 10 MG TABLET (FP) PO SCH (22:10)
[2018-06-10] MEDS: GABAPENTIN 100 MG CAPSULE (FP) PO SCH (22:10)
[2018-06-11] MEDS ORDERED: cefTRIAXone SODIUM 1 GM VIAL ONE (05:25)
[2018-06-11] MEDS ORDERED: DEXTROSE 5%-WATER - 50 ML IVPB ONE (05:26)
[2018-06-11] MEDS: CEFTRIAXONE 1 GM in DEXTROSE 5%-WATER - 50 ML IVPB SCH (05:32)
[2018-06-11] MEDS: HEPARIN NA (PORCINE) 5,000 UNITS/ML 1ML VIAL SQ SCH ×3 (05:32→21:15)
[2018-06-11 06:43] LABS: BASO % 0.9 % (0-2.0); HEMATOCRIT 31.3 % (32.4-45.2); HEMOGLOBIN 10.4 GM/dL (10.7-15.3); MCH 30.7 pg (25.7-33.7); MCHC 33.1 g/dl (32.0-36.0); MEAN CELL VOLUME 92.7 fl (80-96); MEAN PLT VOLUME 7.5 fl (7.5-11.1); MONO % 5.4 % (3.8-10.2); NEUT % 69.7 % (42.8-82.8); PLATELET COUNT 342 K/MM3 (134-434); RBC 3.37 M/mm3 (3.60-5.2); RDW 13.7 % (11.6-15.6); WHITE BLOOD COUNT 6.7 K/mm3 (4.0-10.0)
[2018-06-11 07:16] LABS: ANION GAP 7 MMOL/L (8-16); BLOOD UREA NITROGEN 24 mg/dL (7-18); CALCIUM 8.4 mg/dL (8.5-10.1); CHLORIDE 107 mmol/L (98-107); CO2 24 mmol/L (21-32); CREATININE 0.9 mg/dL (0.55-1.3); GLUCOSE,RANDOM 79 mg/dL (74-106); MAGNESIUM 1.9 mg/dL (1.8-2.4); PHOSPHOROUS 2.7 mg/dL (2.5-4.9); POTASSIUM 4.2 mmol/L (3.5-5.1); SODIUM 139 mmol/L (136-145)
--- NOTE | 2018-06-11 08:55 | PN ---
Progress Note (short form) - Note Progress Note: Neurology HISTORY OF PRESENT ILLNESS: 82 y/o female with a history of HTN, HLD, pacemaker, Parkinson's disease, and dementia who presents with AMS. Per EMS and patients aid patient has become nonverbal and has had a new facial droop. Contacted by ER who discussed case and patient with recent similar admission for AMS. Patient was here approximately one month ago for AMS and found to have a UTI. She was sent home on levaquin, the sensitivities showed two organisms, one of which is resistant to Levaquin. Limited history from patient but no focal deficits noted. ?of facial asymetry, CT head without acute changes. Was given IV fluids and IV Abx. More alert, awake and interactive today. Visible bradykinesia and limited movements but no focal deficits. MRI brain was ordered and awaiting completion. Allergies Allergy/AdvReac Type Severity Reaction Status Date / Time amoxicillin [Amoxicillin] Allergy Unknown Verified 05/07/18 17:24 loracarbef [From Lorabid] Allergy Unknown Verified 05/07/18 17:24 prochlorperazine edisylate Allergy Unknown Verified 05/07/18 17:24 [From Compazine] prochlorperazine maleate Allergy Unknown Verified 05/07/18 17:24 [From Compazine] promethazine HCl Allergy Unknown Verified 05/07/18 17:24 [From Phenergan] Active Medications Aspirin (Ecotrin -) 81 mg PO DAILY [facility] Last Admin: 06/10/18 09:54 Dose: Not Given Atorvastatin Calcium (Lipitor -) 10 mg PO [facility] Last Admin: 06/10/18 22:10 Dose: 10 mg Carbidopa/Levodopa (Sinemet 25/100 -) 1 each PO BID [facility] Last Admin: 06/10/18 22:10 Dose: 1 each Cholecalciferol (Vitamin D3 -) 1,000 unit PO DAILY [facility] Last Admin: 06/10/18 09:54 Dose: Not Given Gabapentin (Neurontin -) 100 mg PO HS [facility] Last Admin: 06/10/18 22:10 Dose: 100 mg Heparin Sodium (Porcine) (Heparin -) 5,000 unit SQ TID [facility] Last Admin: 06/11/18 05:32 Dose: 5,000 unit Ceftriaxone Sodium 1 gm/ (Dextrose) 50 mls @ 100 mls/hr IVPB DAILY@0600 [facility] Last Admin: 06/11/18 05:32 Dose: 100 mls/hr Sodium Chloride (Normal Saline -) 1,000 mls @ 60 mls/hr IV ASDIR [facility] Last Admin: 06/10/18 20:40 Dose: 60 mls/hr PHYSICAL EXAMINATION Vital Signs Period Temp Pulse Resp BP Sys/Moore Pulse Ox Last 24 Hr 97.4 F-98.6 F 71-93 15-20 109-200/68-82 95-100 GENERAL: awake to name calling and sternal rub HEAD: Normal with no signs of trauma. EYES: Pupils equal, round and reactive to light, extraocular movements intact LUNGS: Breath sounds equal, clear to auscultation bilaterally. No wheezes, and no crackles. No accessory muscle use. HEART: Regular rate and rhythm, 3+ systolic murmur at upper sternal borders ABDOMEN: Soft, nontender, not distended, normoactive bowel sounds, no guarding, no rebound, no masses. No hepatomegaly or splenomegaly. LOWER EXTREMITIES: 2+ pulses, warm, well-perfused. No calf tenderness. No peripheral edema. SKIN: Warm, dry, normal turgor, no rashes or lesions noted, no sacral or heel ulcers noted Neuro: ?R facial droop, nonverbal, moves upper and lower ext grossly with bradykinesia, follows minimal commands, sensory intact to tactile stim, gait deferred CBCD WBC 6.7 K/mm3 (4.0-10.0) 06/11/18 06:00 RBC 3.37 M/mm3 (3.60-5.2) L 06/11/18 06:00 Hgb 10.4 GM/dL (10.7-15.3) L 06/11/18 06:00 Hct 31.3 % (32.4-45.2) L D 06/11/18 06:00 MCV 92.7 fl (80-96) 06/11/18 06:00 MCHC 33.1 g/dl (32.0-36.0) 06/11/18 06:00 RDW 13.7 % (11.6-15.6) 06/11/18 06:00 Plt Count 342 K/MM3 (134-434) D 06/11/18 06:00 MPV 7.5 fl (7.5-11.1) 06/11/18 06:00 CMP Sodium 139 mmol/L (136-145) 06/11/18 06:00 Potassium 4.2 mmol/L (3.5-5.1) 06/11/18 06:00 Chloride 107 mmol/L (98-107) 06/11/18 06:00 Carbon Dioxide 24 mmol/L (21-32) 06/11/18 06:00 Anion Gap 7 MMOL/L (8-16) L 06/11/18 06:00 BUN 24 mg/dL (7-18) H 06/11/18 06:00 Creatinine 0.9 mg/dL (0.55-1.3) 06/11/18 06:00 Creat Clearance w eGFR > 60 (>60) 06/11/18 06:00 Random Glucose 79 mg/dL (74-106) 06/11/18 06:00 Calcium 8.4 mg/dL (8.5-10.1) L 06/11/18 06:00 Total Bilirubin 0.5 mg/dL (0.2-1) 06/09/18 23:27 AST 83 U/L (15-37) H 06/09/18 23:27 ALT 19 U/L (13-61) 06/09/18 23:27 Alkaline Phosphatase 86 U/L (45-117) 06/09/18 23:27 Total Protein 6.6 g/dl (6.4-8.2) 06/09/18 23:27 Albumin 3.4 g/dl (3.4-5.0) 06/09/18 23:27 CARDIAC ENZYMES Creatine Kinase 138 IU/L (26-192) 06/09/18 23:27 Troponin I 0.05 ng/ml (0.00-0.05) 06/10/18 17:48 ASSESSMENT/PLAN: 82 y/o female with a history of HTN, HLD, pacemaker, Parkinson's disease, and dementia who presents with AMS. Per EMS and patients aid patient has become nonverbal and has had a new facial droop. Contacted by ER who discussed case and patient with recent similar admission for AMS. Patient was here approximately one month ago for AMS and found to have a UTI. She was sent home on levaquin, the sensitivities showed two organisms, one of which is resistant to Levaquin. Limited history from patient but no focal deficits noted. ?of facial asymetry, CT head without acute changes. Was given IV fluids and IV Abx. Possibly toxic metabolic encephalopathy 2/2 infection but awaiting MRI brain to evaluate for infarct. Improving mental status. Carotid doppler from 03/29 showed moderate size plaque at right bifurcation, with 50-69% stenosis, moderate size plaque at left carotid with no sign of stenosis. PT, Speech eval recommended. Continue IV Abx, follow up Ucx. Maintain adequate hydration (cr elevated on admission from 1.2 to 1.7). Will increase sinemet to TID as more able to examine today and significant bradykinesia.
[2018-06-11] MEDS ORDERED: PT OWN MED DRAWER 7, Y5N ONE ×2 (10:29→12:57)
[2018-06-11] MEDS: CHOLECALCIFEROL (VITAMIN D3) 1,000 UNIT TABLET (FP) PO SCH (11:06)
[2018-06-11] MEDS: ASPIRIN COATED 81 MG TABLET.EC PO SCH (11:06)
--- NOTE | 2018-06-11 11:49 | PN ---
Physical Exam: SUBJECTIVE: Patient seen and examined. No acute events overnight. Pt. had BP to 200s/70s. 10mg of Hydralazine was given once to good effect. Pt. denies chest pain, shortness of breath, abdominal pain, dysuria, cough or fever. OBJECTIVE: Vital Signs Period Temp Pulse Resp BP Sys/Moore Pulse Ox Last 24 Hr 97.4 F-98.6 F 68-93 15-20 138-200/68-82 95-100 GENERAL: The patient is awake, alert, and fully oriented, in no acute distress. EYES: sclera anicteric, conjunctiva clear. No ptosis. ENT: Ears normal, nares patent, oropharynx clear without exudates, moist mucous membranes. LUNGS: Coarse breath sounds, no wheezes, no crackles, no accessory muscle use. HEART: Regular rate and rhythm, S1, S2 with a click ABDOMEN: Soft, nontender, nondistended, normoactive bowel sounds, no guarding, no rebound EXTREMITIES: 2+ dorsal pedal pulses, warm, no calf tenderness, well-perfused, no edema. NEUROLOGICAL: Normal speech, gait not observed. PSYCH: Improved eye contact from yesterday SKIN: Warm, dry, normal turgor, no rashes or lesions noted Laboratory Results - last 24 hr 06/10/18 06/11/18 06/11/18 17:48 06:00 06:00 WBC 6.7 RBC 3.37 L Hgb 10.4 L Hct 31.3 L D MCV 92.7 MCH 30.7 MCHC 33.1 RDW 13.7 Plt Count 342 D MPV 7.5 Absolute Neuts (auto) 4.7 Neutrophils % 69.7 D Lymphocytes % 23.0 D Monocytes % 5.4 Eosinophils % 1.0 D Basophils % 0.9 D Nucleated RBC % 0 Sodium 139 Potassium 4.2 Chloride 107 Carbon Dioxide 24 Anion Gap 7 L BUN 24 H Creatinine 0.9 Creat Clearance w eGFR > 60 Random Glucose 79 Calcium 8.4 L Phosphorus 2.7 Magnesium 1.9 Troponin I 0.05 TSH 06/11/18 06:00 WBC RBC Hgb Hct MCV MCH MCHC RDW Plt Count MPV Absolute Neuts (auto) Neutrophils % Lymphocytes % Monocytes % Eosinophils % Basophils % Nucleated RBC % Sodium Potassium Chloride Carbon Dioxide Anion Gap BUN Creatinine Creat Clearance w eGFR Random Glucose Calcium Phosphorus Magnesium Troponin I TSH 0.86 Active Medications Current Medications Aspirin (Ecotrin -) 81 mg PO DAILY [facility] Last Admin: 06/11/18 11:06 Dose: 81 mg Atorvastatin Calcium (Lipitor -) 10 mg PO HS [facility] Last Admin: 06/10/18 22:10 Dose: 10 mg Carbidopa/Levodopa (Sinemet 25/100 -) 1 each PO TID [facility] Last Admin: 06/11/18 13:43 Dose: 1 each Cholecalciferol (Vitamin D3 -) 1,000 unit PO DAILY [facility] Last Admin: 06/11/18 11:06 Dose: 1,000 unit Gabapentin (Neurontin -) 100 mg PO HS [facility] Last Admin: 06/10/18 22:10 Dose: 100 mg Heparin Sodium (Porcine) (Heparin -) 5,000 unit SQ TID [facility] Last Admin: 06/11/18 13:43 Dose: 5,000 unit Ceftriaxone Sodium 1 gm/ (Dextrose) 50 mls @ 100 mls/hr IVPB DAILY@0600 [facility] Last Admin: 06/11/18 05:32 Dose: 100 mls/hr Sodium Chloride (Normal Saline -) 1,000 mls @ 60 mls/hr IV ASDIR [facility] Last Admin: 06/10/18 20:40 Dose: 60 mls/hr Home Medications Medication Instructions Recorded Gabapentin [Neurontin -] 100 mg PO HS #0 capsule 10/02/14 Carbidopa/Levodopa [Carbidopa-Levo 1 each PO BID 12/26/14 25-100 Tab] Aspirin [Aspirin EC] 81 mg PO DAILY 04/06/17 Cholecalciferol (Vitamin D3) 1,000 unit PO DAILY 04/06/17 [Vitamin D3 -] Atorvastatin Ca [Lipitor] 10 mg PO HS #30 tablet 05/08/18 levoFLOXacin [Levaquin -] 250 mg PO DAILY@0600 #9 tablet 05/08/18 ASSESSMENT/PLAN: Patient is a 82 y/o female with a history of HTN, HLD, pacemaker, Parkinson's disease, and dementia who presents with AMS 2/2 to UTI. Recently admitted for UTI, growing Strep. Enterococci and Proteus Mirabalis (resistant to Levaquin) on previous admission. #Urology -Uncomplicated UTI UA+ c/w Ceftriaxone UCx. + for Proteus, awaiting sensitivities #Neurology -Parkinson's Disease c/w Sinemet -AMS-resolved Pt. has a PPM and is unable to obtain MRI #Cardiology -HLD c/w ASA 81mg c/w Lipitor 10 mg #F/E/N -Decreased NS to 60mls/hr -monitor electrolyes and replete as needed -Dysphagia Puree diet #DVT Ppx. -Hep SQ TID Visit type - Emergency Visit Emergency Visit: Yes ED Registration Date: 06/10/18 Care time: The patient presented to the Emergency Department on the above date and was hospitalized for further evaluation of their emergent condition. - New Patient This patient is new to me today: No - Critical Care Critical Care patient: No - Discharge Referral Referred to [facility] Med P.C.: No
--- NOTE | 2018-06-11 12:04 | PN ---
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 Thinks she is at [facility], says she is "ancient." Reports feeling better. Hypophonic. Flat affect.c/w Parkinsons disease. Tolerating Dys puree/nectar thick liquid. Selected Entries 06/10/18 06/10/18 06/10/18 06:00 17:35 20:00 Breakfast Temperature 99.6 F 98.6 F 97.6 F 06/10/18 06/11/18 06/11/18 22:15 02:00 06:00 Breakfast Temperature 97.8 F 97.4 F L 98.6 F 06/11/18 06/11/18 10:00 10:41 Breakfast 25% Temperature 97.8 F Laboratory Tests 06/09/18 06/11/18 23:04 06:00 WBC 20.6 H 6.7 Continue diet as ordered for now. Provide supplements after meals to increase nutritional intake.
[2018-06-11] MEDS: CARBIDOPA/LEVODOPA 25/100 TABLET (FP) PO SCH ×2 (13:43→21:16)
--- NOTE | 2018-06-11 14:10 | PN ---
Teaching Attending Note Name of Resident: James Aguilar ATTENDING PHYSICIAN STATEMENT I saw and evaluated the patient. I reviewed the resident's note and discussed the case with the resident. I agree with the resident's findings and plan as documented. SUBJECTIVE: Patient is feeling better today. more awake, answers to questions.AAox3 OBJECTIVE: Vital Signs Temperature 97.8 F 06/11/18 10:00 Pulse Rate 68 06/11/18 10:00 Respiratory Rate 18 06/11/18 10:00 Blood Pressure 148/76 06/11/18 10:00 O2 Sat by Pulse Oximetry (%) 95 06/11/18 09:00 GENERAL: AA0x3 HEAD: Normal with no signs of trauma. EYES: Pupils equal, round and reactive to light, extraocular movements intact LUNGS: Breath sounds equal, clear to auscultation bilaterally. No wheezes, and no crackles. No accessory muscle use. HEART: Regular rate and rhythm, MARKO 2/6 systolic murmur at upper sternal borders ABDOMEN: Soft, nontender, not distended, normoactive bowel sounds, no guarding, no rebound, no masses. EXTREMITIES: 2+ pulses, warm, well-perfused. No calf tenderness. No peripheral edema. SKIN: Warm, dry, normal turgor, no rashes or lesions noted, no sacral or heel ulcers noted neuro:AA0x3 CBCD WBC 6.7 K/mm3 (4.0-10.0) 06/11/18 06:00 RBC 3.37 M/mm3 (3.60-5.2) L 06/11/18 06:00 Hgb 10.4 GM/dL (10.7-15.3) L 06/11/18 06:00 Hct 31.3 % (32.4-45.2) L D 06/11/18 06:00 MCV 92.7 fl (80-96) 06/11/18 06:00 MCHC 33.1 g/dl (32.0-36.0) 06/11/18 06:00 RDW 13.7 % (11.6-15.6) 06/11/18 06:00 Plt Count 342 K/MM3 (134-434) D 06/11/18 06:00 MPV 7.5 fl (7.5-11.1) 06/11/18 06:00 CMP Sodium 139 mmol/L (136-145) 06/11/18 06:00 Potassium 4.2 mmol/L (3.5-5.1) 06/11/18 06:00 Chloride 107 mmol/L (98-107) 06/11/18 06:00 Carbon Dioxide 24 mmol/L (21-32) 06/11/18 06:00 Anion Gap 7 MMOL/L (8-16) L 06/11/18 06:00 BUN 24 mg/dL (7-18) H 06/11/18 06:00 Creatinine 0.9 mg/dL (0.55-1.3) 06/11/18 06:00 Creat Clearance w eGFR > 60 (>60) 06/11/18 06:00 Random Glucose 79 mg/dL (74-106) 06/11/18 06:00 Calcium 8.4 mg/dL (8.5-10.1) L 06/11/18 06:00 Total Bilirubin 0.5 mg/dL (0.2-1) 06/09/18 23:27 AST 83 U/L (15-37) H 06/09/18 23:27 ALT 19 U/L (13-61) 06/09/18 23:27 Alkaline Phosphatase 86 U/L (45-117) 06/09/18 23:27 Total Protein 6.6 g/dl (6.4-8.2) 06/09/18 23:27 Albumin 3.4 g/dl (3.4-5.0) 06/09/18 23:27 CARDIAC ENZYMES Creatine Kinase 138 IU/L (26-192) 06/09/18 23:27 Troponin I 0.05 ng/ml (0.00-0.05) 06/10/18 17:48 Current Medications Generic Name Dose Route Start Last Admin Trade Name Freq PRN Reason Stop Dose Admin Aspirin 81 mg 06/10/18 10:00 06/11/18 11:06 Ecotrin - PO 81 mg DAILY ALTHEA Administration Atorvastatin Calcium 10 mg 06/10/18 22:00 06/10/18 22:10 Lipitor - PO 10 mg HS ALTHEA Administration Carbidopa/Levodopa 1 each 06/11/18 14:00 06/11/18 13:43 Sinemet 25/100 - PO 1 each TID ALTHEA Administration Cholecalciferol 1,000 unit 06/10/18 10:00 06/11/18 11:06 Vitamin D3 - PO 1,000 unit DAILY ALTHEA Administration Gabapentin 100 mg 06/10/18 22:00 06/10/18 22:10 Neurontin - PO 100 mg HS ALTHEA Administration Heparin Sodium (Porcine) 5,000 unit 06/10/18 06:00 06/11/18 13:43 Heparin - SQ 5,000 unit TID ALTHEA Administration Ceftriaxone Sodium 1 gm/ 50 mls @ 100 mls/hr 06/10/18 06:00 06/11/18 05:32 Dextrose IVPB 100 mls/hr DAILY@0600 AL[facility]A Administration Sodium Chloride 1,000 mls @ 60 mls/hr 06/10/18 19:30 06/10/18 20:40 Normal Saline - IV 60 mls/hr ASDIR ALTHEA Administration Home Medications Medication Instructions Recorded Gabapentin [Neurontin -] 100 mg PO HS #0 capsule 10/02/14 Carbidopa/Levodopa [Carbidopa-Levo 1 each PO BID 12/26/14 25-100 Tab] Aspirin [Aspirin EC] 81 mg PO DAILY 04/06/17 Cholecalciferol (Vitamin D3) 1,000 unit PO DAILY 04/06/17 [Vitamin D3 -] Atorvastatin Ca [Lipitor] 10 mg PO HS #30 tablet 05/08/18 levoFLOXacin [Levaquin -] 250 mg PO DAILY@0600 #9 tablet 05/08/18 Microbiology 06/10/18 00:10 Urine - Urine - Catheterized Urine Culture - Preliminary Proteus Species ASSESSMENT AND PLAN: Patient is a 82 y/o female with a history of HTN, HLD, pacemaker, Parkinson's disease, and dementia who presents with AMS. 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 #UTI : positive UTI 04/30 with enteroccocus faecalis and Proteus Miralbis; on Ceftriaxone 1gm as per previous urine culture sensitive to ceftriaxone, not to levaquin. Waiting for repeat sensitivity will continue #LAUREN : dehydration; Cr: 1.7, on ivf #hyperlipidemia: continue atorvastatin 10 mg #Parkinson's: continue carbidopa/levodopa #hyperthyroidism: f/u TSH #dementia: f/u goals of care: f/u Vitamin B12 level DVT: heparin dc in am once sensitivity is back
[2018-06-11] MEDS: SODIUM CHLORIDE 1,000 ML IV SCH (21:16)
[2018-06-11] MEDS: ATORVASTATIN CA 10 MG TABLET (FP) PO SCH (21:16)
[2018-06-11] MEDS: GABAPENTIN 100 MG CAPSULE (FP) PO SCH (21:16)
[2018-06-12] MEDS ORDERED: cefTRIAXone SODIUM 1 GM VIAL ONE (05:22)
[2018-06-12] MEDS ORDERED: DEXTROSE 5%-WATER - 50 ML IVPB ONE (05:23)
[2018-06-12] MEDS: HEPARIN NA (PORCINE) 5,000 UNITS/ML 1ML VIAL SQ SCH ×3 (05:35→22:10)
[2018-06-12] MEDS: CARBIDOPA/LEVODOPA 25/100 TABLET (FP) PO SCH ×3 (05:36→22:11)
[2018-06-12] MEDS: CEFTRIAXONE 1 GM in DEXTROSE 5%-WATER - 50 ML IVPB SCH (05:36)
[2018-06-12] MEDS: SODIUM CHLORIDE 1,000 ML IV SCH (05:38)
[2018-06-12 07:29] LABS: EOS % 2.4 % (0-4.5); HEMATOCRIT 30.5 % (32.4-45.2); LYMPH % 25.7 % (8-40); MCH 30.3 pg (25.7-33.7); MCHC 32.9 g/dl (32.0-36.0); MEAN CELL VOLUME 92.1 fl (80-96); MEAN PLT VOLUME 7.4 fl (7.5-11.1); MONO % 6.1 % (3.8-10.2); NEUT % 64.8 % (42.8-82.8); PLATELET COUNT 325 K/MM3 (134-434); RBC 3.31 M/mm3 (3.60-5.2); RDW 14.2 % (11.6-15.6); WHITE BLOOD COUNT 5.6 K/mm3 (4.0-10.0)
[2018-06-12 08:33] LABS: ANION GAP 4 MMOL/L (8-16); BLOOD UREA NITROGEN 18 mg/dL (7-18); CALCIUM 8.3 mg/dL (8.5-10.1); CHLORIDE 107 mmol/L (98-107); CO2 25 mmol/L (21-32); CREATININE 0.9 mg/dL (0.55-1.3); GLUCOSE,RANDOM 88 mg/dL (74-106); MAGNESIUM 2.1 mg/dL (1.8-2.4); POTASSIUM 3.6 mmol/L (3.5-5.1); SODIUM 137 mmol/L (136-145)
--- NOTE | 2018-06-12 08:53 | PN ---
Progress Note (short form) - Note Progress Note: Neurology HISTORY OF PRESENT ILLNESS: 82 y/o female with a history of HTN, HLD, pacemaker, Parkinson's disease, and dementia who presents with AMS. Per EMS and patients aid patient has become nonverbal and has had a new facial droop. Contacted by ER who discussed case and patient with recent similar admission for AMS. Patient was here approximately one month ago for AMS and found to have a UTI. She was sent home on levaquin, the sensitivities showed two organisms, one of which is resistant to Levaquin. Limited history from patient but no focal deficits noted. ?of facial asymetry, CT head without acute changes. Was given IV fluids and IV Abx. More alert, awake and interactive today. Sinemet increased to TID. Less rigidity with medication adjustment, no side effects noted. Allergies Allergy/AdvReac Type Severity Reaction Status Date / Time amoxicillin [Amoxicillin] Allergy Unknown Verified 05/07/18 17:24 loracarbef [From Lorabid] Allergy Unknown Verified 05/07/18 17:24 prochlorperazine edisylate Allergy Unknown Verified 05/07/18 17:24 [From Compazine] prochlorperazine maleate Allergy Unknown Verified 05/07/18 17:24 [From Compazine] promethazine HCl Allergy Unknown Verified 05/07/18 17:24 [From Phenergan] Active Medications Aspirin (Ecotrin -) 81 mg PO DAILY [facility] Last Admin: 06/11/18 11:06 Dose: 81 mg Atorvastatin Calcium (Lipitor -) 10 mg PO [facility] Last Admin: 06/11/18 21:16 Dose: 10 mg Carbidopa/Levodopa (Sinemet 25/100 -) 1 each PO TID [facility] Last Admin: 06/12/18 05:36 Dose: 1 each Cholecalciferol (Vitamin D3 -) 1,000 unit PO DAILY [facility] Last Admin: 06/11/18 11:06 Dose: 1,000 unit Gabapentin (Neurontin -) 100 mg PO HS [facility] Last Admin: 06/11/18 21:16 Dose: 100 mg Heparin Sodium (Porcine) (Heparin -) 5,000 unit SQ TID [facility] Last Admin: 06/12/18 05:35 Dose: 5,000 unit Ceftriaxone Sodium 1 gm/ (Dextrose) 50 mls @ 100 mls/hr IVPB DAILY@0600 [facility] Last Admin: 06/12/18 05:36 Dose: 100 mls/hr Sodium Chloride (Normal Saline -) 1,000 mls @ 60 mls/hr IV ASDIR [facility] Last Admin: 06/12/18 05:38 Dose: 60 mls/hr PHYSICAL EXAMINATION Vital Signs Temperature 98 F 06/12/18 05:43 Pulse Rate 71 06/12/18 05:43 Respiratory Rate 18 06/12/18 05:43 Blood Pressure 149/88 06/12/18 05:43 O2 Sat by Pulse Oximetry (%) 95 06/11/18 21:00 GENERAL: awake to name calling and sternal rub HEAD: Normal with no signs of trauma. EYES: Pupils equal, round and reactive to light, extraocular movements intact LUNGS: Breath sounds equal, clear to auscultation bilaterally. No wheezes, and no crackles. No accessory muscle use. HEART: Regular rate and rhythm, 3+ systolic murmur at upper sternal borders ABDOMEN: Soft, nontender, not distended, normoactive bowel sounds, no guarding, no rebound, no masses. No hepatomegaly or splenomegaly. LOWER EXTREMITIES: 2+ pulses, warm, well-perfused. No calf tenderness. No peripheral edema. SKIN: Warm, dry, normal turgor, no rashes or lesions noted, no sacral or heel ulcers noted Neuro: ?R facial droop, nonverbal, moves upper and lower ext grossly with bradykinesia, follows minimal commands, sensory intact to tactile stim, gait deferred CBCD WBC 5.6 K/mm3 (4.0-10.0) 06/12/18 07:10 RBC 3.31 M/mm3 (3.60-5.2) L 06/12/18 07:10 Hgb 10.0 GM/dL (10.7-15.3) L 06/12/18 07:10 Hct 30.5 % (32.4-45.2) L 06/12/18 07:10 MCV 92.1 fl (80-96) 06/12/18 07:10 MCHC 32.9 g/dl (32.0-36.0) 06/12/18 07:10 RDW 14.2 % (11.6-15.6) 06/12/18 07:10 Plt Count 325 K/MM3 (134-434) 06/12/18 07:10 MPV 7.4 fl (7.5-11.1) L 06/12/18 07:10 CMP Sodium 137 mmol/L (136-145) 06/12/18 07:10 Potassium 3.6 mmol/L (3.5-5.1) 06/12/18 07:10 Chloride 107 mmol/L (98-107) 06/12/18 07:10 Carbon Dioxide 25 mmol/L (21-32) 06/12/18 07:10 Anion Gap 4 MMOL/L (8-16) L 06/12/18 07:10 BUN 18 mg/dL (7-18) 06/12/18 07:10 Creatinine 0.9 mg/dL (0.55-1.3) 06/12/18 07:10 Creat Clearance w eGFR > 60 (>60) 06/12/18 07:10 Random Glucose 88 mg/dL (74-106) 06/12/18 07:10 Calcium 8.3 mg/dL (8.5-10.1) L 06/12/18 07:10 Total Bilirubin 0.5 mg/dL (0.2-1) 06/09/18 23:27 AST 83 U/L (15-37) H 06/09/18 23:27 ALT 19 U/L (13-61) 06/09/18 23:27 Alkaline Phosphatase 86 U/L (45-117) 06/09/18 23:27 Total Protein 6.6 g/dl (6.4-8.2) 06/09/18 23:27 Albumin 3.4 g/dl (3.4-5.0) 06/09/18 23:27 CARDIAC ENZYMES Creatine Kinase 138 IU/L (26-192) 06/09/18 23:27 Troponin I 0.05 ng/ml (0.00-0.05) 06/10/18 17:48 ASSESSMENT/PLAN: 82 y/o female with a history of HTN, HLD, pacemaker, Parkinson's disease, and dementia who presents with AMS. Per EMS and patients aid patient has become nonverbal and has had a new facial droop. Contacted by ER who discussed case and patient with recent similar admission for AMS. Patient was here approximately one month ago for AMS and found to have a UTI. She was sent home on levaquin, the sensitivities showed two organisms, one of which is resistant to Levaquin. Limited history from patient but no focal deficits noted. ?of facial asymetry, CT head without acute changes. Was given IV fluids and IV Abx. Possibly toxic metabolic encephalopathy 2/2 infection but awaiting MRI brain to evaluate for infarct. Improving mental status. Carotid doppler from 03/29 showed moderate size plaque at right bifurcation, with 50-69% stenosis, moderate size plaque at left carotid with no sign of stenosis. PT, Speech eval recommended. Continue IV Abx, follow up Ucx. Maintain adequate hydration (cr elevated on admission from 1.2 to 1.7). Sinemet adjusted to TID with slight improved bradykinesia.
[2018-06-12] MEDS ORDERED: PT OWN MED DRAWER 7, Y5N ONE ×2 (09:42→21:32)
[2018-06-12] MEDS: ASPIRIN COATED 81 MG TABLET.EC PO SCH (09:59)
[2018-06-12] MEDS: CHOLECALCIFEROL (VITAMIN D3) 1,000 UNIT TABLET (FP) PO SCH (09:59)
[2018-06-12] MEDS ORDERED: NAPH,MB-DB/K PH,MBDB POWDER PACKET PO ONE (10:15)
--- NOTE | 2018-06-12 10:53 | PN ---
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 Hypokinetic Dysarthria c/e Parkinsons. Masked facies. Right facial at rest. Swallowing improving. Tolerating sips of thin tea that I gave her. REC: Trial of regulart chopped diet and thin liquid/ If signs of dysphagia observed or reported, MBS
--- NOTE | 2018-06-12 12:33 | PN ---
Physical Exam: SUBJECTIVE: Patient seen and examined. No acute events overnight. Pt. denies fever, chills nausea and vomiting. OBJECTIVE: Vital Signs Period Temp Pulse Resp BP Sys/Moore Pulse Ox Last 24 Hr 97.4 F-98.7 F 69-80 16-18 113-163/59-89 95-96 GENERAL: The patient is awake, alert, and fully oriented, in no acute distress. EYES: sclera anicteric, conjunctiva clear. No ptosis. ENT: Ears normal, nares patent, oropharynx clear without exudates, moist mucous membranes. LUNGS: Coarse breath sounds, no wheezes, no crackles, no accessory muscle use. HEART: Regular rate and rhythm, S1, S2 with a click ABDOMEN: Soft, nontender, nondistended, normoactive bowel sounds, no guarding, no rebound EXTREMITIES: 2+ dorsal pedal pulses, warm, no calf tenderness, well-perfused, no edema. NEUROLOGICAL: Normal speech, gait not observed. PSYCH: Improved eye contact from yesterday SKIN: Warm, dry, normal turgor, no rashes or lesions noted Laboratory Results - last 24 hr 06/12/18 06/12/18 07:10 07:10 WBC 5.6 RBC 3.31 L Hgb 10.0 L Hct 30.5 L MCV 92.1 MCH 30.3 MCHC 32.9 RDW 14.2 Plt Count 325 MPV 7.4 L Absolute Neuts (auto) 3.6 Neutrophils % 64.8 Lymphocytes % 25.7 Monocytes % 6.1 Eosinophils % 2.4 D Basophils % 1.0 Nucleated RBC % 0 Sodium 137 Potassium 3.6 Chloride 107 Carbon Dioxide 25 Anion Gap 4 L BUN 18 Creatinine 0.9 Creat Clearance w eGFR > 60 Random Glucose 88 Calcium 8.3 L Phosphorus 2.0 L Magnesium 2.1 Active Medications Current Medications Aspirin (Ecotrin -) 81 mg PO DAILY [facility] Last Admin: 06/12/18 09:59 Dose: 81 mg Atorvastatin Calcium (Lipitor -) 10 mg PO HS [facility] Last Admin: 06/11/18 21:16 Dose: 10 mg Carbidopa/Levodopa (Sinemet 25/100 -) 1 each PO TID [facility] Last Admin: 06/12/18 05:36 Dose: 1 each Cholecalciferol (Vitamin D3 -) 1,000 unit PO DAILY [facility] Last Admin: 06/12/18 09:59 Dose: 1,000 unit Gabapentin (Neurontin -) 100 mg PO HS [facility] Last Admin: 06/11/18 21:16 Dose: 100 mg Heparin Sodium (Porcine) (Heparin -) 5,000 unit SQ TID [facility] Last Admin: 06/12/18 05:35 Dose: 5,000 unit Ceftriaxone Sodium 1 gm/ (Dextrose) 50 mls @ 100 mls/hr IVPB DAILY@0600 [facility] Last Admin: 06/12/18 05:36 Dose: 100 mls/hr Sodium Chloride (Normal Saline -) 1,000 mls @ 60 mls/hr IV ASDIR [facility] Last Admin: 06/12/18 05:38 Dose: 60 mls/hr Home Medications Medication Instructions Recorded Gabapentin [Neurontin -] 100 mg PO HS #0 capsule 10/02/14 Carbidopa/Levodopa [Carbidopa-Levo 1 each PO BID 12/26/14 25-100 Tab] Aspirin [Aspirin EC] 81 mg PO DAILY 04/06/17 Cholecalciferol (Vitamin D3) 1,000 unit PO DAILY 04/06/17 [Vitamin D3 -] Atorvastatin Ca [Lipitor] 10 mg PO HS #30 tablet 05/08/18 levoFLOXacin [Levaquin -] 250 mg PO DAILY@0600 #9 tablet 05/08/18 ASSESSMENT/PLAN: Patient is a 82 y/o female with a history of HTN, HLD, pacemaker, Parkinson's disease, and dementia who presents with AMS 2/2 to UTI. Recently admitted for UTI, growing Strep. Enterococci and Proteus Mirabalis (resistant to Levaquin) on previous admission. #Urology -Uncomplicated UTI UA+ c/w Ceftriaxone UCx. + for Proteus resistant to Levaquin, Nitrofuratonin, Bactrim and Ampicillin. consider switchign to PO Abx. after following up appreciated Speech and Swallow evaluation #Neurology -Parkinson's Disease c/w Sinemet TID -AMS-resolved Pt. has a PPM and is unable to obtain MRI #Cardiology -HLD c/w ASA 81mg c/w Lipitor 10 mg #F/E/N -Decreased NS to 60mls/hr -monitor electrolyes and replete as needed -Dysphagia Puree diet #DVT Ppx. -Hep SQ TID Visit type - Emergency Visit Emergency Visit: Yes ED Registration Date: 06/10/18 Care time: The patient presented to the Emergency Department on the above date and was hospitalized for further evaluation of their emergent condition. - New Patient This patient is new to me today: No - Critical Care Critical Care patient: No - Discharge Referral Referred to [facility] Med P.C.: Yes
[2018-06-12 12:59] VITALS: BMI 22.1
--- NOTE | 2018-06-12 17:53 | PN ---
Teaching Attending Note Name of Resident: James Aguilar ATTENDING PHYSICIAN STATEMENT I saw and evaluated the patient. I reviewed the resident's note and discussed the case with the resident. I agree with the resident's findings and plan as documented. SUBJECTIVE: No pain, no SOB . feels better OBJECTIVE: NAD , flat affect . CV: RRR, 3/6 SM best heard at apex . 3/6 SM at RUSB Lungs: CTAB Abd: sft, NT, ND , NL BS Ext: no edema A/P The patient is a 79-year-old female with a PMH of: Hypothyroidism, Syncope, Bronchitis, HTN, Parkinson's Disease, Anemia, Dementia , and recent admission and treatment for UTI , who presented with AMS and was found to have UTI. 1- AMS : toxic metabolic encephalopathy. due to UTI . resolved . hydrocephalus is chronic and not new 2- UTI with proteus : cont Abx . can switch to PO vantin. total of 10 days given elevated WBC on admission 3- dispo : need rehab . dc when bed available
[2018-06-12] MEDS ORDERED: SODIUM CHLORIDE 1,000 ML IV SCH (19:00)
[2018-06-12] MEDS ORDERED: CEFPODOXIME PROXETIL 100 MG TABLET PO SCH (22:00)
[2018-06-12] MEDS: ATORVASTATIN CA 10 MG TABLET (FP) PO SCH (22:10)
[2018-06-12] MEDS: GABAPENTIN 100 MG CAPSULE (FP) PO SCH (22:11)
[2018-06-13] MEDS: CARBIDOPA/LEVODOPA 25/100 TABLET (FP) PO SCH ×3 (06:03→21:35)
[2018-06-13] MEDS: HEPARIN NA (PORCINE) 5,000 UNITS/ML 1ML VIAL SQ SCH ×3 (06:04→21:37)
[2018-06-13] MEDS ORDERED: amLODIPine BESYLATE 5 MG TABLET (FP) PO ONE ×2 (07:39→15:10)
[2018-06-13] MEDS ORDERED: PT OWN MED DRAWER 7, Y5N ONE ×3 (09:24→21:15)
--- NOTE | 2018-06-13 09:24 | PN ---
Progress Note (short form) - Note Progress Note: Neurology HISTORY OF PRESENT ILLNESS: 82 y/o female with a history of HTN, HLD, pacemaker, Parkinson's disease, and dementia who presents with AMS. Per EMS and patients aid patient has become nonverbal and has had a new facial droop. Contacted by ER who discussed case and patient with recent similar admission for AMS. Patient was here approximately one month ago for AMS and found to have a UTI. She was sent home on levaquin, the sensitivities showed two organisms, one of which is resistant to Levaquin. Limited history from patient but no focal deficits noted. ?of facial asymetry, CT head without acute changes. Was given IV fluids and IV Abx. More alert, awake and interactive today. Sinemet increased to TID. Improved in movement and mental status. Reviewed hospitalist note, recently switched to Vantin, dispo being planned. Neurologically more interactive and with less rigidity. Allergies Allergy/AdvReac Type Severity Reaction Status Date / Time amoxicillin [Amoxicillin] Allergy Unknown Verified 05/07/18 17:24 loracarbef [From Lorabid] Allergy Unknown Verified 05/07/18 17:24 prochlorperazine edisylate Allergy Unknown Verified 05/07/18 17:24 [From Compazine] prochlorperazine maleate Allergy Unknown Verified 05/07/18 17:24 [From Compazine] promethazine HCl Allergy Unknown Verified 05/07/18 17:24 [From Phenergan] Active Medications Amlodipine Besylate (Norvasc -) 5 mg PO DAILY [facility] Aspirin (Ecotrin -) 81 mg PO DAILY [facility] Last Admin: 06/12/18 09:59 Dose: 81 mg Atorvastatin Calcium (Lipitor -) 10 mg PO [facility] Last Admin: 06/12/18 22:10 Dose: 10 mg Carbidopa/Levodopa (Sinemet 25/100 -) 1 each PO TID [facility] Last Admin: 06/13/18 06:03 Dose: 1 each Cefpodoxime Proxetil (Vantin -) 200 mg PO BID [facility] Cholecalciferol (Vitamin D3 -) 1,000 unit PO DAILY [facility] Last Admin: 06/12/18 09:59 Dose: 1,000 unit Gabapentin (Neurontin -) 100 mg PO [facility] Last Admin: 06/12/18 22:11 Dose: 100 mg Heparin Sodium (Porcine) (Heparin -) 5,000 unit SQ TID [facility] Last Admin: 06/13/18 06:04 Dose: 5,000 unit Sodium Chloride (Normal Saline -) 1,000 mls @ 42 mls/hr IV ASDIR [facility] Stop: 06/13/18 18:49 Last Admin: 06/12/18 19:10 Dose: 42 mls/hr PHYSICAL EXAMINATION Vital Signs Temperature 97.9 F 06/13/18 06:00 Pulse Rate 68 06/13/18 06:00 Respiratory Rate 20 06/13/18 06:00 Blood Pressure 167/77 06/13/18 06:00 O2 Sat by Pulse Oximetry (%) 96 06/12/18 21:00 GENERAL: awake to name calling and sternal rub HEAD: Normal with no signs of trauma. EYES: Pupils equal, round and reactive to light, extraocular movements intact LUNGS: Breath sounds equal, clear to auscultation bilaterally. No wheezes, and no crackles. No accessory muscle use. HEART: Regular rate and rhythm, 3+ systolic murmur at upper sternal borders ABDOMEN: Soft, nontender, not distended, normoactive bowel sounds, no guarding, no rebound, no masses. No hepatomegaly or splenomegaly. LOWER EXTREMITIES: 2+ pulses, warm, well-perfused. No calf tenderness. No peripheral edema. SKIN: Warm, dry, normal turgor, no rashes or lesions noted, no sacral or heel ulcers noted Neuro: ?R facial droop, nonverbal, moves upper and lower ext grossly with bradykinesia, follows minimal commands, sensory intact to tactile stim, gait deferred CBCD WBC 5.6 K/mm3 (4.0-10.0) 06/12/18 07:10 RBC 3.31 M/mm3 (3.60-5.2) L 06/12/18 07:10 Hgb 10.0 GM/dL (10.7-15.3) L 06/12/18 07:10 Hct 30.5 % (32.4-45.2) L 06/12/18 07:10 MCV 92.1 fl (80-96) 06/12/18 07:10 MCHC 32.9 g/dl (32.0-36.0) 06/12/18 07:10 RDW 14.2 % (11.6-15.6) 06/12/18 07:10 Plt Count 325 K/MM3 (134-434) 06/12/18 07:10 MPV 7.4 fl (7.5-11.1) L 06/12/18 07:10 CMP Sodium 137 mmol/L (136-145) 06/12/18 07:10 Potassium 3.6 mmol/L (3.5-5.1) 06/12/18 07:10 Chloride 107 mmol/L (98-107) 06/12/18 07:10 Carbon Dioxide 25 mmol/L (21-32) 06/12/18 07:10 Anion Gap 4 MMOL/L (8-16) L 06/12/18 07:10 BUN 18 mg/dL (7-18) 06/12/18 07:10 Creatinine 0.9 mg/dL (0.55-1.3) 06/12/18 07:10 Creat Clearance w eGFR > 60 (>60) 06/12/18 07:10 Random Glucose 88 mg/dL (74-106) 06/12/18 07:10 Calcium 8.3 mg/dL (8.5-10.1) L 06/12/18 07:10 Total Bilirubin 0.5 mg/dL (0.2-1) 06/09/18 23:27 AST 83 U/L (15-37) H 06/09/18 23:27 ALT 19 U/L (13-61) 06/09/18 23:27 Alkaline Phosphatase 86 U/L (45-117) 06/09/18 23:27 Total Protein 6.6 g/dl (6.4-8.2) 06/09/18 23:27 Albumin 3.4 g/dl (3.4-5.0) 06/09/18 23:27 CARDIAC ENZYMES Creatine Kinase 138 IU/L (26-192) 06/09/18 23:27 Troponin I 0.05 ng/ml (0.00-0.05) 06/10/18 17:48 ASSESSMENT/PLAN: 82 y/o female with a history of HTN, HLD, pacemaker, Parkinson's disease, and dementia who presents with AMS. Per EMS and patients aid patient has become nonverbal and has had a new facial droop. Contacted by ER who discussed case and patient with recent similar admission for AMS. Patient was here approximately one month ago for AMS and found to have a UTI. She was sent home on levaquin, the sensitivities showed two organisms, one of which is resistant to Levaquin. Limited history from patient but no focal deficits noted. ?of facial asymetry, CT head without acute changes. Was given IV fluids and IV Abx. Possibly toxic metabolic encephalopathy 2/2 infection but awaiting MRI brain to evaluate for infarct. Improving mental status. Carotid doppler from 03/29 showed moderate size plaque at right bifurcation, with 50-69% stenosis, moderate size plaque at left carotid with no sign of stenosis. PT, Speech eval recommended. Maintain adequate hydration Sinemet adjusted to TID, neurologically improved. Dispo per primary and social work.
[2018-06-13] MEDS: ASPIRIN COATED 81 MG TABLET.EC PO SCH (09:28)
[2018-06-13] MEDS: CHOLECALCIFEROL (VITAMIN D3) 1,000 UNIT TABLET (FP) PO SCH (09:29)
[2018-06-13] MEDS: CEFPODOXIME PROXETIL 200 MG TABLET [NF] PO SCH ×2 (09:29→21:35)
--- NOTE | 2018-06-13 12:24 | PN ---
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 Pt similar to when they saw her a few months ago. She had been getting confused but did recognize them. She had been having difficulty swallowing lately and was getting congested.Advised them on purchasing [employer] personal amplifier for improved functional communication. Pt overtly tolerating diet. Silent aspiration can not be r/o at bedside. Consider MBS to further assess swallowing function.
--- NOTE | 2018-06-13 13:29 | DS ---
Physical Exam: SUBJECTIVE: Patient seen and examined OBJECTIVE: Vital Signs Period Temp Pulse Resp BP Sys/Moore Pulse Ox Last 24 Hr 97.1 F-98.7 F 68-78 16-20 150-181/75-94 95-96 PHYSICAL EXAM GENERAL: The patient is awake, alert, and fully oriented, in no acute distress. HEAD: Normal with no signs of trauma. EYES: PERRL, extraocular movements intact, sclera anicteric, conjunctiva clear. ENT: Ears normal, nares patent, oropharynx clear without exudates, moist mucous membranes. NECK: Trachea midline, full range of motion, supple. LUNGS: Breath sounds equal, clear to auscultation bilaterally, no wheezes, no crackles, no accessory muscle use. HEART: Regular rate and rhythm, S1, S2 without murmur, rub or gallop. ABDOMEN: Soft, nontender, nondistended, normoactive bowel sounds, no guarding, no rebound, no hepatosplenomegaly, no masses. EXTREMITIES: 2+ pulses, warm, well-perfused, no edema. NEUROLOGICAL: Cranial nerves II through XII grossly intact. Normal speech, gait not observed. PSYCH: Normal mood, normal affect. SKIN: Warm, dry, normal turgor, no rashes or lesions noted. LABS HOSPITAL COURSE: Date of Admission:06/10/18 Date of Discharge: 06/13/18 Discharge Summary Reason For Visit: URINARy TRACT INFECTION Current Active Problems Altered mental status (Acute) UTI (urinary tract infection) (Acute) Condition: Stable - Instructions Diet, Activity, Other Instructions: You were in the hospital for a urinary tract infection. We have changed your antibiotics to Cefpoxadime 200mg. Please take 1 pill in the morning and 1 pill in the evening 12 hours apart, at the same time everyday for 10 days Continue your other medications as before. We have noticed that you have high blood pressure We have started you on a new medication for your blood pressure, Norvasc 5 mg. Please take this pill every day. Please follow up with you Primary care physician in 1 week. Please follow up with you Primary Care Physician to discuss further blood pressure management. Please CALL [phone] to set up visiting Physician services. Please call your doctor or return to the ED if you experience continued pain on urination, fever, chills, flank pain, nausea, vomiting, diarrhea. Referrals: Vick Gloria MD [Staff Physician] - 1 Week Disposition: VNS/HOME HEALTH CARE - Home Medications Comprehensive Discharge Medication List: Ambulatory Orders Gabapentin [Neurontin -] 100 mg PO HS #0 capsule 10/02/14 Carbidopa/Levodopa [Carbidopa-Levo 25-100 Tab] 1 each PO BID 12/26/14 Aspirin [Aspirin EC] 81 mg PO DAILY 04/06/17 Cholecalciferol (Vitamin D3) [Vitamin D3 -] 1,000 unit PO DAILY 04/06/17 Atorvastatin Ca [Lipitor] 10 mg PO HS #30 tablet 05/08/18 levoFLOXacin [Levaquin -] 250 mg PO DAILY@0600 #9 tablet 05/08/18 Cefpodoxime Proxetil [Vantin -] 200 mg PO Q12H #20 tablet 06/12/18 Amlodipine Besylate [Norvasc -] 5 mg PO DAILY #30 tablet 06/13/18 - Discharge Referral Referred to [facility] Med P.C.: No
[2018-06-13] MEDS ORDERED: hydrALAZINE HCL 20 MG/ML VIAL IVPUSH ONE (14:38)
--- NOTE | 2018-06-13 15:10 | PN ---
Teaching Attending Note Name of Resident: James Aguilar ATTENDING PHYSICIAN STATEMENT I saw and evaluated the patient. I reviewed the resident's note and discussed the case with the resident. I agree with the resident's findings and plan as documented. SUBJECTIVE: No fever or chills. no pain . feels well. seen at 9 am OBJECTIVE: NAD, flat affect . CV: RRR, 3/6 SM best heard at apex. 3/6 SM at RUSB Lungs: CTAB Abd: soft, NT, ND , NL BS Ext: no edema A/P The patient is a 79-year-old female with a PMH of: Hypothyroidism, Syncope, Bronchitis, HTN, Parkinson's Disease, Anemia, Dementia , and recent admission and treatment for UTI , who presented with AMS and was found to have UTI. 1- AMS : toxic metabolic encephalopathy. due to UTI . resolved . 2- UTI with proteus : cont Abx . switch to vantin fro 7 more days 3- HTN urgency: has HTN, not on BP meds at home. gave 5 mg of norvasc this am, will give another 5 and increase to 10 mg dispo: patient and family refused rehab. plan to dc home with services ( has 24 hr aids ) if BP improves.
--- NOTE | 2018-06-13 19:02 | HOSP ---
Subjective - Review of Symptoms Events since last encounter: rapid response called due to decreased responsiveness. at arrival, patient is awake, vomiting, denies any WILSON . admits to feeling fatigued and weak all over. denies WILSON , numbness and tingling. on exam , BP 172 /90, HR 80s , SAt O2 96% on RA. awake, alert. masked facies . CV: RRR, 3/6 SM best heard at apex Neuro : very limited due to parkinson's and patient with active vomiting : resists eye opening , but pupils are round and L pupil might be bigger than R. no facial droop. 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 moves upper extremities and RLE spontaneously, but not LLE, even upon request. knee jerk reflex 2+ on R and absent on L . sensation to light touch nl. does not cooperate with rest of strength testing A/P : 79-year-old female with a PMH of Hypothyroidism, Syncope, Bronchitis, HTN, Parkinson's Disease, Anemia, Dementia ,recent admission and treatment for UTI , who is being treated for UTI . 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 Now with elevated Blood pressure and neuro deficits. - ICH need to be r/o in setting of HTN - Acute stroke in DDx . - increased intracranial pressure in DDx - unfortunately NIH stroke scale was not performed due to active vomiting, and due to the need to r/o ICH immediately. - stat CT scan - EKG and trop - will not treat this HTN at this moment until after CT scan , in case an acute stroke is the diagnosis. - will call neuro news camera person CCT 30 min Physical Examination Vital Signs: Vital Signs Temperature 97.7 F 06/13/18 14:05 Pulse Rate 70 06/13/18 14:05 Respiratory Rate 16 06/13/18 14:05 Blood Pressure 196/99 H 06/13/18 14:05 O2 Sat by Pulse Oximetry (%) 95 06/13/18 11:42 Labs: CBC, BMP 06/12/18 07:10 06/12/18 07:10
--- NOTE | 2018-06-13 19:17 | RAPID ---
Physical Examination Vital Signs: Vital Signs Temperature 97.7 F 06/13/18 14:05 Pulse Rate 70 06/13/18 14:05 Respiratory Rate 16 06/13/18 14:05 Blood Pressure 196/99 H 06/13/18 14:05 O2 Sat by Pulse Oximetry (%) 95 06/13/18 11:42 Labs: CBC, BMP 06/12/18 07:10 06/12/18 07:10 Rapid Response - Rapid Response Assessment: Dali bergeron was at 6:36 pm. Pt was assessed and found to have worsening lethargy, minimally responsive to commands, Pt. was known to have advance parkinsons so facial symmetry was difficult to assses, Publicity Consultant strenght was decreased in the right hand on initial assessment, Left leg was minimally active with Pt. massaging it with right leg. Pt. did not track finger for ocular muscle asssessment. CT Head was ordered, Dr. De Paz was called and notified about patient. EKG and troponins were ordered. Lipitor was increased to 20 mg po daily. ASA 325mg was given. Head CT r/o ICH. Pt. not a good candidate for tPA. Dr Ramirez will re evaluate the pt tomorrow .
[2018-06-13] MEDS ORDERED: ASPIRIN 325 MG ENTERIC COATED TABLET (FP) PO ONE (19:28)
--- NOTE | 2018-06-13 20:12 | HOSP ---
Subjective - Review of Symptoms Events since last encounter: spoke with Dr Ramirez after re evaluate the patient and Ct scanresult Head CT did not show any intra cranial bleeding Pt was able to answer my questions oriented to person , place and time she was able to grap my hand B/L was bale to move lower ext but not able to hold against gravity ASA 325 mg was started Lipitor was increased to 20 mg po daily Carotic doppler for possbile TIA Dr Ramirez will re evaluate the pt tomorrow . Physical Examination Vital Signs: Vital Signs Temperature 97.7 F 06/13/18 14:05 Pulse Rate 87 06/13/18 18:00 Respiratory Rate 16 06/13/18 14:05 Blood Pressure 172/94 H 06/13/18 18:00 O2 Sat by Pulse Oximetry (%) 95 06/13/18 11:42 Labs: CBC, BMP 06/12/18 07:10 06/12/18 07:10 Visit type - Emergency Visit Emergency Visit: No - New Patient This patient is new to me today: Yes Date on this admission: 06/13/18 - Critical Care Critical Care patient: No
--- NOTE | 2018-06-13 21:19 | PN ---
Physical Exam: SUBJECTIVE: Patient seen and examined. Pt. c/o of difficulty sleeping. Pt. this morning denies any complaints. Prior to discharge Pt. had elevated BP to 190s/ 90s. Pt. given Hydralazine to good effect. Pt. had MBS study done and became nauseous afterwards, vomiting repeatedly. Pt. BP continued to rise to 190s/ 90s again. Pt. was evaluated and found to be suspicious for stroke symptoms. Code Cornel was called. Pt. was placed on permissive hypertension protocol. Pt. will be reevaluated in AM for discharge to Nursing facility for rehab pending further events. OBJECTIVE: Vital Signs Period Temp Pulse Resp BP Sys/Moore Pulse Ox Last 24 Hr 97.6 F-98.7 F 68-87 16-20 150-196/72-99 95 GENERAL: The patient is awake, alert and in no acute distress. EYES: sclera anicteric, conjunctiva clear. No ptosis. ENT: Ears normal, nares patent, oropharynx clear without exudates, moist mucous membranes. LUNGS: Breath sounds equal, clear to auscultation bilaterally, no wheezes, no crackles, no accessory muscle use. HEART: Regular rate and rhythm, S1, S2 without murmur ABDOMEN: Soft, nontender, nondistended, normoactive bowel sounds, no guarding, no rebound EXTREMITIES: 2+ dorsal pedal pulses, warm, well-perfused, no edema. NEUROLOGICAL: Normal speech, gait not observed. SKIN: Warm, dry, normal turgor Active Medications Current Medications Amlodipine Besylate (Norvasc -) 10 mg PO DAILY [facility] Aspirin (Ecotrin -) 81 mg PO DAILY [facility] Last Admin: 06/13/18 09:28 Dose: 81 mg Atorvastatin Calcium (Lipitor -) 20 mg PO [facility] Carbidopa/Levodopa (Sinemet 25/100 -) 1 each PO TID [facility] Last Admin: 06/13/18 14:48 Dose: 1 each Cefpodoxime Proxetil (Vantin -) 200 mg PO BID [facility] Last Admin: 06/13/18 09:29 Dose: 200 mg Cholecalciferol (Vitamin D3 -) 1,000 unit PO DAILY [facility] Last Admin: 06/13/18 09:29 Dose: 1,000 unit Gabapentin (Neurontin -) 100 mg PO HS [facility] Last Admin: 10/31/18 22:11 Dose: 100 mg Heparin Sodium (Porcine) (Heparin -) 5,000 unit SQ TID [facility] Last Admin: 06/13/18 14:48 Dose: 5,000 unit Home Medications Medication Instructions Recorded Gabapentin [Neurontin -] 100 mg PO HS #0 capsule 10/02/14 Carbidopa/Levodopa [Carbidopa-Levo 1 each PO BID 12/26/14 25-100 Tab] Aspirin [Aspirin EC] 81 mg PO DAILY 04/06/17 Cholecalciferol (Vitamin D3) 1,000 unit PO DAILY 04/06/17 [Vitamin D3 -] Atorvastatin Ca [Lipitor] 10 mg PO HS #30 tablet 05/08/18 Amlodipine Besylate [Norvasc -] 10 mg PO DAILY #30 tablet 06/13/18 Cefpodoxime Proxetil [Vantin -] 200 mg PO Q12H #14 tablet 06/13/18 ASSESSMENT/PLAN: Patient is a 82 y/o female with a history of HTN, HLD, pacemaker, Parkinson's disease, and dementia who presents with AMS 2/2 to UTI. Recently admitted for UTI, growing Strep. Enterococci and Proteus Mirabalis (resistant to Levaquin) on previous admission. #Urology -Uncomplicated UTI UA+ Switched Abx. to PO Cefpoxadime for 7 day course. UCx. + for Proteus resistant to Levaquin, Nitrofuratonin, Bactrim and Ampicillin. #Neurology -Parkinson's Disease c/w Sinemet TID -AMS-resolved Pt. has a PPM and is unable to obtain MRI #Cardiology -HLD c/w ASA 81mg Increased Lipitor to 20 mg -HTN Started Pt. on Norvasc 10mg #F/E/N -Decreased NS to 50mls/hr -monitor electrolyes and replete as needed -Dysphagia Puree diet, MBS appreciated. #DVT Ppx. -Hep SQ TID Visit type - Emergency Visit Emergency Visit: No - New Patient This patient is new to me today: No - Critical Care Critical Care patient: Yes Total Critical Care Time (in minutes): 42 Critical Care Statement: The care of this patient involved high complexity decision making to prevent further life threatening deterioration of the patient 's condition and/or to evaluate & treat vital organ system(s) failure or risk of failure. - Discharge Referral Referred to [facility] Med P.C.: No
[2018-06-13] MEDS: GABAPENTIN 100 MG CAPSULE (FP) PO SCH (21:35)
[2018-06-13] MEDS ORDERED: ATORVASTATIN CA 20 MG TABLET (FP) PO SCH (22:00)
[2018-06-14] MEDS ORDERED: PT OWN MED DRAWER 7, Y5N ONE ×4 (05:04→13:28)
[2018-06-14] MEDS: CARBIDOPA/LEVODOPA 25/100 TABLET (FP) PO SCH ×2 (05:12→13:33)
[2018-06-14] MEDS: HEPARIN NA (PORCINE) 5,000 UNITS/ML 1ML VIAL SQ SCH ×2 (05:15→13:33)
--- NOTE | 2018-06-14 08:59 | PN ---
Progress Note (short form) - Note Progress Note: Neurology HISTORY OF PRESENT ILLNESS: 82 y/o female with a history of HTN, HLD, pacemaker, Parkinson's disease, and dementia who presents with AMS. Per EMS and patients aid patient has become nonverbal and has had a new facial droop. Contacted by ER who discussed case and patient with recent similar admission for AMS. Patient was here approximately one month ago for AMS and found to have a UTI. She was sent home on levaquin, the sensitivities showed two organisms, one of which is resistant to Levaquin. Limited history from patient but no focal deficits noted. ?of facial asymetry, CT head without acute changes. Was given IV fluids and IV Abx. More alert, awake and interactive today. Sinemet increased to TID. Improved in movement and mental status. There was concern last night of limited LLE movement , discussed with nurse, patient completed CT head and at time of CT was moving LLE fine. CT head reviewed without acute changes. Possibly related to PD and has been bradykinetic. Allergies Allergy/AdvReac Type Severity Reaction Status Date / Time amoxicillin [Amoxicillin] Allergy Unknown Verified 05/07/18 17:24 loracarbef [From Lorabid] Allergy Unknown Verified 05/07/18 17:24 prochlorperazine edisylate Allergy Unknown Verified 05/07/18 17:24 [From Compazine] prochlorperazine maleate Allergy Unknown Verified 05/07/18 17:24 [From Compazine] promethazine HCl Allergy Unknown Verified 05/07/18 17:24 [From Phenergan] Active Medications Amlodipine Besylate (Norvasc -) 10 mg PO DAILY [facility] Aspirin (Ecotrin -) 81 mg PO DAILY [facility] Last Admin: 06/13/18 09:28 Dose: 81 mg Atorvastatin Calcium (Lipitor -) 20 mg PO HS [facility] Last Admin: 06/13/18 21:35 Dose: Not Given Carbidopa/Levodopa (Sinemet 25/100 -) 1 each PO TID [facility] Last Admin: 06/14/18 05:12 Dose: Not Given Cefpodoxime Proxetil (Vantin -) 200 mg PO BID [facility] Last Admin: 06/13/18 21:35 Dose: Not Given Cholecalciferol (Vitamin D3 -) 1,000 unit PO DAILY [facility] Last Admin: 06/13/18 09:29 Dose: 1,000 unit Gabapentin (Neurontin -) 100 mg PO HS [facility] Last Admin: 06/13/18 21:35 Dose: Not Given Heparin Sodium (Porcine) (Heparin -) 5,000 unit SQ TID [facility] Last Admin: 06/14/18 05:15 Dose: 5,000 unit PHYSICAL EXAMINATION Vital Signs Period Temp Pulse Resp BP Sys/Moore Pulse Ox Last 24 Hr 97.7 F-98.9 F 70-111 16-20 128-196/72-99 95 GENERAL: awake to name calling and sternal rub HEAD: Normal with no signs of trauma. EYES: Pupils equal, round and reactive to light, extraocular movements intact LUNGS: Breath sounds equal, clear to auscultation bilaterally. No wheezes, and no crackles. No accessory muscle use. HEART: Regular rate and rhythm, 3+ systolic murmur at upper sternal borders ABDOMEN: Soft, nontender, not distended, normoactive bowel sounds, no guarding, no rebound, no masses. No hepatomegaly or splenomegaly. LOWER EXTREMITIES: 2+ pulses, warm, well-perfused. No calf tenderness. No peripheral edema. SKIN: Warm, dry, normal turgor, no rashes or lesions noted, no sacral or heel ulcers noted Neuro: ?R facial droop, nonverbal, moves upper and lower ext grossly with bradykinesia, follows minimal commands, sensory intact to tactile stim, gait deferred CBCD WBC 5.6 K/mm3 (4.0-10.0) 06/12/18 07:10 RBC 3.31 M/mm3 (3.60-5.2) L 06/12/18 07:10 Hgb 10.0 GM/dL (10.7-15.3) L 06/12/18 07:10 Hct 30.5 % (32.4-45.2) L 06/12/18 07:10 MCV 92.1 fl (80-96) 06/12/18 07:10 MCHC 32.9 g/dl (32.0-36.0) 06/12/18 07:10 RDW 14.2 % (11.6-15.6) 06/12/18 07:10 Plt Count 325 K/MM3 (134-434) 06/12/18 07:10 MPV 7.4 fl (7.5-11.1) L 06/12/18 07:10 CMP Sodium 137 mmol/L (136-145) 06/12/18 07:10 Potassium 3.6 mmol/L (3.5-5.1) 06/12/18 07:10 Chloride 107 mmol/L (98-107) 06/12/18 07:10 Carbon Dioxide 25 mmol/L (21-32) 06/12/18 07:10 Anion Gap 4 MMOL/L (8-16) L 06/12/18 07:10 BUN 18 mg/dL (7-18) 06/12/18 07:10 Creatinine 0.9 mg/dL (0.55-1.3) 06/12/18 07:10 Creat Clearance w eGFR > 60 (>60) 06/12/18 07:10 Random Glucose 88 mg/dL (74-106) 06/12/18 07:10 Calcium 8.3 mg/dL (8.5-10.1) L 06/12/18 07:10 Total Bilirubin 0.5 mg/dL (0.2-1) 06/09/18 23:27 AST 83 U/L (15-37) H 06/09/18 23:27 ALT 19 U/L (13-61) 06/09/18 23:27 Alkaline Phosphatase 86 U/L (45-117) 06/09/18 23:27 Total Protein 6.6 g/dl (6.4-8.2) 06/09/18 23:27 Albumin 3.4 g/dl (3.4-5.0) 06/09/18 23:27 CARDIAC ENZYMES Creatine Kinase 138 IU/L (26-192) 06/09/18 23:27 Troponin I 0.05 ng/ml (0.00-0.05) 06/13/18 20:15 ASSESSMENT/PLAN: 82 y/o female with a history of HTN, HLD, pacemaker, Parkinson's disease, and dementia who presents with AMS. Per EMS and patients aid patient has become nonverbal and has had a new facial droop. Contacted by ER who discussed case and patient with recent similar admission for AMS. Patient was here approximately one month ago for AMS and found to have a UTI. She was sent home on levaquin, the sensitivities showed two organisms, one of which is resistant to Levaquin. Limited history from patient but no focal deficits noted. ?of facial asymetry, CT head without acute changes. Was given IV fluids and IV Abx. Possibly toxic metabolic encephalopathy 2/2 infection but awaiting MRI brain to evaluate for infarct. Improving mental status. Carotid doppler from 03/29 showed moderate size plaque at right bifurcation, with 50-69% stenosis, moderate size plaque at left carotid with no sign of stenosis. PT, possibly for short term rehab. Maintain adequate hydration Sinemet adjusted to TID, neurologically improved. Neurologically stable, repeat CT head negative. Dispo per primary and social work.
[2018-06-14 09:12] LABS: ANION GAP 8 MMOL/L (8-16); BLOOD UREA NITROGEN 16 mg/dL (7-18); CALCIUM 8.5 mg/dL (8.5-10.1); CHLORIDE 103 mmol/L (98-107); CO2 25 mmol/L (21-32); CREATININE 0.8 mg/dL (0.55-1.3); GLUCOSE,RANDOM 96 mg/dL (74-106); PHOSPHOROUS 2.5 mg/dL (2.5-4.9); POTASSIUM 3.7 mmol/L (3.5-5.1); SODIUM 137 mmol/L (136-145)
[2018-06-14] MEDS ORDERED: amLODIPine BESYLATE 5 MG TABLET (FP) PO SCH (10:00)
[2018-06-14] MEDS ORDERED: amLODIPine BESYLATE 10 MG TABLET (FP) PO SCH ×2 (10:00→11:00)
--- NOTE | 2018-06-14 10:09 | PN ---
Progress Note, CASE REPAIRER - Note Progress Note: Per nursing, BP was elevated yesterday. Began vomiting after Bp dropped. CT head noted. Selected Entries 06/13/18 06/13/18 06/13/18 02:00 06:00 10:03 Breakfast 25% Lunch Supper Temperature 97.6 F 97.9 F 06/13/18 06/13/18 06/13/18 11:42 14:05 18:00 Breakfast Lunch 50% Supper 0 Temperature 97.7 F 97.7 F 98.1 F 06/14/18 06/14/18 02:00 06:55 Breakfast Lunch Supper Temperature 98.9 F 97.8 F Laboratory Tests 06/12/18 07:10 WBC 5.6 Pt weak but alert. Responding with single words. Hypophonic. Swallow reassessed with good overt tolerance of thin juice from a straw. Rec: Trial full liquids. HOB elevated during and after meal x 1 hour. Encourage PO hydration.
[2018-06-14] MEDS: CHOLECALCIFEROL (VITAMIN D3) 1,000 UNIT TABLET (FP) PO SCH (10:44)
[2018-06-14] MEDS: ASPIRIN COATED 81 MG TABLET.EC PO SCH (10:44)
[2018-06-14] MEDS: CEFPODOXIME PROXETIL 200 MG TABLET [NF] PO SCH (10:45)
--- NOTE | 2018-06-14 10:49 | EKG ---
Test Reason : Blood Pressure : / mmHG Vent. Rate : 091 BPM Atrial Rate : 091 BPM P-R Int : 146 ms QRS Dur : 118 ms QT Int : 396 ms P-R-T Axes : 052 -08 103 degrees QTc Int : 487 ms POOR DATA QUALITY, INTERPRETATION MAY BE ADVERSELY AFFECTED NORMAL SINUS RHYTHM LEFT BUNDLE BRANCH BLOCK POSSIBLE LEFT ATRIAL ENLARGEMENT SEPTAL INFARCT , AGE UNDETERMINED ABNORMAL ECG Confirmed by HITESH HERNANDEZ MD ([id number]) on 06/14/2018 10:49:20 AM Referred By: Confirmed By:HITESH HERNANDEZ MD
--- NOTE | 2018-06-14 16:23 | DS ---
Physical Exam: SUBJECTIVE: Patient seen and examined. Pt. has had no more vomiting since yesterday. Pt. denies any pain at this time. Per nurse Pt. was not symptomatic at night of time of tachycardia. OBJECTIVE: Vital Signs Period Temp Pulse Resp BP Sys/Moore Pulse Ox Last 24 Hr 97.8 F-99.3 F 84-111 16-20 128-172/72-102 95 PHYSICAL EXAM GENERAL: The patient is awake, alert and in no acute distress. EYES: sclera anicteric, conjunctiva clear. No ptosis. ENT: Ears normal, nares patent, oropharynx clear without exudates, moist mucous membranes. LUNGS: Breath sounds equal, clear to auscultation bilaterally, no wheezes, no crackles, no accessory muscle use. HEART: Regular rate and rhythm, S1, S2 without murmur ABDOMEN: Soft, nontender, nondistended, normoactive bowel sounds, no guarding, no rebound EXTREMITIES: 2+ dorsal pedal pulses, warm, well-perfused, no edema. NEUROLOGICAL: Normal speech, gait not observed. SKIN: Warm, dry, normal turgor LABS Laboratory Results - last 24 hr 06/10/18 06/13/18 06/14/18 07:00 20:15 08:30 Sodium 137 Potassium 3.7 Chloride 103 Carbon Dioxide 25 Anion Gap 8 BUN 16 Creatinine 0.8 Creat Clearance w eGFR > 60 Random Glucose 96 Calcium 8.5 Phosphorus 2.5 Magnesium 2.0 Troponin I 0.05 Vitamin B2 189.0 Microbiology 06/10/18 00:10 Urine - Urine - Catheterized Urine Culture - Final Proteus Mirabilis HOSPITAL COURSE: Date of Admission:06/10/18 Date of Discharge: 06/14/18 Pt. admitted for altered mental status secondary to UTI. Pt. was started on IV Ceftriaxone. UCx. grew Proteus and Pt. was switched to PO Cefpoxadime. Pt. was thought to have CVA, however Head CT was negative x 2 and Pt.s symptoms returned to baseline. Pt. was evaluated by Neurology and medications were adjusted as mentioned below. Pt. Hospital course was discussed with and agreed upon with Pt. Discharge Summary Reason For Visit: URINARy TRACT INFECTION Current Active Problems Altered mental status (Acute) UTI (urinary tract infection) (Acute) Condition: Stable - Instructions Diet, Activity, Other Instructions: You were in the hospital for a urinary tract infection. We have changed your antibiotics to Cefpoxadime 200mg. Please take 1 pill in the morning and 1 pill in the evening 12 hours apart, at the same time everyday for 6 more days Continue your other medications as before. We have noticed that you have high blood pressure We have started you on a new medication for your blood pressure, Norvasc 10 mg. Please take this pill every day. Please follow up with you Primary care physician in 1 week. Please follow up with you Primary Care Physician to discuss further blood pressure management. Please CALL [phone] to set up visiting Physician services. Please call your doctor or return to the ED if you experience continued pain on urination, fever, chills, flank pain, nausea, vomiting, diarrhea. Please use a chopped diet with regular thin liquids. Referrals: Vick Gloria MD [Staff Physician] - 1 Week Disposition: VNS/HOME HEALTH CARE - Home Medications Comprehensive Discharge Medication List: Ambulatory Orders Gabapentin [Neurontin -] 100 mg PO HS #0 capsule 10/02/14 Carbidopa/Levodopa [Carbidopa-Levo 25-100 Tab] 1 each PO BID 12/26/14 Aspirin [Aspirin EC] 81 mg PO DAILY 04/06/17 Cholecalciferol (Vitamin D3) [Vitamin D3 -] 1,000 unit PO DAILY 04/06/17 Atorvastatin Ca [Lipitor] 10 mg PO HS #30 tablet 05/08/18 Amlodipine Besylate [Norvasc -] 10 mg PO DAILY #30 tablet 06/13/18 Cefpodoxime Proxetil [Vantin -] 200 mg PO BID #12 tablet 06/14/18 - Discharge Referral Referred to [facility] Med P.C.: No
--- NOTE | 2018-06-14 18:49 | PN ---
Teaching Attending Note Name of Resident: James Aguilar ATTENDING PHYSICIAN STATEMENT I saw and evaluated the patient. I reviewed the resident's note and discussed the case with the resident. I agree with the resident's findings and plan as documented. SUBJECTIVE: no pain, no events over night . back to base line OBJECTIVE: NAD, flat affect . CV: RRR, 3/6 SM best heard at apex. 3/6 SM at RUSB Lungs: CTAB Abd: soft, NT, ND , NL BS Ext: no edema moves all her extremities, not cooperative with neuro exam. resists eye opening. no facial droop. masked facies A/P The patient is a 79-year-old female with a PMH of: Hypothyroidism, Syncope, Bronchitis, HTN, Parkinson's Disease, Anemia, Dementia , and recent admission and treatment for UTI , who presented with AMS and was found to have UTI. 1- Event of deccreased responsiveness with LLe weakness yesterday. resolved. can 't do MRI. ? TIA. cont asa , statin. 2- UTI with proteus: cont Abx . cont vantin for 6 more days 3- HTN cont with 10 mg of norvasc daily dispo:dc to rehab today . case was d/w son in details by dr. Aguilar
[2018-06-14 20:07] VITALS: BP 134/72; PULSE 102; TEMP 98.9
== END 2018-06-14 20:47 | DRG 689 ==
LOC: JER 21:41 → JERBED 06-10 01:08 → J4S 06-10 20:09
PROVIDERS: ADMIT Internal Medicine; ATTEND Internal Medicine
DX: N39.0 Urinary tract infection, site not specified (principal); G92 Toxic encephalopathy; I24.8 Other forms of acute ischemic heart disease; N17.9 Acute kidney failure, unspecified; G20 Parkinson's disease; F02.80 Dementia in other diseases classified elsewhere, unspecified severity, without behavioral disturbance, psychotic disturbance, mood disturbance, and anxiety; E86.0 Dehydration; I10 Essential (primary) hypertension; E78.5 Hyperlipidemia, unspecified; Z95.0 Presence of cardiac pacemaker; Z86.73 Personal history of transient ischemic attack (TIA), and cerebral infarction without residual deficits; I44.7 Left bundle-branch block, unspecified; R47.1 Dysarthria and anarthria; B96.4 Proteus (mirabilis) (morganii) as the cause of diseases classified elsewhere; E03.9 Hypothyroidism, unspecified
CPT/HCPCS: 36415; 70450-TC; 71045-TC-FY; 74230-TC-FY; 80048; 80053; 80061; 81003; 81015; 82550; 83721; 83735; 84100; 84134; 84252; 84443; 84484; 85025; 85610; 85651; 86140; 87086; 87186; 92611-GN; 93005; 93010; 93880-TC; 97116-GP; 97161-GP; 99285-25; J1644; J7030

== ENCOUNTER 2018-08-28 20:06 | Observation (INO) | payer OTHER, MEDICARE ==
--- NOTE | 2018-08-28 21:06 | PDOC ---
History of Present Illness <Asha Blackman - Last Filed: 08/29/18 01:01> - History of Present Illness Initial Comments: This patient is a an 82 year old female with a PMHx of HTN, HLD, pacemaker, Parkinson's disease, and dementia who was BIBA from home (recently d/c from [facility] but still has Adira bracelet on) s/p fall from wheelchair. History provided by CHEESE COOK over the phone. Patient is a poor historian and is unsure if she hit her head but denies loc. Allergies: amoxicillin, loracarbef, prochlorperazine edisylate She denies any back, leg, or hip pain. She denies any dysuria, chest pain, shortness of breath 08/29/18 00:47 <Yee Solares - Last Filed: 08/29/18 01:07> - General Chief Complaint: Injury Stated Complaint: FALL Time Seen by Provider: 08/28/18 21:04 Past History - Past Medical History Anemia: Yes (normocytic normochromic anemia) Asthma: No Cancer: No Cardiac Disorders: Yes (LBBB) CVA: Yes COPD: No CHF: No DVT: No Dementia: Yes Diabetes: No GI Disorders: No Disorders: Yes (UTI) HTN: Yes Hypercholesterolemia: Yes Liver Disease: No Seizures: Yes Thyroid Disease: Yes (HYPOTHYROIDISM) - Surgical History Abdominal Surgery: No Appendectomy: No Cardiac Surgery: Yes (PPM) Cholecystectomy: No Lung Surgery: No Neurologic Surgery: No Orthopedic Surgery: No - Suicide/Smoking/Psychosocial Hx Smoking Status: No Smoking History: Never smoked Have you smoked in the past 12 months: No Number of Cigarettes Smoked Daily: 0 Hx Alcohol Use: No Drug/Substance Use Hx: No Substance Use Type: None Hx Substance Use Treatment: No <Asha Blackman - Last Filed: 08/29/18 01:01> <Yee Solares - Last Filed: 08/29/18 01:07> - Past Medical History Allergies/Adverse Reactions: Allergies Allergy/AdvReac Type Severity Reaction Status Date / Time amoxicillin [Amoxicillin] Allergy Unknown Verified 08/28/18 23:56 loracarbef [From Lorabid] Allergy Unknown Verified 08/28/18 23:56 prochlorperazine edisylate Allergy Unknown Verified 08/28/18 23:56 [From Compazine] prochlorperazine maleate Allergy Unknown Verified 08/28/18 23:56 [From Compazine] promethazine HCl Allergy Unknown Verified 08/28/18 23:56 [From Phenergan] Home Medications: Ambulatory Orders Gabapentin [Neurontin -] 100 mg PO HS #0 capsule 10/02/14 Carbidopa/Levodopa [Carbidopa-Levo 25-100 Tab] 1 each PO BID 12/26/14 Aspirin [Aspirin EC] 81 mg PO DAILY 04/06/17 Cholecalciferol (Vitamin D3) [Vitamin D3 -] 1,000 unit PO DAILY 04/06/17 Atorvastatin Ca [Lipitor] 10 mg PO HS #30 tablet 05/08/18 Amlodipine Besylate [Norvasc -] 10 mg PO DAILY #30 tablet 06/13/18 Cefpodoxime Proxetil [Vantin -] 200 mg PO BID #12 tablet 06/14/18 Unobtainable 08/28/18 Review of Systems - Review of Systems Able to Perform ROS?: No (poor historian) <Yee Solares - Last Filed: 08/29/18 01:07> *Physical Exam - Vital Signs Last Vital Signs Temp Pulse Resp BP Pulse Ox 98.1 F 88 15 125/76 97 08/28/18 20:06 08/28/18 20:06 08/28/18 20:06 08/28/18 20:06 08/28/18 20:06 - Physical Exam Comments: GENERAL: Awake, alert, and fully oriented, in no acute distress HEAD: No hematoma or ecchymosis. No signs of trauma EYES: PERRLA, EOMI, sclera anicteric, conjunctiva clear ENT: Auricles normal inspection, hearing grossly normal, nares patent, oropharynx clear without exudates. NECK: Normal ROM, supple, no lymphadenopathy, JVD, or masses LUNGS: Breath sounds equal, clear to auscultation bilaterally. No wheezes, and no crackles HEART: Left paced rate and rhythm, soft systolic ejection murmor, no rubs or gallops ABDOMEN: Soft, nontender, normoactive bowel sounds. No guarding, no rebound. No masses EXTREMITIES: Normal range of motion, pitting edema L>R. No clubbing or cyanosis. No cords, erythema, or tenderness NEUROLOGICAL: Cranial nerves II through XII grossly intact. Normal speech. SKIN: Warm, Dry, normal turgor, no rashes or lesions noted. <Yee Solares - Last Filed: 08/29/18 01:07> Moderate Sedation - Procedure Monitoring Vital Signs: Procedure Monitoring Vital Signs Temperature 98.1 F 08/28/18 20:06 Pulse Rate 88 08/28/18 20:06 Respiratory Rate 15 08/28/18 20:06 Blood Pressure 125/76 08/28/18 20:06 O2 Sat by Pulse Oximetry (%) 97 08/28/18 20:06 <Yee Solares - Last Filed: 08/29/18 01:07> Heart Score/ECG Review - ECG Intrepretation Comment:: 08/29/18 01:01 sinus at 91, LBBB, no acute st/t wave findings <Asha Blackman - Last Filed: 08/29/18 01:01> ED Treatment Course - LABORATORY CBC & Chemistry Diagram: 08/28/18 21:50 08/28/18 21:50 <Asha Blackman - Last Filed: 08/29/18 01:01> - LABORATORY CBC & Chemistry Diagram: 08/28/18 21:50 08/28/18 21:50 - RADIOLOGY Radiograph Interpretation: CT Head IMPRESSION: Mild prominence of extra-axial CSF spaces and ventricles is likely related to chronic atrophic change Reported By: Tawanda Horn MD 08/29/2018 01:02 EST <Yee Solares - Last Filed: 08/29/18 01:07> Medical Decision Making - Medical Decision Making 08/28/18 23:17 a/p: 82yo female BIBA from home after a fall out of her wheelchair -unsure if she hit her head or LOC -pt denies all pain -no cp/sob. no parks. no abd pain. no n/v/d. no cough -no f/c -will send labs, head ct, cxr -ekg -will monitor and reassess -pt with b/l LE swelling 08/29/18 00:59 pt with mild LAUREN will give small dose IVF cxr clear 08/29/18 00:59 case discussed with NAZANIN who accepts pt to obs overnight for LAUREN <Asha Blackman - Last Filed: 08/29/18 01:01> *DC/Admit/Observation/Transfer - Discharge Dispostion Decision to Admit order: Yes - Attestations Physician Attestion: 08/29/18 01:00 I, Dr. Asha Blackman, DO, attest that this document has been prepared under my direction and personally reviewed by me in its entirety. I further attest, that it accurately reflects all work, treatment, procedures and medical decision -making performed by me. <Asha Blackman - Last Filed: 08/29/18 01:01> - Attestations Scribe Attestion: 08/28/18 22:04 Documentation prepared by Yee Solares, acting as medical records coordinator for Asha Blackman DO. <Yee Solares - Last Filed: 08/29/18 01:07> Diagnosis at time of Disposition: LAUREN (acute kidney injury) - Discharge Dispostion Condition at time of disposition: Fair - Referrals Referrals: Obdulio Lane MD [Primary Care Provider] -
[2018-08-28 22:11] LABS: BASO % 0.8 % (0-2.0); EOS % 0.5 % (0-4.5); HEMATOCRIT 37.2 % (32.4-45.2); HEMOGLOBIN 12.9 GM/dL (10.7-15.3); LYMPH % 11.9 % (8-40); MCH 32.1 pg (25.7-33.7); MCHC 34.6 g/dl (32.0-36.0); MEAN CELL VOLUME 92.9 fl (80-96); MEAN PLT VOLUME 7.4 fl (7.5-11.1); MONO % 5.1 % (3.8-10.2); NEUT % 81.7 % (42.8-82.8); PLATELET COUNT 448 K/MM3 (134-434); WHITE BLOOD COUNT 9.6 K/mm3 (4.0-10.0)
[2018-08-28 22:40] LABS: ALBUMIN 3.5 g/dl (3.4-5.0); ALK PHOS 87 U/L (45-117); ANION GAP 9 MMOL/L (8-16); BILIRUBIN,TOTAL 0.3 mg/dL (0.2-1); BLOOD UREA NITROGEN 31 mg/dL (7-18); CALCIUM 9.2 mg/dL (8.5-10.1); CHLORIDE 100 mmol/L (98-107); CO2 26 mmol/L (21-32); CREATININE 1.4 mg/dL (0.55-1.3); GLUCOSE,RANDOM 102 mg/dL (74-106); POTASSIUM 4.6 mmol/L (3.5-5.1); SGOT/AST 29 U/L (15-37); SGPT/ALT 12 U/L (13-61); SODIUM 135 mmol/L (136-145)
[2018-08-28 22:57] LABS: N-TERMINAL BNP 498.7 pg/ml (5-450)
[2018-08-28] MEDS ORDERED: SODIUM CHLORIDE 0.9% 1000 ML INFUS.BAG IV ONE (23:16)
--- NOTE | 2018-08-29 01:40 | PN ---
Teaching Attending Note Name of Resident: Laith Rausch ATTENDING PHYSICIAN STATEMENT I saw and evaluated the patient. I reviewed the resident's note and discussed the case with the resident. I agree with the resident's findings and plan as documented. SUBJECTIVE: This is an 82 year old woman with a history of HTN, hyperlipidemia, pacemaker, Parkinson disease, dementia who comes to the ED after falling from her wheelchair at home. The patient is unable to provide a history. She cannot say if she lost consciousness or hit her head. Her only complaint is that her left leg is sore. OBJECTIVE: Vital Signs Period Temp Pulse Resp BP Sys/Moore Pulse Ox Last 24 Hr 98.1 F 88 15 125/76 97 HEART: S1S2, RRR LUNGS: Clear ABDOMEN: Soft, non-tender, non-distended, normal BS EXTREMITIES: Left lower leg swollen, red, but not hot or tender Laboratory Tests 08/28/18 08/28/18 08/28/18 21:50 21:50 21:50 WBC 9.6 RBC 4.00 Hgb 12.9 Hct 37.2 D MCV 92.9 MCH 32.1 MCHC 34.6 RDW 15.0 Plt Count 448 H D MPV 7.4 L Absolute Neuts (auto) 7.9 Neutrophils % 81.7 D Lymphocytes % 11.9 D Monocytes % 5.1 Eosinophils % 0.5 Basophils % 0.8 Nucleated RBC % 0 Sodium 135 L Potassium 4.6 Chloride 100 Carbon Dioxide 26 Anion Gap 9 BUN 31 H Creatinine 1.4 H Creat Clearance w eGFR 36.18 Random Glucose 102 Calcium 9.2 Total Bilirubin 0.3 AST 29 ALT 12 L Alkaline Phosphatase 87 Creatine Kinase 144 Troponin I < 0.02 B-Natriuretic Peptide 498.7 H Cancelled Total Protein 7.0 Albumin 3.5 Home Medications Medication Instructions Recorded Gabapentin [Neurontin -] 100 mg PO HS #0 capsule 10/02/14 Carbidopa/Levodopa [Carbidopa-Levo 1 each PO BID 12/26/14 25-100 Tab] Aspirin [Aspirin EC] 81 mg PO DAILY 04/06/17 Cholecalciferol (Vitamin D3) 1,000 unit PO DAILY 04/06/17 [Vitamin D3 -] Atorvastatin Ca [Lipitor] 10 mg PO HS #30 tablet 05/08/18 Amlodipine Besylate [Norvasc -] 10 mg PO DAILY #30 tablet 06/13/18 Cefpodoxime Proxetil [Vantin -] 200 mg PO BID #12 tablet 06/14/18 Unobtainable 08/28/18 ASSESSMENT AND PLAN: This is an 82 year old woman with a history of HTN, hyperlipidemia, pacemaker, Parkinson disease, dementia who presented to the ED after falling from her wheelchair at home. 1. Acute kidney injury - IV fluid - Monitor creatinine 2. Left leg swelling - Venous doppler to evaluate for DVT 3. HTN - Continue Norvasc 4. Hyperlipidemia - Continue Lipitor 5. Parkinson disease - Continue Sinemet 6. Dementia
[2018-08-29] MEDS ORDERED: HEPARIN NA (PORCINE) 5,000 UNITS/ML 1ML VIAL ONE (02:06)
[2018-08-29] MEDS: SODIUM CHLORIDE 1,000 ML IV SCH (02:15)
--- NOTE | 2018-08-29 02:28 | HP ---
CHIEF COMPLAINT: fall PCP: HISTORY OF PRESENT ILLNESS: The patient is an 82 yo f w/ PMH HTN, HLD, pacemaker placement, parkinsons and dementia who was BIBEMS from home. The patient is unable to provide history and the following was obtained from the EMR. The patient was at home when she fell from her wheelchair to the floor. Patient is unsure of whether she lost consciousness and unsure if she hit her head. Patient is currently c/o mild tenderness in her left leg. ER course was notable for: (1) NA 135, BUN 31, Cr. 1.4 (.8 in 2018) (2) CXR with possible RML infiltrate compared to previous film (3) Recent Travel: none PAST MEDICAL HISTORY: see HPI PAST SURGICAL HISTORY: unable to obtain Social History: unable to obtain Family History: Allergies amoxicillin [Amoxicillin] Allergy (Unknown, Verified 08/28/18 23:56) loracarbef [From Lorabid] Allergy (Unknown, Verified 08/28/18 23:56) prochlorperazine edisylate [From Compazine] Allergy (Unknown, Verified 08/28/18 23:56) prochlorperazine maleate [From Compazine] Allergy (Unknown, Verified 08/28/18 23 :56) promethazine HCl [From Phenergan] Allergy (Unknown, Verified 08/28/18 23:56) HOME MEDICATIONS: Home Medications Medication Instructions Recorded Gabapentin [Neurontin -] 100 mg PO HS #0 capsule 10/02/14 Carbidopa/Levodopa [Carbidopa-Levo 1 each PO BID 12/26/14 25-100 Tab] Aspirin [Aspirin EC] 81 mg PO DAILY 04/06/17 Cholecalciferol (Vitamin D3) 1,000 unit PO DAILY 04/06/17 [Vitamin D3 -] Atorvastatin Ca [Lipitor] 10 mg PO HS #30 tablet 05/08/18 Amlodipine Besylate [Norvasc -] 10 mg PO DAILY #30 tablet 06/13/18 Cefpodoxime Proxetil [Vantin -] 200 mg PO BID #12 tablet 06/14/18 Unobtainable 08/28/18 REVIEW OF SYSTEMS CONSTITUTIONAL: Absent: fever, chills, diaphoresis, generalized weakness, malaise, loss of appetite, weight change HEENT: Absent: rhinorrhea, nasal congestion, throat pain, throat swelling, difficulty swallowing, mouth swelling, ear pain, eye pain, visual changes CARDIOVASCULAR: Absent: chest pain, syncope, palpitations, irregular heart rate, lightheadedness , peripheral edema RESPIRATORY: Absent: cough, shortness of breath, dyspnea with exertion, orthopnea, wheezing, stridor, hemoptysis GASTROINTESTINAL: Absent: abdominal pain, abdominal distension, nausea, vomiting, diarrhea, constipation, melena, hematochezia GENITOURINARY: Absent: dysuria, frequency, urgency, hesitancy, hematuria, flank pain, genital pain MUSCULOSKELETAL: Absent: myalgia, arthralgia, joint swelling, back pain, neck pain SKIN: Absent: rash, itching, pallor HEMATOLOGIC/IMMUNOLOGIC: Absent: easy bleeding, easy bruising, lymphadenopathy, frequent infections ENDOCRINE: Absent: unexplained weight gain, unexplained weight loss, heat intolerance, cold intolerance NEUROLOGIC: Absent: headache, focal weakness or paresthesias, dizziness, unsteady gait, seizure, mental status changes, bladder or bowel incontinence PSYCHIATRIC: Absent: anxiety, depression, suicidal or homicidal ideation, hallucinations. PHYSICAL EXAMINATION Vital Signs - 24 hr 08/28/18 20:06 Temperature 98.1 F Pulse Rate 88 Respiratory 15 Rate Blood Pressure 125/76 O2 Sat by Pulse 97 Oximetry (%) GENERAL: Awake, alert, oriented to self and place only, in no acute distress. HEAD: Normal with no signs of trauma. EYES: Pupils equal, round and reactive to light, extraocular movements intact, sclera anicteric, conjunctiva clear. No lid lag. LUNGS: Breath sounds equal, clear to auscultation bilaterally. No wheezes, and no crackles. No accessory muscle use. HEART: Regular rate and rhythm, normal S1 and S2. 4/6 Systolic ejection murmur heard best at the RUSB. ABDOMEN: Soft, nontender, not distended, normoactive bowel sounds, no guarding, no rebound, no masses. No hepatomegaly or splenomegaly. LOWER EXTREMITIES: 2+ pulses, warm, well-perfused. The patient's left leg is erythematous and larger that the right leg. There is mild tenderness to palpation on the left. NEUROLOGICAL: Cranial nerves II-X intact. Normal speech SKIN: Warm, dry, normal turgor, no rashes or lesions noted, normal capillary refill. Laboratory Results - last 24 hr 08/28/18 08/28/18 08/28/18 21:50 21:50 21:50 WBC 9.6 RBC 4.00 Hgb 12.9 Hct 37.2 D MCV 92.9 MCH 32.1 MCHC 34.6 RDW 15.0 Plt Count 448 H D MPV 7.4 L Absolute Neuts (auto) 7.9 Neutrophils % 81.7 D Lymphocytes % 11.9 D Monocytes % 5.1 Eosinophils % 0.5 Basophils % 0.8 Nucleated RBC % 0 Sodium 135 L Potassium 4.6 Chloride 100 Carbon Dioxide 26 Anion Gap 9 BUN 31 H Creatinine 1.4 H Creat Clearance w eGFR 36.18 Random Glucose 102 Calcium 9.2 Total Bilirubin 0.3 AST 29 ALT 12 L Alkaline Phosphatase 87 Creatine Kinase 144 Troponin I < 0.02 B-Natriuretic Peptide 498.7 H Cancelled Total Protein 7.0 Albumin 3.5 ASSESSMENT/PLAN: The patient is an 82 yo f w/ PMH HTN, HLD, dementia who was BIBEMS for a fall, found to have an LAUREN. #LAUREN -Cr. 1.4, was .8 in 2018 -s/p 500ml bolus in ED -NS @ 42 -monitor Cr. in AM #Unilateral LE swelling -must r/o DVT -LE doppler -low index of suspicion for PE #Possble infiltrate on CXR -may be 2/2 to technique -no clinical signs/ssx PNA #FEN -NS@42 -monitor lytes -sodium controlled diet #prophy -heparin SQ 5k units Q8H #Dispo - med surg obs Visit type - Emergency Visit Emergency Visit: Yes ED Registration Date: 08/29/18 Care time: The patient presented to the Emergency Department on the above date and was hospitalized for further evaluation of their emergent condition. - New Patient This patient is new to me today: Yes Date on this admission: 08/29/18 - Critical Care Critical Care patient: No
[2018-08-29 05:49] LABS: HEMATOCRIT 33.7 % (32.4-45.2); MCH 33.1 pg (25.7-33.7); MCHC 35.5 g/dl (32.0-36.0); MEAN CELL VOLUME 93.3 fl (80-96); MEAN PLT VOLUME 7.3 fl (7.5-11.1); PLATELET COUNT 388 K/MM3 (134-434); RBC 3.61 M/mm3 (3.60-5.2); RDW 15.1 % (11.6-15.6); WHITE BLOOD COUNT 7.6 K/mm3 (4.0-10.0)
[2018-08-29 06:04] LABS: INR 1.03 (0.83-1.09); PROTHROMBIN TIME (PATIENT) 12.2 SEC (9.7-13.0)
[2018-08-29 06:07] LABS: ACTIVATED PTT 30.7 SECONDS (25.2-36.5)
[2018-08-29] MEDS: HEPARIN NA (PORCINE) 5,000 UNITS/ML 1ML VIAL SQ SCH ×3 (06:22→22:13)
[2018-08-29 07:41] LABS: ANION GAP 7 MMOL/L (8-16); BLOOD UREA NITROGEN 24 mg/dL (7-18); CALCIUM 8.7 mg/dL (8.5-10.1); CHLORIDE 103 mmol/L (98-107); CO2 26 mmol/L (21-32); GLUCOSE,RANDOM 83 mg/dL (74-106); PHOSPHOROUS 2.7 mg/dL (2.5-4.9); POTASSIUM 3.8 mmol/L (3.5-5.1); SODIUM 137 mmol/L (136-145)
[2018-08-29] MEDS ORDERED: amLODIPine BESYLATE 5 MG TABLET (FP) ONE (10:07)
[2018-08-29] MEDS ORDERED: CARBIDOPA/LEVODOPA 25/100 TABLET (FP) ONE (10:07)
[2018-08-29 10:15] LABS: URINE APPEARANCE CLEAR; URINE BILIRUBIN NEGATIVE (<2.0 mg/dL); URINE COLOR LTYELLOW; URINE GLUCOSE (UA) NEGATIVE (NEGATIVE); URINE KETONE NEGATIVE (NEGATIVE); URINE LEUK ESTERASE NEGATIVE (NEGATIVE); URINE NITRITE POSITIVE (NEGATIVE); URINE PROTEIN NEGATIVE (NEGATIVE); URINE UROBILINOGEN NEGATIVE mg/dL (0.2-1.0)
[2018-08-29] MEDS: CARBIDOPA/LEVODOPA 25/100 TABLET (FP) PO SCH ×2 (10:16→22:13)
[2018-08-29] MEDS: amLODIPine BESYLATE 10 MG TABLET (FP) PO SCH (10:16)
[2018-08-29 10:48] LABS: EPI CELLS RARE /HPF (FEW); URINE MUCUS RARE
[2018-08-29 11:30] LABS: URINE BACTERIA 4+ /hpf (NONE SEEN)
--- NOTE | 2018-08-29 11:57 | EKG ---
Test Reason : Blood Pressure : / mmHG Vent. Rate : 091 BPM Atrial Rate : 091 BPM P-R Int : 164 ms QRS Dur : 124 ms QT Int : 394 ms P-R-T Axes : 046 -29 102 degrees QTc Int : 484 ms SINUS RHYTHM WITH OCCASIONAL PREMATURE VENTRICULAR COMPLEXES LEFT BUNDLE BRANCH BLOCK ABNORMAL ECG WHEN COMPARED WITH ECG OF 13-JUN-2018 20:07, PREMATURE VENTRICULAR COMPLEXES ARE NOW PRESENT LEFT BUNDLE BRANCH BLOCK IS NOW PRESENT CRITERIA FOR SEPTAL INFARCT ARE NO LONGER PRESENT Confirmed by JEB HOLBROOK MD ([id number]) on 08/29/2018 11:56:57 AM Referred By: Confirmed By:JEB HOLBROOK MD
[2018-08-29 17:53] VITALS: BMI 21.2
[2018-08-30] MEDS: SODIUM CHLORIDE 1,000 ML IV SCH (06:13)
[2018-08-30] MEDS: HEPARIN NA (PORCINE) 5,000 UNITS/ML 1ML VIAL SQ SCH ×3 (06:14→22:00)
[2018-08-30] MEDS: amLODIPine BESYLATE 10 MG TABLET (FP) PO SCH (09:21)
[2018-08-30] MEDS: CARBIDOPA/LEVODOPA 25/100 TABLET (FP) PO SCH ×2 (09:21→22:00)
[2018-08-30 10:30] LABS: MAGNESIUM 2.1 mg/dL (1.8-2.4); PHOSPHOROUS 2.6 mg/dL (2.5-4.9)
--- NOTE | 2018-08-30 11:33 | ECHO ---
Version: 1 Name: JESSICA BARRAZA Exam: Adult Echocardiogram Study Date: 08/30/2018, 10:21 AM Age: 82 Years Procedure A two-dimensional transthoracic echocardiogram with color flow and Doppler was performed in limited views only. Left Ventricle The left ventricular size, thickness and function are normal. Ejection Fraction = 55-60%. Right Ventricle The right ventricle is grossly normal size. There is a pacemaker lead in the right ventricle. The ri ght ventricular systolic function is grossly normal. Atria Normal left and right atrial size and function. Mitral Valve There is mild mitral annular calcification. There is no mitral valve stenosis. There is mild mitral regurgitation. Tricuspid Valve The tricuspid valve is not well visualized, but is grossly normal. There is mild tricuspid regurgita tion. Aortic Valve There is mild aortic sclerosis.;. No hemodynamically significant valvular aortic stenosis. No aortic regurgitation is present. Pulmonic Valve The pulmonic valve is not well seen, but is grossly normal. There is no pulmonic valvular stenosis. Great Vessels The aortic root is normal size. Pericardium/Pleura There is a mild pericardial effusion. Summary Statements The left ventricular size, thickness and function are normal Ejection Fraction = 55-60%. There is mild mitral annular calcification. There is mild mitral regurgitation. There is a pacemaker lead in the right ventricle. There is mild tricuspid regurgitation. There is mild aortic sclerosis.; There is a mild pericardial effusion. MD Mak *Madelyn 08/30/2018, 11:33 AM Ordering Physician: Nicole Torres Performed By: Catarina Garcia
--- NOTE | 2018-08-30 11:39 | EKG ---
Test Reason : Blood Pressure : / mmHG Vent. Rate : 082 BPM Atrial Rate : 082 BPM P-R Int : 160 ms QRS Dur : 130 ms QT Int : 432 ms P-R-T Axes : 057 -29 096 degrees QTc Int : 504 ms POOR DATA QUALITY, INTERPRETATION MAY BE ADVERSELY AFFECTED NORMAL SINUS RHYTHM POSSIBLE LEFT ATRIAL ENLARGEMENT LEFT BUNDLE BRANCH BLOCK ABNORMAL ECG WHEN COMPARED WITH ECG OF 28-AUG-2018 22:50, PREMATURE VENTRICULAR COMPLEXES ARE NO LONGER PRESENT Confirmed by ARIE DUVALL, SUZAN ([id number]) on 08/30/2018 11:39:06 AM Referred By: ANTONI COOPER DR Confirmed By:SUZAN SARGENT MD
--- NOTE | 2018-08-30 18:15 | PN ---
Physical Exam: SUBJECTIVE: Patient seen and examined, in no distress OBJECTIVE: Vital Signs Period Temp Pulse Resp BP Sys/Moore Pulse Ox Last 24 Hr 97.9 F-98.0 F 82-85 20-20 117-120/62-73 95-96 GENERAL: The patient is awake,in no acute distress. HEAD: Normal with no signs of trauma. EYES: PERRL, extraocular movements intact, sclera anicteric, conjunctiva clear. No ptosis. ENT: Ears normal, nares patent, oropharynx clear without exudates, moist mucous membranes. NECK: Trachea midline, full range of motion, supple. LUNGS: Breath sounds equal, clear to auscultation bilaterally, no wheezes, no crackles, no accessory muscle use. HEART: Regular rate and rhythm, S1, S2 without murmur, rub or gallop. ABDOMEN: Soft, nontender, nondistended, normoactive bowel sounds, no guarding, no rebound, no hepatosplenomegaly, no masses. EXTREMITIES: 2+ pulses, warm, well-perfused, no edema. NEUROLOGICAL: Cranial nerves II through XII grossly intact. Normal speech, gait not observed. PSYCH: Normal mood, normal affect. SKIN: Warm, dry, normal turgor, no rashes or lesions noted CBCD WBC 7.6 K/mm3 (4.0-10.0) 08/29/18 05:30 RBC 3.61 M/mm3 (3.60-5.2) 08/29/18 05:30 Hgb 12.0 GM/dL (10.7-15.3) 08/29/18 05:30 Hct 33.7 % (32.4-45.2) 08/29/18 05:30 MCV 93.3 fl (80-96) 08/29/18 05:30 MCHC 35.5 g/dl (32.0-36.0) 08/29/18 05:30 RDW 15.1 % (11.6-15.6) 08/29/18 05:30 Plt Count 388 K/MM3 (134-434) 08/29/18 05:30 MPV 7.3 fl (7.5-11.1) L 08/29/18 05:30 CMP Sodium 137 mmol/L (136-145) 08/29/18 05:30 Potassium 3.8 mmol/L (3.5-5.1) 08/29/18 05:30 Chloride 103 mmol/L (98-107) 08/29/18 05:30 Carbon Dioxide 26 mmol/L (21-32) 08/29/18 05:30 Anion Gap 7 MMOL/L (8-16) L 08/29/18 05:30 BUN 24 mg/dL (7-18) H 08/29/18 05:30 Creatinine 1.0 mg/dL (0.55-1.3) 08/29/18 05:30 Creat Clearance w eGFR 53.35 (>60) 08/29/18 05:30 Random Glucose 83 mg/dL (74-106) 08/29/18 05:30 Calcium 8.7 mg/dL (8.5-10.1) 08/29/18 05:30 Total Bilirubin 0.3 mg/dL (0.2-1) 08/28/18 21:50 AST 29 U/L (15-37) 08/28/18 21:50 ALT 12 U/L (13-61) L 08/28/18 21:50 Alkaline Phosphatase 87 U/L (45-117) 08/28/18 21:50 Total Protein 7.0 g/dl (6.4-8.2) 08/28/18 21:50 Albumin 3.5 g/dl (3.4-5.0) 08/28/18 21:50 CARDIAC ENZYMES Creatine Kinase 163 IU/L (26-192) 08/30/18 09:15 Troponin I 0.02 ng/ml (0.00-0.05) 08/30/18 09:15 Laboratory Results - last 24 hr 08/30/18 09:15 Phosphorus 2.6 Magnesium 2.1 Creatine Kinase 163 Creatine Kinase Index 1.2 CK-MB (CK-2) 2.1 Troponin I 0.02 Active Medications Generic Name Dose Route Start Last Admin Trade Name Hussein PRN Reason Stop Dose Admin Amlodipine Besylate 10 mg 08/29/18 10:00 08/30/18 09:21 Norvasc - PO 10 mg DAILY ALTHEA Administration Carbidopa/Levodopa 1 each 08/29/18 10:00 08/30/18 09:21 Sinemet 25/100 - PO 1 each BID ALTHEA Administration Heparin Sodium (Porcine) 5,000 unit 08/29/18 06:00 08/30/18 14:55 Heparin - SQ 5,000 unit TID ALTHEA Administration Sodium Chloride 1,000 mls @ 42 mls/hr 08/29/18 02:00 08/30/18 06:13 Normal Saline - IV 42 mls/hr ASDIR ALTHEA Administration ASSESSMENT/PLAN: 82 Y/O F W HTN, hyperlipidemia, pacemaker, Parkinson disease, dementia P/W after fall from her wheelchair, had new PVCS on the EKG , TTE done today with no wall motion abnormalities and cardia markers were stable and F/U EKG was no change, will keep the Mg >2, k>4. 1. Acute kidney injury: has improved has good urine out put, will check BMP tomorrow 2. Left leg swelling:negative for DVT - Venous doppler to evaluate for DVT 3. HTN - Continue Norvasc 4. Hyperlipidemia - Continue Lipitor 5. Parkinson disease - Continue Sinemet 6. Dementia Visit type - Emergency Visit Emergency Visit: No - New Patient This patient is new to me today: No - Critical Care Critical Care patient: No - Discharge Referral Referred to [facility] Med P.C[facility] No
[2018-08-30 20:26] LABS: ANION GAP 7 MMOL/L (8-16); BLOOD UREA NITROGEN 18 mg/dL (7-18); CALCIUM 8.9 mg/dL (8.5-10.1); CHLORIDE 104 mmol/L (98-107); CO2 26 mmol/L (21-32); CREATININE 0.9 mg/dL (0.55-1.3); GLUCOSE,RANDOM 143 mg/dL (74-106); POTASSIUM 4.1 mmol/L (3.5-5.1); SODIUM 137 mmol/L (136-145)
[2018-08-31] MEDS: HEPARIN NA (PORCINE) 5,000 UNITS/ML 1ML VIAL SQ SCH ×3 (06:06→21:49)
[2018-08-31] MEDS: SODIUM CHLORIDE 1,000 ML IV SCH ×2 (06:06→09:32)
[2018-08-31] MEDS: amLODIPine BESYLATE 10 MG TABLET (FP) PO SCH (09:31)
[2018-08-31] MEDS: CARBIDOPA/LEVODOPA 25/100 TABLET (FP) PO SCH ×2 (09:31→21:49)
[2018-08-31 10:50] LABS: ANION GAP 9 MMOL/L (8-16); BLOOD UREA NITROGEN 15 mg/dL (7-18); CALCIUM 8.6 mg/dL (8.5-10.1); CHLORIDE 105 mmol/L (98-107); CO2 24 mmol/L (21-32); CREATININE 0.9 mg/dL (0.55-1.3); GLUCOSE,RANDOM 140 mg/dL (74-106); POTASSIUM 3.6 mmol/L (3.5-5.1); SODIUM 139 mmol/L (136-145)
--- NOTE | 2018-08-31 14:07 | HOSP ---
Subjective - Review of Symptoms Events since last encounter: she feels better no distress she has no sob no fever or chills General: No: Chills, Night Sweats, Fatigue, Malaise, Appetite, Other HEENT: No: Head Aches, Visual Changes, Eye Pain, Ear Pain, Dysphasia, Sinus Congestion, Post Nasal Drip, Sore Throat, Other Pulmonary: No: Dyspnea, Cough, Pleuritic Chest Pain, Other Cardiovascular: No: Chest Pain, Palpitations, Orthopnea, Paroxysmal Noc. Dyspnea , Edema, Light Headedness, Other Gastrointestinal: No: Nausea, NOSYM, Vomiting, Abdominal Pain, Diarrhea, Constipation, Melena, Hematochezia, Other Genitourinary: No: Dysuria, NOSYM, Frequency, Incontinence, Hematuria, Retention , Other Musculoskeletal: No: No Symptoms, Back Pain, Crepitus, Decreased ROM, Extremity Pain, Joint Pain, Joint Swelling, Muscle Pain, Muscle Cramps, Muscle Weakness, Other Neurological: No: Weakness, Numbness, Incoordination, Change in speech, Confusion, Seizures, Other Physical Examination Vital Signs: Vital Signs Temperature 97.9 F 08/31/18 10:00 Pulse Rate 81 08/31/18 10:00 Respiratory Rate 20 08/31/18 10:00 Blood Pressure 110/64 08/31/18 10:00 O2 Sat by Pulse Oximetry (%) 96 08/31/18 08:42 Constitutional: Yes: No Distress Eyes: Yes: Conjunctiva Clear Neck: Yes: Supple Cardiovascular: Yes: Regular Rate and Rhythm Respiratory: Yes: Regular Gastrointestinal: Yes: Normal Bowel Sounds Edema: Yes Edema: LLE: 2+, RLE: 2+ Neurological: Yes: Alert, Oriented (non focal) Labs: CBC, BMP 08/29/18 05:30 08/31/18 09:50 Hospitalist Encounter Assessment: Current Medications Amlodipine Besylate (Norvasc -) 10 mg PO DAILY [facility] Last Admin: 08/31/18 09:31 Dose: 10 mg Carbidopa/Levodopa (Sinemet 25/100 -) 1 each PO BID [facility] Last Admin: 08/31/18 09:31 Dose: 1 each Heparin Sodium (Porcine) (Heparin -) 5,000 unit SQ TID [facility] Last Admin: 08/31/18 13:58 Dose: 5,000 unit Sodium Chloride (Normal Saline -) 1,000 mls @ 42 mls/hr IV ASDIR ALTHEA Last Admin: 08/31/18 09:32 Dose: 42 mls/hr 82 Y/O F W HTN, hyperlipidemia, pacemaker, Parkinson disease, dementia P/W after fall from her wheelchair, had new PVCS on the EKG , TTE ,with no wall motion abnormalities and cardia markers were stable 1. Acute kidney injury: has improved 2. Left leg swelling:negative for DVT -getting better 4. Hyperlipidemia - Continue Lipitor 5. Parkinson disease - Continue Sinemet 6. Dementia stat physical therapy
[2018-09-01] MEDS: HEPARIN NA (PORCINE) 5,000 UNITS/ML 1ML VIAL SQ SCH ×2 (06:50→15:00)
[2018-09-01] MEDS: SODIUM CHLORIDE 1,000 ML IV SCH (07:09)
[2018-09-01] MEDS: amLODIPine BESYLATE 10 MG TABLET (FP) PO SCH (10:06)
[2018-09-01] MEDS: CARBIDOPA/LEVODOPA 25/100 TABLET (FP) PO SCH (10:06)
--- NOTE | 2018-09-01 10:32 | DS ---
Physical Exam: SUBJECTIVE: Patient seen and examined OBJECTIVE:This is an 82 year old woman with a history of HTN, hyperlipidemia, pacemaker, Parkinson disease, dementia who comes to the ED after falling from her wheelchair at home. The patient is unable to provide a history. She cannot say if she lost consciousness or hit her head. Her only complaint is that her left leg is sore. Vital Signs Period Temp Pulse Resp BP Sys/Moore Pulse Ox Last 24 Hr 97.8 F-98.3 F 76-81 20-20 115-119/63-66 94-95 PHYSICAL EXAM GENERAL: The patient is awake, alert, and fully oriented, in no acute distress. HEAD: Normal with no signs of trauma. EYES: PERRL, extraocular movements intact, sclera anicteric, conjunctiva clear. ENT: Ears normal, nares patent, oropharynx clear without exudates, moist mucous membranes. NECK: Trachea midline, full range of motion, supple. LUNGS: Breath sounds equal, clear to auscultation bilaterally, no wheezes, no crackles, no accessory muscle use. HEART: Regular rate and rhythm, S1, S2 without murmur, rub or gallop. ABDOMEN: Soft, nontender, nondistended, normoactive bowel sounds, no guarding, no rebound, no hepatosplenomegaly, no masses. EXTREMITIES: 2+ pulses, warm, well-perfused, no edema. NEUROLOGICAL: Cranial nerves II through XII grossly intact. Normal speech, gait not observed. PSYCH: Normal mood, normal affect. SKIN: Warm, dry, normal turgor, no rashes or lesions noted. LABS Laboratory Results - last 24 hr 08/31/18 09:50 Sodium 139 Potassium 3.6 Chloride 105 Carbon Dioxide 24 Anion Gap 9 BUN 15 Creatinine 0.9 Creat Clearance w eGFR > 60 Current Medications Amlodipine Besylate (Norvasc -) 10 mg PO DAILY [facility] Last Admin: 09/01/18 10:06 Dose: 10 mg Carbidopa/Levodopa (Sinemet 25/100 -) 1 each PO BID [facility] Last Admin: 09/01/18 10:06 Dose: 1 each Random Glucose 140 H Calcium 8.6 HOSPITAL COURSE: Date of Admission:08/29/18 Date of Discharge: 09/01/18 Hospital course she was given iv fluids and oral abx and she is much improved.He creatinine is back to normal no change in her medications and she is going home with 24 hrs care d/w registered nurse hh case manager at the hospital and her home care agency time spent 35 mins Discharge Summary Reason For Visit: ACUTE KIDNEY INJURY Current Active Problems LAUREN (acute kidney injury) (Acute) - Instructions Referrals: Obdulio Lane MD [Primary Care Provider] - Disposition: VNS/HOME HEALTH CARE - Home Medications Comprehensive Discharge Medication List: Ambulatory Orders Gabapentin [Neurontin -] 100 mg PO HS #0 capsule 10/02/14 Carbidopa/Levodopa [Carbidopa-Levo 25-100 Tab] 1 each PO BID 12/26/14 Aspirin [Aspirin EC] 81 mg PO DAILY 04/06/17 Cholecalciferol (Vitamin D3) [Vitamin D3 -] 1,000 unit PO DAILY 04/06/17 Atorvastatin Ca [Lipitor] 10 mg PO HS #30 tablet 05/08/18 Amlodipine Besylate [Norvasc -] 10 mg PO DAILY tablet 09/01/18 - Discharge Referral Referred to [facility] No
[2018-09-01 16:34] VITALS: BP 105/64; PULSE 82; TEMP 98.5
== END 2018-09-01 16:27 | disposition home health service (06) ==
LOC: JER 20:06 → JERBED 08-29 01:00 → J6S 08-29 11:46
PROVIDERS: ADMIT Internal Medicine; ATTEND Internal Medicine
PROC: 3E0337Z Introduction of Electrolytic and Water Balance Substance into Peripheral Vein, Percutaneous Approach (ICD-10-PCS; principal; 2018-08-29)
PROC: 3E013GC Introduction of Other Therapeutic Substance into Subcutaneous Tissue, Percutaneous Approach (ICD-10-PCS; 2018-08-29)
DX: N17.9 Acute kidney failure, unspecified (principal); M79.89 Other specified soft tissue disorders; I10 Essential (primary) hypertension; E78.5 Hyperlipidemia, unspecified; E03.9 Hypothyroidism, unspecified; G20 Parkinson's disease; F02.80 Dementia in other diseases classified elsewhere, unspecified severity, without behavioral disturbance, psychotic disturbance, mood disturbance, and anxiety; D64.89 Other specified anemias; I44.7 Left bundle-branch block, unspecified; T14.90XA Injury, unspecified, initial encounter; W05.0XXA Fall from non-moving wheelchair, initial encounter; Z91.81 History of falling; Y93.89 Activity, other specified; Y92.9 Unspecified place or not applicable; Z95.0 Presence of cardiac pacemaker
CPT/HCPCS: 36415; 70450-TC; 71045-TC-FY; 71250-TC; 80048; 80053; 81003; 81015; 82550; 82553; 83735; 83880; 84100; 84484; 85025; 85027; 85610; 85730; 93005; 93010; 93306-TC; 93971-TC; 96372; 97161-GP; 99283-25; G0378; J1644; J7030

== ENCOUNTER 2018-12-25 11:59 | Emergency (ER) | payer OTHER, MEDICARE ==
[2018-12-25 12:29] VITALS: BP 115/65; PULSE 68; TEMP 97.2; BMI 21.2
[2018-12-25 12:46] LABS: BASO % 0.7 % (0-2.0); EOS % 2.4 % (0-4.5); HEMATOCRIT 38.9 % (32.4-45.2); LYMPH % 13.8 % (8-40); MCH 31.1 pg (25.7-33.7); MCHC 33.3 g/dl (32.0-36.0); MEAN CELL VOLUME 93.3 fl (80-96); MEAN PLT VOLUME 7.6 fl (7.5-11.1); MONO % 6.3 % (3.8-10.2); NEUT % 76.8 % (42.8-82.8); PLATELET COUNT 425 K/MM3 (134-434); RBC 4.17 M/mm3 (3.60-5.2); RDW 14.5 % (11.6-15.6); WHITE BLOOD COUNT 7.2 K/mm3 (4.0-10.0)
--- NOTE | 2018-12-25 12:51 | PDOC ---
History of Present Illness - General Chief Complaint: Syncope/Near Syncope Stated Complaint: Syncope/Near Syncope Time Seen by Provider: 12/25/18 12:19 - History of Present Illness Initial Comments: Alida Benjamin is an 83yo woman with a PMH of Parkinson's, dementia, HTN, HLD, s/ p pacemaker, wheelchair-bound who presents following an episode of unresponsiveness, per her home delivery driver. Ms Benjamin reports that she does not remember the incident, but she states that she feels in her normal state of health currently. She says nothing is bothering her, and denies pain. According to the aide, Ms Benjamin appeared to be feeling well this morning. She ate her entire breakfast and took her medications. The aide states that Ms Benjamin generally "dozes off" after breakfast. Today, though, when she went to ask the pt if she was finished eating, Ms Benjamin did not respond, which the aide says is unusual. She also had an episode of vomiting. After about 10 minutes, Ms Benjamin was again acting normally. The aide is not aware of any recent symptoms, though she has been off for the past 3 days. Past History - Past Medical History Allergies/Adverse Reactions: Allergies Allergy/AdvReac Type Severity Reaction Status Date / Time amoxicillin [Amoxicillin] Allergy Unknown Verified 08/28/18 23:56 loracarbef [From Lorabid] Allergy Unknown Verified 08/28/18 23:56 prochlorperazine edisylate Allergy Unknown Verified 08/28/18 23:56 [From Compazine] prochlorperazine maleate Allergy Unknown Verified 08/28/18 23:56 [From Compazine] promethazine HCl Allergy Unknown Verified 08/28/18 23:56 [From Phenergan] Home Medications: Ambulatory Orders Gabapentin [Neurontin -] 100 mg PO HS #0 capsule 10/02/14 Carbidopa/Levodopa [Carbidopa-Levo 25-100 Tab] 1 each PO BID 12/26/14 Aspirin [Aspirin EC] 81 mg PO DAILY 04/06/17 Cholecalciferol (Vitamin D3) [Vitamin D3 -] 1,000 unit PO DAILY 04/06/17 Atorvastatin Ca [Lipitor] 10 mg PO HS #30 tablet 05/08/18 Amlodipine Besylate [Norvasc -] 10 mg PO DAILY tablet 09/01/18 Anemia: Yes (normocytic normochromic anemia) Asthma: No Cancer: No Cardiac Disorders: Yes (LBBB) CVA: Yes COPD: No CHF: No DVT: No Dementia: Yes Diabetes: No GI Disorders: No Disorders: Yes (UTI) HTN: Yes Hypercholesterolemia: Yes Liver Disease: No Seizures: Yes Thyroid Disease: Yes (HYPOTHYROIDISM) - Surgical History Abdominal Surgery: No Appendectomy: No Cardiac Surgery: Yes (PPM) Cholecystectomy: No Lung Surgery: No Neurologic Surgery: No Orthopedic Surgery: No - Immunization History Immunization Up to Date: Yes - Suicide/Smoking/Psychosocial Hx Smoking Status: No Smoking History: Never smoked Have you smoked in the past 12 months: No Number of Cigarettes Smoked Daily: 0 Hx Alcohol Use: No Drug/Substance Use Hx: No Substance Use Type: None Hx Substance Use Treatment: No Review of Systems - Review of Systems Comments:: Could not accurately obtain due to dementia. Per aide, no recent symptoms *Physical Exam - Vital Signs Last Vital Signs Temp Pulse Resp BP Pulse Ox 97.2 F L 68 18 115/65 100 12/25/18 12:26 12/25/18 12:26 12/25/18 12:26 12/25/18 12:26 12/25/18 12:26 - Physical Exam Comments: General: Frail, no acute distress HEENT: Atraumatic, PERRL, EOMI, MMM, voice normal Cards: RRR, +systolic murmur Pulm: Comfortable on room air, clear to auscultation bilaterally Abd: Soft, nontender, nondistended Ext: Atraumatic. No LE edema. Vasc: Extremities WWP. Skin: Normal color, no rashes or lesions Neuro: Awake, appropriately responsive, CN grossly intact, normal speech, motor/ sensory grossly intact and symmetric ED Treatment Course - LABORATORY CBC & Chemistry Diagram: 12/25/18 12:30 12/25/18 12:30 - RADIOLOGY Radiology Studies Ordered: Category Date Time Status CHEST PA & LAT [RAD] Stat Radiology 12/25/18 12:26 Ordered Medical Decision Making - Medical Decision Making 12/25/18 12:42 Alida Benjamin is an 83yo woman with a PMH of Parkinson's, dementia, HTN, HLD, s/ p pacemaker, wheelchair-bound who was BIBA for evaluation of unusual unresponsiveness witnessed by her home delivery driver. She is now back to baseline. - No fall or trauma - Currently no symptoms. No report of recent fever, infection, or any other symptoms. One episode of vomiting after breakfast, but no current nausea. - Aide reports that Ms Benjamin often sleeps after breakfast. Unclear how this is different than normal napping - CBC, CMP, trop, EKG for evaluation 12/25/18 14:40 - EKG w/ NSR, left asix, HR 74, normal intervals. Nonspecific t-wave changes seen on previous EKG from August - Labs reviewed. No concerning abnormalities - CXR completed, reviewed. No acute changes appreciated. Radiology read pending. 12/25/18 14:53 - Xray reviewed w/ Dr Ghotra. Will d/c home Seen/discussed with Dr Ghotra. Jeimy Burnham PGY1 *DC/Admit/Observation/Transfer Diagnosis at time of Disposition: Slowness and poor responsiveness - Discharge Dispostion Disposition: HOME Condition at time of disposition: Stable Decision to Admit order: No - Referrals Referrals: Chastity Alvarez [Staff Physician] - - Patient Instructions Additional Instructions: Discharge Instructions: You were seen in the ED for an episode of poor responsiveness today. You had blood tests, an EKG and a chest xray. There were no concerning findings. Please continue to take all of your regular medications as prescribed. Make an appointment to follow up with your regular doctor within the next week. Seek immediate care for any difficulty breathing, chest pain, change in mental status, neurological symptoms, or any other medical emergency. - Post Discharge Activity
--- NOTE | 2018-12-25 13:04 | PDOC ---
Documentation entered by Gilma Longoria SCRIBE, acting as scribe for Radha Ghotra MD. Radha Ghotra MD: This documentation has been prepared by the mimiibe, Gilma Longoria SCRIBE, under my direction and personally reviewed by me in its entirety. I confirm that the documentation accurately reflects all work, treatment, procedures, and medical decision making performed by me. Attending Attestation - Resident Resident Name: Jeimy Burnham - ED Attending Attestation I have performed the following: I have examined & evaluated the patient, The case was reviewed & discussed with the resident, I agree w/resident's findings & plan, Exceptions are as noted - HPI HPI: 12/25/18 12:55 83 year old female with past medical history of hypertension, hyperlipidemia and Parkinsonism who arrives to the ED via EMS from home for an episode of unresponsiveness this morning. As per aide, patient ate her breakfast and her aid called for her, but noticed she was slumped over in her chair not responding. She immediately awoke and vomited. Patient is known to usually take a nap after breakfast. In the ED, patient is asymptomatic. No fever or chills. PCP: Dr. Lane - Physicial Exam PE: 12/25/18 13:03 GENERAL: The patient is in no acute distress, frail appearing. ENT: Ears normal, nares patent, oropharynx clear without exudates. Moist mucous membranes. NECK: Normal range of motion, supple LUNGS: Breath sounds equal, clear to auscultation bilaterally. No wheezes, and no crackles. HEART: Regular rate and rhythm, MARKO aortic position ABDOMEN: Soft, nontender, normoactive bowel sounds. EXTREMITIES: Normal range of motion, no edema. NEUROLOGICAL: Cranial nerves II through XII grossly intact. Normal speech. No focal neurological deficits. SKIN: Warm, Dry, normal turgor, no rashes or lesions noted. - Medical Decision Making 12/25/18 12:52 83 yo F presenting to the ER with [employer] due to ? syncopal episode Pt s/p lunch was noted to be "sleeping" or difficulty to arouse Pt was noted to be this way for approximately 20 minutes EMS called, pt was at her baseline HR was reportedly low In the ER, the patient is awake and alert Answers questions appropriately (speaks with a low voice) HR regular MARKO aortic position 3/6 Lungs clear No abdominal tenderness No lower extremity edema Per [employer], pt is at her baseline Will do: Labs EKG CXR Will re Assess Likely discharge to home 12/25/18 13:03 EKG - NSR rate of 74 bpm, LAD, no st elevation or depression, 12/25/18 14:09 Labs: CBC - 7.2/13/38.9/425/ CMP - 137/4.3/101/27/22/1.0 Trop <0.02 CXR- no acute cardiopulmonary pathology Anticipate discharge
[2018-12-25 13:53] LABS: ALBUMIN 3.8 g/dl (3.4-5.0); ALK PHOS 73 U/L (45-117); ANION GAP 9 MMOL/L (8-16); BILIRUBIN,TOTAL 0.4 mg/dL (0.2-1); BLOOD UREA NITROGEN 22 mg/dL (7-18); CALCIUM 9.8 mg/dL (8.5-10.1); CHLORIDE 101 mmol/L (98-107); CO2 27 mmol/L (21-32); GLUCOSE,RANDOM 100 mg/dL (74-106); POTASSIUM 4.3 mmol/L (3.5-5.1); SGOT/AST 33 U/L (15-37); SGPT/ALT 12 U/L (13-61); SODIUM 137 mmol/L (136-145); TOT PROT 7.1 g/dl (6.4-8.2)
--- NOTE | 2018-12-26 14:29 | EKG ---
Test Reason : Blood Pressure : / mmHG Vent. Rate : 074 BPM Atrial Rate : 074 BPM P-R Int : 158 ms QRS Dur : 118 ms QT Int : 422 ms P-R-T Axes : -09 -33 101 degrees QTc Int : 468 ms POOR DATA QUALITY, INTERPRETATION MAY BE ADVERSELY AFFECTED NORMAL SINUS RHYTHM LEFT BUNDLE BRANCH BLOCK ABNORMAL ECG Confirmed by JEB HOLBROOK MD ([id number]) on 12/26/2018 2:28:59 PM Referred By: Confirmed By:JEB HOLBROOK MD
== END 2018-12-25 16:26 | disposition home or self-care (01) ==
LOC: SUPCPDRO 11:59 → JER 11:59
DX: R46.4 Slowness and poor responsiveness (principal); G20 Parkinson's disease; F02.80 Dementia in other diseases classified elsewhere, unspecified severity, without behavioral disturbance, psychotic disturbance, mood disturbance, and anxiety; I10 Essential (primary) hypertension; E78.5 Hyperlipidemia, unspecified; Z95.0 Presence of cardiac pacemaker
CPT/HCPCS: 36415; 71046-TC-FY; 80053; 82550; 84484; 85025; 93005; 93010; 99282-25

== ENCOUNTER 2021-07-06 17:08 | Observation (INO) | payer OTHER, MEDICARE ==
[2021-07-06 18:31] VITALS: BMI 22.1
[2021-07-06] MEDS ORDERED: DOCUSATE SODIUM 100 MG CAPSULE (FP) PO SCH (22:00)
[2021-07-06] MEDS ORDERED: CARBIDOPA/LEVODOPA 25/100 TABLET (FP) PO SCH (22:00)
[2021-07-06] MEDS ORDERED: ATORVASTATIN CA 20 MG TABLET (FP) PO SCH (22:00)
[2021-07-07] MEDS ORDERED: LOCK ITEM NR ONE (01:26)
[2021-07-07] MEDS: HEPARIN NA (PORCINE) 5,000 UNITS/ML 1ML VIAL SQ SCH ×2 (06:09→14:35)
[2021-07-07] MEDS: CARBIDOPA/LEVODOPA 25/100 TABLET (FP) PO SCH ×2 (06:09→14:35)
[2021-07-07] MEDS ORDERED: ASPIRIN COATED 81 MG TABLET.EC PO SCH (10:00)
[2021-07-07 13:59] VITALS: BP 128/70; PULSE 71; TEMP 98.5
== END 2021-07-07 15:00 | disposition home or self-care (01) ==
LOC: FER 17:08 → FM/S 23:25
PROVIDERS: ADMIT Internal Medicine; ATTEND Nurse Practitioner Acute Care
PROC: 3E023GC Introduction of Other Therapeutic Substance into Muscle, Percutaneous Approach (ICD-10-PCS; principal; 2021-07-06)
DX: Z04.89 Encounter for examination and observation for other specified reasons (principal); F02.80 Dementia in other diseases classified elsewhere, unspecified severity, without behavioral disturbance, psychotic disturbance, mood disturbance, and anxiety; I11.0 Hypertensive heart disease with heart failure; G31.83 Neurocognitive disorder with Lewy bodies; Z95.0 Presence of cardiac pacemaker; Z99.3 Dependence on wheelchair; E78.5 Hyperlipidemia, unspecified; D64.9 Anemia, unspecified; I44.7 Left bundle-branch block, unspecified; N39.0 Urinary tract infection, site not specified; E78.00 Pure hypercholesterolemia, unspecified; E03.9 Hypothyroidism, unspecified; Z88.8 Allergy status to other drugs, medicaments and biological substances; Z29.9 Encounter for prophylactic measures, unspecified
CPT/HCPCS: 96372; 99285-25; C9803; G0378; J1644; U0003; U0005

== ENCOUNTER 2022-08-28 08:12 | Inpatient (IN) | payer OTHER, MEDICARE ==
[2022-08-28 09:31] LABS: HEMATOCRIT 35.3 % (32.4-45.2); MCH 34.2 pg (25.7-33.7); MCHC 34.1 g/dl (32.0-36.0); MEAN CELL VOLUME 100.4 fl (80-96); MEAN PLT VOLUME 7.6 fl (7.5-11.1); PLATELET COUNT 368.7 10^3/uL (134-434); RBC 3.52 10^6/uL (3.60-5.2); RDW 15.8 % (11.6-15.6); WHITE BLOOD COUNT 6.2 10^3/uL (4.0-10.8)
[2022-08-28] MEDS ORDERED: VANCOMYCIN 1 GM in D5W (PRE-DOCKED) 1,000 MG/250 ML IVPB ONE (09:46)
[2022-08-28] MEDS ORDERED: ACETAMINOPHEN 1000 MG/100 ML BAG IVPB ONE (09:47)
[2022-08-28] MEDS ORDERED: SODIUM CHLORIDE 0.9% 1000 ML INFUS.BAG IV ONE (09:47)
[2022-08-28] MEDS ORDERED: AZTREONAM 1 GM in DEXTROSE 5%-WATER - 50 ML IVPB ONE (09:47)
[2022-08-28] MEDS ORDERED: VANCOMYCIN 1,000 MG VIAL (RESTRICTED TO ID ONLY) ONE (09:50)
[2022-08-28 10:27] LABS: ALBUMIN 2.8 g/dl (3.4-5.0); BILIRUBIN,TOTAL 0.9 mg/dl (0.2-1); CALCIUM 8.4 mg/dl (8.5-10); CREATININE 0.4 mg/dl (0.55-1.3); MAGNESIUM 1.6 mg/dL (1.8-2.4); TOT PROT 5.1 g/dl (6.4-8.2)
[2022-08-28] MEDS ORDERED: MAGNESIUM SULF 50% (8.12 MEQ/2 ML-1 GM VIAL) IVPB ONE (10:39)
[2022-08-28 10:47] LABS: ACTIVATED PTT 28.7 SECONDS (25.2-36.5); INR 0.97 (0.83-1.09); PROTHROMBIN TIME (PATIENT) 11.1 SEC (9.7-13.0)
[2022-08-28] MEDS ORDERED: ACETAMINOPHEN INJECTION 100 ML IVPB ONE (11:00)
[2022-08-28] MEDS ORDERED: MAGNESIUM 1GM/D5W - 1 GM/100 ML IVPB IVPB ONE (11:00)
[2022-08-28 11:03] LABS: EPITHELIAL CELLS FEW /hpf
[2022-08-28 11:04] LABS: CALCIUM OXALATE CRYSTALS MANY /hpf (NONE SEEN)
[2022-08-28] MEDS ORDERED: SODIUM CHLORIDE 1,000 ML IV SCH (15:30)
[2022-08-28] MEDS ORDERED: ACETAMINOPHEN 1000 MG/100 ML BAG IVPB PRN (16:00)
[2022-08-28 16:05] VITALS: BMI 14.8
[2022-08-28] MEDS: CEFTRIAXONE 1 GM in DEXTROSE 5%-WATER - 50 ML IVPB SCH (16:44)
[2022-08-28] MEDS: CARBIDOPA/LEVODOPA 25/100 TABLET (FP) PO SCH (21:22)
[2022-08-28] MEDS ORDERED: REFRIGERATED ANITBIOTICS ONE (21:59)
[2022-08-29] MEDS: CARBIDOPA/LEVODOPA 25/100 TABLET (FP) PO SCH ×4 (02:14→21:07)
[2022-08-29 08:33] LABS: ALBUMIN 2.8 g/dl (3.4-5.0); BILIRUBIN,TOTAL 0.8 mg/dl (0.2-1); CALCIUM 8.7 mg/dl (8.5-10); CREATININE 0.4 mg/dl (0.55-1.3); MAGNESIUM 1.9 mg/dL (1.8-2.4); TOT PROT 5.3 g/dl (6.4-8.2)
[2022-08-29 10:10] LABS: BASO % 0.5 % (0-2.0); EOS % 0.3 % (0-4.5); HEMATOCRIT 34.2 % (32.4-45.2); HEMOGLOBIN 11.4 GM/dL (10.7-15.3); LYMPH % 8.6 % (8-40); MCH 33.6 pg (25.7-33.7); MCHC 33.4 g/dl (32.0-36.0); MEAN CELL VOLUME 100.6 fl (80-96); MEAN PLT VOLUME 7.5 fl (7.5-11.1); MONO % 5.4 % (3.8-10.2); NEUT % 85.2 % (42.8-82.8); PLATELET COUNT 368 10^3/uL (134-434); RDW 15.5 % (11.6-15.6); WHITE BLOOD COUNT 7.5 K/mm3 (4.0-10.0)
[2022-08-29] MEDS: ENOXAPARIN NA (PORCINE) 40 MG/0.4 ML DISP.SYRIN SQ SCH (10:36)
[2022-08-29] MEDS: CEFTRIAXONE 1 GM in DEXTROSE 5%-WATER - 50 ML IVPB SCH (10:36)
[2022-08-29] MEDS: POTASSIUM CHLORIDE 10 MEQ in SODIUM CHLORIDE 1,000 ML IV SCH (14:00)
[2022-08-30] MEDS: CARBIDOPA/LEVODOPA 25/100 TABLET (FP) PO SCH ×3 (06:19→21:30)
[2022-08-30 08:58] LABS: ALBUMIN 2.5 g/dl (3.4-5.0); BILIRUBIN,TOTAL 1.1 mg/dl (0.2-1); CALCIUM 8.5 mg/dl (8.5-10); CREATININE 0.5 mg/dl (0.55-1.3); TOT PROT 4.5 g/dl (6.4-8.2)
[2022-08-30] MEDS: CEFTRIAXONE 1 GM in DEXTROSE 5%-WATER - 50 ML IVPB SCH (09:35)
[2022-08-30] MEDS: ENOXAPARIN NA (PORCINE) 40 MG/0.4 ML DISP.SYRIN SQ SCH (09:37)
[2022-08-30] MEDS: POTASSIUM CHLORIDE 10 MEQ in SODIUM CHLORIDE 1,000 ML IV SCH (15:30)
[2022-08-31] MEDS: CARBIDOPA/LEVODOPA 25/100 TABLET (FP) PO SCH ×3 (06:49→21:18)
[2022-08-31] MEDS: CEFTRIAXONE 1 GM in DEXTROSE 5%-WATER - 50 ML IVPB SCH (09:54)
[2022-08-31] MEDS: ENOXAPARIN NA (PORCINE) 40 MG/0.4 ML DISP.SYRIN SQ SCH (09:54)
[2022-08-31] MEDS: POTASSIUM CHLORIDE 10 MEQ in SODIUM CHLORIDE 1,000 ML IV SCH (17:32)
[2022-08-31] MEDS ORDERED: ACETAMINOPHEN 1000 MG/100 ML BAG IVPB ONE (23:55)
[2022-09-01] MEDS: CARBIDOPA/LEVODOPA 25/100 TABLET (FP) PO SCH ×3 (06:04→21:31)
[2022-09-01 08:31] LABS: ALBUMIN 2.8 g/dl (3.4-5.0); BILIRUBIN,TOTAL 1.4 mg/dl (0.2-1); CALCIUM 8.9 mg/dl (8.5-10); CREATININE 0.5 mg/dl (0.55-1.3)
[2022-09-01] MEDS: CEFTRIAXONE 1 GM in DEXTROSE 5%-WATER - 50 ML IVPB SCH (09:34)
[2022-09-01] MEDS: ENOXAPARIN NA (PORCINE) 40 MG/0.4 ML DISP.SYRIN SQ SCH (09:34)
[2022-09-01] MEDS: KCL 10 MEQ IVPB 10 MEQ/100 ML INFUS.BAG IVPB SCH ×3 (13:50→15:11)
[2022-09-02] MEDS: CARBIDOPA/LEVODOPA 25/100 TABLET (FP) PO SCH ×3 (06:58→21:22)
[2022-09-02 08:30] LABS: ALBUMIN 2.8 g/dl (3.4-5.0); BILIRUBIN,TOTAL 1.5 mg/dl (0.2-1); CALCIUM 9.2 mg/dl (8.5-10); CREATININE 0.6 mg/dl (0.55-1.3); TOT PROT 5.1 g/dl (6.4-8.2)
[2022-09-02] MEDS ORDERED: POTASSIUM CHLORIDE 20 MEQ PREMIX IVPB 100 ML IVPB ONE ×2 (09:48→09:50)
[2022-09-02] MEDS: CEFTRIAXONE 1 GM in DEXTROSE 5%-WATER - 50 ML IVPB SCH (10:35)
[2022-09-02] MEDS: ENOXAPARIN NA (PORCINE) 40 MG/0.4 ML DISP.SYRIN SQ SCH (10:36)
[2022-09-02] MEDS: POTASSIUM CHLORIDE 10 MEQ in SODIUM CHLORIDE 1,000 ML IV SCH (13:22)
[2022-09-02] MEDS: KCL 10 MEQ IVPB 10 MEQ/100 ML INFUS.BAG IVPB SCH ×3 (13:56→16:49)
[2022-09-03] MEDS: CARBIDOPA/LEVODOPA 25/100 TABLET (FP) PO SCH ×2 (06:00→21:34)
[2022-09-03] MEDS: ENOXAPARIN NA (PORCINE) 40 MG/0.4 ML DISP.SYRIN SQ SCH (09:28)
[2022-09-03] MEDS: CEFTRIAXONE 1 GM in DEXTROSE 5%-WATER - 50 ML IVPB SCH (09:28)
[2022-09-03 09:40] LABS: CALCIUM 8.9 mg/dl (8.5-10); CREATININE 0.5 mg/dl (0.55-1.3)
[2022-09-03] MEDS: KCL 10 MEQ IVPB 10 MEQ/100 ML INFUS.BAG IVPB SCH ×6 (10:49→19:44)
[2022-09-03 11:02] LABS: HEMATOCRIT 31.5 % (32.4-45.2); HEMOGLOBIN 10.5 GM/dL (10.7-15.3); MCH 32.8 pg (25.7-33.7); MCHC 33.3 g/dl (32.0-36.0); MEAN CELL VOLUME 98.6 fl (80-96); MEAN PLT VOLUME 7.8 fl (7.5-11.1); PLATELET COUNT 315 10^3/uL (134-434); RBC 3.19 M/mm3 (3.60-5.2); RDW 15.3 % (11.6-15.6); WHITE BLOOD COUNT 10.4 K/mm3 (4.0-10.0)
[2022-09-03 12:55] LABS: ANISOCYTOSIS 0; HELMET CELLS 0; HOWELL-JOLLY BODIES 0; MACROCYTOSIS 0; OVALOCYTE 0; ROULEAU 0; SICKELED CELLS 0; TARGET CELLS 0; TEAR DROP CELLS 0; TOXIC GRANULATION 0
[2022-09-03 16:51] LABS: CALCIUM 8.6 mg/dl (8.5-10); CREATININE 0.4 mg/dl (0.55-1.3); MAGNESIUM 1.5 mg/dL (1.8-2.4)
[2022-09-03] MEDS ORDERED: MAGNESIUM 1GM/D5W - 1 GM/100 ML IVPB IVPB ONE ×2 (17:43→19:45)
[2022-09-03] MEDS ORDERED: KCL 10 MEQ IVPB 10 MEQ/100 ML INFUS.BAG IVPB SCH (17:45)
[2022-09-03] MEDS: POTASSIUM CHLORIDE 10 MEQ in SODIUM CHLORIDE 1,000 ML IV SCH (21:35)
[2022-09-04] MEDS: CARBIDOPA/LEVODOPA 25/100 TABLET (FP) PO SCH ×4 (06:35→22:26)
[2022-09-04] MEDS: POTASSIUM CHLORIDE 10 MEQ in SODIUM CHLORIDE 1,000 ML IV SCH (08:42)
[2022-09-04 08:57] LABS: CALCIUM 8.7 mg/dl (8.5-10); CREATININE 0.5 mg/dl (0.55-1.3); MAGNESIUM 1.6 mg/dL (1.8-2.4)
[2022-09-04 09:44] LABS: HEMATOCRIT 29.6 % (32.4-45.2); HEMOGLOBIN 9.9 GM/dL (10.7-15.3); MCH 32.7 pg (25.7-33.7); MCHC 33.3 g/dl (32.0-36.0); MEAN PLT VOLUME 8.1 fl (7.5-11.1); PLATELET COUNT 335 10^3/uL (134-434); RBC 3.02 M/mm3 (3.60-5.2); RDW 15.4 % (11.6-15.6); WHITE BLOOD COUNT 13.5 K/mm3 (4.0-10.0)
[2022-09-04 10:28] LABS: ANISOCYTOSIS 0; MACROCYTOSIS 0
[2022-09-04] MEDS: CEFTRIAXONE 1 GM in DEXTROSE 5%-WATER - 50 ML IVPB SCH (10:29)
[2022-09-04] MEDS: ENOXAPARIN NA (PORCINE) 40 MG/0.4 ML DISP.SYRIN SQ SCH (10:29)
[2022-09-04] MEDS ORDERED: MAGNESIUM SULF 50% (8.12 MEQ/2 ML-1 GM VIAL) IVPB ONE (10:52)
[2022-09-04] MEDS ORDERED: POTASSIUM CHLORIDE ORAL LIQUID 20 MEQ/15 ML PO ONE (11:15)
[2022-09-04] MEDS ORDERED: MAGNESIUM SULFATE IN WATER 2 GM/50 ML IVPB IVPB ONE (11:15)
[2022-09-04] MEDS: POTASSIUM CHLORIDE 40 MEQ in SODIUM CHLORIDE 1,000 ML IV SCH (11:38)
[2022-09-04] MEDS: KCL 10 MEQ IVPB 10 MEQ/100 ML INFUS.BAG IVPB SCH ×3 (11:39→14:17)
[2022-09-05] MEDS: CARBIDOPA/LEVODOPA 25/100 TABLET (FP) PO SCH ×2 (07:09→14:04)
[2022-09-05 07:59] LABS: ALBUMIN 2.9 g/dl (3.4-5.0); BILIRUBIN,TOTAL 1.4 mg/dl (0.2-1); CALCIUM 8.4 mg/dl (8.5-10); CREATININE 0.5 mg/dl (0.55-1.3); MAGNESIUM 1.9 mg/dL (1.8-2.4); TOT PROT 5.1 g/dl (6.4-8.2)
[2022-09-05] MEDS: KCL 10 MEQ IVPB 10 MEQ/100 ML INFUS.BAG IVPB SCH ×4 (09:20→13:18)
[2022-09-05] MEDS: ENOXAPARIN NA (PORCINE) 40 MG/0.4 ML DISP.SYRIN SQ SCH (09:54)
[2022-09-05] MEDS: POTASSIUM CHLORIDE 40 MEQ in SODIUM CHLORIDE 1,000 ML IV SCH (13:17)
[2022-09-06 01:32] VITALS: PULSE 104; RESP 19; TEMP 98.3
[2022-09-06 04:54] VITALS: BP 162/91
== END 2022-09-06 06:05 | disposition expired | DRG 137 ==
LOC: FER 08:12 → FM/S 10:44
PROVIDERS: ADMIT Internal Medicine; ATTEND Internal Medicine
DX: J69.0 Pneumonitis due to inhalation of food and vomit (principal); E43 Unspecified severe protein-calorie malnutrition; G93.41 Metabolic encephalopathy; G20 Parkinson's disease; E88.09 Other disorders of plasma-protein metabolism, not elsewhere classified; I50.32 Chronic diastolic (congestive) heart failure; E05.90 Thyrotoxicosis, unspecified without thyrotoxic crisis or storm; I13.0 Hypertensive heart and chronic kidney disease with heart failure and stage 1 through stage 4 chronic kidney disease, or unspecified chronic kidney disease; E87.1 Hypo-osmolality and hyponatremia; R64 Cachexia; F02.80 Dementia in other diseases classified elsewhere, unspecified severity, without behavioral disturbance, psychotic disturbance, mood disturbance, and anxiety; D64.9 Anemia, unspecified; Z95.0 Presence of cardiac pacemaker; Z74.01 Bed confinement status; N39.0 Urinary tract infection, site not specified; R62.7 Adult failure to thrive; Z68.1 Body mass index [BMI] 19.9 or less, adult; E78.5 Hyperlipidemia, unspecified; N18.9 Chronic kidney disease, unspecified; E87.6 Hypokalemia
CPT/HCPCS: 0241U-QW; 36415; 70450-TC; 71045-TC-FY; 80048; 80053; 81003; 81015; 82607; 82746; 83605; 83735; 83880; 84100; 84439; 84443; 84484; 85025; 85027; 85610; 85730; 86850; 86900; 86901; 87040; 87086; 87186; 93005; 93306-TC; 99285-25